=== PATIENT | male | born 1940 | race Caucasian/White ===

== ENCOUNTER 2017-02-21 13:21 | Outpatient (CLI) | payer MEDICARE, OTHER ==
[~2017-02-21 13:21] MED LIST: ASPI-605 PO; ATORVASTATIN TAB 10MG PO; CARV25TA PO; CARV25TA2 PO; CINA30TA PO; CLOP75TA2 PO; DICY20TA11 PO; DILT240C94; IMDUR PO; INSU100C10 SQ; ISOS30TA6 PO; LANT500T2 PO; LUTE20CA PO; NIAC500T8 PO; NIFE60TA69; OMEG10007 PO; PREG25CA PO; RABE20TA5 PO; RESV250C2 PO; SYRI1DIS86; UBIQ200C PO; VALS160T2 PO; VITA1CAP PO; [UNRECOGNIZED DRUG - CODE] PO
== END 2017-02-21 23:59 | disposition home or self-care (01) ==
LOC: VASLAB 13:21
PROVIDERS: ATTEND Surgery Vascular Surgery
DX: Z98.62 Peripheral vascular angioplasty status (principal); Z09 Encounter for follow-up examination after completed treatment for conditions other than malignant neoplasm; Z99.2 Dependence on renal dialysis
CPT/HCPCS: G0463

== ENCOUNTER 2017-06-14 12:26 | Outpatient (CLI) | payer MEDICARE, OTHER | END 2017-06-14 23:59 | disposition home or self-care (01) | LOC: RAD 12:26 | PROVIDERS: ATTEND Podiatrist Foot & Ankle Surgery | DX: M89.8X8 Other specified disorders of bone, other site (principal); M17.12 Unilateral primary osteoarthritis, left knee | CPT/HCPCS: 73590-TC ==

== ENCOUNTER 2017-06-15 10:38 | Outpatient (CLI) | payer MEDICARE, OTHER | END 2017-06-15 23:59 | disposition home or self-care (01) | LOC: WOU 10:38 | PROVIDERS: ATTEND Podiatrist Foot & Ankle Surgery | DX: M25.772 Osteophyte, left ankle (principal); E11.41 Type 2 diabetes mellitus with diabetic mononeuropathy; Z89.411 Acquired absence of right great toe; E11.51 Type 2 diabetes mellitus with diabetic peripheral angiopathy without gangrene; Z98.62 Peripheral vascular angioplasty status; M21.379 Foot drop, unspecified foot; I25.2 Old myocardial infarction | CPT/HCPCS: G0463 ==

== ENCOUNTER 2017-08-04 10:27 | Outpatient (CLI) | payer MEDICARE, OTHER | END 2017-08-04 23:59 | disposition home or self-care (01) | LOC: RAD 10:27 | DX: I51.7 Cardiomegaly (principal); I70.0 Atherosclerosis of aorta; M47.894 Other spondylosis, thoracic region; R91.8 Other nonspecific abnormal finding of lung field | CPT/HCPCS: 71020-TC ==

== ENCOUNTER 2017-08-20 06:33 | Inpatient (IN) | payer MEDICARE, OTHER ==
[~2017-08-20] VITALS: Ht 172.7 cm; Wt 59.0 kg
[2017-08-20] VITALS (51 sets, daily range): BP systolic 93–169; BP diastolic 46–102
--- NOTE | 2017-08-20 06:33 | NUR ---
TO BED 3 BIB C/O SEVERE SOB, CRACKLES HEARD BILATERALLY ON AUSCULTATION. PT AAOX4. PLACE PT ON CARDIAC MONITORING, CONTINUOUS POX, O2@15L/NONREBREATHER MASK. ER MD AT BEDSIDE TO EVAL PT WITH ORDER TO PREP PT FOR INTUBATION. RT PAGED FOR INTUBATION. SKIN WARM, DIAPHORETIC.
--- NOTE | 2017-08-20 06:35 | NUR ---
DR. AYALA AT BEDSIDE; RT CALLED FOR INTUBATION.
[2017-08-20] MEDS ORDERED: SUCCINYLCHOLINE CHLORIDE 20 MG/ML VIAL IV ONE ×2 (06:36→07:00)
[2017-08-20] MEDS ORDERED: FEE EMEERGENCY 1 MIN EA MC ONE (06:36)
[2017-08-20] MEDS ORDERED: ETOMIDATE 2 MG/ML VIAL IV ONE ×2 (06:36→07:00)
--- NOTE | 2017-08-20 06:41 | NUR ---
CALLED FIRE SPRINKLER INSPECTOR FOR ICU BED
[2017-08-20] MEDS ORDERED: PROPOFOL 100 ML IV ONE (06:45)
--- NOTE | 2017-08-20 06:48 | NUR ---
BILATERAL SOFT WRIST RESTRAINTS APPLIED PER ER MD ORDER.
[2017-08-20] MEDS ORDERED: FUROSEMIDE 40 MG/4 ML VIAL ONE (06:58)
[2017-08-20] MEDS ORDERED: ASPIRIN 300 MG/SUPP.RECT RC ONE ×2 (06:58→07:00)
--- NOTE | 2017-08-20 06:59 | NUR ---
VENT SETTINGS: AC 16 TV 500 FiO2 100% PEEP 5
[2017-08-20] MEDS ORDERED: FUROSEMIDE 40 MG/4 ML VIAL IV ONE (07:00)
--- NOTE | 2017-08-20 07:00 | NUR ---
HUBER GALO AT BEDSIDE TALKIN TO PT FAMILY MEMBERS.
[2017-08-20 07:04] LABS: BASOPHILS % (AUTO) 0.5 % (0.0-2.0); EOSINOPHILS # (AUTO) 0.2 /CMM (0.0-0.7); EOSINOPHILS % (AUTO) 2.3 % (0.0-6.0); HEMATOCRIT 41 % (39-51); HEMOGLOBIN 13.5 g/dL (13.5-17.5); LYMPHOCYTES % (AUTO) 20.8 % (20.0-44.0); MEAN CORPUSCULAR HEMOGLOBIN 30 PG (26.0-33.0); MEAN CORPUSCULAR HGB CONC 33 g/dl (31.0-36.0); MEAN CORPUSCULAR VOLUME 90 fL (80-96); MONOCYTES # (AUTO) 0.6 /CMM (0.1-1.30); MONOCYTES % (AUTO) 6.2 % (2.0-12.0); NEUTROPHILS # (AUTO) 6.7 /CMM (1.8-8.9); NEUTROPHILS % (AUTO) 70.2 % (43.0-81.0); PLATELET COUNT (AUTO) 235 /CMM (150-450); RDW COEFFICIENT OF VARIATION 17.2 (11.5-15.0); RED BLOOD CELL COUNT(AUTO) 4.52 MIL/uL (4.5-6.0); WHITE BLOOD COUNT (AUTO) 9.6 K/uL (4.3-11.0)
[2017-08-20] MEDS ORDERED: MIDAZOLAM HCL 5 MG/5ML VIAL ONE (07:08)
--- NOTE | 2017-08-20 07:10 | NUR ---
PT REC'D ON NC4L. RESP DISTRESS NOTED. PT INTUBATED VIA ETT SZ 8 24 @ LIP. PT PLACED ON NOTED SETTING PER DR COOPER MUNOZ. SUPERVISOR DRYING AND WINDING CUFF PRESSURE NOTED. SX'D SMALL AMT OF YELLOW SECRETIONS. CLEAR B/S HEARD BILATERALLY. VENT PLUGGED INTO RED OUTLET, ALARMS ARE SET AND AUDIBLE PER POLICY, AMBU BAG BEDSIDE. WILL CONTINUE TO MONITOR. Addendum: 08/20/17 at 0712 by LALO MIKE RT Amended: Links added.
[2017-08-20 07:22] LABS: INR 1.04 (0.87-1.13); PROTHROMBIN TIME 10.8 SECS (9.5-12.7); TROPONIN I 0.017 ng/mL (0.00-0.056)
[2017-08-20 07:25] LABS: CARBON DIOXIDE 33 mmol/L (21-32); CHLORIDE 103 mmol/L (98-107); CREATININE 5.5 mg/dL (0.6-1.3); GLUCOSE 138 mg/dL (74-106); POTASSIUM 5.1 mmol/L (3.5-5.1); SODIUM SERUM 142 mmol/L (136-145); UREA NITROGEN, BLOOD 34 mg/dL (7-18)
--- NOTE | 2017-08-20 07:26 | NUR ---
REPORT GIVEN TO AM SHIFT COLE RAMIREZ FOR CONTINUITY OF CARE.
[2017-08-20 07:28] LABS: ABG BASE EXCESS 4.2 mmol/L; ABG OXYGEN SATURATION 98.8 % (92.0-98.5); ABG PCO2 46.8 mmHg (35.0-45.0); ABG PH 7.416 (7.350-7.450); ABG PO2 362.7 mmHg (75.0-100.0); AaDO2 303.5 mmHg; COHb 0.7 % (0.5-1.5); MetHb 0.5 % (0.0-1.5); O2Hb 97.6 % (94.0-97.0); SITE, ABG Right Radial; VENT MODE, BG AC 16 500 100% +5
[2017-08-20] MEDS ORDERED: MIDAZOLAM HCL 100 MG in IV NS 0.9% 80 ML IV PRN (07:30)
[2017-08-20] MEDS ORDERED: PROPOFOL 100 ML IV PRN (07:30)
[2017-08-20] MEDS ORDERED: MIDAZOLAM HCL 5 MG/5ML VIAL IV ONE (07:30)
[2017-08-20 07:34] LABS: ALANINE AMINOTRANSFERASE 25 U/L (12-78); ALKALINE PHOSPHATASE 127 U/L (46-116); ASPARTATE AMINOTRANSFERASE 22 U/L (15-37); BILIRUBIN,DIRECT 0.1 mg/dL (0.0-0.2); BILIRUBIN,TOTAL 0.6 mg/dL (0.2-1.0); TOTAL PROTEIN, SERUM 8.2 g/dL (6.4-8.2)
--- NOTE | 2017-08-20 07:51 | NUR ---
PER LAST HD-- 08/19/17
--- NOTE | 2017-08-20 07:53 | NUR ---
ICU 254
[2017-08-20] MEDS ORDERED: KEY,NONCONTROL,TO KEEP IN PYXI 1 EA MC ONE (07:55)
--- NOTE | 2017-08-20 08:11 | NUR ---
REPORT GIVEN TO RN JOB FOR CONTINUITY OF CARE
[2017-08-20] MEDS ORDERED: VALS160T2 PO (08:35)
[2017-08-20] MEDS ORDERED: ATOR40TA PO (08:35)
[2017-08-20] MEDS ORDERED: NIFE30TA89 PO (08:35)
[2017-08-20] MEDS ORDERED: GABA-532 PO (08:35)
[2017-08-20] MEDS ORDERED: CINA30TA PO (08:35)
--- NOTE | 2017-08-20 08:46 | NUR ---
PT TRANSPORTED TO ICU,. VSS
[2017-08-20 08:47] LABS: B-TYPE NATRIURETIC PEPTIDE 50007 PG/ML (0-125)
--- NOTE | 2017-08-20 09:20 | NUR ---
RT ETT ADJUSTED FROM 25CM TO 24CM SECURED AT THE LIP LINE PER DR. HOOD ORDERS. EQUAL BILATERAL BREATHE SOUNDS AND CHEST RISE. PROFESSOR OF SURGERY CUFF PRESSURE NOTED. POST X-RAY APPEARS TO SHOW TIP OF ETT BELOW THE CLAVICLES. NO SIGNS OF RESPIRATORY DISTRESS NOTED AT THIS TIME.
[2017-08-20] MEDS ORDERED: DEXTROSE 50%-WATER 50 ML DISP.SYRIN IV PRN (09:30)
[2017-08-20] MEDS ORDERED: ENOXAPARIN SODIUM 30 MG/0.3 ML DISP.SYRIN SQ SCH (09:53)
[2017-08-20] MEDS: ISOSORBIDE MONONITRATE (30MG) 30 MG TAB.SR.24H PO SCH (09:54)
[2017-08-20] MEDS: NIFEdipine XL (30MG) 30 MG TAB PO SCH (09:56)
[2017-08-20] MEDS: CARVEDILOL 12.5 MG TABLET PO SCH ×2 (09:58→20:29)
[2017-08-20] MEDS: VALSARTAN 80 MG TABLET PO SCH (10:39)
[2017-08-20] MEDS: GABAPENTIN 100 MG CAPSULE PO SCH (10:39)
[2017-08-20] MEDS: CLOPIDOGREL BISULFATE 75 MG TABLET PO SCH (10:39)
--- NOTE | 2017-08-20 10:48 | NUR ---
DR. HOOD ORDERS TO HAVE RADIOLOGY AND RT COME IN TO READJUST THE ETT TUBE FOR POSSIBLE LEAK. CALLED BOTH DEPARTMENTS AND COORDINATED, 1CM ORDER TO PULL ETT TUBE OUT. NO MORE AUDIBLE GURGLING.
--- NOTE | 2017-08-20 11:12 | NUR ---
DR. MAX ON THE UNIT, REVIEWS THE LATEST CXR REGARDING ETT TUBE PLACEMENT, DETERMINES IT IS IN ACCEPTABLE POSITION, RT PRESENT WELL. CURRENT TUBE PLACEMENT IS 24CM AT LIP.
[2017-08-20] MEDS: PROPOFOL 100 ML IV PRN ×2 (11:14→19:34)
[2017-08-20] MEDS: BLOOD SUGAR DIAGNOSTIC 1 EACH STRIP IN SCH ×2 (15:23→17:44)
--- NOTE | 2017-08-20 15:24 | NUR ---
HEMODIALYSIS NURSE IN FOR TX
[2017-08-20] MEDS ORDERED: ALBUMIN 25% 25 GM in PREMIX 1 EA IV PRN (15:30)
--- NOTE | 2017-08-20 18:11 | NUR ---
HD COMPLETE 1.5 LITERS REMOVED, PT TOLERATED PROCEDURE WELL.
[2017-08-20] MEDS: ATORVASTATIN 40 MG TABLET PO SCH (21:56)
[2017-08-21] VITALS (69 sets, daily range): BP systolic 93–166; BP diastolic 42–68
[2017-08-21] MEDS: BLOOD SUGAR DIAGNOSTIC 1 EACH STRIP IN SCH ×4 (01:02→17:18)
--- NOTE | 2017-08-21 01:16 | NUR ---
IGNITER ASSEMBLER DF ACCU CHECK OF 91 NO COVERAGE. I WILL RECHECK IN 6 HOURS/PRN.
[2017-08-21 04:46] LABS: ALBUMIN 3.3 g/dL (3.4-5.0); ALKALINE PHOSPHATASE 90 U/L (46-116); BASOPHILS # (AUTO) 0.1 /CMM (0.0-0.2); BASOPHILS % (AUTO) 0.6 % (0.0-2.0); BILIRUBIN,TOTAL 0.9 mg/dL (0.2-1.0); CALCIUM, SERUM 9.1 mg/dL (8.5-10.1); CARBON DIOXIDE 30 mmol/L (21-32); CHLORIDE 102 mmol/L (98-107); CREATININE 5.4 mg/dL (0.6-1.3); EOSINOPHILS % (AUTO) 0.3 % (0.0-6.0); GLUCOSE 102 mg/dL (74-106); HEMATOCRIT 30 % (39-51); HEMOGLOBIN 9.9 g/dL (13.5-17.5); LYMPHOCYTES # (AUTO) 1.2 /CMM (0.8-4.8); MEAN CORPUSCULAR HEMOGLOBIN 30 PG (26.0-33.0); MEAN CORPUSCULAR HGB CONC 33 g/dl (31.0-36.0); MEAN CORPUSCULAR VOLUME 90 fL (80-96); MONOCYTES # (AUTO) 0.9 /CMM (0.1-1.30); NEUTROPHILS # (AUTO) 6.7 /CMM (1.8-8.9); NEUTROPHILS % (AUTO) 76.1 % (43.0-81.0); PLATELET COUNT (AUTO) 138 /CMM (150-450); POTASSIUM 4.7 mmol/L (3.5-5.1); RDW COEFFICIENT OF VARIATION 16.8 (11.5-15.0); RED BLOOD CELL COUNT(AUTO) 3.36 MIL/uL (4.5-6.0); SODIUM SERUM 140 mmol/L (136-145); TOTAL PROTEIN, SERUM 6.2 g/dL (6.4-8.2); UREA NITROGEN, BLOOD 33 mg/dL (7-18); WHITE BLOOD COUNT (AUTO) 8.9 K/uL (4.3-11.0)
[2017-08-21 04:55] LABS: ALANINE AMINOTRANSFERASE 27 U/L (12-78); ASPARTATE AMINOTRANSFERASE 40 U/L (15-37); PHOSPHORUS 2.8 mg/dL (2.5-4.9)
[2017-08-21 05:03] LABS: MAGNESIUM 1.6 mg/dL (1.8-2.4)
[2017-08-21 05:06] LABS: CHOLESTEROL 109 mg/dL (<200); CREATINE KINASE, TOTAL 183 U/L (39-308); HDL CHOLESTEROL 27 mg/dL (40-60); LDL 47 mg/dL (0-99); TRIGLYCERIDES 228 mg/dL (30-150)
[2017-08-21 05:10] LABS: TROPONIN I 7.521 ng/mL (0.00-0.056)
--- NOTE | 2017-08-21 05:13 | NUR ---
DRIVER MANAGER DF RECEIVED CRITICAL VALUE OF TROPONIN 7.52. THIS IS THE 2ND DRAW, REMAINS ELEVATED ON REPEAT OF 7.52. PT ESRD PT. PT BEING FOLLOWED BY CARDIOLOGY MD HOOD I WILL NOTIFY MD OF RESULTS. VSS. NAD NOTED. PT SEDATED ON DIPRIVAN AT 40 MCG/MIN. POC WEAN TRIAL IN AM.
[2017-08-21] MEDS: PROPOFOL 100 ML IV PRN ×3 (08:01→21:39)
[2017-08-21] MEDS: CINACALCET HCL 30 MG TABLET PO SCH (08:16)
[2017-08-21] MEDS: GABAPENTIN 100 MG CAPSULE PO SCH (08:16)
[2017-08-21] MEDS ORDERED: HEPARIN SODIUM, PORCINE 5000 UNITS/1 ML VIAL IV ONE (09:16)
[2017-08-21] MEDS: CLOPIDOGREL BISULFATE 75 MG TABLET PO SCH (09:48)
--- NOTE | 2017-08-21 10:40 | NUR ---
FAMILY PRACTICE DOCTOR NOTE 0720: Received patient sedated. With ETT to vent, tolerated settings well. No respiratory distress noted at this time. SR 70's with BBB on the monitor. Right NGT intact, clamped. PIVs intact. ROBIN AV shunt + bruit/thrill. On Diprivan @ 40mcg. 0830: Rendered sedation vacation but noted @ 0830 with high BP and facial grimace, will keep on 20mcg of Dirivan for now. 0845: Called [facility] and said somebody will be on the way for HD today, made aware, held BP meds for now. 0940: S/E by Dr. Rojas, said will try weaning after HD. 0900: S/E by Dr. Pereira, aware patient to be starting on Heparin drip, per MD might need to transfer to other hospital when able to for cardiac cath. Made MD aware unable to get urine specimen for anuric and diaper almost dry all the time and no UOP from in and out. 1030: Kept on following up on Heparin drip, awaiting pharmacy delivery. at bedside, made aware for the plan of care, all questions and concerns were answered.
[2017-08-21] MEDS: HEPARIN INFUSION/D5W 500 ML IV PRN (11:15)
[2017-08-21] MEDS: VALSARTAN 80 MG TABLET PO SCH (12:29)
[2017-08-21] MEDS: CARVEDILOL 12.5 MG TABLET PO SCH ×2 (12:29→21:32)
[2017-08-21] MEDS: NIFEdipine XL (30MG) 30 MG TAB PO SCH (12:30)
[2017-08-21] MEDS: ISOSORBIDE MONONITRATE (30MG) 30 MG TAB.SR.24H PO SCH (12:30)
[2017-08-21] MEDS: INSULIN REGULAR, HUMAN 100 UNIT/ML 3 ML VIAL SQ PRN (12:35)
--- NOTE | 2017-08-21 15:15 | NUR ---
FLOW TRADER NOTE HD still ongoing, MRSA nares resulted positive, made Dr. Pereira aware, awaiting for new order.
--- NOTE | 2017-08-21 16:00 | NUR ---
AERONAUTICAL ENGINEERING OFFICER NOTE Done with HD, rendered sedation vacation but patient is agitated, does not follow commands. Only opens eyes and trying to remove ETT, titrated Diprivan higher and made patient sedated.
--- NOTE | 2017-08-21 19:30 | NUR ---
SENIOR OPERATIONS ANALYST INITIAL NOTE RECEIVED REPORT FROM COLLIN GALVAN. PT IN BED. INTUBATED AND SEDATED ON PROPOFOL. LUNG SOUNDS DIMINISHED. BOWEL SOUNDS PRESENT. PULSES PRESENT. IV PATENT AND INTACT, HEPARIN RUNNING AT 960 UNITS. NEXT PTT 0500. INCONTINENT TO STOOL. ANURIC. REPOSITIONED FOR COMFORT. BED IN LOW LOCKED POSITION. WILL CONTINUE TO MONITOR.
[2017-08-21] MEDS: ATORVASTATIN 40 MG TABLET PO SCH (21:31)
[2017-08-21] MEDS: MUPIROCIN OINT 2% 22 GM TUBE SCH (21:31)
[2017-08-22] VITALS (57 sets, daily range): BP systolic 85–146; BP diastolic 33–82
[2017-08-22] MEDS: BLOOD SUGAR DIAGNOSTIC 1 EACH STRIP IN SCH ×4 (00:11→18:29)
[2017-08-22] MEDS: INSULIN REGULAR, HUMAN 100 UNIT/ML 3 ML VIAL SQ PRN ×4 (00:12→18:31)
--- NOTE | 2017-08-22 03:00 | NUR ---
CHECKROOM ATTENDANT PT IN BED. INTUBATED AND SEDATED. PT GIVEN BED BATH. REPOSITIONED FOR COMFORT. BED IN LOW LOCKED POSITION. WILL CONTINUE TO MONITOR.
[2017-08-22] MEDS: PROPOFOL 100 ML IV PRN (03:09)
[2017-08-22 04:53] LABS: BASOPHILS # (AUTO) 0.1 /CMM (0.0-0.2); BASOPHILS % (AUTO) 0.5 % (0.0-2.0); EOSINOPHILS # (AUTO) 0.1 /CMM (0.0-0.7); EOSINOPHILS % (AUTO) 0.6 % (0.0-6.0); HEMATOCRIT 32 % (39-51); HEMOGLOBIN 10.5 g/dL (13.5-17.5); LYMPHOCYTES # (AUTO) 0.7 /CMM (0.8-4.8); LYMPHOCYTES % (AUTO) 6.3 % (20.0-44.0); MEAN CORPUSCULAR HEMOGLOBIN 30 PG (26.0-33.0); MEAN CORPUSCULAR HGB CONC 33 g/dl (31.0-36.0); MEAN CORPUSCULAR VOLUME 91 fL (80-96); MONOCYTES # (AUTO) 0.7 /CMM (0.1-1.30); MONOCYTES % (AUTO) 6.6 % (2.0-12.0); NEUTROPHILS # (AUTO) 9.2 /CMM (1.8-8.9); PLATELET COUNT (AUTO) 136 /CMM (150-450); RDW COEFFICIENT OF VARIATION 17.8 (11.5-15.0); WHITE BLOOD COUNT (AUTO) 10.7 K/uL (4.3-11.0)
[2017-08-22 05:02] LABS: CALCIUM, SERUM 8.6 mg/dL (8.5-10.1); CARBON DIOXIDE 31 mmol/L (21-32); CHLORIDE 99 mmol/L (98-107); CREATININE 5.2 mg/dL (0.6-1.3); GLUCOSE 166 mg/dL (74-106); POTASSIUM 4.3 mmol/L (3.5-5.1); SODIUM SERUM 136 mmol/L (136-145); UREA NITROGEN, BLOOD 33 mg/dL (7-18)
[2017-08-22 05:03] LABS: ALANINE AMINOTRANSFERASE 108 U/L (12-78); ALBUMIN 2.7 g/dL (3.4-5.0); ALKALINE PHOSPHATASE 86 U/L (46-116); ASPARTATE AMINOTRANSFERASE 73 U/L (15-37); BILIRUBIN,TOTAL 0.8 mg/dL (0.2-1.0); MAGNESIUM 1.9 mg/dL (1.8-2.4); PHOSPHORUS 3.7 mg/dL (2.5-4.9); TOTAL PROTEIN, SERUM 5.9 g/dL (6.4-8.2)
[2017-08-22 05:21] LABS: TROPONIN I 2.778 ng/mL (0.00-0.056)
[2017-08-22] MEDS: CARVEDILOL 12.5 MG TABLET PO SCH ×2 (09:00→22:08)
[2017-08-22] MEDS ORDERED: DC PROPOFOL WHEN EXTUBATED XX PRN (09:00)
[2017-08-22] MEDS: MUPIROCIN OINT 2% 22 GM TUBE SCH ×2 (09:17→22:09)
[2017-08-22] MEDS: NIFEdipine XL (30MG) 30 MG TAB PO SCH (09:38)
[2017-08-22] MEDS: GABAPENTIN 100 MG CAPSULE PO SCH (09:38)
[2017-08-22] MEDS: VALSARTAN 80 MG TABLET PO SCH (09:38)
[2017-08-22] MEDS: CLOPIDOGREL BISULFATE 75 MG TABLET PO SCH (09:38)
[2017-08-22] MEDS: CINACALCET HCL 30 MG TABLET PO SCH (09:38)
[2017-08-22] MEDS: ISOSORBIDE MONONITRATE (30MG) 30 MG TAB.SR.24H PO SCH (09:38)
[2017-08-22 10:02] LABS: ABG BASE EXCESS 5.5 mmol/L; ABG OXYGEN SATURATION 97.6 % (92.0-98.5); ABG PCO2 34.5 mmHg (35.0-45.0); ABG PH 7.531 (7.350-7.450); ABG PO2 115.4 mmHg (75.0-100.0); AaDO2 130.1 mmHg; MetHb 0.2 % (0.0-1.5); O2Hb 97.4 % (94.0-97.0); PEEP,BG 5 cm H2O; SITE, ABG Right Brachial; VT, ABG 500 mL
--- NOTE | 2017-08-22 10:09 | NUR ---
PATIENT AWAKE AND ALERT. EXTUBATED AT THIS TIME PER 'S ORDERS. PLACED ON 3LPM VIA NASAL CANNULA. SP02=99% TOLERATING WELL AT THIS TIME. WILL CONTINUE TO MONITOR.
--- NOTE | 2017-08-22 10:53 | NUR ---
RESIDENT CARE ASSOCIATE NOTE 0900: Turned off Diprivan for weaning preparation. Patient is awake, placed on SIMV mode by RT per Dr. Rojas. 1000: Patient able to follow commands, ABG done, Dr. Rojas in the unit aware for the result, with order of extubation. at bedside aware for the order. 1010: Patient tolerated extubation. Able to cough. Still noted with secretions. Kept HOB elevated. Kept on 3LPM of O2 via NC. 1040: HD nurse at bedside for HD today.
--- NOTE | 2017-08-22 10:58 | NUR ---
GAMEMASTER - BG - Patient was given Metformin 500 mg late because we did not get it from pharmacy on time. Addendum: 08/22/17 at 1833 by MAYELA HENRY RN disregard, note for another patient.
[2017-08-22] MEDS ORDERED: LEVOFLOXACIN 750 MG /D5W 150ML 750 MG in PREMIX 1 EA IV ONE (14:00)
[2017-08-22] MEDS ORDERED: ALBUTEROL HALF STRENGTH 1.25 MG/3 ML VIAL.NEB NEB PRN (14:30)
[2017-08-22] MEDS ORDERED: IPRATROPIUM NEB FS 0.5 MG/2.5 ML AMPUL.NEB NEB PRN (14:30)
[2017-08-22] MEDS: LACTOBACILLUS RHAMNOSUS GG 1 EACH CAP.SPRINK PO SCH (16:59)
[2017-08-22] MEDS: HEPARIN INFUSION/D5W 500 ML IV PRN (17:01)
--- NOTE | 2017-08-22 18:33 | NUR ---
STONEMASON NOTE Patient doing very well after extubation. Still has a lot of oral secretions. Patient was started on breathing treatments of albuterol, atrovent and mucomyst today per MD order. Vital signs holding steady after dialysis. Remains on 3 liters nasal cannula. Heparin now infusing at 910 units/hr. Contact isolation maintained and observed.
--- NOTE | 2017-08-22 19:16 | NUR ---
OCCUPATIONAL PHYSICIAN. INITIAL ASSESSMENT. RECEIVED THE PT REST ON THE BED. AWAKE, ALERT, FOLLOW COMMANDS. DEHYDRATION PLANT OPERATOR SHOWING NSR WITH BBB. OXYGEN 4L VIA NASAL CANNULA. SAT 98%. NO ACUTE DISTRESS NOTED. IV RT HAND HEPARIN 910 UNITS. HOB ELEVATED. NPO. WILL CONTINUE TO MONITOR VITALS.
[2017-08-22] MEDS: IPRATROPIUM NEB FS 0.5 MG/2.5 ML AMPUL.NEB NEB SCH (19:31)
[2017-08-22] MEDS: ACETYLCYSTEINE 10% SOLN 400 MG/4 ML VIAL NEB SCH (19:31)
[2017-08-22] MEDS: ALBUTEROL HALF STRENGTH 1.25 MG/3 ML VIAL.NEB NEB SCH (19:31)
[2017-08-22] MEDS: ATORVASTATIN 40 MG TABLET PO SCH (22:08)
[2017-08-22] MEDS ORDERED: ACETAMINOPHEN 325 MG TABLET ONE (23:41)
[2017-08-23] VITALS (30 sets, daily range): BP systolic 85–142; BP diastolic 38–66
[2017-08-23] MEDS: ACETAMINOPHEN 325 MG TABLET PO PRN (00:08)
[2017-08-23] MEDS: BLOOD SUGAR DIAGNOSTIC 1 EACH STRIP IN SCH ×5 (00:09→23:57)
[2017-08-23] MEDS: IPRATROPIUM NEB FS 0.5 MG/2.5 ML AMPUL.NEB NEB SCH ×4 (00:55→19:56)
[2017-08-23] MEDS: ALBUTEROL HALF STRENGTH 1.25 MG/3 ML VIAL.NEB NEB SCH ×4 (00:55→19:56)
--- NOTE | 2017-08-23 02:56 | NUR ---
WRAPPING CLERK. AM CARE. ORAL CARE, BED BATH GIVEN. LINEN CHANGED. REMAINING SAME OXYGEN TOLERATED WELL. SAT 98%/ NO ACUTE DISTRESS NOTES, CARDIAC MONIYOR SHOWING NSR. IV RT UPPER ARM MID LINE. HEPARIN 910UNITS/H. HOB ELEVATED. NPO. FTURN AND REPOSITION Q2H. WILL CONTINUE TO MONITOR VITALS.
[2017-08-23 04:28] LABS: BASOPHILS # (AUTO) 0.1 /CMM (0.0-0.2); BASOPHILS % (AUTO) 1.6 % (0.0-2.0); EOSINOPHILS # (AUTO) 0.1 /CMM (0.0-0.7); EOSINOPHILS % (AUTO) 1.4 % (0.0-6.0); HEMATOCRIT 26 % (39-51); HEMOGLOBIN 8.7 g/dL (13.5-17.5); LYMPHOCYTES # (AUTO) 0.8 /CMM (0.8-4.8); LYMPHOCYTES % (AUTO) 10.1 % (20.0-44.0); MEAN CORPUSCULAR HEMOGLOBIN 30 PG (26.0-33.0); MEAN CORPUSCULAR HGB CONC 33 g/dl (31.0-36.0); MEAN CORPUSCULAR VOLUME 91 fL (80-96); MONOCYTES # (AUTO) 0.6 /CMM (0.1-1.30); MONOCYTES % (AUTO) 7.5 % (2.0-12.0); NEUTROPHILS # (AUTO) 6.4 /CMM (1.8-8.9); NEUTROPHILS % (AUTO) 79.4 % (43.0-81.0); PLATELET COUNT (AUTO) 130 /CMM (150-450); RDW COEFFICIENT OF VARIATION 16.9 (11.5-15.0); RED BLOOD CELL COUNT(AUTO) 2.88 MIL/uL (4.5-6.0)
[2017-08-23 04:46] LABS: CALCIUM, SERUM 8.3 mg/dL (8.5-10.1); CARBON DIOXIDE 33 mmol/L (21-32); CHLORIDE 100 mmol/L (98-107); CREATININE 5.1 mg/dL (0.6-1.3); GLUCOSE 117 mg/dL (74-106); POTASSIUM 4.4 mmol/L (3.5-5.1); SODIUM SERUM 138 mmol/L (136-145); UREA NITROGEN, BLOOD 31 mg/dL (7-18)
--- NOTE | 2017-08-23 07:30 | NUR ---
EXECUTIVE CANDIDATE DEVELOPER- RECEIVED PT A/0 X4, RESTING COMFORTABLY IN BED. ON 3L NC, RESPIRATIONS EVEN AND UNLABORED, NO SOB OR DISTRESS PRESENT. BEDSIDE MONITOR REVEALS SINUS RHYTHM WITH BUNDLE BRANCH BLOCK. RFA 20G RUNNING HEPARIN GTT AT 860 UNITS/HR. NEXT PTT AT 1100. RIGHT HAND 18G HL FLUSHED, PATENT AND INTACT. BOTH IV SITES FREE OF REDNESS, SWELLING AND INFLAMMATION. PT REMAINS NPO EXCEPT MEDS. SAFETY MEASURES TAKEN: BED LOCKED AND IN LOW POSITION, SIDE RAILS UP X2, BED ALARM ON AND CALL LIGHT WITHIN REACH, WILL CONTINUE TO MONITOR.
--- NOTE | 2017-08-23 07:47 | NUR ---
WOUND CARE CONSULT: PT PRESENTS WITH SACRAL SCARRING AND PERIANAL REDNESS. SCARRING NOTED TO LOWER EXTREMITIES AND RT HALLUX AMPUTATION HEALED AREA NOTED. ALL SKIN PROTECTION MEASURES IN PLACE AND DISCUSSED WITH NURSING STAFF. PT ON FIRST STEP MATTRESS. CURRENT LADAN SCORE IS 14. WILL SEE PRN. GALO IN AGREEMENT WITH PLAN OF CARE. Addendum: 08/23/17 at 0749 by SILVIA MIKE WNDNU Amended: Links added.
[2017-08-23] MEDS ORDERED: Z GUARD REMEDY 2 OZ OINT TP PRN (08:00)
[2017-08-23] MEDS: ACETYLCYSTEINE 10% SOLN 400 MG/4 ML VIAL NEB SCH ×2 (08:07→19:56)
[2017-08-23] MEDS: GABAPENTIN 100 MG CAPSULE PO SCH ×2 (09:00→09:18)
[2017-08-23] MEDS: CLOPIDOGREL BISULFATE 75 MG TABLET PO SCH (09:17)
[2017-08-23] MEDS: ASPIRIN EC 81 MG TABLET.DR PO SCH (09:17)
[2017-08-23] MEDS: ISOSORBIDE MONONITRATE (30MG) 30 MG TAB.SR.24H PO SCH (09:17)
[2017-08-23] MEDS: VALSARTAN 80 MG TABLET PO SCH (09:17)
[2017-08-23] MEDS: CARVEDILOL 12.5 MG TABLET PO SCH ×2 (09:18→21:40)
[2017-08-23] MEDS: LACTOBACILLUS RHAMNOSUS GG 1 EACH CAP.SPRINK PO SCH ×2 (09:19→17:53)
[2017-08-23] MEDS: NIFEdipine XL (30MG) 30 MG TAB PO SCH (09:19)
[2017-08-23] MEDS: CINACALCET HCL 30 MG TABLET PO SCH (09:19)
[2017-08-23] MEDS: MUPIROCIN OINT 2% 22 GM TUBE SCH ×2 (09:20→21:42)
[2017-08-23] MEDS: Z GUARD REMEDY 2 OZ OINT TP SCH (09:28)
--- NOTE | 2017-08-23 11:30 | NUR ---
MUD ANALYSIS OPERATOR- 1100 PTT= 71. PER HEPARIN PROTOCOL (FOR ACS), RATE DECREASED 50 UNITS/HR FROM 860 UNITS/HR TO 810 UNITS/HR. VERIFIED WITH TRUONG GALVAN. NEXT PTT ORDERED FOR 1730. WILL CONTINUE TO MONITOR.
[2017-08-23] MEDS: INSULIN REGULAR, HUMAN 100 UNIT/ML 3 ML VIAL SQ PRN ×3 (11:33→23:59)
[2017-08-23] MEDS ORDERED: EPOETIN ALFA (10,000 UNIT) 10,000 UNIT/ML VIAL IV ONE (12:00)
--- NOTE | 2017-08-23 13:30 | NUR ---
SWINE EXTENSION FIELD SPECIALIST- HD NURSE AT BEDSIDE FOR DIALYSIS. WILL CONTINUE TO MONITOR.
--- NOTE | 2017-08-23 17:45 | NUR ---
PATIENT OFFICE REP- DR. HAY AT BEDSIDE. PER MD, CARDIAC CATH SCHEDULED FOR THIS MONDAY. OK FOR PATIENT TO EAT. OBTAINED ORDER FOR RENAL/DIABETIC/CARDIAC DIET. ORDER PLACED. PT UPDATED WITH PLAN OF CARE. WILL CONTINUE TO MONITOR.
--- NOTE | 2017-08-23 18:08 | NUR ---
FINISH PHOTOGRAPHER- REPORT GIVEN TO RAMIRO GALVAN. PT TO TRANSFER TO [facility] ROOM 118-1.
[2017-08-23 18:16] LABS: HEMOGLOBIN 9.6 g/dL (13.5-17.5)
--- NOTE | 2017-08-23 18:30 | NUR ---
RN NOTES PATIENT STABLE S/P EGD , TOLERATED PROCEDURE WELL , V/S STABLE , NOT IN ACUTE DISTRESS, SPO2 OF 100% VIA MECHANICAL VENT SETTINGS ORDERED , POST OP ORDERS UNDER DR BRAXTON CARRIED OUT , FAXED TO PHARMACY . WILL CONTINUE TO MONITOR Addendum: 08/24/17 at 1248 by RAMIRO MATIAS RN WRONG PT
--- NOTE | 2017-08-23 18:50 | NUR ---
ASSISTANT MANAGER OF OPERATIONS- PT TRANSFERRED TO [facility] ROOM 111-1. FAMILY AT BEDSIDE.
--- NOTE | 2017-08-23 19:00 | NUR ---
RN NOTES RECEIVED PATIENT AOX3 , NOT IN ACUTE DISTRESS , DENIES SOB AND DISTRESS AT THIS TIME , SPO2 OF 98% VIA 2LPM NC , SR 65 WITH BBB ON TELE MONITOR , IV OF R FA # 20 AND R HAND # 18 PATENT AND INTACT SL , ROBIN AV SHUNT WITH BRUIT AND THRILL , ALL NEEDS ATTENDED , BED ON LOW AND LOCKED POSITION , SIDE RAILS X2 , CALL LIGHT WITHIN REACH , ISOLATION PRECAUTION OBSERVED WILL CONTINUE OT MONITOR .
--- NOTE | 2017-08-23 19:30 | NUR ---
TD RN: RECEIVED PT ALERT AND AWAKE. ABLE TO MAKE NEEDS KNOWN. ON 2LPM O2 VIA NC WT NO ACUTE DISTRESS. NO C/O PAIN OR EVIDENCE OF DISCOMFORT. SR WT BBB ON TELE MONITOR. ISOLATION PRECAUTION OBSERVED FOR MRSA NARES. NO S/S OF INFILTRATION ON RT. FA AND RT. HAND IV SITES. ROBIN AV SHUNT DRESSING CLEAN, DRY AND INTACT WT BRUIT AND THRILL NOTED. SON AT BEDSIDE, UPDATED STATUS. SAFETY PRECAUTION NOTED AT ALL TIMES. WILL CONTINUE TO MONITOR.
[2017-08-23] MEDS: ATORVASTATIN 40 MG TABLET PO SCH (21:40)
[2017-08-24] VITALS: BP 123/44
--- NOTE | 2017-08-24 00:30 | NUR ---
TD RN: NO MERCY, REMAINED A/O X3. BLOOD JNAOF=[id number]. REFUSED INSULIN COVERAGE DESPITE EXPLANATION AND RISKS AND BENEFITS. NO ACUTE DISTRESS, NO C/O PAIN. ABLE TO REPOSITION HIMSELF IN BED. SAFETY PRECAUTION NOTED.
[2017-08-24] MEDS: IPRATROPIUM NEB FS 0.5 MG/2.5 ML AMPUL.NEB NEB SCH ×4 (01:52→20:06)
[2017-08-24] MEDS: ALBUTEROL HALF STRENGTH 1.25 MG/3 ML VIAL.NEB NEB SCH ×4 (01:52→20:07)
[2017-08-24 04:00] VITALS: BP 122/44
--- NOTE | 2017-08-24 04:30 | NUR ---
SENIOR ACCOUNT EXECUTIVE: BED BATH GIVEN TOLERATED WELL WT SMALL AMT. OF SOFT BROWN STOOL. STOOL SPECIMEN FOR O.B. COLLECTED.
[2017-08-24] MEDS: BLOOD SUGAR DIAGNOSTIC 1 EACH STRIP IN SCH (06:00)
--- NOTE | 2017-08-24 06:30 | NUR ---
API DEVELOPER: REMAINED IN STABLE CONDITION. PT IS NO LONGER NPO STATUS SO WILL DEFER TO DAY SHIFT BLOOD SUGAR CHECK AND ASK MD TO CHANGE ACCUCHEK TO ACHS AND COVER WT NON-NPO INSULIN SLIDING SCALE. ALL NEEDS MET. SAFETY AND ISOLATION PRECAUTION NOTED AT ALL TIMES.
--- NOTE | 2017-08-24 07:15 | NUR ---
RN NOTES RECEIVED PATIENT AOX3 , NOT IN ACUTE DISTRESS , DENIES SOB AND DISTRESS AT THIS TIME , SPO2 OF 98% VIA 2LPM NC , SR 85 WITH BBB ON TELE MONITOR , IV OF R FA # 20 AND R HAND # 18 PATENT AND INTACT SL , ROBIN AV SHUNT WITH BRUIT AND THRILL , ALL NEEDS ATTENDED , BED ON LOW AND LOCKED POSITION , SIDE RAILS X2 , CALL LIGHT WITHIN REACH , ISOLATION PRECAUTION OBSERVED WILL CONTINUE OT MONITOR .
[2017-08-24] MEDS: ACETYLCYSTEINE 10% SOLN 400 MG/4 ML VIAL NEB SCH ×2 (07:45→20:07)
[2017-08-24 08:00] VITALS: BP 142/55
[2017-08-24] MEDS: GABAPENTIN 100 MG CAPSULE PO SCH (08:05)
[2017-08-24] MEDS: MUPIROCIN OINT 2% 22 GM TUBE SCH ×2 (08:05→21:21)
[2017-08-24] MEDS: VALSARTAN 80 MG TABLET PO SCH (08:05)
[2017-08-24] MEDS: ASPIRIN EC 81 MG TABLET.DR PO SCH (08:05)
[2017-08-24] MEDS: CINACALCET HCL 30 MG TABLET PO SCH (08:05)
[2017-08-24] MEDS: CARVEDILOL 12.5 MG TABLET PO SCH ×2 (08:06→21:22)
[2017-08-24] MEDS: LACTOBACILLUS RHAMNOSUS GG 1 EACH CAP.SPRINK PO SCH ×2 (08:06→17:09)
[2017-08-24] MEDS: Z GUARD REMEDY 2 OZ OINT TP SCH (08:06)
[2017-08-24] MEDS: CLOPIDOGREL BISULFATE 75 MG TABLET PO SCH (08:06)
[2017-08-24] MEDS: NIFEdipine XL (30MG) 30 MG TAB PO SCH (08:06)
[2017-08-24] MEDS: ISOSORBIDE MONONITRATE (30MG) 30 MG TAB.SR.24H PO SCH (08:06)
[2017-08-24 08:29] LABS: BASOPHILS % (AUTO) 0.4 % (0.0-2.0); EOSINOPHILS # (AUTO) 0.2 /CMM (0.0-0.7); EOSINOPHILS % (AUTO) 3.2 % (0.0-6.0); HEMATOCRIT 26 % (39-51); HEMOGLOBIN 8.5 g/dL (13.5-17.5); LYMPHOCYTES # (AUTO) 0.7 /CMM (0.8-4.8); LYMPHOCYTES % (AUTO) 11.5 % (20.0-44.0); MEAN CORPUSCULAR HEMOGLOBIN 30 PG (26.0-33.0); MEAN CORPUSCULAR HGB CONC 33 g/dl (31.0-36.0); MEAN CORPUSCULAR VOLUME 91 fL (80-96); MONOCYTES # (AUTO) 0.5 /CMM (0.1-1.30); MONOCYTES % (AUTO) 9.1 % (2.0-12.0); NEUTROPHILS # (AUTO) 4.3 /CMM (1.8-8.9); NEUTROPHILS % (AUTO) 75.8 % (43.0-81.0); PLATELET COUNT (AUTO) 154 /CMM (150-450); RED BLOOD CELL COUNT(AUTO) 2.84 MIL/uL (4.5-6.0); WHITE BLOOD COUNT (AUTO) 5.7 K/uL (4.3-11.0)
[2017-08-24 08:42] LABS: CARBON DIOXIDE 29 mmol/L (21-32); CHLORIDE 98 mmol/L (98-107); CREATININE 6.9 mg/dL (0.6-1.3); GLUCOSE 122 mg/dL (74-106); MAGNESIUM 2.1 mg/dL (1.8-2.4); POTASSIUM 4.6 mmol/L (3.5-5.1); SODIUM SERUM 136 mmol/L (136-145); UREA NITROGEN, BLOOD 52 mg/dL (7-18)
[2017-08-24] MEDS ORDERED: DEXTROSE 50%-WATER 50 ML DISP.SYRIN IV PRN (10:30)
--- NOTE | 2017-08-24 11:00 | NUR ---
RN NOTES SPOKE WITH ATUL SHANE , DISCUSSED PT WAS STARTED ON 2GM NA , CCHO 60GM AND RENAL HIGH DIET , PT IS STILL ON NPO SLIDING SCALE Q6 , PER MD CHANGE SLIDING SCALE TO ACHS MODERATE , DIETARY CONSULT OBTAINED , RECOMMENDING CCHO 60GM , RENAL HIGH AND 2GM NA DIET . LICENSED OPTICIAN AWARE
[2017-08-24 12:00] VITALS: BP 146/57
[2017-08-24] MEDS: INSULIN REGULAR, HUMAN 100 UNIT/ML 3 ML VIAL SQ PRN ×2 (12:09→17:35)
[2017-08-24] MEDS: BLOOD SUGAR DIAGNOSTIC 1 EACH STRIP VI SCH ×3 (12:11→21:22)
--- NOTE | 2017-08-24 12:49 | NUR ---
DUAL RATE SUPERVISOR NOTES SEEN AND EVALUATED BY DR VIPIN RITCHIE , DISCUSSED LABS , PT IS ASKING IF PHOSPATE BINDER CAN BE RESTARTED , PER MD , PHOSPHORUS LEVEL IS WNL , WE WILL HOLD PHOSPATE BINDERS FOR NOW , PT IS SCHEDULE FOR HD TODAY
--- NOTE | 2017-08-24 12:50 | NUR ---
RN NOTES HEMODIALSYIS STARTED , PT STABLE ,AFEBRILE , NOT IN ACUTE DISTRESS , V/S WNL , WILL CONTINUE TO MONITOR
[2017-08-24] MEDS ORDERED: LEVOFLOXACIN 500 MG /D5W 100ML 500 MG in PREMIX 1 EA IV SCH (14:00)
--- NOTE | 2017-08-24 15:46 | NUR ---
RN NOTES PT STABLE POST HD , NOT IN ACUTE DISTRESS , SPO2 OF 98% VIA 2LPM NC, BP OF 130/56 , JR 67 , TOLERATED HD WELL 2.6L OUT , WILL CONTINUE TO MONITOR
[2017-08-24 16:00] VITALS: BP 135/44
--- NOTE | 2017-08-24 19:24 | NUR ---
RN NOTES PATIENT STABLE AT THIS TIME NOT IN ACUTE DISTRESS , ON O2 OF 2LPM NC , SR 78 WITH BBB ON TELE MONITOR , IV OF R WIRST # 20 0 AND R HAND # 18 PATENT AND INTACT SL , ROBIN AV SHUNT WITH BRUIT AND THRILL , ALL NEEDS ATTENDED , BED ON LOW AND LOCKED POSITION , SIDE RAILS X2 , CALL LIGHT WITHIN REACH , ISOLATION PRECAUTION OBSERVED , RADIOLOGY CD ORDERED , NPO EXCEPT MEDS POST MIDNIGHT , REPORT GIVEN TO ERNESTO FOR CONTINUITY OF CARE
[2017-08-24 20:00] VITALS: BP 139/52
[2017-08-24] MEDS: ATORVASTATIN 40 MG TABLET PO SCH (21:21)
[2017-08-25] VITALS: BP_SYST 139; BP_SYST 149; BP_DIAS 50; BP_DIAS 52
[2017-08-25] MEDS: ALBUTEROL HALF STRENGTH 1.25 MG/3 ML VIAL.NEB NEB SCH ×4 (01:29→19:40)
[2017-08-25] MEDS: IPRATROPIUM NEB FS 0.5 MG/2.5 ML AMPUL.NEB NEB SCH ×4 (01:29→19:40)
--- NOTE | 2017-08-25 01:29 | NUR ---
RT PT REFUSED TX. PT WANTS TO SLEEP. NO SON OR DISTRESS NOTED AT THIS TIME. RN AWARE.
[2017-08-25] MEDS: ACETYLCYSTEINE 10% SOLN 400 MG/4 ML VIAL NEB SCH ×2 (07:30→19:40)
[2017-08-25] MEDS: BLOOD SUGAR DIAGNOSTIC 1 EACH STRIP VI SCH ×4 (07:30→21:10)
[2017-08-25 08:00] VITALS: BP 149/49
[2017-08-25] MEDS: CINACALCET HCL 30 MG TABLET PO SCH (09:00)
[2017-08-25] MEDS: GABAPENTIN 100 MG CAPSULE PO SCH (09:00)
[2017-08-25] MEDS: ASPIRIN EC 81 MG TABLET.DR PO SCH (09:00)
[2017-08-25] MEDS: ISOSORBIDE MONONITRATE (30MG) 30 MG TAB.SR.24H PO SCH (09:00)
[2017-08-25] MEDS: NIFEdipine XL (30MG) 30 MG TAB PO SCH (09:00)
[2017-08-25] MEDS: VALSARTAN 80 MG TABLET PO SCH (09:00)
[2017-08-25] MEDS: Z GUARD REMEDY 2 OZ OINT TP SCH (09:00)
[2017-08-25] MEDS: LACTOBACILLUS RHAMNOSUS GG 1 EACH CAP.SPRINK PO SCH ×2 (09:00→17:00)
[2017-08-25] MEDS: CARVEDILOL 12.5 MG TABLET PO SCH ×2 (09:00→21:00)
[2017-08-25] MEDS: MUPIROCIN OINT 2% 22 GM TUBE SCH ×2 (09:00→21:00)
[2017-08-25] MEDS: CLOPIDOGREL BISULFATE 75 MG TABLET PO SCH (09:00)
--- NOTE | 2017-08-25 10:15 | NUR ---
RN NOTE PT TRANSFERRED TO [facility] CARDIAC TRADE SALES ASSISTANT, VIA AMBULANCE, PT HAS NO BELONGINGS, REPORT GIVEN TO MCKENNA, , PT HAS BEEN NPO AND NO MORNING MEDS WERE ADMINISTERED. PT WAS STABLE AT TIME OF TRANSFER.
[2017-08-25 11:03] LABS: WHITE BLOOD COUNT (AUTO) 6.1 K/uL (4.3-11.0)
[2017-08-25 11:04] LABS: BASOPHILS % (AUTO) 0.5 % (0.0-2.0); EOSINOPHILS % (AUTO) 5.2 % (0.0-6.0); HEMATOCRIT 29 % (39-51); HEMOGLOBIN 9.7 g/dL (13.5-17.5); MEAN CORPUSCULAR HEMOGLOBIN 31 PG (26.0-33.0); MEAN CORPUSCULAR HGB CONC 34 g/dl (31.0-36.0); MEAN CORPUSCULAR VOLUME 91 fL (80-96); MONOCYTES % (AUTO) 9.8 % (2.0-12.0); NEUTROPHILS % (AUTO) 72.5 % (43.0-81.0); PLATELET COUNT (AUTO) 176 /CMM (150-450); RDW COEFFICIENT OF VARIATION 16.3 (11.5-15.0)
[2017-08-25 11:40] LABS: CALCIUM, SERUM 8.3 mg/dL (8.5-10.1); CARBON DIOXIDE 33 mmol/L (21-32); CHLORIDE 98 mmol/L (98-107); CREATININE 5.7 mg/dL (0.6-1.3); GLUCOSE 136 mg/dL (74-106); POTASSIUM 4.3 mmol/L (3.5-5.1); SODIUM SERUM 136 mmol/L (136-145); UREA NITROGEN, BLOOD 47 mg/dL (7-18)
[2017-08-25 16:00] VITALS: BP 117/52
--- NOTE | 2017-08-25 18:00 | NUR ---
RN NOTE PT CAME BACK FROM [facility] S/P CARDIAC CATH, R GROIN PUNCTURE SITE, DRESSING CLEAN AND DRY, INTACT, NO BLEEDING NOTED, VS STABLE, DENIES PAIN, CO HUNGER, DINNER PROVIDED.
[2017-08-25 20:00] VITALS: BP 134/46
[2017-08-25] MEDS: DOXYCYCLINE HYCLATE (100 MG) 100 MG TABLET PO SCH (21:10)
[2017-08-25] MEDS: ATORVASTATIN 40 MG TABLET PO SCH (21:10)
[2017-08-25] MEDS: *INSULIN REGULAR(HUMULIN R)HUM 100 UNIT/ML VIAL SQ PRN (21:12)
[2017-08-26] VITALS: BP 147/49
[2017-08-26] MEDS: IPRATROPIUM NEB FS 0.5 MG/2.5 ML AMPUL.NEB NEB SCH ×4 (01:52→19:51)
[2017-08-26] MEDS: ALBUTEROL HALF STRENGTH 1.25 MG/3 ML VIAL.NEB NEB SCH ×4 (01:52→19:51)
[2017-08-26 04:00] VITALS: BP 153/54
[2017-08-26 06:49] LABS: BASOPHILS % (AUTO) 0.5 % (0.0-2.0); EOSINOPHILS # (AUTO) 0.2 /CMM (0.0-0.7); HEMATOCRIT 31 % (39-51); HEMOGLOBIN 10.5 g/dL (13.5-17.5); LYMPHOCYTES # (AUTO) 0.8 /CMM (0.8-4.8); LYMPHOCYTES % (AUTO) 10.2 % (20.0-44.0); MEAN CORPUSCULAR HEMOGLOBIN 30 PG (26.0-33.0); MEAN CORPUSCULAR HGB CONC 34 g/dl (31.0-36.0); MEAN CORPUSCULAR VOLUME 90 fL (80-96); MONOCYTES # (AUTO) 0.6 /CMM (0.1-1.30); MONOCYTES % (AUTO) 7.5 % (2.0-12.0); NEUTROPHILS # (AUTO) 5.9 /CMM (1.8-8.9); NEUTROPHILS % (AUTO) 78.8 % (43.0-81.0); PLATELET COUNT (AUTO) 207 /CMM (150-450); RDW COEFFICIENT OF VARIATION 15.6 (11.5-15.0); RED BLOOD CELL COUNT(AUTO) 3.47 MIL/uL (4.5-6.0); WHITE BLOOD COUNT (AUTO) 7.4 K/uL (4.3-11.0)
[2017-08-26 06:51] LABS: CALCIUM, SERUM 8.6 mg/dL (8.5-10.1); CARBON DIOXIDE 30 mmol/L (21-32); CHLORIDE 95 mmol/L (98-107); CREATININE 7.4 mg/dL (0.6-1.3); GLUCOSE 165 mg/dL (74-106); POTASSIUM 5.1 mmol/L (3.5-5.1); SODIUM SERUM 136 mmol/L (136-145); UREA NITROGEN, BLOOD 64 mg/dL (7-18)
[2017-08-26] MEDS: ACETYLCYSTEINE 10% SOLN 400 MG/4 ML VIAL NEB SCH ×2 (07:26→19:51)
[2017-08-26] MEDS: INSULIN REGULAR, HUMAN 100 UNIT/ML 3 ML VIAL SQ PRN ×2 (07:51→11:53)
[2017-08-26] MEDS: BLOOD SUGAR DIAGNOSTIC 1 EACH STRIP VI SCH ×4 (07:52→22:33)
[2017-08-26 08:00] VITALS: BP 151/63
--- NOTE | 2017-08-26 08:30 | NUR ---
RN NOTE SPOKE TO AMID HD NURSE WILL HOLD BP MEDICATIONS WILL BE HAVING HD LATER THIS MORNING. EXPLAINED TO PT AGREED WITH HOLDING MEDICATIONS.
[2017-08-26] MEDS: LACTOBACILLUS RHAMNOSUS GG 1 EACH CAP.SPRINK PO SCH ×2 (08:32→17:34)
[2017-08-26] MEDS: VALSARTAN 80 MG TABLET PO SCH ×2 (08:33→09:00)
[2017-08-26] MEDS: GABAPENTIN 100 MG CAPSULE PO SCH ×2 (08:33→08:38)
[2017-08-26] MEDS: ASPIRIN EC 81 MG TABLET.DR PO SCH (08:33)
[2017-08-26] MEDS: NIFEdipine XL (30MG) 30 MG TAB PO SCH ×2 (08:33→09:00)
[2017-08-26] MEDS: CLOPIDOGREL BISULFATE 75 MG TABLET PO SCH (08:33)
[2017-08-26] MEDS: CINACALCET HCL 30 MG TABLET PO SCH (08:33)
[2017-08-26] MEDS: DOXYCYCLINE HYCLATE (100 MG) 100 MG TABLET PO SCH ×2 (08:33→22:47)
[2017-08-26] MEDS: ISOSORBIDE MONONITRATE (30MG) 30 MG TAB.SR.24H PO SCH ×2 (08:34→08:41)
[2017-08-26] MEDS: CARVEDILOL 12.5 MG TABLET PO SCH ×3 (08:34→22:33)
[2017-08-26] MEDS: Z GUARD REMEDY 2 OZ OINT TP SCH (08:35)
[2017-08-26] MEDS: MUPIROCIN OINT 2% 22 GM TUBE SCH ×2 (08:42→21:00)
[2017-08-26 12:00] VITALS: BP 49/63
[2017-08-26 16:00] VITALS: BP 129/58
[2017-08-26] MEDS: ACETAMINOPHEN 325 MG TABLET PO PRN (17:40)
--- NOTE | 2017-08-26 19:45 | NUR ---
JANIE/WATCH REPAIRER RECEIVED REPORT FROM DAY NURSE, PT IS ALERT X3. FAMILY AT BEDSIDE. NO ACUTE DISTRESS SEEN, APPEARS COMFORTABLE. 02 2 LITERS. CALL LIGHT WITHIN REACH. WILL CONTINUE TO MONITOR THIS PT.
[2017-08-26 20:00] VITALS: BP 136/47
[2017-08-26] MEDS: ATORVASTATIN 40 MG TABLET PO SCH (22:32)
--- NOTE | 2017-08-26 22:45 | NUR ---
JANIE/BOSTON CUTTER ACCU CHECK WAS DONE, BLOOD SUGAR WAS 254 IT WAS COVERED WITH 6 UNITS REGULAR INSULIN. WILL CONTINUE TO MONITOR PER MD ORDERS.
[2017-08-26] MEDS: *INSULIN REGULAR(HUMULIN R)HUM 100 UNIT/ML VIAL SQ PRN (22:47)
[2017-08-27] VITALS: BP 120/37
[2017-08-27] MEDS: ALBUTEROL HALF STRENGTH 1.25 MG/3 ML VIAL.NEB NEB SCH ×2 (01:14→07:35)
[2017-08-27] MEDS: IPRATROPIUM NEB FS 0.5 MG/2.5 ML AMPUL.NEB NEB SCH ×2 (01:14→07:35)
--- NOTE | 2017-08-27 03:00 | NUR ---
JANIE/HAY STACKER OPERATOR PT APPEARS TO BE RESTING COMFORTABLE, NO ACUTE DISTRESS SEEN. CALL LIGHT WITHIN REACH.
[2017-08-27 04:00] VITALS: BP_SYST 127; BP_DIAS 38; BP_DIAS 58
[2017-08-27 06:58] LABS: BASOPHILS % (AUTO) 0.6 % (0.0-2.0); EOSINOPHILS # (AUTO) 0.2 /CMM (0.0-0.7); EOSINOPHILS % (AUTO) 2.8 % (0.0-6.0); HEMATOCRIT 27 % (39-51); LYMPHOCYTES # (AUTO) 0.9 /CMM (0.8-4.8); LYMPHOCYTES % (AUTO) 13.5 % (20.0-44.0); MEAN CORPUSCULAR HEMOGLOBIN 31 PG (26.0-33.0); MEAN CORPUSCULAR HGB CONC 34 g/dl (31.0-36.0); MEAN CORPUSCULAR VOLUME 92 fL (80-96); MONOCYTES # (AUTO) 0.6 /CMM (0.1-1.30); MONOCYTES % (AUTO) 9.2 % (2.0-12.0); NEUTROPHILS # (AUTO) 5.2 /CMM (1.8-8.9); NEUTROPHILS % (AUTO) 73.9 % (43.0-81.0); PLATELET COUNT (AUTO) 217 /CMM (150-450); RDW COEFFICIENT OF VARIATION 15.8 (11.5-15.0); RED BLOOD CELL COUNT(AUTO) 2.93 MIL/uL (4.5-6.0)
[2017-08-27 07:19] LABS: CALCIUM, SERUM 8.2 mg/dL (8.5-10.1); CARBON DIOXIDE 28 mmol/L (21-32); CHLORIDE 99 mmol/L (98-107); GLUCOSE 114 mg/dL (74-106); POTASSIUM 4.5 mmol/L (3.5-5.1); SODIUM SERUM 139 mmol/L (136-145); UREA NITROGEN, BLOOD 52 mg/dL (7-18)
[2017-08-27] MEDS: ACETYLCYSTEINE 10% SOLN 400 MG/4 ML VIAL NEB SCH (07:30)
--- NOTE | 2017-08-27 07:38 | NUR ---
RN NOTES RECEIVED PT FROM CLERICAL CAR CHECKER IN STABLE CONDITION, ON 2L NC, A&0X3. NO SOB OR DISTRESS NOTED. SB THE TELE MONITOR HR 60. R HAND 18G IV SITE DRY AND INTACT. NO COMPLAINTS OF PAIN AT THIS TIME. BED LOCKED AND IN LOWEST POSITION, SIDE RAILS UPX3, CALL LIGHT WITHIN REACH, WILL CONT TO MONITOR.
[2017-08-27 08:00] VITALS: BP 148/49
[2017-08-27] MEDS: CARVEDILOL 12.5 MG TABLET PO SCH (09:00)
[2017-08-27] MEDS: VALSARTAN 80 MG TABLET PO SCH (09:07)
[2017-08-27] MEDS: LACTOBACILLUS RHAMNOSUS GG 1 EACH CAP.SPRINK PO SCH (09:07)
[2017-08-27 09:08] VITALS: BP 148/49
[2017-08-27] MEDS: NIFEdipine XL (30MG) 30 MG TAB PO SCH (09:08)
[2017-08-27] MEDS: CLOPIDOGREL BISULFATE 75 MG TABLET PO SCH (09:08)
[2017-08-27] MEDS: ISOSORBIDE MONONITRATE (30MG) 30 MG TAB.SR.24H PO SCH (09:08)
[2017-08-27] MEDS: ASPIRIN EC 81 MG TABLET.DR PO SCH (09:08)
[2017-08-27] MEDS: GABAPENTIN 100 MG CAPSULE PO SCH (09:08)
[2017-08-27] MEDS: CINACALCET HCL 30 MG TABLET PO SCH (09:08)
[2017-08-27] MEDS: DOXYCYCLINE HYCLATE (100 MG) 100 MG TABLET PO SCH (09:09)
[2017-08-27] MEDS: BLOOD SUGAR DIAGNOSTIC 1 EACH STRIP VI SCH (09:10)
[2017-08-27] MEDS: Z GUARD REMEDY 2 OZ OINT TP SCH (09:11)
[2017-08-27] MEDS: MUPIROCIN OINT 2% 22 GM TUBE SCH (09:11)
[2017-08-27] MEDS ORDERED: ASPI-991 PO (10:55)
[2017-08-27] MEDS ORDERED: ALBU1.25 NEB (10:55)
[2017-08-27] MEDS ORDERED: MUPI22OI7 (11:02)
[2017-08-27] MEDS ORDERED: DOXY100T2 PO (11:02)
--- NOTE | 2017-08-27 12:46 | NUR ---
RN NOTES PT DISCHARGED IN STABLE CONDITION WITH .
== END 2017-08-27 12:00 | disposition home or self-care (01) | DRG 208 ==
LOC: ER 06:35 → ICU 08:29 → TELE-TD 08-23 19:00 → TELE1 08-24 18:39 → MEDSG1 08-25 16:32 → TELE1 08-25 18:10
PROVIDERS: ADMIT Internal Medicine; ATTEND Internal Medicine
PROC: 0BH17EZ Insertion of Endotracheal Airway into Trachea, Via Natural or Artificial Opening (ICD-10-PCS; principal; 2017-08-20)
PROC: 5A1945Z Respiratory Ventilation, 24-96 Consecutive Hours (ICD-10-PCS; 2017-08-20)
PROC: 5A1D70Z Performance of Urinary Filtration, Intermittent, Less than 6 Hours Per Day (ICD-10-PCS; 2017-08-20)
DX: J96.01 Acute respiratory failure with hypoxia (principal); I21.4 Non-ST elevation (NSTEMI) myocardial infarction; I13.2 Hypertensive heart and chronic kidney disease with heart failure and with stage 5 chronic kidney disease, or end stage renal disease; J18.9 Pneumonia, unspecified organism; R53.2 Functional quadriplegia; G71.0 Muscular dystrophy; D68.59 Other primary thrombophilia; E11.22 Type 2 diabetes mellitus with diabetic chronic kidney disease; E11.51 Type 2 diabetes mellitus with diabetic peripheral angiopathy without gangrene; N18.6 End stage renal disease; I50.23 Acute on chronic systolic (congestive) heart failure; E83.9 Disorder of mineral metabolism, unspecified; E78.5 Hyperlipidemia, unspecified; K21.9 Gastro-esophageal reflux disease without esophagitis; I25.5 Ischemic cardiomyopathy; Z99.2 Dependence on renal dialysis; I25.10 Atherosclerotic heart disease of native coronary artery without angina pectoris; Z98.61 Coronary angioplasty status; I44.7 Left bundle-branch block, unspecified; D63.8 Anemia in other chronic diseases classified elsewhere; Z22.322 Carrier or suspected carrier of Methicillin resistant Staphylococcus aureus; D64.9 Anemia, unspecified; N40.0 Benign prostatic hyperplasia without lower urinary tract symptoms
CPT/HCPCS: 31720; 36415; 36600; 71010-TC; 80048-TC; 80053-TC; 80061-TC; 80076-TC; 82272-TC; 82550-TC; 82803-TC; 82962-TC; 83735-TC; 83880; 84100-TC; 84484-TC; 85025-TC; 85027-TC; 85730-TC; 87040-TC; 87081-TC; 90935-TC; 92611-TC; 93307-TC; 94002-TC; 94003-TC; 94762-TC; 94799-TC; 99082-TC; A4216; A4606; A6402; J0330; J0885; J1644; J1650; J1815; J1940; J1956; J2250; J3490; J7030; P9047; Z7610

== ENCOUNTER 2017-09-14 11:45 | Outpatient (CLI) | payer MEDICARE ==
[~2017-09-14 11:45] MED LIST changes: +ALBU1.25 NEB; -ASPI-605 PO; +ASPI-991 PO; +ATOR40TA PO; -ATORVASTATIN TAB 10MG PO; -CARV25TA2 PO; -DICY20TA11 PO; -DILT240C94; +DOXY100T2 PO; +GABA-532 PO; -IMDUR PO; -INSU100C10 SQ; -LANT500T2 PO; -LUTE20CA PO; +MUPI22OI7; -NIAC500T8 PO; +NIFE30TA89 PO; -NIFE60TA69; -OMEG10007 PO; -PREG25CA PO; -RABE20TA5 PO; -RESV250C2 PO; -SYRI1DIS86; -UBIQ200C PO; -VITA1CAP PO; -[UNRECOGNIZED DRUG - CODE] PO
== END 2017-09-14 23:59 | disposition home or self-care (01) ==
LOC: WOU 11:45
PROVIDERS: ATTEND Podiatrist Foot & Ankle Surgery
DX: Z09 Encounter for follow-up examination after completed treatment for conditions other than malignant neoplasm (principal); E10.42 Type 1 diabetes mellitus with diabetic polyneuropathy; E10.51 Type 1 diabetes mellitus with diabetic peripheral angiopathy without gangrene; Z89.411 Acquired absence of right great toe; Z98.62 Peripheral vascular angioplasty status
CPT/HCPCS: G0463

== ENCOUNTER 2017-10-17 11:42 | Outpatient (CLI) | payer MEDICARE | END 2017-10-17 23:59 | disposition home or self-care (01) | LOC: RAD 11:42 | DX: I70.0 Atherosclerosis of aorta (principal); I51.7 Cardiomegaly; M47.894 Other spondylosis, thoracic region | CPT/HCPCS: 71020-TC ==

== ENCOUNTER → 2017-12-14 | Outpatient (CLI) | payer MEDICARE ==
[~2017-12-14] MED LIST changes: +ASPI-1152 PO; -ASPI-991 PO; -CINA30TA PO; +CINA30TA2 PO; +CLOP75TA15 PO; -CLOP75TA2 PO
== END | disposition home or self-care (01) ==
LOC: WOU 11:48
PROVIDERS: ATTEND Podiatrist Foot & Ankle Surgery
DX: Z09 Encounter for follow-up examination after completed treatment for conditions other than malignant neoplasm (principal); Z89.411 Acquired absence of right great toe; E11.51 Type 2 diabetes mellitus with diabetic peripheral angiopathy without gangrene; E11.41 Type 2 diabetes mellitus with diabetic mononeuropathy; L60.3 Nail dystrophy
CPT/HCPCS: G0463

== ENCOUNTER 2018-03-15 11:26 | Outpatient (CLI) | payer MEDICARE, OTHER | END 2018-03-15 23:59 | disposition home or self-care (01) | LOC: WOU 11:26 | PROVIDERS: ATTEND Podiatrist Foot & Ankle Surgery | DX: Z09 Encounter for follow-up examination after completed treatment for conditions other than malignant neoplasm (principal); Z89.411 Acquired absence of right great toe; E11.41 Type 2 diabetes mellitus with diabetic mononeuropathy; I73.9 Peripheral vascular disease, unspecified | CPT/HCPCS: G0463 ==

== ENCOUNTER 2018-05-26 12:23 | Inpatient (IN) | payer MEDICARE, OTHER ==
[~2018-05-26] VITALS: Ht 172.7 cm; Wt 66.7 kg
[2018-05-26] MEDS ORDERED: ASPIRIN 325 MG TABLET PO ONE (12:30)
[2018-05-26] MEDS ORDERED: NITROGLYCERIN PACKET 1 GM PACKET TD ONE (12:30)
--- NOTE | 2018-05-26 12:40 | NUR ---
LAB AT BEDSIDE FOR BLOOD DRAW
--- NOTE | 2018-05-26 12:41 | NUR ---
PT AA/OX4 COMPLAINING OF SUBSTERNAL CHESTPAIN RADIATING TO THE RT CHEST WALL. PT STATES STARTED HAPPENING WHEN I WAS HAVING DIALYSIS WHICH I JUST FINISHED BEFORE I GOT HERE." SKINS PINK WARM AND DRY. NO N/V. NO S/S SOB. VSS. NAD. DIALYSIS SHUNT LT UPPER ARM. AWAITING MD ORDERS
[2018-05-26 12:44] LABS: BASOPHILS # (AUTO) 0.1 /CMM (0.0-0.2); BASOPHILS % (AUTO) 1.5 % (0.0-2.0); EOSINOPHILS % (AUTO) 0.6 % (0.0-6.0); HEMATOCRIT 32 % (39-51); HEMOGLOBIN 11.2 g/dL (13.5-17.5); LYMPHOCYTES # (AUTO) 1.3 /CMM (0.8-4.8); MEAN CORPUSCULAR HEMOGLOBIN 31 PG (26.0-33.0); MEAN CORPUSCULAR HGB CONC 35 g/dl (31.0-36.0); MEAN CORPUSCULAR VOLUME 89 fL (80-96); MONOCYTES # (AUTO) 0.5 /CMM (0.1-1.30); MONOCYTES % (AUTO) 6.2 % (2.0-12.0); NEUTROPHILS % (AUTO) 75.7 % (43.0-81.0); PLATELET COUNT (AUTO) 173 /CMM (150-450); RDW COEFFICIENT OF VARIATION 13.3 (11.5-15.0); RED BLOOD CELL COUNT(AUTO) 3.59 MIL/uL (4.5-6.0); WHITE BLOOD COUNT (AUTO) 7.9 K/uL (4.3-11.0)
[2018-05-26 12:53] LABS: CALCIUM, SERUM 8.6 mg/dL (8.5-10.1); CARBON DIOXIDE 31 mmol/L (21-32); CHLORIDE 101 mmol/L (98-107); CREATININE 3.5 mg/dL (0.6-1.3); GLUCOSE 231 mg/dL (74-106); POTASSIUM 3.8 mmol/L (3.5-5.1); SODIUM SERUM 140 mmol/L (136-145); UREA NITROGEN, BLOOD 16 mg/dL (7-18)
[2018-05-26 12:56] LABS: INR 1.06 (0.85-1.15)
[2018-05-26 12:59] LABS: ALANINE AMINOTRANSFERASE 33 U/L (12-78); ALBUMIN 3.2 g/dL (3.4-5.0); ALKALINE PHOSPHATASE 268 U/L (46-116); ASPARTATE AMINOTRANSFERASE 29 U/L (15-37); BILIRUBIN,DIRECT 0.1 mg/dL (0.0-0.2); BILIRUBIN,TOTAL 0.5 mg/dL (0.2-1.0); TOTAL PROTEIN, SERUM 7.1 g/dL (6.4-8.2)
[2018-05-26] MEDS ORDERED: LUTE40CA PO (13:00)
[2018-05-26] MEDS ORDERED: NIFE90TA2 PO (13:00)
[2018-05-26] MEDS ORDERED: OMEG1CAP40 PO (13:00)
[2018-05-26] MEDS ORDERED: ZINC50TA2 PO (13:00)
[2018-05-26] MEDS ORDERED: RESV250C2 PO (13:00)
[2018-05-26] MEDS ORDERED: CHOL50004 PO (13:00)
[2018-05-26] MEDS ORDERED: UBIQ200C PO (13:00)
[2018-05-26] MEDS ORDERED: NIFE60TA2 PO (13:00)
[2018-05-26 13:05] LABS: TROPONIN I 0.859 ng/mL (0.00-0.056)
[2018-05-26] MEDS ORDERED: ASPI-1169 PO (13:13)
[2018-05-26] MEDS ORDERED: LANT1000 PO (13:14)
[2018-05-26] MEDS ORDERED: HYDROCODONE/APAP 5/325MG 1 EACH TABLET PO PRN (14:30)
[2018-05-26] MEDS ORDERED: MAG HYDROX/AL HYDROX/SIMETH 30 ML UDC PO PRN (14:30)
[2018-05-26] MEDS ORDERED: GABAPENTIN 100 MG CAPSULE PO PRN (14:30)
[2018-05-26] MEDS ORDERED: ACETAMINOPHEN 325 MG TABLET PO PRN (14:30)
[2018-05-26] MEDS ORDERED: ONDANSETRON HCL/PF 4 MG/2 ML VIAL IVP PRN (14:30)
[2018-05-26] MEDS ORDERED: ZOLPIDEM TARTRATE 5 MG TABLET PO PRN (14:30)
[2018-05-26] MEDS ORDERED: MAGNESIUM HYDROXIDE 30 ML UDC PO PRN (14:30)
[2018-05-26] MEDS ORDERED: Z GUARD REMEDY 2 OZ OINT TP PRN (14:30)
--- NOTE | 2018-05-26 14:30 | NUR ---
RN NOTES PT WAS BROUGHT ONTO FLOOR, AWAKE AND ALERT. PT ON RA, PT COMPLAINING OF SOB. GROUTMAN SHOWS SR C BBB, 79. PT COMPLAINING OF CHEST PAIN/PRESSURE, RADIATING TO THE RIGHT CHEST WALL AND JAW. SUPPLEMENTAL O2 STARTED ORDERED, O2 SAT 94%. WILL F/U WITH MD FOR CHEST PAIN MANAGEMENT. SAFETY MEASURES ARE IN PLACE, CALL LIGHT IS IN REACH.
[2018-05-26 14:35] VITALS: BP 127/62
[2018-05-26] MEDS ORDERED: MORPHINE SULFATE INJ 2 MG/ML DISP.SYRIN IV PRN (15:00)
[2018-05-26 16:00] VITALS: BP 140/57
[2018-05-26] MEDS ORDERED: CARVEDILOL 12.5 MG TABLET PO SCH (17:00)
[2018-05-26] MEDS: BLOOD SUGAR DIAGNOSTIC 1 EACH STRIP IN SCH ×2 (17:20→22:28)
[2018-05-26] MEDS: LANTHANUM CARBONATE 1,000 MG TAB.CHEW PO SCH (17:59)
--- NOTE | 2018-05-26 18:44 | NUR ---
RN NOTES PT IS SITTING UP IN BED, AWAKE AND ALERT WITH AT BEDSIDE. PT ON 4L O2, RESPIRATIONS ARE EVEN AND UNLABORED. IV ON RFA INTACT AND SL. ALL MEDS WERE GIVEN ORDERED AND PT NEEDS MET. 1730 ACCUCHECK 76, PT GOT 4 UNITS OF INSULIN BY INSULIN PUMP CONNECTED TO PT. PT ATE 80% OF DINNER. NO SIGNS OF DISTRESS NOTED. SAFETY MEASURES ARE IN PLACE, CALL LIGHT IS IN REACH. WILL ENDORSE TO ELECTROTYPE CASTER RN FOR CONTINUITY OF CARE.
--- NOTE | 2018-05-26 19:15 | NUR ---
MANAGER AUDIO OPENING NOTE Patient was seen sitting in high-Bautista's position in bed AAOx4, breathing on 4L O2 NC with no apparent SOB, and no signs of acute distress. Telemonitor shows sinus rhythm in the 70s with LBBB. SL 20g IV is in the right FA, intact and patent. Left upper arm AV fistula is covered with a dressing that is clean, dry, and intact. Bed is in the low/locked position, two side rails up, and call damon within reach. Patient has no immediate needs or concerns at this time. Will continue to monitor.
--- NOTE | 2018-05-26 19:30 | NUR ---
TRUCK SALES MANAGER NOTE - Critical Lab Result Received call from lab regarding critical result of Troponin (#2) at 23.763. First texted Dr. Nguyễn who recently saw the patient; Dr. Nguyễn asked me to page the on-call night doctor. Called [facility] for on-call night MD; pathology secretary said Dr. Watson did not pick pulling machine operator and that she would leave him a message to call back regarding critical lab result. Awaiting call and will retry if no response in 30 minutes.
[2018-05-26 20:00] VITALS: BP 131/57
[2018-05-26] MEDS ORDERED: AZITHROMYCIN 250 MG TABLET PO ONE (20:00)
--- NOTE | 2018-05-26 20:00 | NUR ---
GEOTHERMAL POWERPLANT SUPERVISOR NOTE - Vitals, low O2 Sat Patient with O2 Sat 89% on 4L O2 NC. I increased O2 to 5L without success; O2 sat still only 90%. Switched patient to simple face mask at 6L O2; O2 sat 95%. BP 131/57, HR 75, RR 18, Temp 98.9. Will inform MD and continue to monitor.
--- NOTE | 2018-05-26 20:10 | NUR ---
CUSTOMER SECURITY CLERK NOTE - Phone call with MD Called [facility] again for critical lab result (Troponin). Was able to speak with Dr. Walter Hernández - I reported 1st Troponin 0.859 and 2nd Troponin 23.763; I gave brief hx of patient including ESRD on HD, DM, CAD with two stents, and reason for admission (chest pain). Also informed MD that the patient complained of 4/10 right sided chest pain, described by patient as feeling "sore" like he had been "punched in the chest", pain is worse with inhalation; informed MD that patient was put on face mask at 6L O2 for low oxygen saturation at 89% on 4-5L nasal cannula. Received order from MD for Heparin drip with loading dose following ACS protocol and Nitro past 0.5 inch q6h - hold for SBP <100.
[2018-05-26] MEDS: CEFTRIAXONE 1 G in IV NS 0.9% 50 ML IV SCH (20:34)
[2018-05-26] MEDS ORDERED: NIFEdipine XL 60 MG TAB PO SCH (21:00)
[2018-05-26 22:00] VITALS: BP 141/62
[2018-05-26] MEDS ORDERED: HEPARIN SODIUM, PORCINE 5000 UNITS/1 ML VIAL IV ONE (22:00)
[2018-05-26] MEDS: HEPARIN INFUSION/D5W 500 ML IV PRN (22:24)
[2018-05-26] MEDS: ATORVASTATIN 40 MG TABLET PO SCH (22:28)
[2018-05-26] MEDS: ISOSORBIDE MONONITRATE (30MG) 30 MG TAB.SR.24H PO SCH (22:29)
[2018-05-26] MEDS: CARVEDILOL 12.5 MG TABLET PO SCH (22:30)
[2018-05-27] VITALS (9 sets, daily range): BP systolic 115–139; BP diastolic 50–61
[2018-05-27] MEDS ORDERED: NITROGLYCERIN PACKET 1 GM PACKET TOP SCH
[2018-05-27] MEDS: NITROGLYCERIN PACKET 1 GM PACKET TOP SCH ×5 (00:17→23:44)
--- NOTE | 2018-05-27 01:17 | NUR ---
SAFETY SITTER NOTE - Lab clerical error Called lab regarding an error in documentation times for patient's Troponin. In patient's chart what was thought to be the 2nd Troponin of 23.763 is documented at 06:50 AM, and what was thought to be the 1st Troponin of 0.859 was documented at 12:38 PM. Only the troponin of 0.859 was endorsed to me by day shift, and the critical result of 23.763 was reported to me by lab after 19:00 (after 7 PM, after shift report). Lab was called to clarify this finding - I spoke to Christopher Carlton who confirmed that this was a clerical error by someone else in the lab and that the 2nd Troponin of 23.763 should have been documented as 18:50 (or 6:50 PM) NOT 06:50 AM. He said that he would speak to his Director to try to modify this documentation.
--- NOTE | 2018-05-27 01:38 | NUR ---
SENIOR SOLUTIONS ARCHITECT NOTE - Critical Lab Troponin Received call from lab (Christopher Carlton) reporting critical result for 3rd Troponin at 51.444. I sent text message to on-call MD, Dr. Walter Hernández, to report the troponin result, as well as a picture of the patient's EKG which was taken around midnight. Awaiting response.
--- NOTE | 2018-05-27 02:00 | NUR ---
HOME MISSION WORKER NOTE - spoke with MD Spoke with Dr. Walter Hernández over the phone. MD made aware of patient's troponin value of 51.4. Patient currently without chest pain and already on heparin drip and nitro-paste. Per Dr. Watson, continue to monitor.
--- NOTE | 2018-05-27 06:10 | NUR ---
RETAIL MANAGEMENT TRAINEE NOTE - episode of vomiting Patient had one small episode of emesis which contained small red flecks, possibly reflecting blood tinged vomit. I inquired about patient's diet/previous meals; nothing the patient ate necessarily explained the red color. I also had the Charge Nurse, Erica, look at the emesis. Dr. Walter Hardwick was called and made aware. Per MD, continue to monitor. Okay to keep heparin drip going. Call back if PTT is elevated. Still waiting for lab result.
--- NOTE | 2018-05-27 06:50 | NUR ---
DIRECTOR OF LOSS PREVENTION NOTE - Troponin Call from lab for troponin of 64.780. Dr. Alarcon (Chief Nuclear Medicine Technologist) is currently on the unit, and he has been made of aware of this lab value including the previous troponins. Dr. Alarcon said he will review patient's chart and follow up.
--- NOTE | 2018-05-27 07:18 | NUR ---
ELECTRO MECHANICAL TECHNOLOGIST NOTE - Elevated aPTT Call from lab - aPTT at 95.6. Patient on heparin drip. Per protocol, "Hold infusion for 60 minutes + decrease rate by 200 units/hr. Dr. Alarcon who is present in the unit was made aware of lab result. Heparin infusion was paused at 0718.
--- NOTE | 2018-05-27 07:30 | NUR ---
PHOTO TECHNICIAN CLOSING NOTE Patient was seen in bed AAOx4, breathing comfortably on 3L O2 NC, and currently with no chest pain. Patient was seen by Dr. Alarcon this morning at the bedside. Patient remains in stable condition. Call damon is within reach. Patient care endorsed to day shift nurse.
[2018-05-27] MEDS: BLOOD SUGAR DIAGNOSTIC 1 EACH STRIP IN SCH ×4 (07:44→22:04)
--- NOTE | 2018-05-27 08:00 | NUR ---
CITY ATTORNEY NOTES PT IN BED, AWAKE, ALERT AND ORIENTED, NO COMPLAINT OF PAIN, RESPIRATIONS NORMAL, CALL LIGHT WITHIN REACH, EATING BREAKFAST, PLAN OF CARE DISCUSSED WITH PT, VERBALIZED UNDERSTANDING, PT SEEN BY DR. HOOD, ORDERS MADE, PT INFORMED.
[2018-05-27] MEDS: LANTHANUM CARBONATE 1,000 MG TAB.CHEW PO SCH ×2 (08:56→17:00)
[2018-05-27] MEDS: VALSARTAN 80 MG TABLET PO SCH (09:00)
[2018-05-27] MEDS ORDERED: Medication Not On Formulary EA (Ubiquinol (Active-Q) 200 MG) PO SCH (09:00)
[2018-05-27] MEDS ORDERED: LUTEIN 40 MG PO SCH (09:00)
[2018-05-27] MEDS: NIFEdipine XL (30MG) 30 MG TAB PO SCH (09:00)
[2018-05-27] MEDS ORDERED: RESVERATROL 500 MG PO SCH (09:00)
[2018-05-27] MEDS: CARVEDILOL 12.5 MG TABLET PO SCH ×2 (09:00→21:49)
[2018-05-27] MEDS ORDERED: CHOLECALCIFEROL 1,000 UNIT TABLET (VIT D3) PO SCH (09:00)
[2018-05-27] MEDS ORDERED: Medication Not On Formulary EA (Omega-3 Fatty Acids/Fish Oil (Omega 3 1,000 Mg Softgel) PO SCH (09:00)
[2018-05-27] MEDS: hydrALAZINE HCL 50 MG TABLET PO SCH ×3 (09:00→17:00)
--- NOTE | 2018-05-27 09:00 | NUR ---
MEDICAL CODING SPECIALIST NOTES - MEDS NON ADMIN BP MEDS HELD, BP 112/44 HR 61, PT INFORMED AND DOES NOT WANT TO TAKE THEM.
[2018-05-27 09:14] LABS: BASOPHILS # (AUTO) 0.1 /CMM (0.0-0.2); BASOPHILS % (AUTO) 0.7 % (0.0-2.0); HEMATOCRIT 32 % (39-51); HEMOGLOBIN 10.5 g/dL (13.5-17.5); LYMPHOCYTES # (AUTO) 1.2 /CMM (0.8-4.8); LYMPHOCYTES % (AUTO) 11.9 % (20.0-44.0); MEAN CORPUSCULAR HEMOGLOBIN 30 PG (26.0-33.0); MEAN CORPUSCULAR HGB CONC 33 g/dl (31.0-36.0); MEAN CORPUSCULAR VOLUME 93 fL (80-96); MONOCYTES # (AUTO) 0.7 /CMM (0.1-1.30); MONOCYTES % (AUTO) 6.9 % (2.0-12.0); NEUTROPHILS # (AUTO) 7.9 /CMM (1.8-8.9); NEUTROPHILS % (AUTO) 79.5 % (43.0-81.0); PLATELET COUNT (AUTO) 188 /CMM (150-450); RDW COEFFICIENT OF VARIATION 14.8 (11.5-15.0); RED BLOOD CELL COUNT(AUTO) 3.47 MIL/uL (4.5-6.0); WHITE BLOOD COUNT (AUTO) 9.9 K/uL (4.3-11.0)
[2018-05-27 09:27] LABS: CALCIUM, SERUM 7.9 mg/dL (8.5-10.1); CARBON DIOXIDE 30 mmol/L (21-32); CHLORIDE 101 mmol/L (98-107); GLUCOSE 103 mg/dL (74-106); MAGNESIUM 1.8 mg/dL (1.8-2.4); PHOSPHORUS 3.8 mg/dL (2.5-4.9); POTASSIUM 4.3 mmol/L (3.5-5.1); SODIUM SERUM 140 mmol/L (136-145); UREA NITROGEN, BLOOD 25 mg/dL (7-18)
[2018-05-27 10:05] LABS: CHOLESTEROL 134 mg/dL (<200); HDL CHOLESTEROL 40 mg/dL (40-60); LDL 79 mg/dL (0-99); THYROID STIMULATING HORMONE 1.582 uIU/mL (0.358-3.74); TRIGLYCERIDES 75 mg/dL (30-150)
[2018-05-27] MEDS: CINACALCET HCL 30 MG TABLET PO SCH (10:07)
[2018-05-27] MEDS: CLOPIDOGREL BISULFATE 75 MG TABLET PO SCH (10:07)
[2018-05-27] MEDS: ASPIRIN 81 MG TAB.CHEW PO SCH (10:08)
--- NOTE | 2018-05-27 13:00 | NUR ---
QUILLER TENDER NOTES - MEDS NON ADMIN PT PREFERED NOT TO TAKE HIS SCHEDULED HYDRALAZINE AND NITROBID, STATED THAT HE DOES NOT WANT HIS BP TO DROP, BP IS 132/54 HR 62.
--- NOTE | 2018-05-27 15:00 | NUR ---
MULTI MISSION HELICOPTER AIRCREWMAN NOTES RECEIVED PTT RESULT, 48, NO CHANGE IN HEPARIN DOSE RATE, NEXT PTT TOMORROW MORNING, PT INFORMED, NO EPISODE OF BLEEDING NOTED, WILL CONTINUE TO MONITOR.
[2018-05-27] MEDS: ZINC SULFATE 220 MG CAPSULE PO SCH (15:01)
[2018-05-27] MEDS: CHOLECALCIFEROL 1,000 UNIT TABLET (VIT D3) PO SCH (15:02)
--- NOTE | 2018-05-27 17:00 | NUR ---
INSPECTOR SCALES NOTES - NON ADMIN PT DOES NOT WANT TO TAKE MEDS NOW, HE IS HAVING DIALYSIS.
[2018-05-27] MEDS: KETOCONAZOLE 2% CREAM 15 GM TUBE TP SCH (18:14)
[2018-05-27] MEDS: NEOMY SULF/BACITRAC ZN/POLY 15 GM TUBE TP SCH (18:14)
--- NOTE | 2018-05-27 18:30 | NUR ---
CASHIER PARKING LOT NOTES PT IN BED, AWAKE, ALERT AND ORIENTED, NO COMPLAINT OF PAIN, WITH ONE EPISODE OF NAUSEA WITH VOMITING OF SMALL AMOUNT OF CLEAR LIQUID THIS AFTERNOON, REFUSED ZOFRAN, PT WITH ONGOING DIALYSIS AT THIS TIME, TOLERATING WELL, BLOOD SUGAR CHECKED, SEEN BY SHAWNA OQUENDO FOR WOUND CONSULTATION, ALL NEEDS ATTENDED.
--- NOTE | 2018-05-27 19:10 | NUR ---
WHITE LEAD GRINDER OPENING NOTE Patient was seen sitting upright in bed while receiving HD; HD nurse reports 2L output. Patient is AAOx4, breathing on RA with no apparent SOB, and no signs of acute distress. Patient states that he does NOT currently have chest pain, although he does feel chest discomfort with coughing. Telemonitor shows normal sinus rhythm with BBB, HR of 65 bpm. Heparin drip at 800 units/hr is running through the right FA IV with no signs of leaking or infiltration. Patient has no signs/sx of active bleeding. Patient's is at the bedside, and patient has no immediate needs or concerns. Bed is low/locked, two side rails up, and call damon within reach. Will continue to monitor.
[2018-05-27] MEDS: NITROGLYCERIN 0.4 MG/TAB BOTTLE SL PRN (19:49)
--- NOTE | 2018-05-27 20:10 | NUR ---
CHARM FILTER OPERATOR HELPER NOTE - Episode of chest pain and low O2 Patient reported 8/10 chest pain across his chest and radiating into his jaw; he described the pain as an aching/squeezing and stated that it felt similar to his symptoms upon admission. I checked patient's vitals at 194 prior to giving SL Nitro. BP 129/50, HR 82, RR 22, O2 Sat 79% on RA. I connected patient to nasal cannula at 5L with O2 sat to 88% only. I put patient on simple face mask with O2 at 5L; oxygen saturation subsequently increased to 95%. 1 tab (0.4mg) of sublingual nitro was administered at 1948 as ordered. At 1958, patient reported that his chest pain decreased to 2/10, no pain in jaw. BP 131/59, HR 82, O2 Sat 95% on 5L simple mask, RR 18, Temp 98.3 F. BP at 2009 still stable at 119/54. Patient reports 1/[address] Alarcon and Dr. Watson are aware of patient's Sx and elevated troponins from yesterday and today. Will continue to monitor.
[2018-05-27] MEDS: AZITHROMYCIN 250 MG TABLET PO SCH (20:46)
[2018-05-27] MEDS: CEFTRIAXONE 1 G in IV NS 0.9% 50 ML IV SCH (20:46)
--- NOTE | 2018-05-27 21:00 | NUR ---
MANAGER BILLING NOTE - Pharmacy call Per Pharmacy, Heparin and Rocephin IVs are compatible together and safe to run through the same IV site. Rocephin was run through the second port of the IV with it's own primary/secondary tubing.
[2018-05-27] MEDS: ISOSORBIDE MONONITRATE (30MG) 30 MG TAB.SR.24H PO SCH (21:49)
[2018-05-27] MEDS: ATORVASTATIN 40 MG TABLET PO SCH (21:49)
--- NOTE | 2018-05-27 22:00 | NUR ---
EQUIPMENT CLEANER AND TESTER NOTE - Titrate O2 down Over the past couple hours I've titrated patient's O2 from 5L to 3L on simple mask with oxygen saturation holding at 95%, therefore, patient has been switched to nasal cannula at 3L supplemental O2. Oxygen sat is still 95%. Patient also reports 0/10 chest pain. Will continue to monitor.
[2018-05-28] VITALS: BP 127/58
--- NOTE | 2018-05-28 01:40 | NUR ---
VACATION SALES ADVISOR NOTE - Endorsed patient care Report given to COLE Silverman for continuity of care. Patient remains in stable condition.
--- NOTE | 2018-05-28 02:29 | NUR ---
tele/rn notes RECEIVED REPORT FROM COLE AD[facility].PATIENT RESTING COMFORTABLY IN BED, ASLEEP, ON HEPARIN IV DRIP AT 800 UNIT/HHR, W/ NO S/S OF INFILTRATION OR REDNESS, BEING MONIOTRED FOR ANY PAIN OR CHANGES. CALL LIGHTS WITHIN REACH, BED IN LOCK POSIITION. WILL MONITOR.
[2018-05-28] MEDS: HEPARIN INFUSION/D5W 500 ML IV PRN (03:46)
--- NOTE | 2018-05-28 03:50 | NUR ---
MS/RN NOTES HEPATIN BAG REPLACED, WITH WITNESS BY CHARGE NURSE, NO BLEEDING OBSERVED, OR NO REDNESS ON IV SITE.
[2018-05-28 04:00] VITALS: BP 132/54
[2018-05-28] MEDS: NITROGLYCERIN PACKET 1 GM PACKET TOP SCH ×3 (05:32→18:59)
--- NOTE | 2018-05-28 06:14 | NUR ---
MS/RN NOTES PATIETN IN BED, AWAKE, ALERT X3, HAD SOME EPISODE OF PRESSURE TO JAW FOR FEW MINUTES BUT WAS RELIEVED BY NITRO BID, OXYGENATION AT 95% AT 3l. INITIAL OXYGENATION WENT LOW 88%. PATIENT OBSERVED AND VERBALIZED IMPROVEMENT. ABLE TO HAVE A SNACK OF ANTIONE, AND SIP OF WATER.
[2018-05-28 06:32] LABS: BASOPHILS % (AUTO) 0.6 % (0.0-2.0); HEMATOCRIT 32 % (39-51); HEMOGLOBIN 10.4 g/dL (13.5-17.5); LYMPHOCYTES # (AUTO) 1.1 /CMM (0.8-4.8); LYMPHOCYTES % (AUTO) 18.6 % (20.0-44.0); MEAN CORPUSCULAR HEMOGLOBIN 31 PG (26.0-33.0); MEAN CORPUSCULAR HGB CONC 33 g/dl (31.0-36.0); MEAN CORPUSCULAR VOLUME 93 fL (80-96); MONOCYTES # (AUTO) 0.5 /CMM (0.1-1.30); MONOCYTES % (AUTO) 8.8 % (2.0-12.0); NEUTROPHILS # (AUTO) 4.1 /CMM (1.8-8.9); PLATELET COUNT (AUTO) 166 /CMM (150-450); RED BLOOD CELL COUNT(AUTO) 3.42 MIL/uL (4.5-6.0)
[2018-05-28] MEDS: BLOOD SUGAR DIAGNOSTIC 1 EACH STRIP IN SCH ×4 (06:45→22:27)
[2018-05-28 06:50] LABS: ALANINE AMINOTRANSFERASE 28 U/L (12-78); ALBUMIN 2.5 g/dL (3.4-5.0); ALKALINE PHOSPHATASE 198 U/L (46-116); ASPARTATE AMINOTRANSFERASE 70 U/L (15-37); BILIRUBIN,TOTAL 0.5 mg/dL (0.2-1.0); CALCIUM, SERUM 7.7 mg/dL (8.5-10.1); CARBON DIOXIDE 32 mmol/L (21-32); CHLORIDE 101 mmol/L (98-107); CREATININE 5.2 mg/dL (0.6-1.3); GLUCOSE 101 mg/dL (74-106); MAGNESIUM 1.8 mg/dL (1.8-2.4); PHOSPHORUS 3.8 mg/dL (2.5-4.9); POTASSIUM 4.2 mmol/L (3.5-5.1); SODIUM SERUM 139 mmol/L (136-145); TOTAL PROTEIN, SERUM 5.9 g/dL (6.4-8.2); UREA NITROGEN, BLOOD 26 mg/dL (7-18)
[2018-05-28 07:01] LABS: TROPONIN I 20.141 ng/mL (0.00-0.056)
--- NOTE | 2018-05-28 07:04 | NUR ---
MS/RN NOTES RECEIVED CRITICAL LAB RESULT FOR TROPONIN LEVEL AT 20.141, WILL FOLLOW UP WITH ANTONIO GALO,
--- NOTE | 2018-05-28 07:06 | NUR ---
311-1 tele/rn notes PATIENT ABLE TO SLEEP DURING THE NIGHT, RESPIRATIONS EVEN AND UNLABORED SKIN WARM TO TOUCH, MONITORING FOR ANY CHANGES, CALL LIGHTS WITHIN REACH, BED IN LOCK POSIITON WILL ENDORSE TO AM RN FOR [facility].
--- NOTE | 2018-05-28 07:20 | NUR ---
RN NOTES: TELE 60 WITH BBB PATIENT DENYING CHEST PAIN. NONLABORED BREATHING
--- NOTE | 2018-05-28 07:31 | NUR ---
NO CHANGE ON HEPARIN DRIP PER PROTOCOL
[2018-05-28 08:00] VITALS: BP 147/52
[2018-05-28] MEDS: LANTHANUM CARBONATE 1,000 MG TAB.CHEW PO SCH ×2 (08:00→19:00)
[2018-05-28] MEDS: NIFEdipine XL (30MG) 30 MG TAB PO SCH (09:00)
[2018-05-28] MEDS: CHOLECALCIFEROL 1,000 UNIT TABLET (VIT D3) PO SCH (09:00)
[2018-05-28] MEDS: CARVEDILOL 12.5 MG TABLET PO SCH ×2 (09:00→22:00)
[2018-05-28] MEDS: VALSARTAN 80 MG TABLET PO SCH (09:00)
[2018-05-28] MEDS: hydrALAZINE HCL 50 MG TABLET PO SCH ×3 (09:00→17:00)
[2018-05-28] MEDS: ASPIRIN 81 MG TAB.CHEW PO SCH (09:36)
[2018-05-28] MEDS: CINACALCET HCL 30 MG TABLET PO SCH (09:36)
[2018-05-28] MEDS: CLOPIDOGREL BISULFATE 75 MG TABLET PO SCH (09:37)
[2018-05-28] MEDS: NEOMY SULF/BACITRAC ZN/POLY 15 GM TUBE TP SCH (09:45)
[2018-05-28] MEDS: KETOCONAZOLE 2% CREAM 15 GM TUBE TP SCH (09:45)
--- NOTE | 2018-05-28 09:49 | NUR ---
PATIENT REFUSING VITAMIN D3, STATING "IT MADE ME SICK YESTERDAY." BENEFITS AND RISKS EXPLAINED AT LENGTH
--- NOTE | 2018-05-28 10:00 | NUR ---
RN NOTES: DR HOOD NOTIFIED OF AM LABS
[2018-05-28] MEDS ORDERED: ENOXAPARIN SODIUM 40 MG/0.4 ML DISP.SYRIN SQ SCH (10:30)
[2018-05-28] MEDS: NITROGLYCERIN 0.4 MG/TAB BOTTLE SL PRN ×3 (12:09→21:00)
--- NOTE | 2018-05-28 12:14 | NUR ---
1208 PATIENT STATING HAVING A "4/10" ACHING PAIN ON THE RIGHT SIDE OF HIS CHEST. PATIENT STATING "IT IS NOT PRESSURE LIKE". PATIENT STATES THAT PAIN OCCURED AFTER HE AMBULATED TO THE BATHROOM DENYING NAUSEA AND VOMITING. NONLABORED BREATHING NOTED ON ROOM AIR. SPO2 WNL. PATIENT ENCOURAGED TO REST IN BED. NITRO SUBLINGUAL 0.4 MG GIVEN PER ORDERS. 1214 PATIENT STATING THAT PAIN HAS DECREASED TO "0/10" \\ NONLABORED BREATHING NOTED ON ROOM AIR AND SPO2 WNL WILL CONTINUE TO MONITOR
[2018-05-28] MEDS: HEPARIN SODIUM, PORCINE 5000 UNITS/1 ML VIAL SQ SCH ×2 (12:20→22:23)
[2018-05-28] MEDS: ZINC SULFATE 220 MG CAPSULE PO SCH (14:00)
--- NOTE | 2018-05-28 14:45 | NUR ---
PATIENT REFUSING ZINCATE, STATING "IT MADE ME SICK YESTERDAY." BENEFITS AND RISKS EXPLAINED AT LENGTH . PATIENT STILL REFUSING
[2018-05-28 14:51] VITALS: BP 142/72
--- NOTE | 2018-05-28 16:40 | NUR ---
1634 PATIENT STATING HAVING A "5/10" ACHING PAIN ON THE RIGHT SIDE OF HIS CHEST. PATIENT STATING "IT IS NOT PRESSURE LIKE". PATIENT STATES THAT PAIN OCCURED HE WAS RESTING IN BED. PATIENT ENCOURAGED TO UTILZE ANXIETY REDUCING MECHANISMS, ENCOURAGED TO EXPRESS FEELINGS AND EMOTIONS. DENYING NAUSEA AND VOMITING. NONLABORED BREATHING NOTED ON ROOM AIR. SPO2 WNL. PATIENT ENCOURAGED TO REST IN BED. NITRO SUBLINGUAL 0.4 MG GIVEN PER ORDERS. 1639 PATIENT STATING THAT PAIN "IS GONE" NONLABORED BREATHING NOTED ON ROOM AIR WILL CONTINUE TO MONITOR
[2018-05-28 16:46] VITALS: BP 138/71
--- NOTE | 2018-05-28 17:48 | NUR ---
RN NOTES: TROPONIN TO BE ADDED TO LAB DRAWS TOMORROW 05/29/[address] TRUONG ORDERS
--- NOTE | 2018-05-28 19:29 | NUR ---
RN CLOSING NOTES: PATIENT RESTING IN BED. NONLABORED BREATHING NOTED ON ROOM AIR. DENYING CHEST PAIN AT THE MOMENT. PATIENT REFUSING FOSRENAL MEDICATION HE STATES THAT HE DOES NOT WANT TO EAT DINNER. PATIENT DRANK 4 OZ OF APPLE JUICE BLOOD SUGAR RESULT OF 77 WAS DISCUSSED WITH HIM NO SIGNS OF BLEEDING NOTED DURING SHIFT.IV SITE ON RIGHT FOREARM PATENT AND INTACT. AV FISTULA ON ROBIN WITH DRESSING INTACT AND NO SIGNS OF BLEEDING BED IN LOWEST LOCKED POSITION CALL LIGHT WITHIN REACH. ENDORSED TO RENE GALVAN MEPILEX APPLIED ON SCALP SITE OF DEBRIDEMENT PER SHAWNA OQUENDO-
--- NOTE | 2018-05-28 19:30 | NUR ---
MS/RN OPENING NOTES PT IN BED, AWAKE, ALERT X 3, OXYGENATION AT 96% AT 3LPM. NO C/O CHEST PAIN, NO SOB, NO ACUTE CHANGES NOTED. IV ACCESS TO RFA, SL. @ BEDSIDE. RIGHT CHEST PRESSURE IS RELIEVED AFTER NITRO WAS GIVEN BY AM RN. PATIENT OBSERVED AND VERBALIZED IMPROVEMENT. BED IN LOW LOCKED POSITION. CALL LIGHT WITHIN REACH. WILL CONTINUE TO MONITOR CLOSELY.
[2018-05-28 20:00] VITALS: BP 134/60
[2018-05-28] MEDS: AZITHROMYCIN 250 MG TABLET PO SCH (20:00)
--- NOTE | 2018-05-28 20:29 | NUR ---
PRN MAALOX GIVEN PT HAD C/O STOMACH UPSET & ASKED TO GET MEDICINE. PRN MAALOX GIVEN PO. WILL MONITOR FOR THE EFFECTIVENESS. REFUSED TO TAKE ZOFRAN @ THIS TIME SINCE PT C/O NAUSEA WELL.
--- NOTE | 2018-05-28 20:50 | NUR ---
MS RN NOTE PT'S O2 SAT NOTED TO BE B/W 84%-86% @ 3 LPM VIA NC, CHANGED TO FACE MASK WIOTH O2 LEVEL @ 10LPM. WILL MONITOR CLOSELY.
--- NOTE | 2018-05-28 21:00 | NUR ---
PRN NITRO TAB GIVEN SL PT HAD C/O PAIN TO RIGHT CHEST 04/15, ASKED FOR NITRO TAB, SL. VS CHECKED 149/69, 90, 22, 90% @ 10LPM VIA FACE MASK. PRN NITRO TAB GIVEN. MONITORING CLOSELY.
--- NOTE | 2018-05-28 21:12 | NUR ---
RT @ BED SIDE RT ARRIVED, ASSESSING THE PT.
--- NOTE | 2018-05-28 21:26 | NUR ---
NOTIFIED PAGED ART PSYCHOTHERAPIST STONE GALO, PHOTOGRAPHIC TECHNICIAN CALLED BACK, INFORMED HIM ABOUT PT'S CONDITION, STONE ORDERED BREATHING TREATMENT & CHANGED MORPHINE TO 2MG Q4HRS PRN. CONFIRMED WITH STONE THAT IF PT'S O2 SAT IS WNL, IF MORPHINE COULD BE GIVEN ,SINCE PT ASKED FOR IT, STONE STATED YES. ORDERS NOTED & CARRIED OUT. WILL MONITOR THE PT CLOSELY.
[2018-05-28] MEDS ORDERED: MORPHINE SULFATE INJ 2 MG/ML DISP.SYRIN IV PRN (21:30)
[2018-05-28] MEDS ORDERED: ALBUTEROL FS 2.5 MG/0.5 ML VIAL.NEB NEB PRN (21:30)
[2018-05-28] MEDS ORDERED: IPRATROPIUM NEB FS 0.5 MG/2.5 ML AMPUL.NEB NEB PRN (21:30)
[2018-05-28] MEDS: ATORVASTATIN 40 MG TABLET PO SCH (22:00)
[2018-05-28] MEDS: ISOSORBIDE MONONITRATE (30MG) 30 MG TAB.SR.24H PO SCH (22:00)
[2018-05-28] MEDS: CEFTRIAXONE 1 G in IV NS 0.9% 50 ML IV SCH (22:15)
--- NOTE | 2018-05-28 22:30 | NUR ---
BREATHING TX GIVEN BY RT RT GAVE BREATHING TX ORDERED & NOTED TO BE EFFECTIVE, O2 SAT IMPROVED UP TO 95% @ O2 10 VIA FACE MASK. PT STATED THAT HE FEELS BETTER AFTER THE BREATHING TX.
--- NOTE | 2018-05-28 22:45 | NUR ---
MS RN NOTE RT RE ASSESSED THE PT, CHANGED O2 TO NC @ 5 LPM, PT IS SATTING 94-96%. NO SOB, NO DISTRESS/DISCOMFORT NOTED @ THIS TIME.
--- NOTE | 2018-05-28 23:38 | NUR ---
PT REFUSED HIS 2200 MEDS PT HAD VOMIT X 1, SMALL AMOUNT, REFUSED TO TAKE HIS COREG, IMDUR & LIPITOR TONIGHT DESPITE OF EXPLANATIONS OF RISKS & BENEFITS. PT STATED, HE FEELS THAT HE IS BEING OVERDOSED, THESE MEDICINES MAKES HIM NAUSEOUS & HE DOESN'T FEEL GOOD WHEN IS NAUSEOUS BACAUSE OF TAKING THESE MEDICINES. MAALOX WAS GIVEN EARLIER FOR UPSET STOMACH BUT PT STILL REFUSED TO TAKE HIS MEDS. PT IS A & O X4. ZOFRAN WAS OFFERED TO HIM WHEN HE WAS HAVING NAUSEA BUT HE REFUSED.
--- NOTE | 2018-05-29 | NUR ---
MS RN RT SEEN THE PT, O2 SAT NOTED TO BE B/W 89-91%, CHANGED PT TO FACE MASK @ 6LPM. SATTING WELL 98%, PT IS A MOUTH BREATHER. NO C/O CHEST PAIN VERBALIZED. MONITORING CLOSELY.
[2018-05-29] MEDS: NITROGLYCERIN PACKET 1 GM PACKET TOP SCH ×3 (00:28→12:00)
--- NOTE | 2018-05-29 00:36 | NUR ---
PRN MORPHINE GIVEN PT HAD C/O BACK PAIN, VERBALIZED 06/15 & WANTED TO TAKE MORPHINE ONLY @ THIS TIME. OTHER PO PAIN MEDS WERE OFFERED BUT PREFERRED TO TAKE MORPHINE ONLY. VS CHECKED 141/66,88,22,98% @ 6LPM VIA SIMPLE FACE MASK. WILL REASSESS FOR EFFECTIVENESS OR FOR ANY [facility].
[2018-05-29 06:21] LABS: CALCIUM, SERUM 7.5 mg/dL (8.5-10.1); CARBON DIOXIDE 31 mmol/L (21-32); CHLORIDE 101 mmol/L (98-107); GLUCOSE 71 mg/dL (74-106); POTASSIUM 4.7 mmol/L (3.5-5.1); SODIUM SERUM 141 mmol/L (136-145); UREA NITROGEN, BLOOD 42 mg/dL (7-18)
[2018-05-29] MEDS: BLOOD SUGAR DIAGNOSTIC 1 EACH STRIP IN SCH ×2 (06:58→12:16)
--- NOTE | 2018-05-29 07:25 | NUR ---
MS/RN CLOSING NOTES PT IN BED, AWAKE, ALERT X 3, SLEPT WELL @ NIGHT AFTER MORPHINE WAS GIVEN & PT VERBALIZED THAT HE RESTED WELL AFTER GETTING MORPHINE. BS LEVEL NOTED TO BE 66MG/DL, CRANBERRY JUICE PREFERRED BY THE PT & TOLERATED WELL SO FAR, NO VOMITING NOTED. BODY TEMP CHECKED, 99 ORALLY. OXYGENATION AT 95% AT 4LPM VIA FACE MASK. NO C/O CHEST PAIN, NO SOB, NO ACUTE CHANGES NOTED. IV ACCESS TO [facility], SL. LAB CALLED TO INFORM TROPONIN LEVEL TRENDED DOWN TO 14.470. BED IN LOW LOCKED POSITION. CALL LIGHT WITHIN REACH. ENDORSED TO AM RN FOR CONTINUITY OF CARE & AM RN STATED THAT MD WILL BE INFORMED ABOUT THE TROPONIN LEVEL.
--- NOTE | 2018-05-29 07:30 | NUR ---
MS RN OPENING NOTES Received patient awake and orient X4. With IV line RFA #20 patent and intact, no s/sx of infection noted. No complaint of chest pain at this time. For dialysis this AM, BP 130/57mmHg, OH 95bpm, BP/Cardio meds hold for morning dose. ROBIN AV shunt intact, no bleeding noted, +bruit noted. Patient preferred to take all his meds with meals. Patient selected meds to take, MD made aware. Kept clean, dry and comfortable. All needs attended and anticipated. Call light within easy reach. Will continue to monitor.
[2018-05-29 08:00] VITALS: BP 130/57
[2018-05-29 08:12] LABS: BASOPHILS % (AUTO) 0.5 % (0.0-2.0); EOSINOPHILS % (AUTO) 1.4 % (0.0-6.0); HEMATOCRIT 30 % (39-51); LYMPHOCYTES # (AUTO) 1.2 /CMM (0.8-4.8); LYMPHOCYTES % (AUTO) 14.2 % (20.0-44.0); MEAN CORPUSCULAR HEMOGLOBIN 30 PG (26.0-33.0); MEAN CORPUSCULAR HGB CONC 33 g/dl (31.0-36.0); MEAN CORPUSCULAR VOLUME 92 fL (80-96); MONOCYTES # (AUTO) 0.8 /CMM (0.1-1.30); NEUTROPHILS # (AUTO) 6.5 /CMM (1.8-8.9); NEUTROPHILS % (AUTO) 74.9 % (43.0-81.0); PLATELET COUNT (AUTO) 156 /CMM (150-450); RDW COEFFICIENT OF VARIATION 15.2 (11.5-15.0); RED BLOOD CELL COUNT(AUTO) 3.29 MIL/uL (4.5-6.0); WHITE BLOOD COUNT (AUTO) 8.7 K/uL (4.3-11.0)
[2018-05-29] MEDS: CLOPIDOGREL BISULFATE 75 MG TABLET PO SCH (08:31)
[2018-05-29] MEDS: CINACALCET HCL 30 MG TABLET PO SCH (08:31)
[2018-05-29] MEDS: LANTHANUM CARBONATE 1,000 MG TAB.CHEW PO SCH (08:31)
[2018-05-29] MEDS: ASPIRIN 81 MG TAB.CHEW PO SCH (08:31)
[2018-05-29] MEDS: HEPARIN SODIUM, PORCINE 5000 UNITS/1 ML VIAL SQ SCH (08:33)
[2018-05-29] MEDS: CHOLECALCIFEROL 1,000 UNIT TABLET (VIT D3) PO SCH (09:00)
[2018-05-29] MEDS: CARVEDILOL 12.5 MG TABLET PO SCH (09:00)
[2018-05-29] MEDS: NIFEdipine XL (30MG) 30 MG TAB PO SCH (09:00)
[2018-05-29] MEDS: hydrALAZINE HCL 50 MG TABLET PO SCH ×2 (09:00→13:00)
[2018-05-29] MEDS: VALSARTAN 80 MG TABLET PO SCH (09:00)
[2018-05-29] MEDS: KETOCONAZOLE 2% CREAM 15 GM TUBE TP SCH (09:15)
[2018-05-29] MEDS: NEOMY SULF/BACITRAC ZN/POLY 15 GM TUBE TP SCH (09:18)
[2018-05-29 13:00] VITALS: BP 134/65
[2018-05-29] MEDS: ZINC SULFATE 220 MG CAPSULE PO SCH (14:00)
--- NOTE | 2018-05-29 16:00 | NUR ---
M/S RN - Discharge Patient discharged home in stable condition, afebrile, denies chest pain, ambulatory with assist, A/O x 4. Reviewed discharge instructions with patient and he verbalized full understanding of all teachings. Patient made aware that he has an appt with [facility] on , 05/31/18 at 13:15 pm. Seek immediate medical attention for worsening symptoms, chest pain, shortness or breath, confusion, weakness, fatigue, dizziness, or any other emergent medical concern. All belongings with patient and he denies any missing items. Patient refused photos to be taken on his scalp wound, educated wound treatment (apply triple antibiotic and cover with dry dressing daily). Discharge papers signed and copy was given per protocol. Accompanied to the lobby via wheelchair and transported via private car by Antonella.
== END 2018-05-29 16:00 | disposition home or self-care (01) | DRG 981 ==
LOC: ER 12:30 → TELE 13:52 → MED 05-28 14:19
PROVIDERS: ADMIT Family Medicine; ATTEND Family Medicine
PROC: 5A1D70Z Performance of Urinary Filtration, Intermittent, Less than 6 Hours Per Day (ICD-10-PCS; 2018-05-27)
PROC: 0KB00ZZ Excision of Head Muscle, Open Approach (ICD-10-PCS; principal; 2018-05-28)
PROC: 5A1D70Z Performance of Urinary Filtration, Intermittent, Less than 6 Hours Per Day (ICD-10-PCS; 2018-05-29)
DX: I21.4 Non-ST elevation (NSTEMI) myocardial infarction (principal); N18.6 End stage renal disease; J18.9 Pneumonia, unspecified organism; E44.1 Mild protein-calorie malnutrition; I13.2 Hypertensive heart and chronic kidney disease with heart failure and with stage 5 chronic kidney disease, or end stage renal disease; G71.0 Muscular dystrophy; I50.42 Chronic combined systolic (congestive) and diastolic (congestive) heart failure; B48.8 Other specified mycoses; R07.81 Pleurodynia; E11.22 Type 2 diabetes mellitus with diabetic chronic kidney disease; E11.51 Type 2 diabetes mellitus with diabetic peripheral angiopathy without gangrene; D63.8 Anemia in other chronic diseases classified elsewhere; E78.5 Hyperlipidemia, unspecified; I25.5 Ischemic cardiomyopathy; I25.10 Atherosclerotic heart disease of native coronary artery without angina pectoris; K21.9 Gastro-esophageal reflux disease without esophagitis; Z99.2 Dependence on renal dialysis; M21.372 Foot drop, left foot; Z86.718 Personal history of other venous thrombosis and embolism; Z95.5 Presence of coronary angioplasty implant and graft; E88.09 Other disorders of plasma-protein metabolism, not elsewhere classified; E21.3 Hyperparathyroidism, unspecified; M48.00 Spinal stenosis, site unspecified; Z68.22 Body mass index [BMI] 22.0-22.9, adult; S01.00XA Unspecified open wound of scalp, initial encounter; X58.XXXA Exposure to other specified factors, initial encounter; Y93.9 Activity, unspecified; Y92.009 Unspecified place in unspecified non-institutional (private) residence as the place of occurrence of the external cause; Z79.4 Long term (current) use of insulin; G62.9 Polyneuropathy, unspecified; N40.0 Benign prostatic hyperplasia without lower urinary tract symptoms; C44.91 Basal cell carcinoma of skin, unspecified; M21.371 Foot drop, right foot
CPT/HCPCS: 36415; 71045-TC; 80048-TC; 80053-TC; 80061-TC; 80076-TC; 82962-TC; 83735-TC; 83970; 84100-TC; 84443-TC; 84484-TC; 85025-TC; 85730-TC; 87081-TC; 90935-TC; 93307-TC; A4216; A4606; A6402; J0696; J1644; J2270; J7040; J7050; Z7610

== ENCOUNTER 2018-06-07 13:57 | Outpatient (CLI) | payer MEDICARE ==
[~2018-06-07 13:57] MED LIST changes: -ALBU1.25 NEB; -ASPI-1152 PO; +ASPI-1169 PO; +CHOL50004 PO; -DOXY100T2 PO; +LANT1000 PO; +LUTE40CA PO; -MUPI22OI7; -NIFE30TA89 PO; +NIFE60TA2 PO; +NIFE90TA2 PO; +OMEG1CAP40 PO; +RESV250C2 PO; +UBIQ200C PO; +ZINC50TA2 PO
== END 2018-06-07 23:59 | disposition home or self-care (01) ==
LOC: WOU 13:57
PROVIDERS: ATTEND Surgery
DX: Z48.3 Aftercare following surgery for neoplasm (principal); C44.41 Basal cell carcinoma of skin of scalp and neck; I73.9 Peripheral vascular disease, unspecified; E78.5 Hyperlipidemia, unspecified; Z89.411 Acquired absence of right great toe; E11.41 Type 2 diabetes mellitus with diabetic mononeuropathy; Z79.4 Long term (current) use of insulin; Z79.899 Other long term (current) drug therapy; Z79.02 Long term (current) use of antithrombotics/antiplatelets; Z79.82 Long term (current) use of aspirin; Z85.46 Personal history of malignant neoplasm of prostate; I25.2 Old myocardial infarction; I10 Essential (primary) hypertension
CPT/HCPCS: A6402; G0463; Z7610

== ENCOUNTER 2018-06-14 11:31 | Outpatient (CLI) | payer MEDICARE | END 2018-06-14 23:59 | disposition home or self-care (01) | LOC: WOU 11:31 | PROVIDERS: ATTEND Podiatrist Foot & Ankle Surgery | DX: E10.42 Type 1 diabetes mellitus with diabetic polyneuropathy (principal); Z89.411 Acquired absence of right great toe; L84 Corns and callosities; L60.3 Nail dystrophy; Z85.828 Personal history of other malignant neoplasm of skin; E78.5 Hyperlipidemia, unspecified; Z98.62 Peripheral vascular angioplasty status; Z85.820 Personal history of malignant melanoma of skin; Z85.46 Personal history of malignant neoplasm of prostate; E10.51 Type 1 diabetes mellitus with diabetic peripheral angiopathy without gangrene | CPT/HCPCS: G0463; Z7610 ==

== ENCOUNTER 2018-06-18 13:02 | Outpatient (CLI) | payer MEDICARE | END 2018-06-18 23:59 | disposition home or self-care (01) | LOC: WOU 13:02 | PROVIDERS: ATTEND Surgery | DX: T81.89XD Other complications of procedures, not elsewhere classified, subsequent encounter (principal); Z85.828 Personal history of other malignant neoplasm of skin; I10 Essential (primary) hypertension; E10.41 Type 1 diabetes mellitus with diabetic mononeuropathy; G58.9 Mononeuropathy, unspecified; Z79.4 Long term (current) use of insulin; I73.9 Peripheral vascular disease, unspecified; E78.5 Hyperlipidemia, unspecified; Z89.411 Acquired absence of right great toe; Z85.820 Personal history of malignant melanoma of skin; Z85.46 Personal history of malignant neoplasm of prostate; Z98.62 Peripheral vascular angioplasty status; Z79.82 Long term (current) use of aspirin | CPT/HCPCS: A6402; G0463; Z7610 ==

== ENCOUNTER 2018-07-02 12:47 | Outpatient (CLI) | payer MEDICARE | END 2018-07-02 23:59 | disposition home or self-care (01) | LOC: WOU 12:47 | PROVIDERS: ATTEND Surgery | DX: Z08 Encounter for follow-up examination after completed treatment for malignant neoplasm (principal); Z85.828 Personal history of other malignant neoplasm of skin; E10.42 Type 1 diabetes mellitus with diabetic polyneuropathy; I73.9 Peripheral vascular disease, unspecified; L84 Corns and callosities; L60.3 Nail dystrophy; I10 Essential (primary) hypertension; E78.5 Hyperlipidemia, unspecified | CPT/HCPCS: G0463; Z7610 ==

== ENCOUNTER 2018-12-13 11:10 | Outpatient (CLI) | payer MEDICARE, OTHER | END 2018-12-13 23:59 | disposition home or self-care (01) | LOC: WOU 11:10 | PROVIDERS: ATTEND Podiatrist Foot & Ankle Surgery | DX: Z47.81 Encounter for orthopedic aftercare following surgical amputation (principal); Z89.421 Acquired absence of other right toe(s); E10.42 Type 1 diabetes mellitus with diabetic polyneuropathy; E10.51 Type 1 diabetes mellitus with diabetic peripheral angiopathy without gangrene; L60.3 Nail dystrophy; L84 Corns and callosities; Z85.89 Personal history of malignant neoplasm of other organs and systems; Z85.828 Personal history of other malignant neoplasm of skin; M21.379 Foot drop, unspecified foot; Z95.820 Peripheral vascular angioplasty status with implants and grafts; Z79.4 Long term (current) use of insulin; Z79.82 Long term (current) use of aspirin; Z79.899 Other long term (current) drug therapy | CPT/HCPCS: G0463 ==

== ENCOUNTER 2019-02-14 11:45 | Outpatient (CLI) | payer MEDICARE, OTHER | END 2019-02-14 23:59 | disposition home or self-care (01) | LOC: WOU 11:45 | PROVIDERS: ATTEND Podiatrist Foot & Ankle Surgery | DX: Z51.89 Encounter for other specified aftercare (principal); E10.42 Type 1 diabetes mellitus with diabetic polyneuropathy; Z89.411 Acquired absence of right great toe; E10.51 Type 1 diabetes mellitus with diabetic peripheral angiopathy without gangrene; L84 Corns and callosities; L60.3 Nail dystrophy | CPT/HCPCS: G0463 ==

== ENCOUNTER 2019-04-18 11:25 | Outpatient (CLI) | payer MEDICARE, OTHER | END 2019-04-18 23:59 | disposition home or self-care (01) | LOC: WOU 11:25 | PROVIDERS: ATTEND Podiatrist Foot & Ankle Surgery | DX: E10.42 Type 1 diabetes mellitus with diabetic polyneuropathy (principal); Z89.411 Acquired absence of right great toe; L84 Corns and callosities; L60.3 Nail dystrophy; E10.51 Type 1 diabetes mellitus with diabetic peripheral angiopathy without gangrene; I70.209 Unspecified atherosclerosis of native arteries of extremities, unspecified extremity; Z79.4 Long term (current) use of insulin; Z98.62 Peripheral vascular angioplasty status; Z85.46 Personal history of malignant neoplasm of prostate; E78.5 Hyperlipidemia, unspecified; I10 Essential (primary) hypertension; Z85.820 Personal history of malignant melanoma of skin; Z79.02 Long term (current) use of antithrombotics/antiplatelets | CPT/HCPCS: G0463 ==

== ENCOUNTER 2019-07-04 15:11 | Outpatient (CLI) | payer MEDICARE, OTHER ==
[2019-07-04 16:00] LABS: BASOPHILS # (AUTO) 0.1 /CMM (0.0-0.2); BASOPHILS % (AUTO) 1.2 % (0.0-2.0); EOSINOPHILS % (AUTO) 3.2 % (0.0-6.0); HEMATOCRIT 23 % (39-51); HEMOGLOBIN 7.8 g/dL (13.5-17.5); LYMPHOCYTES # (AUTO) 0.8 /CMM (0.8-4.8); LYMPHOCYTES % (AUTO) 13.8 % (20.0-44.0); MEAN CORPUSCULAR HGB CONC 35 g/dl (31.0-36.0); MEAN CORPUSCULAR VOLUME 93 fL (80-96); MONOCYTES # (AUTO) 0.5 /CMM (0.1-1.30); MONOCYTES % (AUTO) 9.2 % (2.0-12.0); NEUTROPHILS % (AUTO) 72.6 % (43.0-81.0); PLATELET COUNT (AUTO) 187 /CMM (150-450); RED BLOOD CELL COUNT(AUTO) 2.42 MIL/uL (4.5-6.0); WHITE BLOOD COUNT (AUTO) 5.5 K/uL (4.3-11.0)
== END 2019-07-04 23:59 | disposition home or self-care (01) ==
LOC: LAB 15:11
PROVIDERS: ATTEND Podiatrist Foot & Ankle Surgery
DX: R53.83 Other fatigue (principal); I11.0 Hypertensive heart disease with heart failure; I50.9 Heart failure, unspecified; I25.10 Atherosclerotic heart disease of native coronary artery without angina pectoris; E11.9 Type 2 diabetes mellitus without complications; K21.9 Gastro-esophageal reflux disease without esophagitis; Z95.5 Presence of coronary angioplasty implant and graft
CPT/HCPCS: 36415; 85025-TC

== ENCOUNTER 2019-07-18 11:35 | Outpatient (CLI) | payer MEDICARE, OTHER | END 2019-07-18 23:59 | disposition home or self-care (01) | LOC: WOU 11:35 | PROVIDERS: ATTEND Podiatrist Foot & Ankle Surgery | DX: Z09 Encounter for follow-up examination after completed treatment for conditions other than malignant neoplasm (principal); E10.42 Type 1 diabetes mellitus with diabetic polyneuropathy; E10.51 Type 1 diabetes mellitus with diabetic peripheral angiopathy without gangrene; L84 Corns and callosities; L60.3 Nail dystrophy; Z89.411 Acquired absence of right great toe | CPT/HCPCS: G0463 ==

== ENCOUNTER 2019-09-19 11:25 | Outpatient (CLI) | payer MEDICARE, OTHER | END 2019-09-19 23:59 | disposition home or self-care (01) | LOC: WOU 11:25 | PROVIDERS: ATTEND Podiatrist Foot & Ankle Surgery | PROC: 0HBRXZZ Excision of Toe Nail, External Approach (ICD-10-PCS; principal; 2019-09-19) | DX: Z09 Encounter for follow-up examination after completed treatment for conditions other than malignant neoplasm (principal); B35.1 Tinea unguium; B35.3 Tinea pedis; E11.51 Type 2 diabetes mellitus with diabetic peripheral angiopathy without gangrene; Z89.411 Acquired absence of right great toe; M21.371 Foot drop, right foot; E10.40 Type 1 diabetes mellitus with diabetic neuropathy, unspecified; Z98.62 Peripheral vascular angioplasty status; E78.5 Hyperlipidemia, unspecified; I10 Essential (primary) hypertension; Z85.828 Personal history of other malignant neoplasm of skin | CPT/HCPCS: G0463 ==

== ENCOUNTER 2019-11-28 11:30 | Outpatient (CLI) | payer MEDICARE, OTHER | END 2019-11-28 23:59 | disposition home or self-care (01) | LOC: WOU 11:30 | PROVIDERS: ATTEND Podiatrist Foot & Ankle Surgery | DX: Z09 Encounter for follow-up examination after completed treatment for conditions other than malignant neoplasm (principal); E11.40 Type 2 diabetes mellitus with diabetic neuropathy, unspecified; Z89.411 Acquired absence of right great toe; E11.51 Type 2 diabetes mellitus with diabetic peripheral angiopathy without gangrene; M21.371 Foot drop, right foot; B35.1 Tinea unguium; B35.3 Tinea pedis; L84 Corns and callosities | CPT/HCPCS: G0463 ==

== ENCOUNTER 2019-12-25 20:58 | Emergency (ER) | payer MEDICARE, OTHER ==
[~2019-12-25] VITALS: Ht 172.7 cm; Wt 68.0 kg
--- NOTE | 2019-12-25 21:00 | NUR ---
PT CAME INTO THE ED C/O MID ABDOMINAL PAIN X 2 DAYS. -NVD. PT THINKS HE IS CONSTIPATED. LAST BM TODAY IN SMALL AMOUNT. PT AAOX4,VSS, RR EVEN AND UNLABORED ON RA W/ NAD NOTED. PT CONNECTED TO THE MONITOR AND POX
[2019-12-25 22:30] LABS: BASOPHILS # (AUTO) 0.1 /CMM (0.0-0.2); EOSINOPHILS % (AUTO) 0.5 % (0.0-6.0); HEMATOCRIT 36 % (39-51); HEMOGLOBIN 11.8 g/dL (13.5-17.5); LYMPHOCYTES % (AUTO) 9.4 % (20.0-44.0); MEAN CORPUSCULAR HGB CONC 33 g/dl (31.0-36.0); MEAN CORPUSCULAR VOLUME 93 fL (80-96); MONOCYTES % (AUTO) 9.2 % (2.0-12.0); NEUTROPHILS # (AUTO) 8.6 /CMM (1.8-8.9); NEUTROPHILS % (AUTO) 79.9 % (43.0-81.0); PLATELET COUNT (AUTO) 190 /CMM (150-450); RED BLOOD CELL COUNT(AUTO) 3.91 MIL/uL (4.5-6.0); WHITE BLOOD COUNT (AUTO) 10.8 K/uL (4.3-11.0)
[2019-12-25 22:37] LABS: CARBON DIOXIDE 30 mmol/L (21-32); CHLORIDE 100 mmol/L (98-107); CREATININE 7.3 mg/dL (0.6-1.3); GLUCOSE 169 mg/dL (74-106); POTASSIUM 5.8 mmol/L (3.5-5.1); SODIUM SERUM 141 mmol/L (136-145); UREA NITROGEN, BLOOD 59 mg/dL (7-18)
[2019-12-25 22:43] LABS: ALANINE AMINOTRANSFERASE 25 U/L (12-78); ALBUMIN 3.3 g/dL (3.4-5.0); ALKALINE PHOSPHATASE 217 U/L (46-116); ASPARTATE AMINOTRANSFERASE 16 U/L (15-37); BILIRUBIN,DIRECT 0.1 mg/dL (0.0-0.2); BILIRUBIN,TOTAL 0.5 mg/dL (0.2-1.0); LIPASE 114 U/L (73-393); TOTAL PROTEIN, SERUM 7.6 g/dL (6.4-8.2)
[2019-12-25] MEDS ORDERED: LACTULOSE 10 G/15 ML UDC (PYXIS) ONE ×2 (23:42→23:43)
[2019-12-26] MEDS ORDERED: LACTULOSE 10 G/15 ML UDC (PYXIS) GT ONE
[2019-12-26 00:10] VITALS: BP 149/81
--- NOTE | 2019-12-26 00:10 | NUR ---
Patient discharged to home in stable condition. Written and verbal after care instructions given. Patient verbalizes understanding of instruction.IV removed. Catheter intact and site benign. Pressure and 4x4 applied to site. No bleeding noted.
== END 2019-12-26 00:11 | disposition home or self-care (01) ==
LOC: ER 21:00
DX: K59.00 Constipation, unspecified (principal); E78.00 Pure hypercholesterolemia, unspecified; E21.3 Hyperparathyroidism, unspecified; K21.9 Gastro-esophageal reflux disease without esophagitis; E11.42 Type 2 diabetes mellitus with diabetic polyneuropathy; E11.22 Type 2 diabetes mellitus with diabetic chronic kidney disease; I12.0 Hypertensive chronic kidney disease with stage 5 chronic kidney disease or end stage renal disease; N18.6 End stage renal disease; D63.1 Anemia in chronic kidney disease; Z95.818 Presence of other cardiac implants and grafts; Z98.890 Other specified postprocedural states; Z79.899 Other long term (current) drug therapy; Z79.82 Long term (current) use of aspirin; Z85.46 Personal history of malignant neoplasm of prostate
CPT/HCPCS: 36415; 80048-TC; 80076-TC; 83690-TC; 84484-TC; 85025-TC

== ENCOUNTER 2020-02-06 11:35 | Outpatient (CLI) | payer MEDICARE, OTHER | END 2020-02-06 23:59 | disposition home or self-care (01) | LOC: WOU 11:35 | PROVIDERS: ATTEND Podiatrist Foot & Ankle Surgery | DX: B35.1 Tinea unguium (principal); L84 Corns and callosities; E11.40 Type 2 diabetes mellitus with diabetic neuropathy, unspecified; E11.51 Type 2 diabetes mellitus with diabetic peripheral angiopathy without gangrene; Z79.4 Long term (current) use of insulin; M21.371 Foot drop, right foot; Z89.411 Acquired absence of right great toe; Z79.82 Long term (current) use of aspirin; Z79.899 Other long term (current) drug therapy | CPT/HCPCS: G0463 ==

== ENCOUNTER 2020-02-25 02:15 | Inpatient (IN) | payer MEDICARE, OTHER ==
[~2020-02-25] VITALS: Ht 172.7 cm; Wt 67.1 kg
--- NOTE | 2020-02-25 02:20 | NUR ---
PT BIBRA 88 C/O RESP DISTRESS SAT 56 ON ROOM AIR. 87 ON 15L NON REBREATHER. NO FEVER OR COUGH PER EMT. MD AT BEDSIDE FOR EVAL. WILL COTNINUE TO MONITOR.
[2020-02-25] MEDS ORDERED: NTG 50 MG/D5W250 ML BOTTL 250 ML IV ONE ×2 (02:25→02:30)
--- NOTE | 2020-02-25 02:25 | NUR ---
RT AT BEDSIDE.
--- NOTE | 2020-02-25 02:25 | NUR ---
LINE INITIATED, LABS DRAWN. INF SWAP AND MRSA DONE.
--- NOTE | 2020-02-25 02:31 | NUR ---
CALLED FOR ICU BED
--- NOTE | 2020-02-25 02:34 | NUR ---
, OLIVER: [phone]
--- NOTE | 2020-02-25 02:37 | NUR ---
REGIONAL SALES LEADER COLLECTED LABS AND BLOOD CULTURES.
[2020-02-25 02:49] LABS: BASOPHILS # (AUTO) 0.1 /CMM (0.0-0.2); BASOPHILS % (AUTO) 0.8 % (0.0-2.0); EOSINOPHILS % (AUTO) 3.1 % (0.0-6.0); HEMATOCRIT 41 % (39-51); HEMOGLOBIN 13.1 g/dL (13.5-17.5); LYMPHOCYTES # (AUTO) 2.8 /CMM (0.8-4.8); LYMPHOCYTES % (AUTO) 19.8 % (20.0-44.0); MEAN CORPUSCULAR HGB CONC 32 g/dl (31.0-36.0); MEAN CORPUSCULAR VOLUME 94 fL (80-96); MONOCYTES # (AUTO) 1.1 /CMM (0.1-1.30); MONOCYTES % (AUTO) 7.4 % (2.0-12.0); NEUTROPHILS # (AUTO) 9.9 /CMM (1.8-8.9); NEUTROPHILS % (AUTO) 68.9 % (43.0-81.0); PLATELET COUNT (AUTO) 286 /CMM (150-450); RED BLOOD CELL COUNT(AUTO) 4.39 MIL/uL (4.5-6.0); WHITE BLOOD COUNT (AUTO) 14.4 K/uL (4.3-11.0)
--- NOTE | 2020-02-25 02:53 | NUR ---
PT ON BIPAP; O2 SAT AT 100%. CONT ON NITRO DRIP. VSS.
[2020-02-25 03:09] LABS: CALCIUM, SERUM 8.7 mg/dL (8.5-10.1); CARBON DIOXIDE 30 mmol/L (21-32); CHLORIDE 102 mmol/L (98-107); GLUCOSE 85 mg/dL (74-106); POTASSIUM 4.8 mmol/L (3.5-5.1); SODIUM SERUM 144 mmol/L (136-145); UREA NITROGEN, BLOOD 78 mg/dL (7-18)
[2020-02-25 03:10] LABS: CREATININE 8.6 mg/dL (0.6-1.3)
[2020-02-25 03:13] LABS: ALKALINE PHOSPHATASE 224 U/L (46-116); BILIRUBIN,DIRECT 0.2 mg/dL (0.0-0.2); BILIRUBIN,TOTAL 0.5 mg/dL (0.2-1.0)
[2020-02-25 03:14] LABS: ALANINE AMINOTRANSFERASE 28 U/L (12-78); ALBUMIN 3.5 g/dL (3.4-5.0); ASPARTATE AMINOTRANSFERASE 18 U/L (15-37); B-TYPE NATRIURETIC PEPTIDE 28390 PG/ML (0-125); TOTAL PROTEIN, SERUM 7.8 g/dL (6.4-8.2)
[2020-02-25 03:45] LABS: ABG BASE EXCESS -2.7 mmol/L; ABG OXYGEN SATURATION 98.6 % (92.0-98.5); ABG PH 7.396 (7.350-7.450); ABG PO2 401.5 mmHg (75.0-100.0); AaDO2 275.5 mmHg; COHb 0.4 % (0.5-1.5); MetHb 0.1 % (0.0-1.5); O2Hb 98.1 % (94.0-97.0); PEEP,BG 5 cm H2O; SITE, ABG Right Radial; VENT MODE, BG bipap
[2020-02-25 04:24] LABS: ABG BASE EXCESS -5.4 mmol/L; ABG OXYGEN SATURATION 90.5 % (92.0-98.5); ABG PCO2 51.6 mmHg (35.0-45.0); ABG PH 7.251 (7.350-7.450); ABG PO2 74.8 mmHg (75.0-100.0); AaDO2 586.6 mmHg; COHb 1.3 % (0.5-1.5); MetHb 0.1 % (0.0-1.5); O2Hb 89.2 % (94.0-97.0); SITE, ABG Right Radial; VENT MODE, BG nrb
--- NOTE | 2020-02-25 04:37 | NUR ---
ICU 261
--- NOTE | 2020-02-25 05:52 | NUR ---
per tye galicia and dr. wallis-- wean pt off bipap and titrate nitro drip. possible downgrade to shirley.
[2020-02-25] MEDS ORDERED: ACETAMINOPHEN 325 MG TABLET PO PRN (06:00)
[2020-02-25] MEDS ORDERED: Z GUARD REMEDY 2 OZ OINT TP PRN (06:00)
[2020-02-25] MEDS ORDERED: BUMETANIDE INJ 8 MG in IV NS 0.9% 48 ML IV ONE (06:00)
[2020-02-25] MEDS ORDERED: ONDANSETRON HCL/PF 4 MG/2 ML VIAL IVP PRN (06:00)
[2020-02-25] MEDS ORDERED: GABAPENTIN 100 MG CAPSULE PO PRN (06:00)
[2020-02-25] MEDS ORDERED: LANTHANUM CARBONATE 1,000 MG TAB.CHEW PO SCH (07:00)
[2020-02-25] MEDS ORDERED: CARVEDILOL 25 MG TABLET PO SCH (07:00)
[2020-02-25] MEDS ORDERED: CARVEDILOL 12.5 MG TABLET PO SCH (07:06)
--- NOTE | 2020-02-25 07:08 | NUR ---
report given to bhupinder castañeda for cesia
--- NOTE | 2020-02-25 07:47 | NUR ---
REPORT GIVEN TO NOREEN GALVAN FOR [facility].
[2020-02-25 08:00] VITALS: BP 142/66
--- NOTE | 2020-02-25 08:08 | NUR ---
PATIENT TRANSFERRED TO JANIE 120 VIA ACLS PROTOCOL. IN STABLE CONDITION. NO DISTRESS NOTED.
[2020-02-25] MEDS ORDERED: NIFEdipine XL (30MG) 30 MG TAB PO SCH (09:00)
[2020-02-25] MEDS ORDERED: VALSARTAN 80 MG TABLET PO SCH (09:00)
--- NOTE | 2020-02-25 09:00 | NUR ---
RN OPENING NOTES RECEIVED PATIENT VIA BARBARA FROM THE ED. PT IS 79 YO MALE WITH CC OF SOB AT HOME. HE IS ON 2L OF OXYGEN VIA NC, TOLERATING WELL, NO SOB OR RESP DISTRESS. SKIN IS INTACT, RIGHT BIG TOE IS AMPUTATED. AV FISTULA ON ROBIN IS PATENT AND INTACT, POSITIVE FOR BRUIT AND THRILL. LAC 20 G, L HAND 20 G PATENT AND INTACT. SAFETY MEASURES HAVE BEEN IMPLEMENTED, CALL LIGHT IS WITHIN REACH, BED IS IN LOWEST AND LOCKED POSITION, SIDE RAILS UP X2, WILL CONTINUE TO MONITOR FOR ANY CHANGES.
[2020-02-25] MEDS: CINACALCET HCL 30 MG TABLET PO SCH (10:10)
[2020-02-25] MEDS: ASPIRIN 81 MG TAB.CHEW PO SCH (10:10)
[2020-02-25] MEDS: CLOPIDOGREL BISULFATE 75 MG TABLET PO SCH (10:10)
[2020-02-25] MEDS: LISINOPRIL (20MG) 20 MG TABLET PO SCH (10:59)
[2020-02-25] MEDS ORDERED: CARVEDILOL 12.5 MG TABLET PO ONE (11:00)
--- NOTE | 2020-02-25 11:30 | NUR ---
RN NOTES ABG RESULTS RELAYED TO DR. MAX. NO NEW ORDERS AT THIS TIME
[2020-02-25 12:00] VITALS: BP 131/63
[2020-02-25 12:05] LABS: ABG BASE EXCESS -2.2 mmol/L; ABG OXYGEN SATURATION 90.6 % (92.0-98.5); ABG PCO2 33.8 mmHg (35.0-45.0); ABG PH 7.424 (7.350-7.450); AaDO2 47.3 mmHg; COHb 1.2 % (0.5-1.5); MetHb 0.3 % (0.0-1.5); O2Hb 89.2 % (94.0-97.0); SITE, ABG Right Radial; VENT MODE, BG room air
[2020-02-25 16:00] VITALS: BP 118/52
--- NOTE | 2020-02-25 17:53 | NUR ---
RN NOTES PT STATES HE TAKES EVENING DOSE OF COREG AND PROCARDIA LATER IN THE EVENING AROUND [address] DENTON, RECEIVED OK TO ADJUST ADMIN TIME FOR AFORE MENTIONED MEDS. WILL CONTINUE TO MONITOR FOR ANY CHANGES.
[2020-02-25] MEDS ORDERED: NIFEdipine XL 60 MG TAB PO SCH ×3 (18:00→22:00)
[2020-02-25] MEDS ORDERED: ISOSORBIDE MONONITRATE (30MG) 30 MG TAB.SR.24H PO SCH (18:00)
--- NOTE | 2020-02-25 18:57 | NUR ---
RN CLOSING NOTES NO ACUTE CHANGES OCCURRED THROUGHOUT THE SHIFT. SAFETY MEASURES HAVE BEEN IMPLEMENTED, CALL LIGHT IS WITHIN REACH, BED IS IN LOWEST AND LOCKED POSITION, WILL BE ENDORSED TO NIGHTSHIFT RN FOR [facility].
[2020-02-25 20:00] VITALS: BP 129/67
[2020-02-25] MEDS: CARVEDILOL 12.5 MG TABLET PO SCH (21:07)
[2020-02-25] MEDS ORDERED: ATORVASTATIN 40 MG TABLET PO SCH (22:00)
--- NOTE | 2020-02-25 23:23 | NUR ---
RN NOTE PT REQUESTED BLOOD SUGAR CHECK. PT DENIES DISCOMFORT OR S/S OF HYPOGLYCEMIA. BLOOD SUGAR 71. NO ACTION NEEDED AT THIS TIME.
[2020-02-26] VITALS: BP 126/53
[2020-02-26 04:00] VITALS: BP_SYST 119; BP_DIAS 55; BP_DIAS 58
--- NOTE | 2020-02-26 05:05 | NUR ---
RN NOTE WITH NEW ORDER FROM KARI BAILEY (JERE) TO START MILD INSULIN SLIDING SCALE AND ACCUCHECK ACHS. PT MADE AWARE AND AGREES. ORDER NOTED AND CARRIED OUT.
[2020-02-26] MEDS ORDERED: DEXTROSE 50%-WATER 50 ML DISP.SYRIN IV PRN (05:30)
[2020-02-26] MEDS ORDERED: INSULIN REGULAR, HUMAN 100 UNIT/ML 3 ML VIAL SQ PRN (05:30)
--- NOTE | 2020-02-26 06:33 | NUR ---
RN NOTE NO ACUTE CHANGES OBSERVED THROUGHOUT SHIFT. PATIENT IS ALERT AND ORIENTED X 4. RESPIRATIONS EVEN AND UNLABORED WITH 2L OF O2 VIA NC. PT IS PENDING HEMODIALYSIS TODAY. CALL LIGHT WITHIN REACH, SAFETY MEASURES IN PLACE, WILL ENDORSE TO MORNING SHIFT FOR CONTINUATION OF CARE.
[2020-02-26 06:35] LABS: BASOPHILS # (AUTO) 0.1 /CMM (0.0-0.2); BASOPHILS % (AUTO) 1.1 % (0.0-2.0); HEMATOCRIT 33 % (39-51); HEMOGLOBIN 10.6 g/dL (13.5-17.5); LYMPHOCYTES # (AUTO) 1.2 /CMM (0.8-4.8); MEAN CORPUSCULAR HGB CONC 32 g/dl (31.0-36.0); MEAN CORPUSCULAR VOLUME 93 fL (80-96); MONOCYTES # (AUTO) 0.7 /CMM (0.1-1.30); MONOCYTES % (AUTO) 9.6 % (2.0-12.0); NEUTROPHILS # (AUTO) 5.5 /CMM (1.8-8.9); NEUTROPHILS % (AUTO) 71.3 % (43.0-81.0); PLATELET COUNT (AUTO) 179 /CMM (150-450); RED BLOOD CELL COUNT(AUTO) 3.57 MIL/uL (4.5-6.0); WHITE BLOOD COUNT (AUTO) 7.7 K/uL (4.3-11.0)
[2020-02-26 06:58] LABS: ALANINE AMINOTRANSFERASE 16 U/L (12-78); ALBUMIN 2.8 g/dL (3.4-5.0); ALKALINE PHOSPHATASE 161 U/L (46-116); ASPARTATE AMINOTRANSFERASE 14 U/L (15-37); BILIRUBIN,TOTAL 0.4 mg/dL (0.2-1.0); CALCIUM, SERUM 8.5 mg/dL (8.5-10.1); CARBON DIOXIDE 26 mmol/L (21-32); CHLORIDE 103 mmol/L (98-107); GLUCOSE 54 mg/dL (74-106); PHOSPHORUS 3.1 mg/dL (2.5-4.9); POTASSIUM 5.5 mmol/L (3.5-5.1); SODIUM SERUM 141 mmol/L (136-145); TOTAL PROTEIN, SERUM 6.2 g/dL (6.4-8.2)
[2020-02-26 07:18] LABS: CREATININE 10.5 mg/dL (0.6-1.3); UREA NITROGEN, BLOOD 102 mg/dL (7-18)
--- NOTE | 2020-02-26 07:30 | NUR ---
RN OPENING NOTES RECEIVED PATIENT FROM AM NURSE. IN STABLE CONDITION, NO DISTRESS NOTED. PATIENT IS ON 2L O2, SATURATING WELL, ISOLATION OBSERVED FOR COVID 19, NO RESPIRATORY DISTRESS NOTED. ON TELE MONITOR WITH SR/SB NOTED, AWARE. ON RENAL DIET, TOLERATING WELL. IV ON RIGHT AC, PATENT, INTACT, AND FLUSHED WELL. NO S.S OF INFECTION NOTED. SAFETY MAINTAINED, CALL LIGHT WITHIN REACH, WILL CONTINUE TO MONITOR CLOSELY.
[2020-02-26] MEDS: CARVEDILOL 12.5 MG TABLET PO SCH (07:53)
[2020-02-26] MEDS: BLOOD SUGAR DIAGNOSTIC 1 EACH STRIP IN SCH ×2 (07:55→12:23)
[2020-02-26 08:00] VITALS: BP 122/50
[2020-02-26] MEDS: CLOPIDOGREL BISULFATE 75 MG TABLET PO SCH (08:00)
[2020-02-26] MEDS: ASPIRIN 81 MG TAB.CHEW PO SCH (08:00)
[2020-02-26] MEDS: CINACALCET HCL 30 MG TABLET PO SCH (08:00)
[2020-02-26 08:20] LABS: CHOLESTEROL 121 mg/dL (<200); HDL CHOLESTEROL 35 mg/dL (40-60); LDL 64 mg/dL (0-99); THYROID STIMULATING HORMONE 1.242 uIU/mL (0.358-3.74); TRIGLYCERIDES 87 mg/dL (30-150)
[2020-02-26] MEDS: LISINOPRIL (20MG) 20 MG TABLET PO SCH (09:00)
[2020-02-26 12:00] VITALS: BP 114/48
--- NOTE | 2020-02-26 15:30 | NUR ---
RN CLOSING NOTES PATIENT IS GETTING DIALYZED AT THE MOMENT. DISCHARGE PAPERWORK IS COMPLETE AND SIGNED BY THE PATIENT. EDUCATION PROVIDED TO THE PATIENT. SKIN IS INTACT, NO PICTURES NECESSARY. WILL ECONOMICS TEACHER PATIENT POST DIALYSIS. CLEARED BY HOSE BUILDER AND NEPHROLOGY FOR DISCHARGE. SAFETY MAINTAINED, CALL LIGHT WITHIN REACH, WILL CONTINUE TO MONITOR UNTIL DISCHARGE.
[2020-02-26 16:00] VITALS: BP 110/52
--- NOTE | 2020-02-26 16:28 | NUR ---
PATIENT SAFELY DISCHARGED FROM HOSPITAL. LEFT FACILITY USING A WHEELCHAIR AND WAS PICKED UP BY IN A PRIVATE CAR. ALL PATIENT NEEDS WERE MET, SAFETY WAS MAINTAINED, DISCHARGE PAPERWORK PROVIDED TO THE PT.
[2020-02-26] MEDS ORDERED: LANTHANUM CARBONATE 1,000 MG TAB.CHEW PO SCH (17:00)
== END 2020-02-26 16:20 | disposition home or self-care (01) | DRG 280 ==
LOC: ER 02:16 → ICU 04:39 → TELE2 06:22 → TELE1 06:28 → TELE-TD 17:28 → TELE1 02-26 07:58
PROVIDERS: ADMIT Internal Medicine; ATTEND Internal Medicine
PROC: 5A1D70Z Performance of Urinary Filtration, Intermittent, Less than 6 Hours Per Day (ICD-10-PCS; principal; 2020-02-26)
DX: I13.2 Hypertensive heart and chronic kidney disease with heart failure and with stage 5 chronic kidney disease, or end stage renal disease (principal); I50.33 Acute on chronic diastolic (congestive) heart failure; I21.A1 Myocardial infarction type 2; J96.01 Acute respiratory failure with hypoxia; N18.6 End stage renal disease; J96.02 Acute respiratory failure with hypercapnia; J81.1 Chronic pulmonary edema; E87.2 Acidosis; E11.22 Type 2 diabetes mellitus with diabetic chronic kidney disease; D63.8 Anemia in other chronic diseases classified elsewhere; E78.5 Hyperlipidemia, unspecified; E03.9 Hypothyroidism, unspecified; G71.00 Muscular dystrophy, unspecified; Z95.5 Presence of coronary angioplasty implant and graft; Z99.2 Dependence on renal dialysis; Z85.46 Personal history of malignant neoplasm of prostate; Z86.718 Personal history of other venous thrombosis and embolism; I25.10 Atherosclerotic heart disease of native coronary artery without angina pectoris; E11.42 Type 2 diabetes mellitus with diabetic polyneuropathy; K86.89 Other specified diseases of pancreas; Z79.4 Long term (current) use of insulin; Z79.82 Long term (current) use of aspirin; Z91.19 Patient's noncompliance with other medical treatment and regimen; Z87.891 Personal history of nicotine dependence
CPT/HCPCS: 36415; 36600; 71045-TC; 80048-TC; 80053-TC; 80061-TC; 80076-TC; 82803-TC; 82962-TC; 83605-TC; 83735-TC; 83880; 84100-TC; 84443-TC; 84484-TC; 85025-TC; 85730-TC; 86301; 86706; 87040-TC; 87081-TC; 87340; 90935-TC; A4216; G0378; J1815; J3490

== ENCOUNTER 2020-04-07 00:29 | Inpatient (IN) | payer MEDICARE, OTHER ==
[2020-04-07] VITALS (34 sets, daily range): BP systolic 91–160; BP diastolic 31–75
[~2020-04-07] VITALS: Ht 165.1 cm; Wt 72.1 kg
--- NOTE | 2020-04-07 00:30 | NUR ---
TO ER BED 5 BIB EMS C/O RESPIRATORY ARREST PER EMS REPORT. ALTERED, NOTED PT WITH AGONAL BREATHING. BVM ON ARRIVAL BY EMS. PLACE PT ON CARDIAC MONITORING, CONTINUOUS POX. RT, MDM COLE SEBASTIAN, COLE GARCÍA, COLE SHEPPARD, AND MYSELF. ER MD AT BEDSIDE WITH ORDER TO PREP PT FOR INTUBATION.
--- NOTE | 2020-04-07 00:35 | NUR ---
PT INTUBATED BY ER ET-TUBE 8.0FR, 26CM AT THE LIP LINE, (+) COLOR CHANGE ON CO2 DETECTOR.
[2020-04-07] MEDS ORDERED: PROPOFOL 100 ML ONE ×2 (00:37→06:45)
--- NOTE | 2020-04-07 00:37 | NUR ---
RT PLACE PT ON VENT AC-20, TV-550, FIO2-60%. WILL CONTINUE TO MONITOR PT CLOSELY.
--- NOTE | 2020-04-07 00:45 | NUR ---
RT CALLED TO ER FOR INBOUND PT WITH RESPIRATORY DISTRESS. PT ARRIVED VENTILATED VIA AMBU BAG WITH INCREASED RR. PT INTUBATED BY MD WITH 8.0 ETT@26CM, POSITIVE COLOR CHANGE, MIST IN ETT, INCREASED SPO2 100% . ETT SECURED VIA ANCHOR FAST. Addendum: 04/07/20 at 0315 by CHARLIE KHAN RT Amended: Links added.
[2020-04-07] MEDS ORDERED: VANCOMYCIN 1 GM VIAL ONE (00:48)
[2020-04-07] MEDS ORDERED: PIPERACILLIN /TAZOBACTAM 3.375 G VIAL IV ONE ×2 (00:49→06:48)
--- NOTE | 2020-04-07 00:49 | NUR ---
SOFT RESTRAINTS IN PLACE.
[2020-04-07 00:59] LABS: BASOPHILS # (AUTO) 0.3 /CMM (0.0-0.2); BASOPHILS % (AUTO) 2.2 % (0.0-2.0); EOSINOPHILS % (AUTO) 3.2 % (0.0-6.0); HEMATOCRIT 36 % (39-51); HEMOGLOBIN 11.6 g/dL (13.5-17.5); LYMPHOCYTES # (AUTO) 3.4 /CMM (0.8-4.8); LYMPHOCYTES % (AUTO) 21.8 % (20.0-44.0); MEAN CORPUSCULAR HGB CONC 32 g/dl (31.0-36.0); MEAN CORPUSCULAR VOLUME 93 fL (80-96); MONOCYTES # (AUTO) 0.8 /CMM (0.1-1.30); MONOCYTES % (AUTO) 5.3 % (2.0-12.0); NEUTROPHILS # (AUTO) 10.4 /CMM (1.8-8.9); NEUTROPHILS % (AUTO) 67.5 % (43.0-81.0); PLATELET COUNT (AUTO) 377 /CMM (150-450); RED BLOOD CELL COUNT(AUTO) 3.85 MIL/uL (4.5-6.0); WHITE BLOOD COUNT (AUTO) 15.5 K/uL (4.3-11.0)
[2020-04-07] MEDS ORDERED: SUCCINYLCHOLINE CHLORIDE 20 MG/ML VIAL IV ONE ×2 (01:00→11:42)
[2020-04-07] MEDS ORDERED: IV NS 0.9% 1,000 ML BAG IV ONE ×2 (01:00→02:00)
[2020-04-07] MEDS ORDERED: VANCOMYCIN 1 GM in IV D5W 250 ML IV ONE (01:00)
[2020-04-07] MEDS ORDERED: PIPERACILLIN /TAZOBACTAM 3.375 G in IV D5W 50 ML IV ONE (01:00)
--- NOTE | 2020-04-07 01:00 | NUR ---
RSV SWAB, COVID-19 SWAB, AND MRSA SWAB COLLECTED AND SENT TO THE LAB.
[2020-04-07 01:14] LABS: ALANINE AMINOTRANSFERASE 22 U/L (12-78); ALBUMIN 3.1 g/dL (3.4-5.0); ALKALINE PHOSPHATASE 147 U/L (46-116); ASPARTATE AMINOTRANSFERASE 17 U/L (15-37); BILIRUBIN,DIRECT 0.1 mg/dL (0.0-0.2); BILIRUBIN,TOTAL 0.4 mg/dL (0.2-1.0); CALCIUM, SERUM 8.5 mg/dL (8.5-10.1); CARBON DIOXIDE 28 mmol/L (21-32); CHLORIDE 100 mmol/L (98-107); GLUCOSE 136 mg/dL (74-106); POTASSIUM 4.5 mmol/L (3.5-5.1); SODIUM SERUM 143 mmol/L (136-145); TOTAL PROTEIN, SERUM 7.3 g/dL (6.4-8.2); UREA NITROGEN, BLOOD 53 mg/dL (7-18)
[2020-04-07 01:16] LABS: CREATININE 7.9 mg/dL (0.6-1.3)
--- NOTE | 2020-04-07 01:35 | NUR ---
NG TUBE PLACEMENT IN RIGHT NOSTRIL SIZE 14 WITH 65" PLACEMENT.
[2020-04-07] MEDS ORDERED: LORAZEPAM INJ 2 MG/ML VIAL ONE (02:15)
--- NOTE | 2020-04-07 02:36 | NUR ---
RT AT BEDSIDE FOR ABG BLOOD DRAW
[2020-04-07 02:43] LABS: ABG BASE EXCESS -1.7 mmol/L; ABG OXYGEN SATURATION 95.4 % (92.0-98.5); ABG PO2 92.1 mmHg (75.0-100.0); AaDO2 302.7 mmHg; COHb 0.6 % (0.5-1.5); MetHb 0.3 % (0.0-1.5); O2Hb 94.5 % (94.0-97.0); PEEP,BG 5 cm H2O; SITE, ABG Right Brachial; VENT MODE, BG AC 20 550 60% +5; VT, ABG 550 mL
--- NOTE | 2020-04-07 05:47 | NUR ---
PATIENT CLEANED, CHANGED INTO CLEAN GOWN AND SHEETS.
[2020-04-07] MEDS ORDERED: MAGNESIUM HYDROXIDE 30 ML UDC PO PRN (06:00)
[2020-04-07] MEDS ORDERED: MAG HYDROX/AL HYDROX/SIMETH 30 ML UDC PO PRN (06:00)
[2020-04-07] MEDS ORDERED: ONDANSETRON HCL/PF 4 MG/2 ML VIAL IVP PRN (06:00)
[2020-04-07] MEDS ORDERED: PIPERACILLIN /TAZOBACTAM 3.375 G in IV D5W 50 ML IV SCH (06:00)
[2020-04-07] MEDS ORDERED: ACETAMINOPHEN 325 MG TABLET PO PRN (06:00)
[2020-04-07] MEDS ORDERED: Z GUARD REMEDY 2 OZ OINT TP PRN (06:00)
[2020-04-07] MEDS ORDERED: GABAPENTIN 100 MG CAPSULE PO PRN (06:00)
[2020-04-07] MEDS ORDERED: HYDROCODONE/APAP 5/325MG TABLET PO PRN (06:00)
[2020-04-07] MEDS ORDERED: ZOLPIDEM TARTRATE 5 MG TABLET PO PRN (06:00)
--- NOTE | 2020-04-07 06:03 | NUR ---
REPORT GIVEN TO ESTELA GALVAN FOR [facility].
--- NOTE | 2020-04-07 06:20 | NUR ---
received patient in no acute distress on [facility]. patient transferred to bed 263 and tolerated well. patient is intubated on mechanical vent via ett. ett is / at the teeth and is tolerating vent setting at ac 20 tv 550 fio2 60% and peep 5. patient came sedated on propofol at 25mcg and is lightly sedated. Titrated propofol up to 35mcg and patient is now sedated and calm. patient has left ej that is clean dry intact and patent with propofol infusing. patient has right hand 18g that is clean dry intact and patent with saline lock. wound check performed by charge nurse Bahman RN and Rodney Trimble RN with wound consult placed. Dietary consult placed for new right nare ng tube placed by ER. Patient has left abdomen insulin pump. bed low lock position with rials up x 2 and all safety measures ensured and carried out. will endorse care to am RN for continuity of care.
[2020-04-07] MEDS ORDERED: LORAZEPAM INJ 2 MG/ML VIAL IV ONE (06:30)
--- NOTE | 2020-04-07 06:30 | NUR ---
PATIENT SENT TO ADMITTED ROOM FOR [facility].
[2020-04-07] MEDS: PROPOFOL 100 ML IV PRN ×5 (06:51→21:56)
[2020-04-07] MEDS: CARVEDILOL 12.5 MG TABLET PO SCH ×2 (07:06→16:41)
--- NOTE | 2020-04-07 07:20 | NUR ---
RN INITIAL NOTES RECEIVED PT INTUBATED, ON VENT. NO RESPIRATORY DISTRESS NOTED. NO SOB NOTED. PT SEDATED, ON DIPRIVAN. WILL TITRATE ACCORDINGLY. IV LINES IN PLACE. RIGHT NGT IN PLACE. PT CLEAN AND DRY. BLE ELEVATED. WILL CLOSELY MONITOR
[2020-04-07] MEDS ORDERED: FEE PK DOSING 1 MIN EA MC ONE (08:40)
[2020-04-07] MEDS ORDERED: NIFEdipine XL (30MG) 30 MG TAB PO SCH (09:00)
[2020-04-07] MEDS ORDERED: Medication Not On Formulary EA (Omega-3 Fatty Acids/Fish Oil (Omega 3 1,000 Mg Softgel) PO SCH (09:00)
[2020-04-07] MEDS ORDERED: RESVERATROL 500 MG PO SCH (09:00)
[2020-04-07] MEDS ORDERED: LANTHANUM CARBONATE 500 MG TAB.CHEW PO SCH (09:00)
[2020-04-07] MEDS: VALSARTAN 80 MG TABLET PO SCH (09:00)
[2020-04-07] MEDS ORDERED: Medication Not On Formulary EA (Ubiquinol (Active-Q) 200 MG) PO SCH (09:00)
[2020-04-07] MEDS ORDERED: LUTEIN 40 MG PO SCH (09:00)
[2020-04-07] MEDS ORDERED: VANCOMYCIN 500 MG in IV D5W 100 ML IV PRN (09:00)
--- NOTE | 2020-04-07 09:00 | NUR ---
RN NOTES 0900 SEEN AND EXAMINED BY DR MAX. AWARE OF LAB VALUES, ABG AND CXR RESULT. NO RESPIRATORY DISTRESS NOTED. WILL CONTINUE TO MONITOR
[2020-04-07] MEDS: ASPIRIN 81 MG TAB.CHEW PO SCH (09:02)
[2020-04-07] MEDS: CHOLECALCIFEROL 1,000 UNIT TABLET (VIT D3) PO SCH (09:02)
[2020-04-07] MEDS: ZINC SULFATE 220 MG CAPSULE PO SCH (09:02)
[2020-04-07] MEDS: CINACALCET HCL 30 MG TABLET PO SCH (09:02)
[2020-04-07] MEDS: CLOPIDOGREL BISULFATE 75 MG TABLET PO SCH (09:02)
[2020-04-07 09:35] LABS: C-REACTIVE PROTEIN 1.8 mg/dL (0.0-0.9)
[2020-04-07] MEDS ORDERED: DEXTROSE 50%-WATER 50 ML DISP.SYRIN IV PRN (11:30)
[2020-04-07] MEDS ORDERED: FEE EMEERGENCY 1 MIN EA MC ONE (11:42)
[2020-04-07] MEDS: BLOOD SUGAR DIAGNOSTIC 1 EACH STRIP IN SCH ×3 (11:55→23:22)
[2020-04-07] MEDS ORDERED: PIPERACILLIN /TAZOBACTAM 3.375 G in IV D5W 100 ML IV SCH (12:00)
[2020-04-07] MEDS: PIPERACILLIN /TAZOBACTAM 2.25 G in IV D5W 50 ML IV SCH ×2 (12:06→20:39)
[2020-04-07] MEDS: LANTHANUM CARBONATE 500 MG TAB.CHEW PO SCH (16:42)
[2020-04-07] MEDS: ISOSORBIDE MONONITRATE (30MG) 30 MG TAB.SR.24H PO SCH (17:02)
[2020-04-07] MEDS: NIFEdipine XL (30MG) 30 MG TAB PO SCH (17:02)
[2020-04-07] MEDS: INSULIN REGULAR, HUMAN 100 UNIT/ML 3 ML VIAL SQ PRN ×2 (17:42→23:22)
--- NOTE | 2020-04-07 18:26 | NUR ---
RN CLOSING NOTES NO SIGNIFICANT CHANGE NOTED. PT REMAINS INTUBATED, ON VENT. WI SEDATED. KEPT COMFORTABLE. HD DONE, REMOVED 2L. TOLERATED WELL. KEPT CLEAN AND DRY. REPOSITIONED. BLE ELEVATED. FOR WEANING TRIALS IN AM. WILL ENDORSE FOR CONTINUITY OF CARE.
--- NOTE | 2020-04-07 19:20 | NUR ---
BESSEMER BOTTOM MAKER OPENING NOTES RECEIVED PATIENT SEDATED , NOT IN ACUTE DISTRESS , RESPIRATIONS EVEN AND UNLABORED WITH SPO2 OF 100% VIA ETT/MECHANICAL VENT SETTINGS ORDERED , TELE MONITOR CURRENT READING SINUS RHYTHM 75 WITH CLAMPED NGT VIA R NARES PLACEMENT CHECKED PATENT AND INTACT BRIELLE MID LINE WITH DIPRIVAN @ 50 MCG/KG/MIN INFUSING , NS @ TKO, ON DROPLET ISOLATION FOR R/O COVID, SAFETY MEASURE MAINTAINED BED ON LOWEST POSITION AND LOCKED SIDE RAILS UP, WILL CONTINUE TO MONITOR
[2020-04-07] MEDS: ATORVASTATIN 40 MG TABLET PO SCH (21:32)
[2020-04-08] VITALS (40 sets, daily range): BP systolic 91–171; BP diastolic 36–78
--- NOTE | 2020-04-08 00:04 | NUR ---
TITRATED FIO2. RN NOTIFIED.
[2020-04-08 04:45] LABS: CHOLESTEROL 116 mg/dL (<200); CREATINE KINASE, TOTAL 117 U/L (39-308); HDL CHOLESTEROL 27 mg/dL (40-60); LDL 63 mg/dL (0-99); TRIGLYCERIDES 170 mg/dL (30-150)
[2020-04-08 04:52] LABS: BASOPHILS # (AUTO) 0.1 /CMM (0.0-0.2); EOSINOPHILS % (AUTO) 1.3 % (0.0-6.0); HEMATOCRIT 27 % (39-51); HEMOGLOBIN 8.9 g/dL (13.5-17.5); LYMPHOCYTES # (AUTO) 0.7 /CMM (0.8-4.8); LYMPHOCYTES % (AUTO) 6.7 % (20.0-44.0); MEAN CORPUSCULAR HGB CONC 32 g/dl (31.0-36.0); MEAN CORPUSCULAR VOLUME 92 fL (80-96); MONOCYTES # (AUTO) 0.6 /CMM (0.1-1.30); NEUTROPHILS # (AUTO) 9.6 /CMM (1.8-8.9); PLATELET COUNT (AUTO) 159 /CMM (150-450); RED BLOOD CELL COUNT(AUTO) 2.99 MIL/uL (4.5-6.0); WHITE BLOOD COUNT (AUTO) 11.1 K/uL (4.3-11.0)
[2020-04-08] MEDS: PIPERACILLIN /TAZOBACTAM 2.25 G in IV D5W 50 ML IV SCH ×3 (05:01→21:18)
[2020-04-08] MEDS: PROPOFOL 100 ML IV PRN (05:01)
[2020-04-08 05:07] LABS: ALANINE AMINOTRANSFERASE 16 U/L (12-78); ALBUMIN 2.2 g/dL (3.4-5.0); ALKALINE PHOSPHATASE 100 U/L (46-116); ASPARTATE AMINOTRANSFERASE 17 U/L (15-37); BILIRUBIN,TOTAL 0.5 mg/dL (0.2-1.0); CARBON DIOXIDE 29 mmol/L (21-32); CHLORIDE 102 mmol/L (98-107); GLUCOSE 102 mg/dL (74-106); MAGNESIUM 1.8 mg/dL (1.8-2.4); POTASSIUM 3.8 mmol/L (3.5-5.1); SODIUM SERUM 142 mmol/L (136-145); TOTAL PROTEIN, SERUM 5.4 g/dL (6.4-8.2); UREA NITROGEN, BLOOD 43 mg/dL (7-18)
[2020-04-08] MEDS: BLOOD SUGAR DIAGNOSTIC 1 EACH STRIP IN SCH ×4 (05:33→23:00)
[2020-04-08] MEDS: INSULIN REGULAR, HUMAN 100 UNIT/ML 3 ML VIAL SQ PRN ×2 (05:34→23:09)
--- NOTE | 2020-04-08 06:43 | NUR ---
RN CLOSING NOTES PT ON BED SEDATED, ON ETT/VENT SETTING ORDERED, NO SIGN AND SYMPTOMS OF RESPIRATORY DISTRESS SPO2 100%, ON NGTUBE CLAMPED, ON TELE MONITOR WITH READING SINUS DWAINE 60'S, DROPLET ISOLATION PRECAUTION MAINTAINED TO R/O COVID PENDING RESULTS ALL NEEDS ATTENDED, SAFETY MEASURE MAINTAINED BED ON LOWEST POSITION AND LOCKED SIDE RAILS UP X3 WILL ENDORSED TO AM SHIFT NURSE
--- NOTE | 2020-04-08 07:30 | NUR ---
ICU/RN INTITIAL NOTES,AM RECEIVED REPORT FROM NIGHT NURSE. PT INTUBATED, ETT 8, 26CM AT THE LIP, ON VENT SETTINGS ORDERED BY MD, NO ACUTE DISTRESS NOTED. ORDERS FOR WEANING THIS AM. WILL TITRATE OFF SEDATION. SINUS ON TELE. ALL NEEDS WILL BE ATTENDED TO, SAFETY MEASURES TAKEN, BED IN LOW POSITION, SIDE RAILS UP, CALL LIGHT WITHIN REACH. BILATERAL SOFT WRIST RESTRAINTS IN PLACE, ASSESSED PER PROTOCOL.
[2020-04-08] MEDS: CARVEDILOL 12.5 MG TABLET PO SCH ×2 (07:43→17:42)
--- NOTE | 2020-04-08 08:00 | NUR ---
ICU/RN: DIPRIVAN OFF, PT PLACED ON SIMV MODE. WILL CONTINUE TO MONITOR. PT OPENS EYES, FOLLOWS COMMANDS.
[2020-04-08] MEDS: CHOLECALCIFEROL 1,000 UNIT TABLET (VIT D3) PO SCH (08:02)
[2020-04-08] MEDS: ASPIRIN 81 MG TAB.CHEW PO SCH (08:02)
[2020-04-08] MEDS: CINACALCET HCL 30 MG TABLET PO SCH (08:02)
[2020-04-08] MEDS: ZINC SULFATE 220 MG CAPSULE PO SCH (08:02)
[2020-04-08] MEDS: CLOPIDOGREL BISULFATE 75 MG TABLET PO SCH (08:02)
[2020-04-08] MEDS: VALSARTAN 80 MG TABLET PO SCH (08:03)
[2020-04-08] MEDS: LANTHANUM CARBONATE 500 MG TAB.CHEW PO SCH ×2 (08:04→17:00)
--- NOTE | 2020-04-08 08:20 | NUR ---
WOUND CARE CONSULT: REVIEWED CHART, NURSING DOCUMENTATION AND PHOTOS WHICH SHOW DRY ABRASION TO RT LOWER LEG, REDNESS TO BUTTOCKS AND SCROTUM AND LESION TO TOP OF HEAD, PRESENT ON ADMISSION. CURRENT LADAN SCORE IS 16. RECOMMENDATIONS MADE FOR SKIN PROTECTION. DISCUSSED WITH NURSING STAFF. WILL SEE PRN. IN AGREEMENT WITH PLAN OF CARE.
--- NOTE | 2020-04-08 09:10 | NUR ---
ICU/RN: ABG DONE, RESULTS RELAYED TO .
[2020-04-08 09:23] LABS: ABG OXYGEN SATURATION 96.6 % (92.0-98.5); ABG PCO2 37.2 mmHg (35.0-45.0); ABG PH 7.459 (7.350-7.450); ABG PO2 103.9 mmHg (75.0-100.0); AaDO2 138.5 mmHg; COHb 0.3 % (0.5-1.5); MetHb 0.3 % (0.0-1.5); SITE, ABG Right Radial; VENT MODE, BG SIMV PS 15; VT, ABG 550 mL
--- NOTE | 2020-04-08 10:00 | NUR ---
ICU/RN: PT EXTUBATED, PLACED ON 4LITERS NASAL CANULA, TOLERATING WELL. NO ACUTE DISTRESS OR DESATURATING NOTED. WILL CONTINUE TO MONITOR AND ASSESS.
--- NOTE | 2020-04-08 10:20 | NUR ---
ICU/RN: HD STARTED. VSS. WILL CONTINUE TO MONITOR
[2020-04-08] MEDS ORDERED: ONDANSETRON HCL/PF 4 MG/2 ML VIAL IV PRN (10:30)
[2020-04-08] MEDS: CLOTRIMAZOLE 1% 15 GM TUBE TP SCH ×2 (10:30→17:39)
[2020-04-08] MEDS ORDERED: DC PROPOFOL WHEN EXTUBATED XX PRN (11:00)
[2020-04-08] MEDS: ISOSORBIDE MONONITRATE (30MG) 30 MG TAB.SR.24H PO SCH (17:39)
[2020-04-08] MEDS: NIFEdipine XL (30MG) 30 MG TAB PO SCH (17:39)
--- NOTE | 2020-04-08 19:23 | NUR ---
ICU/RN ENDING NOTES,AM REPORT ENDORSED TO NIGHT NURSE FOR [facility]. PT ALERT, AWAKE, FOLLOWS COMMANDS, ON 4LITERS NO DISTRESS NOTED. SINUS ON TELE. BEDSIDE SWALLOW EVAL DONE, PT ABLE TO SWALLOW WITH NO S/S OF ASPIRATION NOTED. HD DONE TODAY, VSS. BED BATH GIVEN, LINENS CHANGED. ALL NEEDS ATTENDED TO. CALL LIGHT AT BEDSIDE.
[2020-04-08] MEDS ORDERED: VANCOMYCIN 1 GM in IV D5W 250 ML IV ONE (20:00)
[2020-04-08] MEDS: ATORVASTATIN 40 MG TABLET PO SCH (21:18)
[2020-04-09] VITALS (17 sets, daily range): BP systolic 92–145; BP diastolic 42–68
[2020-04-09] MEDS: PIPERACILLIN /TAZOBACTAM 2.25 G in IV D5W 50 ML IV SCH ×3 (04:06→20:09)
[2020-04-09 05:12] LABS: PTH, INTACT 116 pg/mL (15-65)
[2020-04-09] MEDS: BLOOD SUGAR DIAGNOSTIC 1 EACH STRIP IN SCH ×4 (05:32→23:59)
--- NOTE | 2020-04-09 06:18 | NUR ---
RN NOTE PT ALERT AND ORIENTED X 3. PT WITH COMPLAINT OF MILD CHEST DISCOMFORT WHEN COUGHING AND REQUESTS "COUGH SUPPRESSANT." PAGED DR. COMPA PALMA REGARDING PATIENT'S REQUEST.
--- NOTE | 2020-04-09 06:53 | NUR ---
RN NOTE SEEN AND EXAMINED BY DR. KWON. RELAYED PT'S REQUEST FOR COUGH SUPPRESSANT TO .
[2020-04-09] MEDS: CARVEDILOL 12.5 MG TABLET PO SCH ×3 (07:00→17:11)
[2020-04-09 07:06] LABS: *SPE A/G RATIO 1.2 (0.7-1.7); *SPE ALBUMIN 2.6 g/dL (2.9-4.4); *SPE ALPHA-1-GLOBULIN 0.3 g/dL (0.0-0.4); *SPE ALPHA-2-GLOBULIN 0.8 g/dL (0.4-1.0); *SPE BETA GLOBULIN 0.5 g/dL (0.7-1.3); *SPE GLOBULIN, TOTAL 2.2 g/dL (2.2-3.9); *SPE M-SPIKE Not Observed g/dL (Not Observed); *SPEGAMMA GLOBULIN 0.6 g/dL (0.4-1.8)
--- NOTE | 2020-04-09 07:12 | NUR ---
SCRUB WHEEL OPERATOR NOTES RECEIVED PATIENT AOX3 , NOT IN ACUTE DISTRESS , DENIES SOB AND DISCOMFORT AT THIS TIME ,SPO2 OF 96% VIA 4LPM NC , SR 82 ON BEDSIDE MONITOR , IV OF L EK # 18 BRIELLE MIDLINE , R HAND # 18 PATENT AND INTACT SL , ROBIN AVF BRUIT AND THRILL (+) UPON PALPATION , ALL NEEDS ATTENDED , HD NURSE AT BEDSIDE , NOTIFIED DR DOOLEY THAT PT BP IS 93/31 PT WILL UNDER GO DIALYSIS TODAY , MD AWARE . ISOLATION PRECAUTION OBSERVED FOR MRSA NARES .
--- NOTE | 2020-04-09 07:13 | NUR ---
RN CLOSING NOTE NO ACUTE CHANGES OBSERVED OVERNIGHT. PT ON 4L OF O2 VIA NC AND TOLERATING WELL. PT ALERT AND ORIENTED X 3. BREAST BUFFER AT BEDSIDE TALKING TO PATIENT. 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 ALL NEEDS MET AND ATTENDED TO. CALL LIGHT WITHIN REACH, SAFETY MEASURES IN PLACE, ENDORSED TO MORNING RN FOR CONTINUATION OF CARE.
[2020-04-09] MEDS: GUAIFENESIN/D-METHORPHAN HB 5 ML UDC PO PRN (07:34)
[2020-04-09] MEDS: LANTHANUM CARBONATE 500 MG TAB.CHEW PO SCH ×5 (08:06→19:00)
[2020-04-09] MEDS: CHOLECALCIFEROL 1,000 UNIT TABLET (VIT D3) PO SCH (08:06)
[2020-04-09] MEDS: CLOPIDOGREL BISULFATE 75 MG TABLET PO SCH (08:06)
[2020-04-09] MEDS: CINACALCET HCL 30 MG TABLET PO SCH ×2 (08:06→08:18)
[2020-04-09] MEDS: ZINC SULFATE 220 MG CAPSULE PO SCH (08:06)
[2020-04-09] MEDS: ASPIRIN 81 MG TAB.CHEW PO SCH (08:06)
[2020-04-09] MEDS: CLOTRIMAZOLE 1% 15 GM TUBE TP SCH ×3 (08:07→17:10)
[2020-04-09] MEDS: VALSARTAN 80 MG TABLET PO SCH ×2 (08:07→08:18)
--- NOTE | 2020-04-09 09:00 | NUR ---
CLINIC LICENSED PRACTICAL NURSE NOTES DIOVAN 160MG , FOSRENOL 1,000MG , SENSIPAR 30MG REFUSED BY THE PATIENT , EXPLAINED THE RISK AND BENEFITS OF TAKING THE MEDICATIONS , PT VERBALIZED UNDERSTANDING STILL REFUSES , DR DENTON AWARE .
--- NOTE | 2020-04-09 09:06 | NUR ---
ADVANCED MANAGER NOTES HD NURSE AT BEDSIDE , PT STABLE , NO DISTRESS , DISCUSSED LABS TO HD NURSE , WILL CONTINUE TO MONITOR SEEN AND EVALUATED BY DR MAX AND CORRIE , DISCUSSED LATEST VS , TITRATED O2 TO 2LPM NC SPO2 OF 95-96% WITH NO DISTRESS , DISCUSSED LABS , CHEST XRAY RESULT , AFEBRILE , NOTED WITH UNPRODUCTIVE COUGH , ROBITUSSIN PRN ORDERED GIVEN , NO ACUTE EVENTS OVERNIGHT , MD AWARE OK TO DOWN GRADE TO TELE POST HD . PER DR DENTON OK TO START BACTROBAN OINT TO BE APPLIED TO NARES FOR MRSA , ORDER CARRIED OUT
--- NOTE | 2020-04-09 10:57 | NUR ---
PROSTHETICS LAB TECHNICIAN NOTES PT STABLE S/P HD , 3L OUT , VS STABLE , NO ACUTE EVENTS NOTED , TOLERATED WELL , ROBIN AV FISTULA NO ACTIVE BLEEDING NOTED , WILL CONTINUE TO MONITOR
[2020-04-09] MEDS: HYDROCODONE BIT/HOMATROPINE 5 ML UDC PO PRN ×2 (12:12→20:09)
--- NOTE | 2020-04-09 14:20 | NUR ---
CARTON AND CAN SUPPLY SUPERVISOR NOTES NOTIFIED DR DENTON THAT PT COMPLAINS OF BUE WEAKNESS , VERIFIED IF OK TO ORDER PT / OT EVLAURA , AWARE , OK FOR PT OT EVAL .
--- NOTE | 2020-04-09 14:20 | NUR ---
BSA OFFICER NOTES CALLED LAB , FOLLOWED UP TAYLA THROUGH ORDERED POST HD @ 1100 , SPOKE WITH [facility] / PHLEB AWARE .
--- NOTE | 2020-04-09 14:24 | NUR ---
MANAGER PHARMACY NOTES REPORT GIVEN TO PRINCESS GALVAN FOR CONTINUITY OF CARE , ALL QUESTIONS ANSWERED , DISCUSSED PT HAS PENDING VANCOMYCIN THROUGH , AND VANCOMYCIN IV POST HD , RN AWARE .
--- NOTE | 2020-04-09 15:30 | NUR ---
CASE COORDINATOR NOTES RECEIVED PATIENT FROM ICU NURSE VIA BED. ORIENTED PATIENT TO ROOM, UNIT AND CALL LIGHT. PATIENT C/O LEFT EYE PAIN BUT SLOWLY GOING AWAY. PROVIDED A DIM ROOM ENVIRONMENT. DENIES ANY OTHER C/O PAIN NOR DISCOMFORT. ON TELE MONITORING SR: 68. S/P HD WITHOUT S/S OF COMPLICATIONS. BED IN LOWEST POSITION,LOCKED. BED ALARM ON. CALL LIGHT WITHIN REACH. PATIENT CURRENTLY SPEAKING WITH AND INFORMED HER OF CURRENT ROOM NUMBER.
--- NOTE | 2020-04-09 15:31 | NUR ---
TRANSMISSION ASSEMBLER NOTES PT TRANSFERRED TO ROOM 308-1 , PT STABLE NO ACUTE EVENTS , REPORT GIVEN TO PRINCESS
--- NOTE | 2020-04-09 15:35 | NUR ---
WEB ADMINISTRATOR NOTES CALLED [facility] , NOTIFIED REGARDING PT TRANSFER TO TELEMETRY FLOOR @ ROOM 308-1 , AWARE .
--- NOTE | 2020-04-09 16:27 | NUR ---
FILLING LAYER UP NOTES PATIENT ASLEEP, AROUSABLE TO VERBAL AND TACTILE STIMULI.
[2020-04-09] MEDS: MUPIROCIN OINT 2% 22 GM TUBE SCH ×3 (17:00→21:27)
[2020-04-09] MEDS: ISOSORBIDE MONONITRATE (30MG) 30 MG TAB.SR.24H PO SCH (18:00)
[2020-04-09] MEDS: NIFEdipine XL (30MG) 30 MG TAB PO SCH (18:55)
--- NOTE | 2020-04-09 19:06 | NUR ---
DIAMOND MERCHANT NOTE: PATIENT DECIDED TO TAKE FOSRENOL RIGHT NOW. BAR CODE NOT SCANNING.
--- NOTE | 2020-04-09 19:15 | NUR ---
PASSENGER RELATIONS REPRESENTATIVE NOTES: PATIENT LAST GLUCOSE WAS 185. PATIENT USED HIS OWN INSULIN PUMP. Addendum: 04/09/20 at 1917 by LOU COKER RN PER PATIENT, DEPENDING ON HOW MUCH HE EATS, THAT IS HOW MUCH HE WILL ADMINISTER FROM HIS OWN INSULIN PUMP.
--- NOTE | 2020-04-09 19:20 | NUR ---
RESEARCH FELLOW NOTES PATIENT RESTING COMFORTABLY IN BED. HOB ELEVATED. DENIES ANY C/O PAIN NOR DISCOMFORT AT THIS TIME. NO S/S OF RESPIRATORY DISTRESS. IV ACCESS INTACT AND PATENT. BED IN LOWEST POSITION,LOCKED. BED ALARM ON. CALL LIGHT WITHIN REACH. IN NO APPARENT DISTRESS. ABLE TO VERBALIZE NEEDS.
--- NOTE | 2020-04-09 20:09 | NUR ---
prn hycodan: pt requesting for cough medicine, hycodan syrup, prn hycodan syrup administered to pt at this time.
[2020-04-09] MEDS: ATORVASTATIN 40 MG TABLET PO SCH (21:23)
[2020-04-09] MEDS: INSULIN REGULAR, HUMAN 100 UNIT/ML 3 ML VIAL SQ PRN (23:59)
[2020-04-10] VITALS (7 sets, daily range): BP systolic 122–145; BP diastolic 53–78
[2020-04-10] MEDS: PIPERACILLIN /TAZOBACTAM 2.25 G in IV D5W 50 ML IV SCH ×3 (04:54→21:00)
[2020-04-10] MEDS: BLOOD SUGAR DIAGNOSTIC 1 EACH STRIP IN SCH ×3 (05:03→17:22)
[2020-04-10 06:44] LABS: BASOPHILS # (AUTO) 0.1 /CMM (0.0-0.2); BASOPHILS % (AUTO) 0.9 % (0.0-2.0); EOSINOPHILS % (AUTO) 4.3 % (0.0-6.0); HEMATOCRIT 29 % (39-51); HEMOGLOBIN 9.4 g/dL (13.5-17.5); LYMPHOCYTES # (AUTO) 0.8 /CMM (0.8-4.8); LYMPHOCYTES % (AUTO) 9.5 % (20.0-44.0); MEAN CORPUSCULAR HGB CONC 33 g/dl (31.0-36.0); MEAN CORPUSCULAR VOLUME 92 fL (80-96); MONOCYTES # (AUTO) 0.6 /CMM (0.1-1.30); MONOCYTES % (AUTO) 7.6 % (2.0-12.0); NEUTROPHILS # (AUTO) 6.3 /CMM (1.8-8.9); NEUTROPHILS % (AUTO) 77.7 % (43.0-81.0); PLATELET COUNT (AUTO) 166 /CMM (150-450); RED BLOOD CELL COUNT(AUTO) 3.16 MIL/uL (4.5-6.0)
--- NOTE | 2020-04-10 06:50 | NUR ---
END OF SHIFT REPORT: RECEIVED REPORT FROM PRINCESS GALVAN AT 1915 LAST NIGHT. PT A/O X3, ON 2L OXYGEN VIA NC RESPIRATIONS EVEN AND UNLABORED. 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 ON MRSA NARES ISOLATION, PPE UTILIZED. TELE MONITORING SINUS RHYTHM WITH BBB HR 69. BRIELLE MIDLINE PATENT AND FLUSHING WELL, ON HL. PT HAD HD YESTERDAY 3L OUTPUT, NO BP/IV/BLOOD DRAW ON LEFT ARM DUE PRESENCE OF AV FISTULA. PRN HYCODAN SYRUP ADMINISTERED FOR COUGH. ALL DUE MEDS ADMINISTERED. AM CARE, WOUND CARE, COMPLETE LINEN CHANGE PROVIDED TO PT. VS REMAINS STABLE, NEEDS ATTENDED. SAFETY PRECAUTIONS FOR FALL REMAINS ENGAGED, CALL LIGHT IN REACH, WILL ENDORSE TO DAY RN FOR CONTINUITY OF CARE.
[2020-04-10 07:00] LABS: ALANINE AMINOTRANSFERASE 14 U/L (12-78); ALBUMIN 2.2 g/dL (3.4-5.0); ALKALINE PHOSPHATASE 98 U/L (46-116); ASPARTATE AMINOTRANSFERASE 18 U/L (15-37); BILIRUBIN,TOTAL 0.5 mg/dL (0.2-1.0); CALCIUM, SERUM 8.1 mg/dL (8.5-10.1); CARBON DIOXIDE 29 mmol/L (21-32); CHLORIDE 101 mmol/L (98-107); CREATININE 5.8 mg/dL (0.6-1.3); GLUCOSE 129 mg/dL (74-106); MAGNESIUM 1.8 mg/dL (1.8-2.4); POTASSIUM 3.6 mmol/L (3.5-5.1); SODIUM SERUM 140 mmol/L (136-145); TOTAL PROTEIN, SERUM 6.1 g/dL (6.4-8.2); UREA NITROGEN, BLOOD 36 mg/dL (7-18)
[2020-04-10] MEDS: CARVEDILOL 12.5 MG TABLET PO SCH ×2 (07:13→17:22)
--- NOTE | 2020-04-10 07:30 | NUR ---
RN MS NOTES PT IN BED, AWAKE, ALERT AND ORIENTED, WITH COMPLAINT OF MODERATE PAIN AT THE CHEST AREA WHEN HE COUGHS, NOT IN DISTRESS, CALL LIGHT WITHIN REACH, NEEDS ATTENDED.
[2020-04-10] MEDS: HYDROCODONE BIT/HOMATROPINE 5 ML UDC PO PRN ×2 (08:07→17:16)
[2020-04-10] MEDS: VALSARTAN 80 MG TABLET PO SCH (09:00)
[2020-04-10] MEDS: ASPIRIN 81 MG TAB.CHEW PO SCH (09:09)
[2020-04-10] MEDS: CHOLECALCIFEROL 1,000 UNIT TABLET (VIT D3) PO SCH (09:09)
[2020-04-10] MEDS: ZINC SULFATE 220 MG CAPSULE PO SCH (09:10)
[2020-04-10] MEDS: CINACALCET HCL 30 MG TABLET PO SCH (09:10)
[2020-04-10] MEDS: CLOPIDOGREL BISULFATE 75 MG TABLET PO SCH (09:10)
[2020-04-10] MEDS: CLOTRIMAZOLE 1% 15 GM TUBE TP SCH ×2 (09:24→17:18)
--- NOTE | 2020-04-10 09:46 | NUR ---
COLE MS NOTES FOSRENOL 1000MG GIVEN ORDERED.
[2020-04-10] MEDS ORDERED: DICYCLOMINE HCL 10 MG CAPSULE PO PRN (11:30)
[2020-04-10] MEDS: MUPIROCIN OINT 2% 22 GM TUBE SCH ×2 (11:49→20:15)
[2020-04-10] MEDS ORDERED: ALBUMIN 25% 25 GM in PREMIX 1 EA IV STA (13:23)
--- NOTE | 2020-04-10 14:34 | NUR ---
RN MS NOTES PT IN BED, NO COMPLAINT AT THIS TIME, NOT IN DISTRESS, WITH ONGOING DIALYSIS, TOLERATES WELL, SEEN BY DR. BECERRIL EARLIER, CALL LIGHT WITHIN REACH, NEEDS ATTENDED.
--- NOTE | 2020-04-10 16:04 | NUR ---
RN MS NOTES VANCOMYCIN NOT GIVEN, TROUGH IS 24.
[2020-04-10] MEDS: NIFEdipine XL (30MG) 30 MG TAB PO SCH (17:21)
[2020-04-10] MEDS: ISOSORBIDE MONONITRATE (30MG) 30 MG TAB.SR.24H PO SCH (17:22)
[2020-04-10] MEDS: LANTHANUM CARBONATE 500 MG TAB.CHEW PO SCH (17:54)
--- NOTE | 2020-04-10 18:05 | NUR ---
RN MS NOTES PT IN BED, AWAKE, ALERT AND ORIENTED, NO COMPLAINT OF PAIN OR ANY DISCOMFORT, RESPIRATIONS NORMAL, COMPLETED HEMODIALYSIS, TOLERATED WELL, ASSISTED WITH DINNER, BLOOD SUGAR CHECKED, PT HAS OWN INSULIN PUMP AMD ADMNISTERS IT HIMSELF, ALL DUE MEDS GIVEN ORDERED, NEEDS ATTENDED.
--- NOTE | 2020-04-10 20:13 | NUR ---
RN NOTES: SPOKED WITH PHARMACIST, RELAYED ABOUT PT'S ZOSYN 2.25GM IV Q8HR, LAST DOSE ADMINISTERED AT 1709 BY DAY RN PT JUST COMPLETED HEMODIALYSIS. PER PHARMACIST, TO SKIP DOSE AT 2100 AND JUST GIVE THE DOSE FOR 0500AM.
[2020-04-10] MEDS: ATORVASTATIN 40 MG TABLET PO SCH (20:16)
--- NOTE | 2020-04-10 20:30 | NUR ---
RN NOTES: PT REQUESTED TO GET UP, WALKER AT BED SIDE FOR SUPPORT, RN AND REINFORCED CONCRETE INSPECTOR AT BED SIDE ASSISTING PT, RN STAND WITH THE PT AND HOLDING FOR SUPPORT PT LEANING AND HOLDING ONTO WALKER, REINFORCED CONCRETE INSPECTOR JANINA CHANGING BEDDINGS. PT DOESNT WANT TO BOTHER TONIGHT, WOULD LIKE TO REST AND SLEEP EARLY. DISCUSSED PLAN OF CARE AND MEDICATION SCHEDULE. PT AGREE TO BE AWAKEN AT 0000 FOR GLUCOSE CHECK, AND 0500AM FOR ZOSYN AND GLUCOSE CHECK, PT REQUESTED TO HAVE BLOOD DRAWN AT 0600AM.
--- NOTE | 2020-04-10 21:13 | NUR ---
RN NOTES/NON ADMIN OF ZOSYN: MEDICATION ADMINISTERED LATE BY DAY RN , PT HAD HD, ZOSYN ADMIN AT 1709, PHARMACIST MADE AWARE, WITH INSTRUCTION TO HOLD DOSE FOR 2100. WILL ADMINISTER DOSE FOR 0500AM
[2020-04-11] MEDS: BLOOD SUGAR DIAGNOSTIC 1 EACH STRIP IN SCH ×5 (00:17→23:45)
[2020-04-11] MEDS: INSULIN REGULAR, HUMAN 100 UNIT/ML 3 ML VIAL SQ PRN ×2 (00:18→05:50)
[2020-04-11] MEDS: PIPERACILLIN /TAZOBACTAM 2.25 G in IV D5W 50 ML IV SCH (05:17)
[2020-04-11 06:40] VITALS: BP 135/58
[2020-04-11] MEDS: CARVEDILOL 12.5 MG TABLET PO SCH ×2 (06:41→17:05)
--- NOTE | 2020-04-11 06:45 | NUR ---
end of shift report: received report from fili castañeda at 1920 last night. pt remains on mrsa nares isolation, ppe utilized. pt s/p hd with 3.2l output. pt on 2l oxygen via nc respirations even and unlabored. alma rosa av Fistula dressing c/d/i, no active bleeding noted. pt has own insulin pump on rlq, with orders okay to use, on accu check q6hrs as ordered. fingerstick glucose check is 85, and 115. julio midline remains patent and flushing well, on hl, no s/s of iv infiltration noted. pt anuric.plan per nephro aggressive fluid removal by hemodialysis, hd till cxr clears. vs remains stable, needs attended. safety precautions for fall remains engaged, call light in reach, will endorse to day rn for continuity of care.
--- NOTE | 2020-04-11 07:36 | NUR ---
MS RN NOTES PATIENT REQUEST TO HAVE HIS BLOOD SUGAR CHECK. 111 MG/DL.
[2020-04-11 08:00] VITALS: BP 154/61
--- NOTE | 2020-04-11 08:00 | NUR ---
MS RN OPENING NOTES RECEIVED PATIENT IN BED, AWAKE, CONSCIOUS, COOPERATIVE, 02 @ 2LPM VIA NASAL CANNULA, UNLABORED BREATHING, NO SIGNS OF RESPIRATORY DISTRESS, BRIELLE MIDLINE HL, ROBIN AV FISTULA, LEFT EJ #18, RIGHT HAND #18, SIDE RAILS UP.
[2020-04-11] MEDS: CINACALCET HCL 30 MG TABLET PO SCH (09:04)
[2020-04-11] MEDS: ZINC SULFATE 220 MG CAPSULE PO SCH (09:05)
[2020-04-11] MEDS: ASPIRIN 81 MG TAB.CHEW PO SCH (09:06)
[2020-04-11] MEDS: CLOPIDOGREL BISULFATE 75 MG TABLET PO SCH (09:06)
[2020-04-11] MEDS: VALSARTAN 80 MG TABLET PO SCH (09:06)
[2020-04-11] MEDS: CHOLECALCIFEROL 1,000 UNIT TABLET (VIT D3) PO SCH (09:06)
[2020-04-11] MEDS: HYDROCODONE BIT/HOMATROPINE 5 ML UDC PO PRN (09:07)
[2020-04-11] MEDS: LANTHANUM CARBONATE 500 MG TAB.CHEW PO SCH ×2 (09:11→17:06)
[2020-04-11] MEDS: MUPIROCIN OINT 2% 22 GM TUBE SCH ×2 (09:48→21:14)
[2020-04-11] MEDS: CLOTRIMAZOLE 1% 15 GM TUBE TP SCH ×2 (09:48→17:06)
--- NOTE | 2020-04-11 10:34 | NUR ---
MS RN NOTES PATIENT REFUSED VALSARTAN MEDICATION. RETURNED MEDICATION TO THE BIN.
[2020-04-11 11:10] LABS: BASOPHILS # (AUTO) 0.2 /CMM (0.0-0.2); BASOPHILS % (AUTO) 2.3 % (0.0-2.0); EOSINOPHILS % (AUTO) 4.6 % (0.0-6.0); HEMATOCRIT 30 % (39-51); HEMOGLOBIN 9.9 g/dL (13.5-17.5); LYMPHOCYTES # (AUTO) 0.6 /CMM (0.8-4.8); LYMPHOCYTES % (AUTO) 7.8 % (20.0-44.0); MEAN CORPUSCULAR HGB CONC 33 g/dl (31.0-36.0); MEAN CORPUSCULAR VOLUME 91 fL (80-96); MONOCYTES # (AUTO) 0.5 /CMM (0.1-1.30); MONOCYTES % (AUTO) 6.2 % (2.0-12.0); NEUTROPHILS # (AUTO) 6.3 /CMM (1.8-8.9); NEUTROPHILS % (AUTO) 79.1 % (43.0-81.0); PLATELET COUNT (AUTO) 197 /CMM (150-450); RED BLOOD CELL COUNT(AUTO) 3.26 MIL/uL (4.5-6.0); WHITE BLOOD COUNT (AUTO) 7.9 K/uL (4.3-11.0)
[2020-04-11 11:29] LABS: CALCIUM, SERUM 8.4 mg/dL (8.5-10.1); CARBON DIOXIDE 27 mmol/L (21-32); CHLORIDE 100 mmol/L (98-107); CREATININE 5.5 mg/dL (0.6-1.3); GLUCOSE 232 mg/dL (74-106); POTASSIUM 3.6 mmol/L (3.5-5.1); SODIUM SERUM 140 mmol/L (136-145); UREA NITROGEN, BLOOD 32 mg/dL (7-18)
--- NOTE | 2020-04-11 13:53 | NUR ---
MS RN NOTES PATIENT REQUESTED TO HAVE HIS BLOOD SUGAR TAKEN. 279 MG/DL.
--- NOTE | 2020-04-11 14:00 | NUR ---
MS RN NOTES PATIENT VERBALIZED HE INJECT 12 UNITS INUSLIN WITH HIS INSULIN PUMP.
[2020-04-11 16:00] VITALS: BP 152/61
--- NOTE | 2020-04-11 17:00 | NUR ---
MS RN NOTES PATIENT REFUSED ISOSORBIDE MEDICATION.
[2020-04-11] MEDS: NIFEdipine XL (30MG) 30 MG TAB PO SCH (17:04)
[2020-04-11] MEDS: ISOSORBIDE MONONITRATE (30MG) 30 MG TAB.SR.24H PO SCH (17:05)
--- NOTE | 2020-04-11 17:30 | NUR ---
MS RN NOTES BLOOD SUGAR 44 MG/DL. ADVISED AND GAVE PATIENT DINNER WITH APPLE JUICE. PATIENT IS ALERT AND ORIENTED X4. PATIENT WAS COMPLIANT. BUT REFUSED D50 WATER.
--- NOTE | 2020-04-11 17:40 | NUR ---
MS RN NOTES BLOOD SUGAR RE-CHECKED 35 MG/DL. PATIENT WAS COMPLIANT TO EATING HIS DINNER AND DRINKING APPLE JUICE.
--- NOTE | 2020-04-11 18:05 | NUR ---
MS RN NOTES BLOOD SUGAR 55 MG/DL. ADVISED PATIENT TO CONTINUE EATING HIS DINNER AND APPLE JUICE.
--- NOTE | 2020-04-11 18:24 | NUR ---
MS RN NOTES PATIENT'S BLOOD SUGAR IS NOW 73 MG/DL.
--- NOTE | 2020-04-11 19:03 | NUR ---
MS RN CLOSING NOTES ENDORSED PATIENT IN BED, AWAKE, CONSCIOUS, COOPERATIVE, 02 @ 2LPM VIA NASAL CANNULA, UNLABORED BREATHING, NO SIGNS OF RESPIRATORY DISTRESS, BRIELLE MIDLINE HL, ROBIN AV FISTULA, LEFT EJ #18, RIGHT HAND #18, SIDE RAILS UP FOR SAFETY.
[2020-04-11 20:00] VITALS: BP 140/70
--- NOTE | 2020-04-11 20:00 | NUR ---
RN NOTES ALERT AND ORIENTED X4, ON 2LPM VIA NC, DENIES PAIN AT THIS TIME, INTERMITTENT COUGH, ESRD ON HD, ANURIC, KEPT SAFE, CALL LIGHT WITHIN REACH.
[2020-04-11] MEDS: ATORVASTATIN 40 MG TABLET PO SCH (21:13)
[2020-04-11] MEDS ORDERED: KEY,NONCONTROL,TO KEEP IN PYXI 1 EA MC ONE (21:19)
[2020-04-11] MEDS: GUAIFENESIN/D-METHORPHAN HB 5 ML UDC PO PRN (21:23)
[2020-04-11 22:00] VITALS: BP 140/70
--- NOTE | 2020-04-11 23:49 | NUR ---
RN NOTES ACCUCHECK BG 202 MG.DL, SELF INJECTING INSULIN PUMP
[2020-04-12] VITALS: BP 134/80
--- NOTE | 2020-04-12 05:49 | NUR ---
RN NOTES BG 148 MG/DL, HAS INSULIN PUMP
[2020-04-12] MEDS: BLOOD SUGAR DIAGNOSTIC 1 EACH STRIP IN SCH ×4 (05:50→23:49)
[2020-04-12] MEDS: CARVEDILOL 12.5 MG TABLET PO SCH ×2 (06:00→17:00)
--- NOTE | 2020-04-12 06:23 | NUR ---
RN NOTES ALERT AND ORIENTED X4, INCREASED O2 TO 3LPM, [id number]% ANXIOUS, FINE CRACKLES ON AUSCULTATION, THORACENTESIS TODAY, NPO EXCCEPT MEDS SINCE AFTER MIDNIGHT, CONSENT SIGNED, CHECKLIST IN CHART
[2020-04-12 07:14] LABS: BASOPHILS # (AUTO) 0.1 /CMM (0.0-0.2); BASOPHILS % (AUTO) 0.9 % (0.0-2.0); EOSINOPHILS % (AUTO) 5.9 % (0.0-6.0); HEMATOCRIT 29 % (39-51); HEMOGLOBIN 9.8 g/dL (13.5-17.5); LYMPHOCYTES # (AUTO) 0.8 /CMM (0.8-4.8); LYMPHOCYTES % (AUTO) 10.8 % (20.0-44.0); MEAN CORPUSCULAR HGB CONC 33 g/dl (31.0-36.0); MEAN CORPUSCULAR VOLUME 90 fL (80-96); MONOCYTES # (AUTO) 0.6 /CMM (0.1-1.30); MONOCYTES % (AUTO) 8.1 % (2.0-12.0); NEUTROPHILS # (AUTO) 5.7 /CMM (1.8-8.9); NEUTROPHILS % (AUTO) 74.3 % (43.0-81.0); PLATELET COUNT (AUTO) 200 /CMM (150-450); RED BLOOD CELL COUNT(AUTO) 3.25 MIL/uL (4.5-6.0); WHITE BLOOD COUNT (AUTO) 7.7 K/uL (4.3-11.0)
--- NOTE | 2020-04-12 07:20 | NUR ---
MS RN NOTES RECEIVED PT IN BED, AWAKE, A/OX3-4. PT ON SUPPLEMENTARY OXYGEN AT 3LPM VIA NC, WITH NO ACUTE RESPIRATORY DISTRESS NOTED. PT DENIES ANY PAIN OR DISCOMFORT AT THIS TIME. PT DENIES ANY CONCERNS OR QUESTIONS WELL. PIV TO R HAND G18, FLUSHED WITH NS, INTACT AND OPERATIONAL. PT KEPT COMFORTABLE. CALL LIGHT KEPT WITHIN REACH. PT'S BED IN LOWEST, LOCKED POSITION WITH SRX3. WILL CONTINUE PLAN OF CARE.
[2020-04-12 07:30] LABS: CALCIUM, SERUM 8.3 mg/dL (8.5-10.1); CARBON DIOXIDE 29 mmol/L (21-32); CHLORIDE 100 mmol/L (98-107); CREATININE 6.9 mg/dL (0.6-1.3); GLUCOSE 136 mg/dL (74-106); PHOSPHORUS 3.4 mg/dL (2.5-4.9); POTASSIUM 3.7 mmol/L (3.5-5.1); SODIUM SERUM 138 mmol/L (136-145); UREA NITROGEN, BLOOD 45 mg/dL (7-18)
[2020-04-12 08:00] VITALS: BP 131/67
[2020-04-12] MEDS: CLOTRIMAZOLE 1% 15 GM TUBE TP SCH ×2 (09:00→17:16)
[2020-04-12] MEDS: MUPIROCIN OINT 2% 22 GM TUBE SCH ×2 (09:00→21:00)
--- NOTE | 2020-04-12 09:39 | NUR ---
ROUTINE US GUIDED THORACENTESIS ORDERED FOR PATIENT. SPOKE TO COLE ORTIZ AT EXT. [phone] REGARDING BLOOD THINNER. PATIENT HAS STOPPED PLAVIX YESTERDAY. INFORMED RN THAT PLAVIX NEEDS TO BE HELD FOR 5 DAYS PRIOR TO PROCEDURE. PROCEDURE ON HOLD UNTIL 04/16/20.
--- NOTE | 2020-04-12 09:52 | NUR ---
MS RN NOTES PT REPORT GIVEN TO REPORT FOR [facility].
[2020-04-12] MEDS: CINACALCET HCL 30 MG TABLET PO SCH (10:07)
[2020-04-12] MEDS: CHOLECALCIFEROL 1,000 UNIT TABLET (VIT D3) PO SCH (10:07)
[2020-04-12] MEDS: ZINC SULFATE 220 MG CAPSULE PO SCH (10:07)
[2020-04-12] MEDS: VALSARTAN 80 MG TABLET PO SCH (10:08)
--- NOTE | 2020-04-12 10:10 | NUR ---
CONTINUOUS IMPROVEMENT DIRECTOR NOTES RECEIVED PATIENT FROM NURSE HINKLE IN BED, AWAKE, CONSCIOUS, COOPERATIVE, 02 @ 2LPM VIA NASAL CANNULA, UNLABORED BREATHING, NO SIGNS OF RESPIRATORY DISTRESS, BRIELLE MIDLINE HL, ROBIN AV FISTULA, LEFT EJ #18, RIGHT HAND #18, SIDE RAILS UP FOR SAFETY.
[2020-04-12] MEDS: LANTHANUM CARBONATE 500 MG TAB.CHEW PO SCH ×2 (10:15→17:00)
--- NOTE | 2020-04-12 10:15 | NUR ---
FENCE RIDER NOTES DOING [facility] FOR THIS PATIENT. PATIENT REFUSED TO TAKE THE MEDICATIONS VITAMIN D, ZINC SULFATE, VALSARTAN SENSIPAR, LANTHANUM CARBONATE, BACTROBAN, AND CLOTRIMAZOLE.
--- NOTE | 2020-04-12 10:29 | NUR ---
CEMENT MASON MAINTENANCE NOTES TEXT DR. Miquel DENTON THAT THE RADIOLOGISTS CALLED AND TOLD US THAT THE PROCEDURE WOULD BE DONE BY MONDAY. PLAVIX SHOULD BE ON HOLD. AND TO RESUME DIET ON THE PATIENT.
--- NOTE | 2020-04-12 13:00 | NUR ---
MS RN NOTES REPORT GIVEN BY PERRY FOR [facility].
--- NOTE | 2020-04-12 13:05 | NUR ---
MS RN NOTES PER CHARGE NURSE/DIANA, POSTPONED THORACENTESIS. PT NEED TO BE OFF PLAVIX FOR 5DAYS. PT MADE AWARE. WILL CONTINUE TO MONITOR.
--- NOTE | 2020-04-12 15:10 | NUR ---
MS RN NOTES PT JUST PREPPED HIS ROBIN FOR DIALYSIS. PT HAS OWN LIDOCAINE TOPICAL CREAM, AND PREPPED HIS OWN SITE. RECEIVED CALL FROM DIALYSIS NURSE/LEX, HE'LL BE HER IN AN HOUR. WILL CONTINUE TO MONITOR.
[2020-04-12 16:00] VITALS: BP 146/58
--- NOTE | 2020-04-12 16:34 | NUR ---
MS RN NOTES PT REPORTED LIGHTHEADEDNESS. PT HAD BM WITH BLOOD NOTED. VITALS TAKEN BP 148/58, WI 67, RR 18, 98.2, 99%. BLOOD SUGAR OF 99. INFORMED MD/DANIELA PT REQUESTING FOR H&H. RESPONDED OKAY TO CHECK H&H STAT AND ORDERED STOOL FOR OB. PT MADE AWARE WILL CONTINUE TO MONITOR.
[2020-04-12] MEDS: ISOSORBIDE MONONITRATE (30MG) 30 MG TAB.SR.24H PO SCH (17:16)
[2020-04-12] MEDS: NIFEdipine XL (30MG) 30 MG TAB PO SCH (17:17)
--- NOTE | 2020-04-12 17:17 | NUR ---
MS RN NOTES HD NURSE AT BEDSIDE, PREPPING FOR HD. 5PM MED HELD, SPECIALLY BP MEDS GIVEN AT THIS TIME.
[2020-04-12 17:39] LABS: HEMOGLOBIN 9.4 g/dL (13.5-17.5)
--- NOTE | 2020-04-12 18:43 | NUR ---
MS RN NOTES PT REMAINS IN BED, AWAKE, A/OX3-4. PT ON SUPPLEMENTARY OXYGEN AT 3LPM VIA NC, WITH NO ACUTE RESPIRATORY DISTRESS NOTED. PT DENIES ANY PAIN OR DISCOMFORT AT THIS TIME. ON GOING HD AT THIS TIME, DIALYSIS NURSE PRESENT AT BEDSIDE. ROBIN AV SHUNT PRESENT FOR HD ACCESS. PIVS TO R HAND G18, LEFT IJ G18, BRIELLE MIDLINE G18, ALL FLUSHED WITH NS, INTACT AND OPERATIONAL. PT KEPT COMFORTABLE. ALL NEEDS AND CARE ATTENDED. PT AWARE FOR STOOL COLLECTION FOR OB, HAT & SPECIMEN CUP PRESENT AT BEDSIDE. CALL LIGHT KEPT WITHIN REACH. PT'S BED IN LOWEST, LOCKED POSITION WITH SRX3. WILL ENDORSE TO INCOMING NIGHT NURSE FOR [facility].
--- NOTE | 2020-04-12 19:40 | NUR ---
RN OPENING NOTES RECEIVED REPORT FROM DAYSHIFT RNMANAN. FOUND Pt AWAKE, RESTING IN BED. HD BEING DONE AT BEDSIDE AT THIS TIME, WITH ALUMINA PLANT SUPERVISOR AT BEDSIDE. Pt IS A/OX4, VERBAL, ABLE TO MAKE NEEDS KNOWN. ROBIN AV SHUNT. IV ACCESS ON LIJ #18G, BRIELLE MIDLINE, RHAND #18G, SL. PER REPORT FROM COLE HINKLE, PER DR DENTON, Pt NEEDS TO BE OFF OF PLAVIX FOR X5DAYS BEFORE THEY CAN DO A THORACENTESIS. WILL ENDORSE INFO TO THE ONCOMING DAYSAKFT. SAFETY MEASURES IN PLACE. BED LOW, LOCKED, HOB ELEVATED, SIDE RAILS UP, CALL LIGHT AND BEDSIDE TABLE WITHIN REACH. WILL CONTINUE TO MONITOR Pt's CONDITION AND SAFETY THROUGHOUT THE NIGHT.
[2020-04-12 20:00] VITALS: BP 149/53
--- NOTE | 2020-04-12 20:24 | NUR ---
RN NOTES S/P HD TODAY 04/12. PER MANAGER WORKERS COMPENSATION LEX, 3L OUTPUT. VS STABLE. WILL CONTINUE TO MONITOR Pt.
[2020-04-12 21:00] VITALS: BP 149/53
[2020-04-12] MEDS: GUAIFENESIN/D-METHORPHAN HB 5 ML UDC PO PRN (21:15)
[2020-04-12] MEDS: ATORVASTATIN 40 MG TABLET PO SCH (21:15)
--- NOTE | 2020-04-12 21:30 | NUR ---
RN NOTES CHECKED BG PER Pt's REQUEST TO CHECK HIS BS. BG OF 141.
--- NOTE | 2020-04-12 22:00 | NUR ---
RN NOTES ASKED Pt IF IT WAS OK WITH HIM IF WE TOOK PICTURES OF HIS BUTTOCKS AND GROIN AGAIN DUE TO HOSPITAL POLICY FOR Monday. Pt REFUSED, SAID THAT HE WOULD RATHER NOT HAVE HIS BUTTOCKS & GROIN PICTURE TAKEN RIGHT NOW. Pt SAID HE WAS FEELING REALLY TIRED AND WISHED TO GET SOME SLEEP NOW. BEFORE LEAVING THE ROOM I SAW THAT THE DVT PUMPS WERE AT THE END OF THE BED, BUT WERE NOT APPLIED ONTO Pt's LEGS. ASKED IF I CAN PLACE THEM ON HIS LEG, BUT Pt REFUSED, SAYING THAT HE DID NOT NEED THEM. CALL LIGHT PLACED WITHIN REACH. BED ALARM ON. WILL CONTINUE TO MONITOR Pt.
--- NOTE | 2020-04-12 23:59 | NUR ---
RN NOTES BG 165. Pt HAS NO SLIDING SCALE ORDERED FOR ADDITIONAL INSULIN COVERAGE. PER REPORT Pt HAS HIS OWN INSULIN PUMP IMPLANTED.
[2020-04-13] MEDS: BLOOD SUGAR DIAGNOSTIC 1 EACH STRIP IN SCH ×2 (06:04→12:20)
--- NOTE | 2020-04-13 06:15 | NUR ---
RN NOTES BG 132. Pt HAS OWN INSULIN PUMP THAT IS IMPLANTED. Pt ADMINISTERS HIS OWN INSULIN. RN TO CONTINUE MONITORING BG Q6H.
[2020-04-13] MEDS: CARVEDILOL 12.5 MG TABLET PO SCH (06:20)
--- NOTE | 2020-04-13 06:32 | NUR ---
RN CLOSING NOTES NO SIGNIFICANT CHANGES IN Pt's CONDITION. NO S/S OF ACUTE DISTRESS OR SOB NOTED DURING THE NIGHT. ALL NEEDS MET AND ATTENDED TO. NO BM MADE DURING THE NIGHT. SAFETY MEASURES IN PLACE. WILL ENDORSE TO DAYSHIFT RN FOR Pt's [facility].
[2020-04-13 06:38] LABS: BASOPHILS # (AUTO) 0.1 /CMM (0.0-0.2); BASOPHILS % (AUTO) 1.1 % (0.0-2.0); EOSINOPHILS % (AUTO) 5.4 % (0.0-6.0); HEMATOCRIT 31 % (39-51); HEMOGLOBIN 10.3 g/dL (13.5-17.5); LYMPHOCYTES # (AUTO) 0.8 /CMM (0.8-4.8); LYMPHOCYTES % (AUTO) 10.8 % (20.0-44.0); MEAN CORPUSCULAR HGB CONC 33 g/dl (31.0-36.0); MEAN CORPUSCULAR VOLUME 91 fL (80-96); MONOCYTES # (AUTO) 0.7 /CMM (0.1-1.30); MONOCYTES % (AUTO) 8.7 % (2.0-12.0); NEUTROPHILS # (AUTO) 5.6 /CMM (1.8-8.9); PLATELET COUNT (AUTO) 224 /CMM (150-450); RED BLOOD CELL COUNT(AUTO) 3.45 MIL/uL (4.5-6.0); WHITE BLOOD COUNT (AUTO) 7.5 K/uL (4.3-11.0)
[2020-04-13 06:41] LABS: CALCIUM, SERUM 8.5 mg/dL (8.5-10.1); CARBON DIOXIDE 31 mmol/L (21-32); CHLORIDE 104 mmol/L (98-107); CREATININE 6.1 mg/dL (0.6-1.3); GLUCOSE 148 mg/dL (74-106); POTASSIUM 3.7 mmol/L (3.5-5.1); SODIUM SERUM 142 mmol/L (136-145); UREA NITROGEN, BLOOD 35 mg/dL (7-18)
[2020-04-13 08:00] VITALS: BP 145/85
[2020-04-13 09:08] VITALS: BP 145/65
[2020-04-13] MEDS: CHOLECALCIFEROL 1,000 UNIT TABLET (VIT D3) PO SCH (09:08)
[2020-04-13] MEDS: ZINC SULFATE 220 MG CAPSULE PO SCH (09:08)
[2020-04-13] MEDS: VALSARTAN 80 MG TABLET PO SCH (09:08)
[2020-04-13] MEDS: CINACALCET HCL 30 MG TABLET PO SCH (09:08)
[2020-04-13] MEDS: MUPIROCIN OINT 2% 22 GM TUBE SCH (09:09)
[2020-04-13] MEDS: CLOTRIMAZOLE 1% 15 GM TUBE TP SCH (09:09)
[2020-04-13] MEDS: LANTHANUM CARBONATE 500 MG TAB.CHEW PO SCH (09:22)
--- NOTE | 2020-04-13 13:14 | NUR ---
M/S RN NOTES PATIENT DISCHARGED IN STABLE CONDITION, NO RESPIRATORY DISTRESS, NO C/O PAIN AT THIS TIME. PATIENT'S SKIN WARM TO TOUCH, PATIENT REFUSED FOR SKIN ASSESSMENT AND PHOTOS. IVS REMOVED AND APPLIED PRESSURE DRESSINGS ON ALL SITES. PATIENT GIVEN DISCHARGE INSTRUCTIONS, VERBALIZED UNDERSTANDING. PATIENT'S BELONGINGS WITH PATIENT, PATIENT SIGNED BELONGINGS LIST. PATIENT ESCORTED TO LOBBY BY SLOAN BE VIA WHEELCHAIR AND LEFT WITH FAMILY VIA PRIVATE CAR.
[2020-04-13 16:35] LABS: OCCULT BLOOD STOOL NEGATIVE (NEGATIVE)
== END 2020-04-13 13:00 | disposition home or self-care (01) | DRG 208 ==
LOC: ER 00:30 → ICU 01:59 → TELE 04-09 15:14 → MED 04-10 08:14
PROVIDERS: ADMIT Internal Medicine; ATTEND Internal Medicine
PROC: 5A1945Z Respiratory Ventilation, 24-96 Consecutive Hours (ICD-10-PCS; principal; 2020-04-07)
PROC: 0BH17EZ Insertion of Endotracheal Airway into Trachea, Via Natural or Artificial Opening (ICD-10-PCS; 2020-04-07)
PROC: 5A1D70Z Performance of Urinary Filtration, Intermittent, Less than 6 Hours Per Day (ICD-10-PCS; 2020-04-07)
PROC: 05H533Z Insertion of Infusion Device into Right Subclavian Vein, Percutaneous Approach (ICD-10-PCS; 2020-04-07)
DX: J96.01 Acute respiratory failure with hypoxia (principal); N18.6 End stage renal disease; I13.2 Hypertensive heart and chronic kidney disease with heart failure and with stage 5 chronic kidney disease, or end stage renal disease; E87.2 Acidosis; J98.11 Atelectasis; K86.2 Cyst of pancreas; I25.10 Atherosclerotic heart disease of native coronary artery without angina pectoris; N40.0 Benign prostatic hyperplasia without lower urinary tract symptoms; E11.22 Type 2 diabetes mellitus with diabetic chronic kidney disease; D63.1 Anemia in chronic kidney disease; E11.42 Type 2 diabetes mellitus with diabetic polyneuropathy; G71.00 Muscular dystrophy, unspecified; I50.9 Heart failure, unspecified; Z86.718 Personal history of other venous thrombosis and embolism; Z95.5 Presence of coronary angioplasty implant and graft; E78.5 Hyperlipidemia, unspecified; N25.0 Renal osteodystrophy; R91.8 Other nonspecific abnormal finding of lung field; Z79.4 Long term (current) use of insulin; K76.9 Liver disease, unspecified; Z99.2 Dependence on renal dialysis; M48.00 Spinal stenosis, site unspecified; Z85.46 Personal history of malignant neoplasm of prostate; K21.9 Gastro-esophageal reflux disease without esophagitis; Z79.82 Long term (current) use of aspirin
CPT/HCPCS: 31720; 36410; 36415; 36600; 71045-TC; 71250-TC; 80048-TC; 80053-TC; 80061-TC; 80076-TC; 80202-TC; 82272-TC; 82550-TC; 82728-TC; 82803-TC; 82962-TC; 83605-TC; 83615-TC; 83735-TC; 83970; 84100-TC; 84155; 84165; 84484-TC; 85025-TC; 85027-TC; 85730-TC; 86140-TC; 86706; 86850-TC; 87040-TC; 87081-TC; 87340; 90935-TC; 92611-TC; 94003-TC; 94760-TC; 94799-TC; 97116-TC; 97530-TC; 97535-TC; A4216; G0378; J0330; J1815; J2060; J2543; J3370; J3490; J7030; J7040; J7050; J7060; P9047; U0003-CS

== ENCOUNTER 2020-06-18 11:30 | Outpatient (CLI) | payer MEDICARE, OTHER ==
[~2020-06-18 11:30] MED LIST changes: -ASPI-1169 PO; -CLOP75TA15 PO; -NIFE90TA2 PO
== END 2020-06-18 23:59 | disposition home or self-care (01) ==
LOC: WOU 11:30
PROVIDERS: ATTEND Podiatrist Foot & Ankle Surgery
DX: E11.40 Type 2 diabetes mellitus with diabetic neuropathy, unspecified (principal); L84 Corns and callosities; B35.1 Tinea unguium; I73.9 Peripheral vascular disease, unspecified; M21.371 Foot drop, right foot; Z89.411 Acquired absence of right great toe; Z79.4 Long term (current) use of insulin; Z79.02 Long term (current) use of antithrombotics/antiplatelets; Z79.899 Other long term (current) drug therapy; Z79.82 Long term (current) use of aspirin
CPT/HCPCS: G0463

== ENCOUNTER 2020-09-17 11:05 | Outpatient (CLI) | payer MEDICARE, OTHER ==
[2020-09-17] MEDS ORDERED: UREA 10% -AHA 4% CREAM 57 GM TUBE ONE (11:35)
== END 2020-09-17 23:59 | disposition home or self-care (01) ==
LOC: WOU 11:05
PROVIDERS: ATTEND Podiatrist Foot & Ankle Surgery
DX: E11.621 Type 2 diabetes mellitus with foot ulcer (principal); L97.512 Non-pressure chronic ulcer of other part of right foot with fat layer exposed; E11.40 Type 2 diabetes mellitus with diabetic neuropathy, unspecified; E11.51 Type 2 diabetes mellitus with diabetic peripheral angiopathy without gangrene; Z79.4 Long term (current) use of insulin; Z89.411 Acquired absence of right great toe; L84 Corns and callosities; B35.1 Tinea unguium; Z79.82 Long term (current) use of aspirin; Z79.899 Other long term (current) drug therapy
CPT/HCPCS: 11042

== ENCOUNTER 2020-09-21 10:30 | Outpatient (CLI) | payer MEDICARE, OTHER | END 2020-09-21 23:59 | disposition home or self-care (01) | LOC: WOU 10:30 | PROVIDERS: ATTEND Podiatrist Foot & Ankle Surgery | DX: E11.40 Type 2 diabetes mellitus with diabetic neuropathy, unspecified (principal); E11.51 Type 2 diabetes mellitus with diabetic peripheral angiopathy without gangrene; Z79.4 Long term (current) use of insulin; L84 Corns and callosities; B35.1 Tinea unguium; M21.371 Foot drop, right foot; Z89.411 Acquired absence of right great toe; Z79.82 Long term (current) use of aspirin; Z79.899 Other long term (current) drug therapy | CPT/HCPCS: G0463 ==

== ENCOUNTER 2020-10-26 11:20 | Outpatient (CLI) | payer MEDICARE, OTHER | END 2020-10-26 23:59 | disposition home or self-care (01) | LOC: WOU 11:20 | PROVIDERS: ATTEND Podiatrist Foot & Ankle Surgery | DX: Z09 Encounter for follow-up examination after completed treatment for conditions other than malignant neoplasm (principal); Z86.31 Personal history of diabetic foot ulcer; L84 Corns and callosities; E11.40 Type 2 diabetes mellitus with diabetic neuropathy, unspecified; E11.51 Type 2 diabetes mellitus with diabetic peripheral angiopathy without gangrene; Z79.4 Long term (current) use of insulin; B35.1 Tinea unguium; M21.371 Foot drop, right foot; Z89.411 Acquired absence of right great toe; Z79.82 Long term (current) use of aspirin; Z79.899 Other long term (current) drug therapy | CPT/HCPCS: G0463 ==

== ENCOUNTER 2020-11-09 13:54 | Outpatient (CLI) | payer MEDICARE, OTHER | END 2020-11-09 23:59 | disposition home or self-care (01) | LOC: RAD 13:54 | PROVIDERS: ATTEND Podiatrist Foot & Ankle Surgery | DX: M85.871 Other specified disorders of bone density and structure, right ankle and foot (principal); M21.6X1 Other acquired deformities of right foot | CPT/HCPCS: 73610-TC ==

== ENCOUNTER 2020-11-16 11:05 | Outpatient (CLI) | payer MEDICARE, OTHER ==
[2020-11-16] MEDS ORDERED: UREA 10% -AHA 4% CREAM 57 GM TUBE ONE (11:45)
== END 2020-11-16 23:59 | disposition home or self-care (01) ==
LOC: WOU 11:05
PROVIDERS: ATTEND Podiatrist Foot & Ankle Surgery
DX: L84 Corns and callosities (principal); E11.42 Type 2 diabetes mellitus with diabetic polyneuropathy; Z79.4 Long term (current) use of insulin; I73.9 Peripheral vascular disease, unspecified; B35.1 Tinea unguium; M21.371 Foot drop, right foot; Z89.411 Acquired absence of right great toe
CPT/HCPCS: G0463

== ENCOUNTER 2021-02-01 11:00 | Outpatient (CLI) | payer MEDICARE, OTHER ==
[~2021-02-01 11:00] MED LIST changes: -ISOS30TA6 PO; +ISOS30TA86 PO
== END 2021-02-01 23:59 | disposition home or self-care (01) ==
LOC: WOU 11:00
PROVIDERS: ATTEND Podiatrist Foot & Ankle Surgery
DX: S80.811A Abrasion, right lower leg, initial encounter (principal); W26.8XXA Contact with other sharp object(s), not elsewhere classified, initial encounter; Y92.89 Other specified places as the place of occurrence of the external cause; E11.42 Type 2 diabetes mellitus with diabetic polyneuropathy; E11.51 Type 2 diabetes mellitus with diabetic peripheral angiopathy without gangrene; Z79.4 Long term (current) use of insulin; L84 Corns and callosities; B35.1 Tinea unguium; M21.371 Foot drop, right foot; Z79.02 Long term (current) use of antithrombotics/antiplatelets; Z79.82 Long term (current) use of aspirin; Z79.899 Other long term (current) drug therapy
CPT/HCPCS: 82962; G0463

== ENCOUNTER 2021-02-22 11:40 | Outpatient (CLI) | payer MEDICARE, OTHER | END 2021-02-22 23:59 | disposition home or self-care (01) | LOC: WOU 11:40 | PROVIDERS: ATTEND Podiatrist Foot & Ankle Surgery | DX: E11.40 Type 2 diabetes mellitus with diabetic neuropathy, unspecified (principal); E11.51 Type 2 diabetes mellitus with diabetic peripheral angiopathy without gangrene; Z79.4 Long term (current) use of insulin; L84 Corns and callosities; B35.1 Tinea unguium; M21.371 Foot drop, right foot; I10 Essential (primary) hypertension; Z89.411 Acquired absence of right great toe; Z79.02 Long term (current) use of antithrombotics/antiplatelets; Z79.82 Long term (current) use of aspirin; Z79.899 Other long term (current) drug therapy | CPT/HCPCS: G0463 ==

== ENCOUNTER 2021-04-26 11:30 | Outpatient (CLI) | payer MEDICARE | END 2021-04-26 23:59 | disposition home or self-care (01) | LOC: WOU 11:30 | PROVIDERS: ATTEND Podiatrist Foot & Ankle Surgery | DX: Z09 Encounter for follow-up examination after completed treatment for conditions other than malignant neoplasm (principal); Z86.31 Personal history of diabetic foot ulcer; E11.40 Type 2 diabetes mellitus with diabetic neuropathy, unspecified; E11.51 Type 2 diabetes mellitus with diabetic peripheral angiopathy without gangrene; Z79.4 Long term (current) use of insulin; L84 Corns and callosities; B35.1 Tinea unguium; M21.371 Foot drop, right foot; Z79.02 Long term (current) use of antithrombotics/antiplatelets; Z89.411 Acquired absence of right great toe; Z79.82 Long term (current) use of aspirin; Z79.899 Other long term (current) drug therapy | CPT/HCPCS: G0463 ==

== ENCOUNTER 2021-07-01 11:45 | Outpatient (CLI) | payer MEDICARE, OTHER ==
[2021-07-01] MEDS ORDERED: BACI/NEOM/POLY B OINT PKT 1 UDPKT PACKET ONE (12:32)
[2021-07-01] MEDS ORDERED: UREA 10% -AHA 4% CREAM 57 GM TUBE ONE (12:33)
== END 2021-07-01 23:59 | disposition home or self-care (01) ==
LOC: WOU 11:45
PROVIDERS: ATTEND Podiatrist Foot & Ankle Surgery
DX: E10.40 Type 1 diabetes mellitus with diabetic neuropathy, unspecified (principal); L84 Corns and callosities; B35.1 Tinea unguium; Z89.411 Acquired absence of right great toe; E11.51 Type 2 diabetes mellitus with diabetic peripheral angiopathy without gangrene; M21.371 Foot drop, right foot; Z86.31 Personal history of diabetic foot ulcer; Z98.62 Peripheral vascular angioplasty status; Z85.820 Personal history of malignant melanoma of skin; Z85.828 Personal history of other malignant neoplasm of skin; I10 Essential (primary) hypertension; Z85.46 Personal history of malignant neoplasm of prostate; K58.9 Irritable bowel syndrome, unspecified; Z79.4 Long term (current) use of insulin; Z79.82 Long term (current) use of aspirin; Z79.899 Other long term (current) drug therapy
CPT/HCPCS: G0463

== ENCOUNTER 2021-08-30 21:55 | Inpatient (IN) | payer MEDICARE, OTHER ==
[~2021-08-30] VITALS: Ht 172.7 cm; Wt 71.2 kg
[2021-08-30] MEDS: NTG 50 MG/D5W250 ML BOTTL 250 ML IV ONE ×2 (00:15→22:25)
--- NOTE | 2021-08-30 22:01 | NUR ---
PT AAOX4. BIBRA FROM HOME C/O SOB. PER EMS O2 SAT OF LOW 80S ON SCENE, GIVEN 3 SPRAYS OF NITRO SIZE ROLLER OPERATOR. PLACED IN BED 2 ON NUTRITION REPRESENTATIVE AND PULSE OX. ER MD AT BEDSIDE. LINE ESTABLISHED RAC 20G, BLOOD WORK COLLECTED, SENT TO LAB. AWAITING ORDERS.
--- NOTE | 2021-08-30 22:15 | NUR ---
RT AT BEDSIDE FOR BIPAP.
--- NOTE | 2021-08-30 22:15 | NUR ---
BIPAP 25/08 R16 O250
--- NOTE | 2021-08-30 22:16 | NUR ---
RT NOTES PT CAME IN FOR SOB ON 15L CPAP. VERBAL ORDERS GIVEN FOR BIPAP, ST 25/08 16 50% PER DR. JORGE. PT PLACED ON BIPAP ABG IN 1 HR. PT VINCENT WELL.
[2021-08-30] MEDS ORDERED: NTG 50 MG/D5W250 ML BOTTL 250 ML IV ONE (22:18)
[2021-08-30 22:22] LABS: BASOPHILS # (AUTO) 0.2 K/uL (0.0-0.2); BASOPHILS % (AUTO) 1.5 % (0.0-2.0); EOSINOPHILS % (AUTO) 3.9 % (0.0-6.0); HEMATOCRIT 43 % (39-51); HEMOGLOBIN 13.5 g/dL (13.5-17.5); LYMPHOCYTES # (AUTO) 2.5 K/uL (0.8-4.8); LYMPHOCYTES % (AUTO) 19.8 % (20.0-44.0); MEAN CORPUSCULAR HGB CONC 32 g/dl (31.0-36.0); MEAN CORPUSCULAR VOLUME 93 fL (80-96); MONOCYTES # (AUTO) 0.4 K/uL (0.1-1.30); MONOCYTES % (AUTO) 3.1 % (2.0-12.0); NEUTROPHILS # (AUTO) 8.9 K/uL (1.8-8.9); NEUTROPHILS % (AUTO) 71.7 % (43.0-81.0); PLATELET COUNT (AUTO) 290 K/uL (150-450); RED BLOOD CELL COUNT(AUTO) 4.61 MIL/uL (4.5-6.0); WHITE BLOOD COUNT (AUTO) 12.4 K/uL (4.3-11.0)
--- NOTE | 2021-08-30 22:25 | NUR ---
SPOKE TO HUBER GALO, WILL HOLD NITRO DRIP.
[2021-08-30 22:46] LABS: ALANINE AMINOTRANSFERASE 35 U/L (12-78); ALBUMIN 3.7 g/dL (3.4-5.0); ALKALINE PHOSPHATASE 246 U/L (46-116); ASPARTATE AMINOTRANSFERASE 20 U/L (15-37); BILIRUBIN,DIRECT 0.1 mg/dL (0.0-0.2); BILIRUBIN,TOTAL 0.4 mg/dL (0.2-1.0); CALCIUM, SERUM 8.3 mg/dL (8.5-10.1); CARBON DIOXIDE 28 mmol/L (21-32); CHLORIDE 103 mmol/L (98-107); GLUCOSE 259 mg/dL (74-106); POTASSIUM 5.9 mmol/L (3.5-5.1); SODIUM SERUM 147 mmol/L (136-145); TOTAL PROTEIN, SERUM 7.8 g/dL (6.4-8.2); UREA NITROGEN, BLOOD 75 mg/dL (7-18)
[2021-08-30 23:01] LABS: CREATININE 9.7 mg/dL (0.6-1.3)
[2021-08-30] MEDS ORDERED: MAGNESIUM HYDROXIDE 30 ML UDC PO PRN (23:30)
[2021-08-30] MEDS ORDERED: ONDANSETRON HCL/PF 4 MG/2 ML VIAL IVP PRN (23:30)
[2021-08-30] MEDS ORDERED: ACETAMINOPHEN 325 MG TABLET PO PRN (23:30)
[2021-08-30] MEDS ORDERED: CALCIUM CHLORIDE 1,000 MG/10 ML DISP.SYRIN IV ONE (23:30)
--- NOTE | 2021-08-30 23:48 | NUR ---
CALLED RT TO WEAN PT OFF BIPAP. WILL PLACE PT ON NITRO DRIP.
[2021-08-31 00:09] LABS: ABG BASE EXCESS -1.5 mmol/L; ABG OXYGEN SATURATION 97.1 % (92.0-98.5); ABG PCO2 26.1 mmHg (35.0-45.0); ABG PH 7.508 (7.350-7.450); AaDO2 160.1 mmHg; COHb 0.7 % (0.5-1.5); MetHb 0.2 % (0.0-1.5); O2Hb 96.2 % (94.0-97.0); SITE, ABG Right Radial; VENT MODE, BG ST 20/10 16 50%
--- NOTE | 2021-08-31 01:51 | NUR ---
PT ON 5L NC, RR EVEN AND UNLABORED. VSS. NO ACUTE DISTRESS NOTED.
[2021-08-31] MEDS ORDERED: ATOR80TA PO (02:26)
[2021-08-31] MEDS ORDERED: ASPI-1169 PO (02:26)
[2021-08-31] MEDS ORDERED: CLOP75TA15 PO (02:26)
[2021-08-31] MEDS ORDERED: INSU100C10 SQ (02:26)
[2021-08-31] MEDS ORDERED: GABA-532 PO (02:26)
[2021-08-31] MEDS ORDERED: CARV3.12 PO (02:26)
[2021-08-31] MEDS ORDERED: PANT20TA2 PO (02:26)
[2021-08-31] MEDS ORDERED: CINA30TA2 PO (02:26)
[2021-08-31] MEDS ORDERED: BUTA1CAP3 PO (02:28)
[2021-08-31] MEDS ORDERED: ALOE25CA2 PO (02:28)
[2021-08-31] MEDS ORDERED: [UNRECOGNIZED DRUG - CODE] MC (02:28)
[2021-08-31 04:00] LABS: BASOPHILS # (AUTO) 0.2 K/uL (0.0-0.2); BASOPHILS % (AUTO) 1.7 % (0.0-2.0); EOSINOPHILS % (AUTO) 1.3 % (0.0-6.0); HEMATOCRIT 36 % (39-51); HEMOGLOBIN 11.6 g/dL (13.5-17.5); LYMPHOCYTES # (AUTO) 0.9 K/uL (0.8-4.8); LYMPHOCYTES % (AUTO) 8.9 % (20.0-44.0); MEAN CORPUSCULAR HGB CONC 32 g/dl (31.0-36.0); MEAN CORPUSCULAR VOLUME 91 fL (80-96); MONOCYTES # (AUTO) 0.7 K/uL (0.1-1.30); MONOCYTES % (AUTO) 6.9 % (2.0-12.0); NEUTROPHILS % (AUTO) 81.2 % (43.0-81.0); PLATELET COUNT (AUTO) 211 K/uL (150-450); RED BLOOD CELL COUNT(AUTO) 3.93 MIL/uL (4.5-6.0); WHITE BLOOD COUNT (AUTO) 9.9 K/uL (4.3-11.0)
[2021-08-31 04:11] LABS: CALCIUM, SERUM 8.3 mg/dL (8.5-10.1); CARBON DIOXIDE 26 mmol/L (21-32); CHLORIDE 106 mmol/L (98-107); GLUCOSE 181 mg/dL (74-106); PHOSPHORUS 3.2 mg/dL (2.5-4.9); SODIUM SERUM 146 mmol/L (136-145)
[2021-08-31 04:23] LABS: CREATININE 9.9 mg/dL (0.6-1.3); POTASSIUM 6.6 mmol/L (3.5-5.1); UREA NITROGEN, BLOOD 81 mg/dL (7-18)
[2021-08-31 04:32] LABS: CHOLESTEROL 160 mg/dL (<200); HDL CHOLESTEROL 42 mg/dL (40-60); LDL 75 mg/dL (0-99); TRIGLYCERIDES 203 mg/dL (30-150)
[2021-08-31] MEDS ORDERED: LEVOFLOXACIN 500 MG /D5W 100ML 500 MG in PREMIX 1 EA IV SCH (06:30)
[2021-08-31] MEDS ORDERED: IPRATROPIUM NEB FS 0.5 MG/2.5 ML AMPUL.NEB NEB PRN (06:30)
[2021-08-31] MEDS ORDERED: LANTHANUM CARBONATE 1,000 MG TAB.CHEW PO SCH ×2 (07:00→07:37)
[2021-08-31] MEDS ORDERED: DEXTROSE 50%-WATER 50 ML DISP.SYRIN IV PRN (07:00)
--- NOTE | 2021-08-31 07:35 | NUR ---
[facility] BED 115-1
--- NOTE | 2021-08-31 07:35 | NUR ---
THE PATIENT IS ALERT AND ORIENTED X4. DENIES PAIN. RECEIVING OXYGEN AT 5L/MIN VIA NASAL CANNULA AND DENIES SOB. RESPIRATION REGULAR AND UNLABORED. ATTACHED TO THE MONITOR. WILL CONTINUE TO MONITOR THE PATIENT.
--- NOTE | 2021-08-31 07:49 | NUR ---
REPORT GIVEN TO NURSE JONES
[2021-08-31] MEDS ORDERED: IPRA21SP (07:53)
[2021-08-31] MEDS: LANTHANUM CARBONATE 500 MG TAB.CHEW PO SCH ×2 (07:54→16:23)
--- NOTE | 2021-08-31 07:56 | NUR ---
THE PATIENT IS TRANSFERED TO ROOM 115-1 IN STABLE CONDITION AND PER ACLS POLICY.
[2021-08-31 08:27] LABS: CALCIUM, SERUM 8.5 mg/dL (8.5-10.1); CARBON DIOXIDE 23 mmol/L (21-32); CHLORIDE 105 mmol/L (98-107); GLUCOSE 184 mg/dL (74-106); SODIUM SERUM 144 mmol/L (136-145)
[2021-08-31 08:33] LABS: CREATININE 9.8 mg/dL (0.6-1.3); UREA NITROGEN, BLOOD 87 mg/dL (7-18)
[2021-08-31 08:35] LABS: POTASSIUM 6.6 mmol/L (3.5-5.1)
--- NOTE | 2021-08-31 08:36 | NUR ---
RN NOTES; RECEIVED PT AT APPROXIMATELY 0800. PT A/OX4. VERY PLEASANT. PT REFUSED MD LACI AWARE. WILL CONTINUE TO MONITOR.
--- NOTE | 2021-08-31 08:39 | NUR ---
RENAL MD DR. WHARTON NOTIFIED K6.6 AND PER PT. SCHEDULE FOR HD TODAY.AWAITS HD.
[2021-08-31] MEDS: BLOOD SUGAR DIAGNOSTIC 1 EACH STRIP IN SCH ×4 (08:47→21:48)
[2021-08-31] MEDS: ASPIRIN 81 MG TAB.CHEW PO SCH (08:55)
[2021-08-31] MEDS: CHOLECALCIFEROL 1,000 UNIT TABLET (VIT D3) PO SCH (08:55)
[2021-08-31] MEDS: CLOPIDOGREL BISULFATE 75 MG TABLET PO SCH (08:56)
--- NOTE | 2021-08-31 08:56 | NUR ---
RN NOTES PT REFUSED PLAVIX AND CARVEDILOL. PT STATES HE HAS DIALYSIS. EXPLAINED RISKS, PT IS A/OX4. PT STATES UNDERSTANDING.
[2021-08-31] MEDS ORDERED: CARVEDILOL 3.125 MG TABLET PO SCH (09:00)
[2021-08-31] MEDS ORDERED: CARVEDILOL 12.5 MG TABLET PO SCH (09:00)
[2021-08-31] MEDS: HEPARIN SODIUM, PORCINE 5000 UNITS/1 ML VIAL SQ SCH ×2 (09:10→21:40)
--- NOTE | 2021-08-31 09:40 | NUR ---
COLE NOTES; PT HAS OWN INSULIN PUMP. Addendum: 08/31/21 at 1223 by KAREN CASTANO RN PT DOES NOT KNOW HOW TO USE PERSONAL INSULIN PUMP. INSULIN GIVEN PER SLIDING SCALE. WILL CONTINUE TO MONITOR.
[2021-08-31 10:00] VITALS: BP 149/72
[2021-08-31] MEDS: INSULIN REGULAR, HUMAN 100 UNIT/ML 3 ML VIAL SQ PRN ×3 (11:26→21:50)
[2021-08-31 12:00] VITALS: BP 149/72
--- NOTE | 2021-08-31 15:17 | NUR ---
RN NOTES PT TOLERATED DIALYSIS WELL. REMOVED 1,800 FLUIDS. POST DIALYSIS BLOOD PRESSURE IS 126/55, HR 64. PT CURRENTLY RESTING. WILL CONTINUE TO MONITOR.
[2021-08-31 16:00] VITALS: BP 112/68
--- NOTE | 2021-08-31 16:38 | NUR ---
RN NOTES; B/S TAKEN. RESULT OF 114. NO INSULIN NEEDED PER SLIDING SCALE. WILL CONTINUE TO MONITOR.
[2021-08-31] MEDS ORDERED: LANTHANUM CARBONATE 500 MG TAB.CHEW PO SCH (17:00)
[2021-08-31] MEDS ORDERED: ISOSORBIDE MONONITRATE (30MG) 30 MG TAB.SR.24H PO SCH ×2 (18:00)
--- NOTE | 2021-08-31 18:48 | NUR ---
RN CLOSING NOTES; PT A/OX4, AMBULATORY WITH ASSISTANCE. NO SOB NOTED, PT ON 5L VIA NC SATING AT 97%-98%. PT CAME FROM HOME WITH CC SOB CHEST PAIN, LOW SAT OF 80. PT HAS A HX OF CONGESTIVE HEART FAILURE. ALL MEDICATIONS GIVEN AND WELL TOLERATED. PT HAD DIALYSIS THIS AFTERNOON AND WAS ABLE TO REMOVE 1,800ML OF FLUIDS. PT IS TO HAVE DIALYSIS AGAIN TOMORROW 09/01/21. NO SIGNIFICANT CHANGES TO PT HEALTH STATUS DURING SHIFT. PT KEPT CLEAN, DRY, AND COMFORTABLE. SAFETY MEASURES RENDERED, BED LOCK IN LOWEST POS, WITH CALL LIGHT WITHIN REACH. ENDORSED TO ENGINEERING EXECUTIVE IN STABLE CONDITION.
[2021-08-31 20:00] VITALS: BP 151/74
--- NOTE | 2021-08-31 20:16 | NUR ---
RN NOTES, PT A/OX4, SITTING ON BED, NO SOB/ACUTE DISTRESS NOTED, ON 5L VIA NC SATING HIGH 90S NSR IN THE TELE MONITOR WITH BBB, S/P HD TODAY, RIGHT AC 20G, PATENT AND INTACT S/L, WILL HAVE DIALYSIS AGAIN TOMORROW 09/01/21, ALL SAFETY MEASURES PROVIDED, CALL LIGHT W/I REACH, BED LOCKED AND IN LOWEST POSITION, 2X S/R BED UP, WILL CONTINUE TO MONITOR CLOSELY.
[2021-08-31] MEDS: ATORVASTATIN 40 MG TABLET PO SCH (21:39)
[2021-08-31] MEDS ORDERED: ATORVASTATIN 40 MG TABLET PO SCH (22:00)
[2021-09-01] VITALS (7 sets, daily range): BP systolic 133–167; BP diastolic 50–82
[2021-09-01] MEDS: CARVEDILOL 3.125 MG TABLET PO PRN ×2 (02:09→21:20)
--- NOTE | 2021-09-01 07:12 | NUR ---
RN NOTES, PT A/OX4, SLEEPING AT THIS TIME, NO SOB/ACUTE DISTRESS NOTED, ASLEEP ALL NIGHT, ON 5L VIA NC SATING HIGH 90S NSR IN THE TELE MONITOR WITH BBB, WILL HAVE DIALYSIS TODAY, NO SIGNIFICANT CHANGE IN CONDITION DURING THE NIGHT, ALL SAFETY MEASURES PROVIDED, CALL LIGHT W/I REACH, BED LOCKED AND IN LOWEST POSITION, 2X S/R BED UP, WILL ENDORSE CONTINUITY OF CARE TO ONCOMING NURSE.
--- NOTE | 2021-09-01 07:37 | NUR ---
RN NOTE PATIENT IS IN BED WITH HOB AT SEMI FOWLERS POSITION. PATIENT IS ON 5L NC WITH NO SIGNS OF LABORED BREATHING. PATIENT IS AOX4. RAC 20G IS PATENT AND INTACT. BED IS LOCKED IN THE LOWEST POSITION, 3 GUARD RAILS RAISED, CALL CHERRY WITHIN REACH, AND ALL HOSPITAL SAFETY PRECAUTIONS ARE BEING FOLLOWED. WILL CONTINUE TO MONITOR THROUGHOUT SHIFT.
[2021-09-01] MEDS: BLOOD SUGAR DIAGNOSTIC 1 EACH STRIP IN SCH ×4 (07:38→21:10)
[2021-09-01] MEDS: LANTHANUM CARBONATE 500 MG TAB.CHEW PO SCH ×2 (07:54→16:50)
[2021-09-01] MEDS: CLOPIDOGREL BISULFATE 75 MG TABLET PO SCH (08:04)
[2021-09-01] MEDS: CHOLECALCIFEROL 1,000 UNIT TABLET (VIT D3) PO SCH (08:04)
[2021-09-01] MEDS: ASPIRIN 81 MG TAB.CHEW PO SCH (08:04)
[2021-09-01] MEDS: HEPARIN SODIUM, PORCINE 5000 UNITS/1 ML VIAL SQ SCH ×3 (08:05→21:00)
--- NOTE | 2021-09-01 08:24 | NUR ---
RN NOTE PATIENT REFUSED HEPARIN ADMINISTRATION AND IS REQUESTING IT TO BE ADMINISTERED WITH DIALYSIS. WILL FOLLOW UP WITH PCP.
[2021-09-01] MEDS: INSULIN REGULAR, HUMAN 100 UNIT/ML 3 ML VIAL SQ PRN ×3 (11:41→21:22)
[2021-09-01] MEDS ORDERED: LEVO500T90 PO (14:22)
[2021-09-01 15:15] LABS: CALCIUM, SERUM 8.2 mg/dL (8.5-10.1); CARBON DIOXIDE 32 mmol/L (21-32); CHLORIDE 101 mmol/L (98-107); CREATININE 4.4 mg/dL (0.6-1.3); GLUCOSE 243 mg/dL (74-106); POTASSIUM 4.4 mmol/L (3.5-5.1); SODIUM SERUM 138 mmol/L (136-145); UREA NITROGEN, BLOOD 24 mg/dL (7-18)
--- NOTE | 2021-09-01 18:14 | NUR ---
RN NOTE PATIENT REFUSING TO GO HOME WITH SUPPLEMENTAL OXYGEN. EDUCATED PATIENT ON BENEFITS/RISKS OF HOME OXYGEN. WILL ENDORSE TO FERMENTATION OPERATOR TO ATTEMPT TO TITRATE OFF O2.
--- NOTE | 2021-09-01 18:27 | NUR ---
RN NOTE PATIENT IS IN BED WITH HOB AT SEMI FOWLERS POSITION. PATIENT IS ON 5L NC WITH NO SIGNS OF LABORED BREATHING. PATIENT IS AOX4. RAC 20G IS PATENT AND INTACT. BED IS LOCKED IN THE LOWEST POSITION, 3 GUARD RAILS RAISED, CALL CHERRY WITHIN REACH, AND ALL HOSPITAL SAFETY PRECAUTIONS ARE BEING FOLLOWED. ALL DUE MEDS GIVEN AND PATIENT REMAINED STABLE THROUGHOUT SHIFT. WILL ENDORSE TO LIBRARY ASSOCIATE RN.
--- NOTE | 2021-09-01 19:30 | NUR ---
RN NOTE RECEIVED PATIENT IN BED. A/OX3. ON OXYGEN 5L/MIN VIA NASAL CANNULA. RESPIRATIONS ARE EVEN AND UNLABORED. NO S/S SOB NOTED. NO RESP DISTRESS. NO C/O PAIN. NO APPARENT DISTRESS. IV ACCESS IN RFA#20 . BED IS LOW AND LOCKED, HOB ELEVATED IN SEMI FOWLERS, SIDE RAILS UPX2, CALL LIGHT WITHIN REACH.
[2021-09-01] MEDS: ATORVASTATIN 40 MG TABLET PO SCH (21:12)
--- NOTE | 2021-09-01 23:40 | NUR ---
DEVELOPMENT LEAD OF CARE NOTE REPORT GIVEN TO ANJEL GALVAN FOR CONTINUATION OF CARE.
--- NOTE | 2021-09-01 23:45 | NUR ---
television cable installer notes received pts and report from derrick rn for continuity of care.
[2021-09-02] VITALS: BP_SYST 144; BP_SYST 165; BP_DIAS 60; BP_DIAS 75
[2021-09-02 04:00] VITALS: BP 142/68
[2021-09-02] MEDS ORDERED: LEVOFLOXACIN 250 MG /D5W 50 ML 250 MG in PREMIX 1 EA IV SCH (06:00)
--- NOTE | 2021-09-02 06:21 | NUR ---
television inspector notes levaquin dose for 6am dose was not given d/t pts refusal. explain r/b pts still does not want to take , pts remain in bed stable afebrile on r/a no sob no distress noted will endorse to rn day shift for continuity of care.
[2021-09-02] MEDS: LANTHANUM CARBONATE 500 MG TAB.CHEW PO SCH (07:35)
[2021-09-02] MEDS: BLOOD SUGAR DIAGNOSTIC 1 EACH STRIP IN SCH ×2 (07:36→11:58)
--- NOTE | 2021-09-02 07:38 | NUR ---
RN OPENING NOTE- PT IN BED EASILY AWAKENED, IN NO DISTRESS. ORIENTED TO PERSON PLACE TIME PURPOSE. DISCUSSED DC AND HIS DESIRE TO GO HOME. VS STABLE-BP ELEVATED AT 172/64. BS- 119 PO INTAKE GOOD , SELECTIVELY MED COMPLIANT. SIDE RAILS UP, BED LOCKED, CALL LIGHT CLOSE. ASSIST / MONITOR
[2021-09-02 08:00] VITALS: BP 172/64
[2021-09-02] MEDS: HEPARIN SODIUM, PORCINE 5000 UNITS/1 ML VIAL SQ SCH (09:00)
[2021-09-02] MEDS: CHOLECALCIFEROL 1,000 UNIT TABLET (VIT D3) PO SCH (09:04)
[2021-09-02] MEDS: CLOPIDOGREL BISULFATE 75 MG TABLET PO SCH (09:04)
[2021-09-02] MEDS: ASPIRIN 81 MG TAB.CHEW PO SCH (09:04)
--- NOTE | 2021-09-02 09:46 | NUR ---
telephone lines repairer note per dr sharma ok transfer to med [facility] unit
[2021-09-02] MEDS: INSULIN REGULAR, HUMAN 100 UNIT/ML 3 ML VIAL SQ PRN (12:00)
--- NOTE | 2021-09-02 12:38 | NUR ---
RN NOTE- PT DC HOME AT THIS TIME IN CARE OF FAMILY. VS STABLE, DC PLANNING AND EXITCARE REVIEWED W PT AND SPOUSE. VERBALIZED UNDERSTANDING. VALUABLES RETURNED. IV HEP LOCK DC'D, WRISTBAND REMOVED. ASSISTED OFF UNIT BY STAFF.
== END 2021-09-02 12:33 | disposition home or self-care (01) | DRG 280 ==
LOC: ER 21:59 → TRANSITION 08-31 06:07 → TELE1 08-31 07:43 → TELE-TD 08-31 08:13 → TELE1 09-01 08:12 → MEDSG1 09-02 09:58
PROVIDERS: ADMIT Nurse Practitioner Acute Care; ATTEND Nurse Practitioner Acute Care
PROC: 5A09357 Assistance with Respiratory Ventilation, Less than 24 Consecutive Hours, Continuous Positive Airway Pressure (ICD-10-PCS; 2021-08-30)
PROC: 5A1D70Z Performance of Urinary Filtration, Intermittent, Less than 6 Hours Per Day (ICD-10-PCS; principal; 2021-08-31)
DX: I13.2 Hypertensive heart and chronic kidney disease with heart failure and with stage 5 chronic kidney disease, or end stage renal disease (principal); N18.6 End stage renal disease; I21.A1 Myocardial infarction type 2; J96.01 Acute respiratory failure with hypoxia; I50.33 Acute on chronic diastolic (congestive) heart failure; J15.9 Unspecified bacterial pneumonia; D63.1 Anemia in chronic kidney disease; Z99.2 Dependence on renal dialysis; E78.5 Hyperlipidemia, unspecified; E87.5 Hyperkalemia; G62.9 Polyneuropathy, unspecified; G71.00 Muscular dystrophy, unspecified; I25.10 Atherosclerotic heart disease of native coronary artery without angina pectoris; K21.9 Gastro-esophageal reflux disease without esophagitis; E11.22 Type 2 diabetes mellitus with diabetic chronic kidney disease; Z95.5 Presence of coronary angioplasty implant and graft; Z85.46 Personal history of malignant neoplasm of prostate; Z20.822 Contact with and (suspected) exposure to COVID-19; E11.51 Type 2 diabetes mellitus with diabetic peripheral angiopathy without gangrene; Z89.429 Acquired absence of other toe(s), unspecified side; E83.9 Disorder of mineral metabolism, unspecified; Z79.4 Long term (current) use of insulin
CPT/HCPCS: 36415; 36600; 71045-TC; 76604-TC; 80048-TC; 80061-TC; 80076-TC; 82803-TC; 82962-TC; 83735-TC; 83880; 84100-TC; 84484-TC; 85025-TC; 85730-TC; 86706; 87081-TC; 87340; 90935-TC; 94660; A4216; C9803; G0378; J1644; J1815; J1956; J2405; J3490; J7030; J7050

== ENCOUNTER 2021-09-16 11:30 | Outpatient (CLI) | payer MEDICARE, OTHER ==
[~2021-09-16 11:30] MED LIST changes: +ALOE25CA2 PO; +ASPI-1169 PO; -ATOR40TA PO; +ATOR80TA PO; +BUTA1CAP3 PO; -CARV25TA PO; +CARV3.12 PO; +CLOP75TA15 PO; +INSU100C10 SQ; +IPRA21SP; -ISOS30TA86 PO; +LEVO500T90 PO; -NIFE60TA2 PO; +PANT20TA2 PO; -RESV250C2 PO; -VALS160T2 PO; -ZINC50TA2 PO
== END 2021-09-16 23:59 | disposition home or self-care (01) ==
LOC: WOU 11:30
PROVIDERS: ATTEND Podiatrist Foot & Ankle Surgery
DX: E11.40 Type 2 diabetes mellitus with diabetic neuropathy, unspecified (principal); E11.51 Type 2 diabetes mellitus with diabetic peripheral angiopathy without gangrene; Z79.4 Long term (current) use of insulin; L84 Corns and callosities; B35.1 Tinea unguium; M21.371 Foot drop, right foot; Z89.411 Acquired absence of right great toe; Z79.01 Long term (current) use of anticoagulants; Z79.82 Long term (current) use of aspirin; Z79.899 Other long term (current) drug therapy
CPT/HCPCS: G0463

== ENCOUNTER 2021-11-17 12:35 | Outpatient (CLI) | payer MEDICARE, OTHER ==
[2021-11-23] MEDS ORDERED: APIX5TAB PO (14:03)
== END 2021-11-17 23:59 | disposition home or self-care (01) ==
LOC: WOU 12:35
PROVIDERS: ATTEND Specialist
DX: Z01.818 Encounter for other preprocedural examination (principal); E11.52 Type 2 diabetes mellitus with diabetic peripheral angiopathy with gangrene; I96 Gangrene, not elsewhere classified; E11.40 Type 2 diabetes mellitus with diabetic neuropathy, unspecified; E11.621 Type 2 diabetes mellitus with foot ulcer; Z79.4 Long term (current) use of insulin; L97.428 Non-pressure chronic ulcer of left heel and midfoot with other specified severity; L97.528 Non-pressure chronic ulcer of other part of left foot with other specified severity; L84 Corns and callosities; B35.1 Tinea unguium; Z89.411 Acquired absence of right great toe; M21.371 Foot drop, right foot
CPT/HCPCS: G0463

== ENCOUNTER 2021-11-18 09:53 | Outpatient (CLI) | payer MEDICARE, OTHER | END 2021-11-18 23:59 | disposition home or self-care (01) | LOC: RAD 09:53 | PROVIDERS: ATTEND Specialist | DX: I51.7 Cardiomegaly (principal); J98.4 Other disorders of lung | CPT/HCPCS: 71045-TC ==

== ENCOUNTER 2021-11-19 10:33 | Outpatient (CLI) | payer MEDICARE, OTHER | END 2021-11-19 23:59 | disposition home or self-care (01) | LOC: CT 10:33 | PROVIDERS: ATTEND Specialist | DX: J98.11 Atelectasis (principal); I25.10 Atherosclerotic heart disease of native coronary artery without angina pectoris; I51.7 Cardiomegaly; I31.3 Pericardial effusion (noninflammatory); R91.8 Other nonspecific abnormal finding of lung field; N26.1 Atrophy of kidney (terminal); I70.0 Atherosclerosis of aorta; M47.819 Spondylosis without myelopathy or radiculopathy, site unspecified | CPT/HCPCS: 71250-TC ==

== ENCOUNTER 2021-11-21 13:27 | Inpatient (IN) | payer MEDICARE, OTHER ==
[~2021-11-21] VITALS: Ht 175.3 cm; Wt 63.5 kg
--- NOTE | 2021-11-21 13:33 | NUR ---
TO ER BED 4, BIB SON FROM HOME C/O L SIDED CHEST PAIN SHARP LIKE NON RADIATING STARTED THIS MORNING, HX OF MULTIPLE SD PER SON, AAOX3, BREATHING EVEN AND NON LABORED, CONNECTED TO MONITOR, AWAITING MD ORDERS.
--- NOTE | 2021-11-21 14:00 | NUR ---
R HAND #22G S/L; PATENT AND INTACT. BLOOD COLLECTED AND GIVEN TO CHIEF CONSOLE OPERATOR
--- NOTE | 2021-11-21 14:02 | NUR ---
PLAYGROUND ATTENDANT AT PT'S BEDSIDE
[2021-11-21 14:11] LABS: BASOPHILS % (AUTO) 0.2 % (0.0-2.0); EOSINOPHILS % (AUTO) 1.6 % (0.0-6.0); HEMATOCRIT 33 % (39-51); HEMOGLOBIN 10.3 g/dL (13.5-17.5); LYMPHOCYTES # (AUTO) 1.3 K/uL (0.8-4.8); LYMPHOCYTES % (AUTO) 8.2 % (20.0-44.0); MEAN CORPUSCULAR HGB CONC 31 g/dl (31.0-36.0); MEAN CORPUSCULAR VOLUME 90 fL (80-96); MONOCYTES # (AUTO) 1.3 K/uL (0.1-1.30); MONOCYTES % (AUTO) 8.4 % (2.0-12.0); NEUTROPHILS % (AUTO) 81.6 % (43.0-81.0); PLATELET COUNT (AUTO) 469 K/uL (150-450); RED BLOOD CELL COUNT(AUTO) 3.68 MIL/uL (4.5-6.0); WHITE BLOOD COUNT (AUTO) 15.9 K/uL (4.3-11.0)
[2021-11-21 14:22] LABS: CALCIUM, SERUM 9.3 mg/dL (8.5-10.1); CARBON DIOXIDE 27 mmol/L (21-32); CHLORIDE 96 mmol/L (98-107); CREATININE 6.5 mg/dL (0.6-1.3); GLUCOSE 113 mg/dL (74-106); POTASSIUM 4.2 mmol/L (3.5-5.1); SODIUM SERUM 139 mmol/L (136-145); UREA NITROGEN, BLOOD 39 mg/dL (7-18)
[2021-11-21] MEDS ORDERED: NITROGLYCERIN PACKET 1 GM PACKET ONE (14:45)
[2021-11-21] MEDS ORDERED: NITROGLYCERIN PACKET 1 GM PACKET TD ONE (15:00)
--- NOTE | 2021-11-21 15:45 | NUR ---
MOVE SHEET SUBMITTED AND CALLED FOR TELE BED.
--- NOTE | 2021-11-21 15:59 | NUR ---
NURSING SUP CALLED FOR TELE BED.
--- NOTE | 2021-11-21 16:04 | NUR ---
COVID SWAB DONE AND SENT TO LAB
--- NOTE | 2021-11-21 16:17 | NUR ---
[facility] CALLED REVERBERATORY FURNACE SUPERVISOR PAGED.
--- NOTE | 2021-11-21 16:48 | NUR ---
[facility] CALLED AND LEFT # [phone]
[2021-11-21] MEDS ORDERED: MORPHINE SULFATE INJ 4 MG/ML DISP.SYRIN ONE (17:27)
[2021-11-21] MEDS ORDERED: ONDANSETRON HCL/PF 4 MG/2 ML VIAL ONE (17:27)
[2021-11-21] MEDS ORDERED: ONDANSETRON HCL/PF 4 MG/2 ML VIAL IVP ONE (17:30)
[2021-11-21] MEDS ORDERED: MORPHINE SULFATE INJ 2 MG/ML DISP.SYRIN IV ONE (17:30)
--- NOTE | 2021-11-21 17:33 | NUR ---
[facility] CALLED AGAIN HOUSEKEEPING LEAD PAGED.
[2021-11-21] MEDS ORDERED: HYDROCODONE/APAP 5/325MG TABLET PO PRN (18:00)
[2021-11-21] MEDS ORDERED: MORPHINE SULFATE INJ 2 MG/ML DISP.SYRIN IV PRN (18:00)
[2021-11-21] MEDS ORDERED: ONDANSETRON HCL/PF 4 MG/2 ML VIAL IVP PRN (18:00)
[2021-11-21] MEDS ORDERED: NTG 50 MG/D5W250 ML BOTTL 250 ML IV PRN (18:00)
[2021-11-21] MEDS ORDERED: ACETAMINOPHEN 325 MG TABLET PO PRN (18:00)
[2021-11-21] MEDS ORDERED: ATORVASTATIN 40 MG TABLET ONE (22:05)
[2021-11-21] MEDS: ATORVASTATIN 40 MG TABLET PO SCH (22:10)
--- NOTE | 2021-11-22 04:15 | NUR ---
PATIENT RESTING COMFORTABLY NO COMPLAINTS AT THIS TIME.
--- NOTE | 2021-11-22 06:47 | NUR ---
BED ASSIGNMENT: 314-1
[2021-11-22] MEDS ORDERED: LANTHANUM CARBONATE 1,000 MG TAB.CHEW PO SCH (07:00)
--- NOTE | 2021-11-22 07:12 | NUR ---
CALLED FOR REPORT, RN WANTS REPORT AFTER 730.
--- NOTE | 2021-11-22 07:25 | NUR ---
ASSESSED PT ON BED ASLEEP EASILY AROUSABLE, NOT IN RESPIRATORY DISTRESS, V/S STABLE, KEPT RESTED AND COMFORTABLE. WILL CONTINUE TO MONITOR. AWAITING ROOM ASSIGNMENT.
[2021-11-22] MEDS: LANTHANUM CARBONATE 500 MG TAB.CHEW PO SCH ×2 (08:00→17:22)
[2021-11-22 08:06] LABS: BASOPHILS # (AUTO) 0.1 K/uL (0.0-0.2); BASOPHILS % (AUTO) 0.8 % (0.0-2.0); EOSINOPHILS % (AUTO) 2.9 % (0.0-6.0); HEMATOCRIT 33 % (39-51); HEMOGLOBIN 10.3 g/dL (13.5-17.5); LYMPHOCYTES # (AUTO) 1.4 K/uL (0.8-4.8); LYMPHOCYTES % (AUTO) 11.4 % (20.0-44.0); MEAN CORPUSCULAR HGB CONC 31 g/dl (31.0-36.0); MEAN CORPUSCULAR VOLUME 91 fL (80-96); MONOCYTES # (AUTO) 1.1 K/uL (0.1-1.30); MONOCYTES % (AUTO) 8.6 % (2.0-12.0); NEUTROPHILS # (AUTO) 9.7 K/uL (1.8-8.9); NEUTROPHILS % (AUTO) 76.3 % (43.0-81.0); PLATELET COUNT (AUTO) 439 K/uL (150-450); RED BLOOD CELL COUNT(AUTO) 3.64 MIL/uL (4.5-6.0); WHITE BLOOD COUNT (AUTO) 12.6 K/uL (4.3-11.0)
--- NOTE | 2021-11-22 08:10 | NUR ---
AT BEDSIDE FOR EVAL.
--- NOTE | 2021-11-22 08:12 | NUR ---
CALLED FOR REPORT RN NOT AVAILABLE.
[2021-11-22 08:17] LABS: CALCIUM, SERUM 8.9 mg/dL (8.5-10.1); CARBON DIOXIDE 25 mmol/L (21-32); CHLORIDE 98 mmol/L (98-107); GLUCOSE 113 mg/dL (74-106); MAGNESIUM 2.4 mg/dL (1.8-2.4); PHOSPHORUS 5.1 mg/dL (2.5-4.9); POTASSIUM 4.8 mmol/L (3.5-5.1); SODIUM SERUM 140 mmol/L (136-145); UREA NITROGEN, BLOOD 47 mg/dL (7-18)
[2021-11-22 08:26] LABS: CREATININE 7.8 mg/dL (0.6-1.3)
--- NOTE | 2021-11-22 09:06 | NUR ---
REPORT GIVEN TO COLE SCHWAB FOR [facility].
--- NOTE | 2021-11-22 09:40 | NUR ---
Patient arrived via gurney at 09:40am from ER. Patient AO X 4, able to make needs known, can follow simple commands, no apparent distress noted, breathing even and unlabored. Admitting hospitalist made aware of the patient's arrival. Patient admitting diagnosis chest pain. Patient's vital signs within normal limits, no complained of facial numbness or weakness, no extremity numbness or weakness at this time. 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 Per patient he usually goes to dialysis Monday, , Monday and the last time he went was last 11/20/21. Patient oriented with use of call lights, use of bed control, use of telephone and tv control, also introduces FLIGHT READINESS TECHNICIAN and RN assigned for today, verbalized understanding and gratitude. All belongings written in the inventory list. All needs attended, kept clean and dry, call light left within reach, safety precautions in place, brakes locked, side rails up X 2, will monitor closely for any changes.
[2021-11-22] MEDS: CLOPIDOGREL BISULFATE 75 MG TABLET PO SCH (10:44)
[2021-11-22] MEDS: ASPIRIN 81 MG TAB.CHEW PO SCH (10:44)
[2021-11-22] MEDS: CINACALCET HCL 30 MG TABLET PO SCH (10:45)
[2021-11-22 10:48] VITALS: BP 107/39
[2021-11-22 12:07] VITALS: BP 101/40
[2021-11-22] MEDS: INDOMETHACIN 25 MG CAPSULE PO SCH ×2 (12:13→17:22)
--- NOTE | 2021-11-22 14:00 | NUR ---
Patient has an order for computed tomography of chest, abdomen, pelvis with contrast, explained to patient that MD ordered it to be done in am and for dialysis to be scheduled in the afternoon spoke to dialysis coordinator (Kendrick), verbalized understanding and gratitude. Consent for the procedure obtained from patient, verbalized understanding of the procedure, reminded patient that he cannot have any food or water after midnight, verbalized understanding and gratitude. Consents signed by patient and are filed in patients chart.
--- NOTE | 2021-11-22 14:19 | NUR ---
Patient had an order for doppler ultrasound of bilateral lower extremity, results relayed to hospitalist and acknowledged, waiting for orders. DVT pumps turned off at this time, no apparent distress noted, no shortness of breath, no palpitations, denies any chest pain, no dizziness, denies any pain or discomfort able to lift bilateral legs, skin warm to touch, no pallor or cyanosis noted at this time, per patient he feels okay at this time.
--- NOTE | 2021-11-22 14:20 | NUR ---
Patient had an order for doppler ultrasound of bilateral lower extremity, results relayed to hospitalist and acknowledged, waiting for orders.
[2021-11-22 16:00] VITALS: BP 90/38
--- NOTE | 2021-11-22 16:50 | NUR ---
Telecommunications Manager ordered blood thinner (Lovenox) for patient, patient made aware of the situation, DVT pumps removed, no shortness of breath, no apparent distress no palpitations, denies any chest pain, no dizziness, per patient he feels okay at this time. Denies any pain or discomfort able to lift bilateral legs, skin warm to touch, no pallor or cyanosis noted at this time.
[2021-11-22] MEDS ORDERED: ENOXAPARIN SODIUM 60 MG/0.6 ML DISP.SYRIN SQ SCH (17:00)
--- NOTE | 2021-11-22 18:00 | NUR ---
Hospitalist informed that patient has insulin pump, waiting for orders, will also inform incoming shift regarding the situation.
[2021-11-22 18:17] VITALS: BP 107/38
--- NOTE | 2021-11-22 18:45 | NUR ---
RN CLOSING NOTES Patient lying in bed, no SOB, respirations even and unlabored, no dizziness, no palpitations, no grimacing, remained afebrile during shift. No nausea, no vomiting, abdominal bowel sound present in all quadrant, no grimacing when abdomen palpated, no s/s of bleeding, no unusual bruising noted, no hematuria, no bleeding in stool, no bleeding gums. All medications given via gtube per MD order, tolerating well. No s/s of hypo or hyperglycemia, no tremors, no change in level of consciousness. Kept clean and dry, call light left within reach, all needs anticipated, aspiration precautions observed at all times, kept head of bed elevated, safety precautions in place, brakes locked, side rails up X 2, will endorse to next shift for continuity of care.
--- NOTE | 2021-11-22 19:30 | NUR ---
ACCIDENT REPORT CLERK CLOSING NOTES RECEIVED PT IN BED AWAKE. A/O X4. PT STABLE ON ROOM AIR. NO SOB OR S/S OF RESPIRATORY DISTRESS. ON EXTERNAL AGRONOMY SPECIALIST READING SR 80 BPM. IV ACCESS R HAND 22 GAUGE INTACT AND PATENT. SAFETY PRECAUTIONS IN PLACE. BED IN LOWEST LOCKED POSITION, HOB ELEVATED, SIDE RAILS UP X2, AND CALL LIGHT AND TABLE WITHIN REACH. WILL CONTINUE WITH PLAN OF CARE. Addendum: 11/22/21 at 2120 by DEANA MADRID RN OPENING NOTES, NOT CLOSING NOTES
[2021-11-22 21:22] VITALS: BP 113/56
[2021-11-22] MEDS: ATORVASTATIN 40 MG TABLET PO SCH (22:15)
[2021-11-23 00:31] VITALS: BP 91/58
--- NOTE | 2021-11-23 01:12 | NUR ---
RN NOTE PT NOTED WITH FEVER OF 100.9. ADMINISTERED TYLENOL 650 MG ORDERED FOR FEVER. WILL CONTINUE TO MONITOR.
[2021-11-23 04:29] VITALS: BP 91/41
[2021-11-23 06:33] LABS: BASOPHILS # (AUTO) 0.1 K/uL (0.0-0.2); BASOPHILS % (AUTO) 0.9 % (0.0-2.0); HEMATOCRIT 31 % (39-51); LYMPHOCYTES # (AUTO) 1.1 K/uL (0.8-4.8); LYMPHOCYTES % (AUTO) 11.3 % (20.0-44.0); MEAN CORPUSCULAR HGB CONC 32 g/dl (31.0-36.0); MEAN CORPUSCULAR VOLUME 89 fL (80-96); MONOCYTES # (AUTO) 1.1 K/uL (0.1-1.30); NEUTROPHILS # (AUTO) 7.5 K/uL (1.8-8.9); NEUTROPHILS % (AUTO) 75.8 % (43.0-81.0); PLATELET COUNT (AUTO) 376 K/uL (150-450); RED BLOOD CELL COUNT(AUTO) 3.54 MIL/uL (4.5-6.0); WHITE BLOOD COUNT (AUTO) 9.9 K/uL (4.3-11.0)
--- NOTE | 2021-11-23 07:00 | NUR ---
ORGANIC CHEMISTRY PROFESSOR CLOSING NOTES PT IN BED AWAKE. A/O X4. PT STABLE ON ROOM AIR. NO SOB OR S/S OF RESPIRATORY DISTRESS. ON EXTERNAL BARREL PAINTER READING SR 76 BPM. IV ACCESS R HAND 22 GAUGE INTACT AND PATENT. ALL NEEDS MET AT THIS TIME. SAFETY PRECAUTIONS IN PLACE AT ALL TIMES. BED IN LOWEST LOCKED POSITION, HOB ELEVATED, SIDE RAILS UP X2, AND CALL LIGHT AND TABLE WITHIN REACH. WILL ENDORSE TO ONCOMING SHIFT FOR [facility].
--- NOTE | 2021-11-23 07:15 | NUR ---
MIDDLE SCHOOL TEACHER OPENING NOTES PT IN BED AWAKE. A/O X4. PT STABLE ON ROOM AIR. NO SOB OR S/S OF RESPIRATORY DISTRESS. ON EXTERNAL PSYCHOLOGICAL OPERATIONS SPECIALIST READING SR 70'S BPM. IV ACCESS R HAND 22 GAUGE INTACT AND PATENT. WITH AV FISTULA ON ROBIN WITH THRILL AND BRUIT NOTED. PATIENT KEPT ON NPO FOR PROCEDURE. SAFETY PRECAUTIONS IN PLACE AT ALL TIMES. BED IN LOWEST LOCKED POSITION, HOB ELEVATED, SIDE RAILS UP X2, AND CALL LIGHT AND TABLE WITHIN REACH. WILL CONTINUE TO MONITOR PATIENT.
[2021-11-23 07:21] LABS: ALANINE AMINOTRANSFERASE 16 U/L (12-78); ALBUMIN 2.1 g/dL (3.4-5.0); ALKALINE PHOSPHATASE 119 U/L (46-116); ASPARTATE AMINOTRANSFERASE 18 U/L (15-37); BILIRUBIN,TOTAL 0.4 mg/dL (0.2-1.0); CALCIUM, SERUM 8.5 mg/dL (8.5-10.1); CARBON DIOXIDE 28 mmol/L (21-32); CHLORIDE 96 mmol/L (98-107); GLUCOSE 210 mg/dL (74-106); POTASSIUM 4.9 mmol/L (3.5-5.1); SODIUM SERUM 137 mmol/L (136-145); TOTAL PROTEIN, SERUM 6.7 g/dL (6.4-8.2); UREA NITROGEN, BLOOD 63 mg/dL (7-18)
[2021-11-23 07:34] LABS: THYROID STIMULATING HORMONE 1.884 uIU/mL (0.358-3.74)
[2021-11-23 07:41] LABS: CREATININE 10.1 mg/dL (0.6-1.3)
[2021-11-23 07:42] LABS: FERRITIN 3055 ng/mL (8-388)
[2021-11-23 07:59] LABS: IRON, SERUM 20 ug/dl (50-175)
[2021-11-23 08:00] VITALS: BP 107/44
[2021-11-23] MEDS: LANTHANUM CARBONATE 500 MG TAB.CHEW PO SCH ×3 (08:03→17:03)
--- NOTE | 2021-11-23 08:11 | NUR ---
WOUND CARE CONSULT: PT PRESENTS WITH FOOT WOUNDS, PRESENT ON ADMISSION. DR DICKEY NOTIFIED OF DPM CONSULT REQUEST. PT NOTED TO HAVE BONY SACRAL AREA. RECOMMENDATIONS MADE FOR SKIN PROTECTION AND DISCUSSED WITH PT (WHO IS A PHYSICIAN) AND NURSING STAFF. PT ABLE TO TURN AND REPOSITION IN BED. MD IN AGREEMENT WITH PLAN OF CARE.
[2021-11-23] MEDS ORDERED: IOHEXOL-300 100 ML VIAL IV ONE (09:37)
[2021-11-23] MEDS: ASPIRIN 81 MG TAB.CHEW PO SCH (10:04)
[2021-11-23] MEDS: CINACALCET HCL 30 MG TABLET PO SCH (10:04)
[2021-11-23] MEDS: CLOPIDOGREL BISULFATE 75 MG TABLET PO SCH (10:04)
[2021-11-23 12:00] VITALS: BP 101/46
[2021-11-23 12:26] LABS: TOTAL IRON BINDING CAPACITY 127 ug/dl (250-450)
--- NOTE | 2021-11-23 12:30 | NUR ---
CONTRACT ASSISTANT NOTE PATIENT PROCEDURE DONE ORDERED. PROCEDURE TOLERATED WELL. PATIENT SEEN BY DR. MERAZ WITH SON AT BEDSIDE. WITH ORDER FOR DISCHARGE. PATIENT ON HEMODIALYSIS NOW ORDERED, POST CT WITH CONTRAST. PATIENT HEALTH TEACHING DONE ORDERED. VERBALIZED UNDERSTANDING AND APPRECIATION. WILL CONTINUE TO MONITOR PATIENT.
[2021-11-23] MEDS: APIXABAN 5 MG TABLET PO SCH ×2 (13:15→17:05)
[2021-11-23] MEDS ORDERED: APIX5TAB PO (14:03)
[2021-11-23 16:00] VITALS: BP 106/44
--- NOTE | 2021-11-23 17:30 | NUR ---
SENIOR TELECOMMUNICATIONS TECHNICIAN NOTE PATIENT DISCHARGED ORDERED IN STABLE CONDITION. PATIENT COMPLETED HEMODIALYSIS WITHOUT COMPLICATIONS. IV ACCESS REMOVED AND COVERED WITH DRY DRESSING. TOLERATED WELL. PATIENT DISCHARGE PAPERS GIVEN TO PATIENT WITH PRESCRIPTION AND CD. PATIENT ACCOMPANIED ON A WHEELCHAIR BY NURSE WITH SON. IN STABLE CONDITION. ENDORSED ACCORDINGLY.
[2021-11-24 08:06] LABS: AFP, TUMOR MARKER 1.1 ng/mL (0.0-8.3); CARBOHYDRATE AG 19-9 14 U/mL (0-35)
[2021-11-24 09:07] LABS: IMMUNOGLOBULIN A, SERUM 167 mg/dL (61-437); IMMUNOGLOBULIN G, SERUM 936 mg/dL (603-1613); IMMUNOGLOBULIN M, SERUM 236 mg/dL (15-143)
[2021-11-24 11:07] LABS: *SPE A/G RATIO 0.8 (0.7-1.7); *SPE ALPHA-1-GLOBULIN 0.5 g/dL (0.0-0.4); *SPE BETA GLOBULIN 0.8 g/dL (0.7-1.3); *SPE M-SPIKE 0.3 g/dL (Not Observed)
== END 2021-11-23 17:30 | disposition home or self-care (01) | DRG 291 ==
LOC: ER 13:35 → TRANSITION 20:54 → TELE 11-22 06:48
PROVIDERS: ATTEND Nurse Practitioner Acute Care
PROC: 5A1D70Z Performance of Urinary Filtration, Intermittent, Less than 6 Hours Per Day (ICD-10-PCS; principal; 2021-11-23)
DX: I13.2 Hypertensive heart and chronic kidney disease with heart failure and with stage 5 chronic kidney disease, or end stage renal disease (principal); N18.6 End stage renal disease; I50.33 Acute on chronic diastolic (congestive) heart failure; I82.411 Acute embolism and thrombosis of right femoral vein; E11.52 Type 2 diabetes mellitus with diabetic peripheral angiopathy with gangrene; I96 Gangrene, not elsewhere classified; K86.2 Cyst of pancreas; L97.429 Non-pressure chronic ulcer of left heel and midfoot with unspecified severity; J91.8 Pleural effusion in other conditions classified elsewhere; R07.81 Pleurodynia; Z20.822 Contact with and (suspected) exposure to COVID-19; I25.10 Atherosclerotic heart disease of native coronary artery without angina pectoris; D63.8 Anemia in other chronic diseases classified elsewhere; R91.8 Other nonspecific abnormal finding of lung field; D63.1 Anemia in chronic kidney disease; D72.829 Elevated white blood cell count, unspecified; D75.839 Thrombocytosis, unspecified; E11.621 Type 2 diabetes mellitus with foot ulcer; Z95.5 Presence of coronary angioplasty implant and graft; Z87.891 Personal history of nicotine dependence; Z99.2 Dependence on renal dialysis; E11.22 Type 2 diabetes mellitus with diabetic chronic kidney disease; K76.89 Other specified diseases of liver; Z89.411 Acquired absence of right great toe; Z85.46 Personal history of malignant neoplasm of prostate; E21.3 Hyperparathyroidism, unspecified; E78.5 Hyperlipidemia, unspecified; Z79.82 Long term (current) use of aspirin
CPT/HCPCS: 36415; 71045-TC; 71260-TC; 80048-TC; 80053-TC; 82105; 82378; 82728-TC; 82784; 83540-TC; 83735-TC; 83880; 84100-TC; 84155; 84165; 84443-TC; 84484-TC; 85025-TC; 86301; 86334; 86706; 87081-TC; 87340; 90935-TC; 93970-TC; C9803; G0378; J1650; J2270; J2405; Q9967

== ENCOUNTER 2021-11-24 11:15 | Outpatient (CLI) | payer MEDICARE, OTHER ==
[~2021-11-24 11:15] MED LIST changes: -ALOE25CA2 PO; +APIX5TAB PO; -BUTA1CAP3 PO; -CARV3.12 PO; -CHOL50004 PO; -CLOP75TA15 PO; -GABA-532 PO; -INSU100C10 SQ; -IPRA21SP; -LEVO500T90 PO; -LUTE40CA PO; -OMEG1CAP40 PO; -PANT20TA2 PO; -UBIQ200C PO
== END 2021-11-24 23:59 | disposition home or self-care (01) ==
LOC: WOU 11:15
PROVIDERS: ATTEND Specialist
DX: E11.621 Type 2 diabetes mellitus with foot ulcer (principal); L97.428 Non-pressure chronic ulcer of left heel and midfoot with other specified severity; L97.528 Non-pressure chronic ulcer of other part of left foot with other specified severity; E11.22 Type 2 diabetes mellitus with diabetic chronic kidney disease; E11.52 Type 2 diabetes mellitus with diabetic peripheral angiopathy with gangrene; E11.40 Type 2 diabetes mellitus with diabetic neuropathy, unspecified; I12.0 Hypertensive chronic kidney disease with stage 5 chronic kidney disease or end stage renal disease; I96 Gangrene, not elsewhere classified; N18.6 End stage renal disease; Z99.2 Dependence on renal dialysis; Z79.4 Long term (current) use of insulin; L84 Corns and callosities; B35.1 Tinea unguium; M21.371 Foot drop, right foot; Z89.411 Acquired absence of right great toe; R91.8 Other nonspecific abnormal finding of lung field; Z79.82 Long term (current) use of aspirin; Z79.01 Long term (current) use of anticoagulants; Z79.899 Other long term (current) drug therapy
CPT/HCPCS: G0463

== ENCOUNTER 2021-11-26 09:00 | Outpatient (CLI) | payer MEDICARE, OTHER ==
[2021-11-26] MEDS ORDERED: GENTAMICIN 0.1% CREAM 15 GM TUBE ONE (09:41)
[2021-11-26] MEDS ORDERED: MUPIROCIN 2% CREAM 15 GM TUBE TP ONE (09:42)
== END 2021-11-26 23:59 | disposition home or self-care (01) ==
LOC: WOU 09:00
PROVIDERS: ATTEND Podiatrist Foot & Ankle Surgery
DX: E11.621 Type 2 diabetes mellitus with foot ulcer (principal); L97.523 Non-pressure chronic ulcer of other part of left foot with necrosis of muscle; L97.528 Non-pressure chronic ulcer of other part of left foot with other specified severity; L97.428 Non-pressure chronic ulcer of left heel and midfoot with other specified severity; E11.52 Type 2 diabetes mellitus with diabetic peripheral angiopathy with gangrene; E11.40 Type 2 diabetes mellitus with diabetic neuropathy, unspecified; I96 Gangrene, not elsewhere classified; Z79.4 Long term (current) use of insulin; B35.1 Tinea unguium; L84 Corns and callosities; M21.371 Foot drop, right foot; R91.8 Other nonspecific abnormal finding of lung field; Z79.01 Long term (current) use of anticoagulants; Z79.82 Long term (current) use of aspirin; Z79.899 Other long term (current) drug therapy
CPT/HCPCS: 11043

== ENCOUNTER 2021-11-29 12:44 | Outpatient (CLI) | payer MEDICARE, OTHER | END 2021-11-29 23:59 | disposition home or self-care (01) | LOC: LAB 12:44 | PROVIDERS: ATTEND Podiatrist Foot & Ankle Surgery | DX: Z01.812 Encounter for preprocedural laboratory examination (principal); Z20.822 Contact with and (suspected) exposure to COVID-19 | CPT/HCPCS: C9803; U0003 ==

== ENCOUNTER 2021-12-01 13:23 | Outpatient (CLI) | payer MEDICARE, OTHER | END 2021-12-01 23:59 | disposition home or self-care (01) | LOC: RAD 13:23 | PROVIDERS: ATTEND Internal Medicine Geriatric Medicine | DX: I51.7 Cardiomegaly (principal); J98.11 Atelectasis; I70.0 Atherosclerosis of aorta; M46.04 Spinal enthesopathy, thoracic region | CPT/HCPCS: 71045-TC ==

== ENCOUNTER 2021-12-01 13:50 | Outpatient (CLI) | payer MEDICARE, OTHER ==
[2021-12-01] MEDS ORDERED: GENTAMICIN 0.1% CREAM 15 GM TUBE ONE (15:22)
[2021-12-01] MEDS ORDERED: MUPIROCIN 2% CREAM 15 GM TUBE TP ONE (15:22)
== END 2021-12-01 23:59 | disposition home or self-care (01) ==
LOC: WOU 13:50
PROVIDERS: ATTEND Podiatrist Foot & Ankle Surgery
DX: E11.621 Type 2 diabetes mellitus with foot ulcer (principal); L97.528 Non-pressure chronic ulcer of other part of left foot with other specified severity; L97.425 Non-pressure chronic ulcer of left heel and midfoot with muscle involvement without evidence of necrosis; L97.428 Non-pressure chronic ulcer of left heel and midfoot with other specified severity; E11.52 Type 2 diabetes mellitus with diabetic peripheral angiopathy with gangrene; E11.40 Type 2 diabetes mellitus with diabetic neuropathy, unspecified; I96 Gangrene, not elsewhere classified; Z79.4 Long term (current) use of insulin; B35.1 Tinea unguium; L84 Corns and callosities; M21.371 Foot drop, right foot; Z79.82 Long term (current) use of aspirin; Z79.01 Long term (current) use of anticoagulants; Z79.899 Other long term (current) drug therapy
CPT/HCPCS: 88305-TC; 88311-TC; G0463; J0690; J1100; J2405; J3490; J7030

== ENCOUNTER 2021-12-03 05:26 | Day surgery (SDC) | payer MEDICARE, OTHER ==
[~2021-12-03] VITALS: Ht 175.3 cm; Wt 68.9 kg
[2021-12-03 06:00] VITALS: BP 133/52
[2021-12-03] MEDS ORDERED: BUPIVACAINE 0.25% 75 MG/30 ML VIAL ONE (06:48)
[2021-12-03] MEDS ORDERED: ANESTHESIA TRAY IN PYXIS 1 EA TRAY MC ONE (06:48)
[2021-12-03] MEDS ORDERED: LIDOCAINE 1% INJ 50 ML MDV IJ ONE (06:49)
[2021-12-03] MEDS ORDERED: FENTANYL PF 100MCG/2ML AMPUL ONE (07:37)
[2021-12-03] MEDS ORDERED: VANCOMYCIN 1 GM VIAL ONE (08:20)
--- NOTE | 2021-12-03 09:58 | NUR ---
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 will monitor patient post operatively.
[2021-12-03 11:10] VITALS: BP 123/60
[2021-12-03 11:30] VITALS: BP 126/66
[2021-12-03 12:00] VITALS: BP 126/66
--- NOTE | 2021-12-03 13:45 | NUR ---
ms rn was seen by6 pt, patient felt dizzy getting up, will monitor patient.
--- NOTE | 2021-12-03 14:00 | NUR ---
ms rn on bed, no distress noted.
[2021-12-03 15:44] VITALS: BP 120/54
[2021-12-03] MEDS ORDERED: LANTHANUM CARBONATE 500 MG TAB.CHEW PO SCH (17:00)
--- NOTE | 2021-12-03 18:34 | NUR ---
ms validation intern instructions given and understood. waiting for to pick her up.all needs attended.
--- NOTE | 2021-12-03 19:03 | NUR ---
ms rn patient went home accompanied by son,all needs attended.
[2021-12-04] MEDS ORDERED: CINACALCET HCL 30 MG TABLET PO SCH (09:00)
[2021-12-04] MEDS ORDERED: ATORVASTATIN 40 MG TABLET PO SCH (09:00)
== END 2021-12-03 18:00 | disposition home or self-care (01) ==
LOC: DS 05:26 → MED 05:27 → UNDOADMIN 05:27 → DS 18:00 → UNDODISIN 19:03
PROVIDERS: ATTEND Podiatrist Foot & Ankle Surgery
DX: E11.52 Type 2 diabetes mellitus with diabetic peripheral angiopathy with gangrene (principal); I96 Gangrene, not elsewhere classified; L97.428 Non-pressure chronic ulcer of left heel and midfoot with other specified severity; L97.528 Non-pressure chronic ulcer of other part of left foot with other specified severity; Z95.820 Peripheral vascular angioplasty status with implants and grafts; E11.22 Type 2 diabetes mellitus with diabetic chronic kidney disease; N18.6 End stage renal disease; Z99.2 Dependence on renal dialysis; E11.621 Type 2 diabetes mellitus with foot ulcer
CPT/HCPCS: 11044; 11047; 28810 ×2; 87070; 87075; 87077; 87081; 87186 ×2; 97116; 97162; 97530; A6209; J0690; J1100; J2405; J3010; J3370; J3490 ×3; J7030; G0378

== ENCOUNTER 2021-12-07 10:30 | Outpatient (CLI) | payer MEDICARE, OTHER | END 2021-12-07 23:59 | disposition home or self-care (01) | LOC: WOU 10:30 | PROVIDERS: ATTEND Podiatrist Foot & Ankle Surgery | DX: Z47.81 Encounter for orthopedic aftercare following surgical amputation (principal); E11.621 Type 2 diabetes mellitus with foot ulcer; L97.428 Non-pressure chronic ulcer of left heel and midfoot with other specified severity; L97.528 Non-pressure chronic ulcer of other part of left foot with other specified severity; L97.526 Non-pressure chronic ulcer of other part of left foot with bone involvement without evidence of necrosis; E11.40 Type 2 diabetes mellitus with diabetic neuropathy, unspecified; E11.51 Type 2 diabetes mellitus with diabetic peripheral angiopathy without gangrene; Z79.4 Long term (current) use of insulin; L84 Corns and callosities; B35.1 Tinea unguium; M21.371 Foot drop, right foot; R91.8 Other nonspecific abnormal finding of lung field; Z79.82 Long term (current) use of aspirin; Z79.01 Long term (current) use of anticoagulants; Z79.899 Other long term (current) drug therapy | CPT/HCPCS: G0463 ==

== ENCOUNTER 2021-12-10 10:20 | Outpatient (CLI) | payer MEDICARE, OTHER | END 2021-12-10 23:59 | disposition home or self-care (01) | LOC: WOU 10:20 | PROVIDERS: ATTEND Podiatrist Foot & Ankle Surgery | DX: Z47.81 Encounter for orthopedic aftercare following surgical amputation (principal); Z89.422 Acquired absence of other left toe(s); E11.621 Type 2 diabetes mellitus with foot ulcer; L97.422 Non-pressure chronic ulcer of left heel and midfoot with fat layer exposed; L97.528 Non-pressure chronic ulcer of other part of left foot with other specified severity; E11.40 Type 2 diabetes mellitus with diabetic neuropathy, unspecified; E11.52 Type 2 diabetes mellitus with diabetic peripheral angiopathy with gangrene; I96 Gangrene, not elsewhere classified; L84 Corns and callosities; B35.1 Tinea unguium; R91.8 Other nonspecific abnormal finding of lung field; M21.371 Foot drop, right foot; Z79.4 Long term (current) use of insulin; Z79.82 Long term (current) use of aspirin; Z79.899 Other long term (current) drug therapy; Z79.01 Long term (current) use of anticoagulants | CPT/HCPCS: 97606-TC ==

== ENCOUNTER 2021-12-14 11:18 | Outpatient (CLI) | payer MEDICARE, OTHER | END 2021-12-14 23:59 | disposition home or self-care (01) | LOC: WOU 11:18 | PROVIDERS: ATTEND Podiatrist Foot & Ankle Surgery | DX: E11.621 Type 2 diabetes mellitus with foot ulcer (principal); L97.522 Non-pressure chronic ulcer of other part of left foot with fat layer exposed; L97.422 Non-pressure chronic ulcer of left heel and midfoot with fat layer exposed; L97.526 Non-pressure chronic ulcer of other part of left foot with bone involvement without evidence of necrosis; E11.40 Type 2 diabetes mellitus with diabetic neuropathy, unspecified; E11.52 Type 2 diabetes mellitus with diabetic peripheral angiopathy with gangrene; L84 Corns and callosities; B35.1 Tinea unguium; M21.371 Foot drop, right foot; R91.8 Other nonspecific abnormal finding of lung field; Z89.411 Acquired absence of right great toe; Z89.421 Acquired absence of other right toe(s) | CPT/HCPCS: 11043; 97605-TC ==

== ENCOUNTER 2021-12-17 11:00 | Outpatient (CLI) | payer MEDICARE, OTHER | END 2021-12-17 23:59 | disposition home or self-care (01) | LOC: WOU 11:00 | PROVIDERS: ATTEND Podiatrist Foot & Ankle Surgery | DX: E11.621 Type 2 diabetes mellitus with foot ulcer (principal); L97.528 Non-pressure chronic ulcer of other part of left foot with other specified severity; L97.526 Non-pressure chronic ulcer of other part of left foot with bone involvement without evidence of necrosis; L97.423 Non-pressure chronic ulcer of left heel and midfoot with necrosis of muscle; E11.40 Type 2 diabetes mellitus with diabetic neuropathy, unspecified; E11.52 Type 2 diabetes mellitus with diabetic peripheral angiopathy with gangrene; I96 Gangrene, not elsewhere classified; B35.1 Tinea unguium; R91.8 Other nonspecific abnormal finding of lung field; Z89.411 Acquired absence of right great toe; Z89.422 Acquired absence of other left toe(s); I10 Essential (primary) hypertension; Z79.4 Long term (current) use of insulin; Z79.899 Other long term (current) drug therapy; Z79.82 Long term (current) use of aspirin | CPT/HCPCS: 11043; C5275; Q4117 ==

== ENCOUNTER 2021-12-21 11:10 | Outpatient (CLI) | payer MEDICARE, OTHER | END 2021-12-21 23:59 | disposition home or self-care (01) | LOC: WOU 11:10 | PROVIDERS: ATTEND Podiatrist Foot & Ankle Surgery | DX: E11.621 Type 2 diabetes mellitus with foot ulcer (principal); L97.423 Non-pressure chronic ulcer of left heel and midfoot with necrosis of muscle; L97.526 Non-pressure chronic ulcer of other part of left foot with bone involvement without evidence of necrosis; L97.528 Non-pressure chronic ulcer of other part of left foot with other specified severity; E11.40 Type 2 diabetes mellitus with diabetic neuropathy, unspecified; E11.52 Type 2 diabetes mellitus with diabetic peripheral angiopathy with gangrene; I96 Gangrene, not elsewhere classified; Z89.422 Acquired absence of other left toe(s); B35.1 Tinea unguium; L84 Corns and callosities; R91.8 Other nonspecific abnormal finding of lung field; Z79.4 Long term (current) use of insulin; Z79.82 Long term (current) use of aspirin; Z79.01 Long term (current) use of anticoagulants; Z79.899 Other long term (current) drug therapy | CPT/HCPCS: 11043; 97605-TC ==

== ENCOUNTER 2021-12-24 10:45 | Outpatient (CLI) | payer MEDICARE, OTHER | END 2021-12-24 23:59 | disposition home or self-care (01) | LOC: WOU 10:45 | PROVIDERS: ATTEND Podiatrist Foot & Ankle Surgery | DX: E11.621 Type 2 diabetes mellitus with foot ulcer (principal); L97.423 Non-pressure chronic ulcer of left heel and midfoot with necrosis of muscle; L97.524 Non-pressure chronic ulcer of other part of left foot with necrosis of bone; L97.528 Non-pressure chronic ulcer of other part of left foot with other specified severity; E11.52 Type 2 diabetes mellitus with diabetic peripheral angiopathy with gangrene; E11.40 Type 2 diabetes mellitus with diabetic neuropathy, unspecified; E11.22 Type 2 diabetes mellitus with diabetic chronic kidney disease; I12.0 Hypertensive chronic kidney disease with stage 5 chronic kidney disease or end stage renal disease; I96 Gangrene, not elsewhere classified; N18.6 End stage renal disease; Z99.2 Dependence on renal dialysis; Z79.4 Long term (current) use of insulin; Z79.82 Long term (current) use of aspirin; Z79.01 Long term (current) use of anticoagulants; L84 Corns and callosities; B35.1 Tinea unguium; R91.8 Other nonspecific abnormal finding of lung field; Z89.421 Acquired absence of other right toe(s); Z89.411 Acquired absence of right great toe; Z79.899 Other long term (current) drug therapy | CPT/HCPCS: 11043; 15275; Q4158 ==

== ENCOUNTER 2021-12-28 11:05 | Outpatient (CLI) | payer MEDICARE, OTHER ==
[2021-12-28] MEDS ORDERED: SILVER SULFADIAZINE CREAM 25 GM TUBE ONE (12:04)
== END 2021-12-28 23:59 | disposition home or self-care (01) ==
LOC: WOU 11:05
PROVIDERS: ATTEND Podiatrist Foot & Ankle Surgery
DX: E11.621 Type 2 diabetes mellitus with foot ulcer (principal); L97.423 Non-pressure chronic ulcer of left heel and midfoot with necrosis of muscle; L97.526 Non-pressure chronic ulcer of other part of left foot with bone involvement without evidence of necrosis; L97.528 Non-pressure chronic ulcer of other part of left foot with other specified severity; E11.40 Type 2 diabetes mellitus with diabetic neuropathy, unspecified; E11.52 Type 2 diabetes mellitus with diabetic peripheral angiopathy with gangrene; I96 Gangrene, not elsewhere classified; Z79.4 Long term (current) use of insulin; L84 Corns and callosities; B35.1 Tinea unguium; R91.8 Other nonspecific abnormal finding of lung field; Z89.411 Acquired absence of right great toe; Z89.422 Acquired absence of other left toe(s); Z79.01 Long term (current) use of anticoagulants; Z79.82 Long term (current) use of aspirin; Z79.899 Other long term (current) drug therapy
CPT/HCPCS: 11043; 97605-TC

== ENCOUNTER 2021-12-31 11:10 | Outpatient (CLI) | payer MEDICARE, OTHER | END 2021-12-31 23:59 | disposition home or self-care (01) | LOC: WOU 11:10 | PROVIDERS: ATTEND Podiatrist Foot & Ankle Surgery | DX: E11.621 Type 2 diabetes mellitus with foot ulcer (principal); L97.413 Non-pressure chronic ulcer of right heel and midfoot with necrosis of muscle; L97.526 Non-pressure chronic ulcer of other part of left foot with bone involvement without evidence of necrosis; L97.528 Non-pressure chronic ulcer of other part of left foot with other specified severity; E11.22 Type 2 diabetes mellitus with diabetic chronic kidney disease; E11.40 Type 2 diabetes mellitus with diabetic neuropathy, unspecified; E11.51 Type 2 diabetes mellitus with diabetic peripheral angiopathy without gangrene; I12.0 Hypertensive chronic kidney disease with stage 5 chronic kidney disease or end stage renal disease; N18.6 End stage renal disease; Z99.2 Dependence on renal dialysis; Z79.4 Long term (current) use of insulin; Z79.82 Long term (current) use of aspirin; Z79.01 Long term (current) use of anticoagulants; L84 Corns and callosities; B35.1 Tinea unguium; Z89.422 Acquired absence of other left toe(s); Z89.421 Acquired absence of other right toe(s); R91.8 Other nonspecific abnormal finding of lung field | CPT/HCPCS: 11043; 15275; Q4158 ==

== ENCOUNTER 2022-01-04 11:10 | Outpatient (CLI) | payer MEDICARE, OTHER | END 2022-01-04 23:59 | disposition home or self-care (01) | LOC: WOU 11:10 | PROVIDERS: ATTEND Podiatrist Foot & Ankle Surgery | DX: E11.621 Type 2 diabetes mellitus with foot ulcer (principal); L97.423 Non-pressure chronic ulcer of left heel and midfoot with necrosis of muscle; L97.526 Non-pressure chronic ulcer of other part of left foot with bone involvement without evidence of necrosis; E11.40 Type 2 diabetes mellitus with diabetic neuropathy, unspecified; E11.51 Type 2 diabetes mellitus with diabetic peripheral angiopathy without gangrene; Z79.4 Long term (current) use of insulin; Z89.422 Acquired absence of other left toe(s); Z89.411 Acquired absence of right great toe; L84 Corns and callosities; B35.1 Tinea unguium; M21.371 Foot drop, right foot; Z79.01 Long term (current) use of anticoagulants; R91.8 Other nonspecific abnormal finding of lung field; Z79.82 Long term (current) use of aspirin | CPT/HCPCS: 11043; 97605-TC ==

== ENCOUNTER 2022-01-07 11:00 | Outpatient (CLI) | payer MEDICARE, OTHER | END 2022-01-07 23:59 | disposition home or self-care (01) | LOC: WOU 11:00 | PROVIDERS: ATTEND Podiatrist Foot & Ankle Surgery | DX: E11.621 Type 2 diabetes mellitus with foot ulcer (principal); L97.423 Non-pressure chronic ulcer of left heel and midfoot with necrosis of muscle; L97.525 Non-pressure chronic ulcer of other part of left foot with muscle involvement without evidence of necrosis; E11.40 Type 2 diabetes mellitus with diabetic neuropathy, unspecified; E11.52 Type 2 diabetes mellitus with diabetic peripheral angiopathy with gangrene; I96 Gangrene, not elsewhere classified; Z89.422 Acquired absence of other left toe(s); Z89.411 Acquired absence of right great toe; M21.371 Foot drop, right foot; B35.1 Tinea unguium; L84 Corns and callosities; Z79.01 Long term (current) use of anticoagulants; Z79.4 Long term (current) use of insulin; Z79.82 Long term (current) use of aspirin | CPT/HCPCS: 11043; 15275; Q4158 ==

== ENCOUNTER 2022-01-11 11:00 | Outpatient (CLI) | payer MEDICARE, OTHER | END 2022-01-11 23:59 | disposition home or self-care (01) | LOC: WOU 11:00 | PROVIDERS: ATTEND Podiatrist Foot & Ankle Surgery | DX: E11.621 Type 2 diabetes mellitus with foot ulcer (principal); L97.423 Non-pressure chronic ulcer of left heel and midfoot with necrosis of muscle; L97.525 Non-pressure chronic ulcer of other part of left foot with muscle involvement without evidence of necrosis; E11.22 Type 2 diabetes mellitus with diabetic chronic kidney disease; E11.40 Type 2 diabetes mellitus with diabetic neuropathy, unspecified; E11.51 Type 2 diabetes mellitus with diabetic peripheral angiopathy without gangrene; I12.0 Hypertensive chronic kidney disease with stage 5 chronic kidney disease or end stage renal disease; N18.6 End stage renal disease; Z99.2 Dependence on renal dialysis; Z79.4 Long term (current) use of insulin; L84 Corns and callosities; B35.1 Tinea unguium; Z79.82 Long term (current) use of aspirin; Z79.01 Long term (current) use of anticoagulants; Z89.422 Acquired absence of other left toe(s) | CPT/HCPCS: 11043 ==

== ENCOUNTER → 2022-01-14 | Outpatient (CLI) | payer MEDICARE, OTHER | END | disposition home or self-care (01) | LOC: WOU 10:45 | PROVIDERS: ATTEND Podiatrist Foot & Ankle Surgery | DX: E11.621 Type 2 diabetes mellitus with foot ulcer (principal); L97.423 Non-pressure chronic ulcer of left heel and midfoot with necrosis of muscle; L97.525 Non-pressure chronic ulcer of other part of left foot with muscle involvement without evidence of necrosis; E11.22 Type 2 diabetes mellitus with diabetic chronic kidney disease; E11.51 Type 2 diabetes mellitus with diabetic peripheral angiopathy without gangrene; E11.40 Type 2 diabetes mellitus with diabetic neuropathy, unspecified; I12.0 Hypertensive chronic kidney disease with stage 5 chronic kidney disease or end stage renal disease; N18.6 End stage renal disease; Z99.2 Dependence on renal dialysis; Z79.4 Long term (current) use of insulin; L84 Corns and callosities; B35.1 Tinea unguium; Z79.01 Long term (current) use of anticoagulants; Z79.82 Long term (current) use of aspirin; Z89.411 Acquired absence of right great toe; Z89.421 Acquired absence of other right toe(s); Z89.422 Acquired absence of other left toe(s) | CPT/HCPCS: 11043; 97605-TC ==

== ENCOUNTER → 2022-01-18 | Outpatient (CLI) | payer MEDICARE, OTHER | END | disposition home or self-care (01) | LOC: WOU 11:10 | PROVIDERS: ATTEND Podiatrist Foot & Ankle Surgery | DX: E11.621 Type 2 diabetes mellitus with foot ulcer (principal); L97.423 Non-pressure chronic ulcer of left heel and midfoot with necrosis of muscle; L97.525 Non-pressure chronic ulcer of other part of left foot with muscle involvement without evidence of necrosis; E11.40 Type 2 diabetes mellitus with diabetic neuropathy, unspecified; E11.51 Type 2 diabetes mellitus with diabetic peripheral angiopathy without gangrene; E11.22 Type 2 diabetes mellitus with diabetic chronic kidney disease; I12.0 Hypertensive chronic kidney disease with stage 5 chronic kidney disease or end stage renal disease; N18.6 End stage renal disease; Z99.2 Dependence on renal dialysis; Z79.4 Long term (current) use of insulin; L84 Corns and callosities; B35.1 Tinea unguium; M21.371 Foot drop, right foot; Z89.421 Acquired absence of other right toe(s); Z89.422 Acquired absence of other left toe(s); R91.8 Other nonspecific abnormal finding of lung field; Z79.01 Long term (current) use of anticoagulants; Z79.82 Long term (current) use of aspirin | CPT/HCPCS: 11043; 97605-TC ==

== ENCOUNTER → 2022-01-21 | Outpatient (CLI) | payer MEDICARE, OTHER | END | disposition home or self-care (01) | LOC: WOU 11:30 | PROVIDERS: ATTEND Podiatrist Foot & Ankle Surgery | DX: E11.621 Type 2 diabetes mellitus with foot ulcer (principal); L97.423 Non-pressure chronic ulcer of left heel and midfoot with necrosis of muscle; L97.525 Non-pressure chronic ulcer of other part of left foot with muscle involvement without evidence of necrosis; E11.40 Type 2 diabetes mellitus with diabetic neuropathy, unspecified; E11.51 Type 2 diabetes mellitus with diabetic peripheral angiopathy without gangrene; Z79.4 Long term (current) use of insulin; Z89.422 Acquired absence of other left toe(s); Z89.421 Acquired absence of other right toe(s); Z89.411 Acquired absence of right great toe; L84 Corns and callosities; Z79.82 Long term (current) use of aspirin; Z79.01 Long term (current) use of anticoagulants | CPT/HCPCS: 11043; 97605-TC ==

== ENCOUNTER 2022-01-25 11:00 | Outpatient (CLI) | payer MEDICARE, OTHER | END 2022-01-25 23:59 | disposition home or self-care (01) | LOC: WOU 11:00 | PROVIDERS: ATTEND Podiatrist Foot & Ankle Surgery | DX: E11.621 Type 2 diabetes mellitus with foot ulcer (principal); L97.423 Non-pressure chronic ulcer of left heel and midfoot with necrosis of muscle; L97.525 Non-pressure chronic ulcer of other part of left foot with muscle involvement without evidence of necrosis; E11.22 Type 2 diabetes mellitus with diabetic chronic kidney disease; E11.40 Type 2 diabetes mellitus with diabetic neuropathy, unspecified; E11.51 Type 2 diabetes mellitus with diabetic peripheral angiopathy without gangrene; I12.0 Hypertensive chronic kidney disease with stage 5 chronic kidney disease or end stage renal disease; N18.6 End stage renal disease; Z99.2 Dependence on renal dialysis; Z79.4 Long term (current) use of insulin; Z79.82 Long term (current) use of aspirin; Z79.01 Long term (current) use of anticoagulants; Z89.411 Acquired absence of right great toe; Z89.422 Acquired absence of other left toe(s) | CPT/HCPCS: 11043; 97605-TC ==

== ENCOUNTER 2022-01-28 11:00 | Outpatient (CLI) | payer MEDICARE, OTHER ==
[2022-01-28] MEDS ORDERED: LIDOCAINE 2% JEL 5 ML TUBE ONE ×2 (11:16→11:17)
== END 2022-01-28 23:59 | disposition home or self-care (01) ==
LOC: WOU 11:00
PROVIDERS: ATTEND Podiatrist Foot & Ankle Surgery
DX: E11.621 Type 2 diabetes mellitus with foot ulcer (principal); L97.423 Non-pressure chronic ulcer of left heel and midfoot with necrosis of muscle; L97.525 Non-pressure chronic ulcer of other part of left foot with muscle involvement without evidence of necrosis; E11.40 Type 2 diabetes mellitus with diabetic neuropathy, unspecified; E11.51 Type 2 diabetes mellitus with diabetic peripheral angiopathy without gangrene; Z89.421 Acquired absence of other right toe(s); Z89.422 Acquired absence of other left toe(s); L84 Corns and callosities; B35.1 Tinea unguium; R91.8 Other nonspecific abnormal finding of lung field; Z79.4 Long term (current) use of insulin; Z79.01 Long term (current) use of anticoagulants; Z79.82 Long term (current) use of aspirin
CPT/HCPCS: 11043; 97605-TC

== ENCOUNTER 2022-02-01 11:00 | Outpatient (CLI) | payer MEDICARE, OTHER ==
[2022-02-01] MEDS ORDERED: LIDOCAINE SOLN 4% 50 ML BOTTLE ONE (11:08)
== END 2022-02-01 23:59 | disposition home or self-care (01) ==
LOC: WOU 11:00
PROVIDERS: ATTEND Podiatrist Foot & Ankle Surgery
DX: E11.621 Type 2 diabetes mellitus with foot ulcer (principal); L97.423 Non-pressure chronic ulcer of left heel and midfoot with necrosis of muscle; L97.525 Non-pressure chronic ulcer of other part of left foot with muscle involvement without evidence of necrosis; E11.22 Type 2 diabetes mellitus with diabetic chronic kidney disease; E11.51 Type 2 diabetes mellitus with diabetic peripheral angiopathy without gangrene; I12.0 Hypertensive chronic kidney disease with stage 5 chronic kidney disease or end stage renal disease; N18.6 End stage renal disease; Z99.2 Dependence on renal dialysis; Z79.4 Long term (current) use of insulin; Z79.82 Long term (current) use of aspirin; Z79.01 Long term (current) use of anticoagulants; Z89.422 Acquired absence of other left toe(s); Z89.411 Acquired absence of right great toe
CPT/HCPCS: 11043; 97605-TC

== ENCOUNTER 2022-02-04 10:55 | Outpatient (CLI) | payer MEDICARE, OTHER ==
[2022-02-04] MEDS ORDERED: LIDOCAINE SOLN 4% 50 ML BOTTLE ONE (11:45)
== END 2022-02-04 23:59 | disposition home or self-care (01) ==
LOC: WOU 10:55
PROVIDERS: ATTEND Podiatrist Foot & Ankle Surgery
DX: E11.621 Type 2 diabetes mellitus with foot ulcer (principal); L97.423 Non-pressure chronic ulcer of left heel and midfoot with necrosis of muscle; L97.525 Non-pressure chronic ulcer of other part of left foot with muscle involvement without evidence of necrosis; E11.22 Type 2 diabetes mellitus with diabetic chronic kidney disease; E11.51 Type 2 diabetes mellitus with diabetic peripheral angiopathy without gangrene; E11.40 Type 2 diabetes mellitus with diabetic neuropathy, unspecified; I12.0 Hypertensive chronic kidney disease with stage 5 chronic kidney disease or end stage renal disease; N18.6 End stage renal disease; Z99.2 Dependence on renal dialysis; Z79.4 Long term (current) use of insulin; Z79.82 Long term (current) use of aspirin; Z89.422 Acquired absence of other left toe(s)
CPT/HCPCS: 11043; 97605-TC

== ENCOUNTER 2022-02-08 11:10 | Outpatient (CLI) | payer MEDICARE, OTHER ==
[2022-02-08] MEDS ORDERED: LIDOCAINE SOLN 4% 50 ML BOTTLE ONE (11:25)
== END 2022-02-08 23:59 | disposition home or self-care (01) ==
LOC: WOU 11:10
PROVIDERS: ATTEND Podiatrist Foot & Ankle Surgery
DX: E11.621 Type 2 diabetes mellitus with foot ulcer (principal); L97.423 Non-pressure chronic ulcer of left heel and midfoot with necrosis of muscle; L97.525 Non-pressure chronic ulcer of other part of left foot with muscle involvement without evidence of necrosis; E11.40 Type 2 diabetes mellitus with diabetic neuropathy, unspecified; E11.51 Type 2 diabetes mellitus with diabetic peripheral angiopathy without gangrene; Z79.4 Long term (current) use of insulin; Z79.01 Long term (current) use of anticoagulants; Z79.82 Long term (current) use of aspirin; Z89.422 Acquired absence of other left toe(s); Z89.411 Acquired absence of right great toe
CPT/HCPCS: 11043; 97605-TC

== ENCOUNTER → 2022-02-11 | Outpatient (CLI) | payer MEDICARE, OTHER | END | disposition home or self-care (01) | LOC: WOU 11:00 | PROVIDERS: ATTEND Podiatrist Foot & Ankle Surgery | DX: E11.621 Type 2 diabetes mellitus with foot ulcer (principal); L97.423 Non-pressure chronic ulcer of left heel and midfoot with necrosis of muscle; L97.525 Non-pressure chronic ulcer of other part of left foot with muscle involvement without evidence of necrosis; E11.22 Type 2 diabetes mellitus with diabetic chronic kidney disease; E11.40 Type 2 diabetes mellitus with diabetic neuropathy, unspecified; E11.51 Type 2 diabetes mellitus with diabetic peripheral angiopathy without gangrene; I12.0 Hypertensive chronic kidney disease with stage 5 chronic kidney disease or end stage renal disease; N18.6 End stage renal disease; Z99.2 Dependence on renal dialysis; Z79.4 Long term (current) use of insulin; L84 Corns and callosities; B35.1 Tinea unguium; Z89.411 Acquired absence of right great toe; Z89.422 Acquired absence of other left toe(s) | CPT/HCPCS: 11043; 97605-TC ==

== ENCOUNTER 2022-02-15 11:00 | Outpatient (CLI) | payer MEDICARE, OTHER ==
[2022-02-15] MEDS ORDERED: LIDOCAINE SOLN 4% 50 ML BOTTLE ONE (11:55)
[2022-02-15] MEDS ORDERED: UREA 10% -AHA 4% CREAM 57 GM TUBE ONE (12:27)
== END 2022-02-15 23:59 | disposition home or self-care (01) ==
LOC: WOU 11:00
PROVIDERS: ATTEND Podiatrist Foot & Ankle Surgery
DX: E11.621 Type 2 diabetes mellitus with foot ulcer (principal); L97.425 Non-pressure chronic ulcer of left heel and midfoot with muscle involvement without evidence of necrosis; L97.525 Non-pressure chronic ulcer of other part of left foot with muscle involvement without evidence of necrosis; E11.22 Type 2 diabetes mellitus with diabetic chronic kidney disease; E11.51 Type 2 diabetes mellitus with diabetic peripheral angiopathy without gangrene; E11.40 Type 2 diabetes mellitus with diabetic neuropathy, unspecified; I12.0 Hypertensive chronic kidney disease with stage 5 chronic kidney disease or end stage renal disease; N18.6 End stage renal disease; Z99.2 Dependence on renal dialysis; Z79.4 Long term (current) use of insulin; Z79.01 Long term (current) use of anticoagulants; Z79.82 Long term (current) use of aspirin; Z89.422 Acquired absence of other left toe(s); Z89.421 Acquired absence of other right toe(s); R60.0 Localized edema
CPT/HCPCS: 11043; 97605-TC

== ENCOUNTER 2022-02-18 11:00 | Outpatient (CLI) | payer MEDICARE, OTHER ==
[2022-02-18] MEDS ORDERED: LIDOCAINE SOLN 4% 50 ML BOTTLE ONE (11:14)
== END 2022-02-18 23:59 | disposition home or self-care (01) ==
LOC: WOU 11:00
PROVIDERS: ATTEND Podiatrist Foot & Ankle Surgery
DX: E11.621 Type 2 diabetes mellitus with foot ulcer (principal); L97.423 Non-pressure chronic ulcer of left heel and midfoot with necrosis of muscle; L97.525 Non-pressure chronic ulcer of other part of left foot with muscle involvement without evidence of necrosis; E11.22 Type 2 diabetes mellitus with diabetic chronic kidney disease; E11.40 Type 2 diabetes mellitus with diabetic neuropathy, unspecified; E11.51 Type 2 diabetes mellitus with diabetic peripheral angiopathy without gangrene; I12.0 Hypertensive chronic kidney disease with stage 5 chronic kidney disease or end stage renal disease; N18.6 End stage renal disease; Z99.2 Dependence on renal dialysis; Z79.4 Long term (current) use of insulin; Z79.01 Long term (current) use of anticoagulants; Z79.82 Long term (current) use of aspirin; Z89.411 Acquired absence of right great toe; Z89.422 Acquired absence of other left toe(s); L84 Corns and callosities
CPT/HCPCS: 11043; 97605-TC

== ENCOUNTER 2022-02-22 11:00 | Outpatient (CLI) | payer MEDICARE, OTHER ==
[2022-02-22] MEDS ORDERED: LIDOCAINE SOLN 4% 50 ML BOTTLE ONE (11:12)
== END 2022-02-22 23:59 | disposition home or self-care (01) ==
LOC: WOU 11:00
PROVIDERS: ATTEND Podiatrist Foot & Ankle Surgery
DX: E11.621 Type 2 diabetes mellitus with foot ulcer (principal); L97.423 Non-pressure chronic ulcer of left heel and midfoot with necrosis of muscle; L97.523 Non-pressure chronic ulcer of other part of left foot with necrosis of muscle; E11.40 Type 2 diabetes mellitus with diabetic neuropathy, unspecified; E11.51 Type 2 diabetes mellitus with diabetic peripheral angiopathy without gangrene; E11.22 Type 2 diabetes mellitus with diabetic chronic kidney disease; I12.0 Hypertensive chronic kidney disease with stage 5 chronic kidney disease or end stage renal disease; N18.6 End stage renal disease; Z99.2 Dependence on renal dialysis; Z79.4 Long term (current) use of insulin; Z79.01 Long term (current) use of anticoagulants; Z79.82 Long term (current) use of aspirin; Z89.422 Acquired absence of other left toe(s); Z89.411 Acquired absence of right great toe; L84 Corns and callosities; B35.1 Tinea unguium
CPT/HCPCS: 11043; 97605-TC

== ENCOUNTER 2022-02-25 11:00 | Outpatient (CLI) | payer MEDICARE, OTHER | END 2022-02-25 23:59 | disposition home or self-care (01) | LOC: WOU 11:00 | PROVIDERS: ATTEND Podiatrist Foot & Ankle Surgery | DX: E11.621 Type 2 diabetes mellitus with foot ulcer (principal); L97.423 Non-pressure chronic ulcer of left heel and midfoot with necrosis of muscle; L97.523 Non-pressure chronic ulcer of other part of left foot with necrosis of muscle; E11.22 Type 2 diabetes mellitus with diabetic chronic kidney disease; E11.42 Type 2 diabetes mellitus with diabetic polyneuropathy; E11.51 Type 2 diabetes mellitus with diabetic peripheral angiopathy without gangrene; I12.0 Hypertensive chronic kidney disease with stage 5 chronic kidney disease or end stage renal disease; N18.6 End stage renal disease; Z99.2 Dependence on renal dialysis; Z79.4 Long term (current) use of insulin; Z79.82 Long term (current) use of aspirin; Z79.01 Long term (current) use of anticoagulants; Z89.422 Acquired absence of other left toe(s); L84 Corns and callosities; B35.1 Tinea unguium | CPT/HCPCS: 11043 ==

== ENCOUNTER 2022-03-01 10:55 | Outpatient (CLI) | payer MEDICARE, OTHER ==
[2022-03-01] MEDS ORDERED: LIDOCAINE SOLN 4% 50 ML BOTTLE ONE (11:21)
== END 2022-03-01 23:59 | disposition home or self-care (01) ==
LOC: WOU 10:55
PROVIDERS: ATTEND Podiatrist Foot & Ankle Surgery
DX: E11.621 Type 2 diabetes mellitus with foot ulcer (principal); L97.423 Non-pressure chronic ulcer of left heel and midfoot with necrosis of muscle; L97.523 Non-pressure chronic ulcer of other part of left foot with necrosis of muscle; E11.22 Type 2 diabetes mellitus with diabetic chronic kidney disease; E11.51 Type 2 diabetes mellitus with diabetic peripheral angiopathy without gangrene; E11.40 Type 2 diabetes mellitus with diabetic neuropathy, unspecified; I12.0 Hypertensive chronic kidney disease with stage 5 chronic kidney disease or end stage renal disease; N18.6 End stage renal disease; Z99.2 Dependence on renal dialysis; Z79.4 Long term (current) use of insulin; Z79.82 Long term (current) use of aspirin
CPT/HCPCS: 11043; 87070-TC; 87075-TC; 97605-TC

== ENCOUNTER 2022-03-04 10:45 | Outpatient (CLI) | payer MEDICARE, OTHER ==
[2022-03-04] MEDS ORDERED: LIDOCAINE SOLN 4% 50 ML BOTTLE ONE (11:11)
[2022-03-04] MEDS ORDERED: MUPIROCIN 2% CREAM 15 GM TUBE TP ONE (11:37)
== END 2022-03-04 23:59 | disposition home or self-care (01) ==
LOC: WOU 10:45
PROVIDERS: ATTEND Podiatrist Foot & Ankle Surgery
DX: E11.621 Type 2 diabetes mellitus with foot ulcer (principal); L97.423 Non-pressure chronic ulcer of left heel and midfoot with necrosis of muscle; L97.523 Non-pressure chronic ulcer of other part of left foot with necrosis of muscle; E11.22 Type 2 diabetes mellitus with diabetic chronic kidney disease; E11.51 Type 2 diabetes mellitus with diabetic peripheral angiopathy without gangrene; E11.40 Type 2 diabetes mellitus with diabetic neuropathy, unspecified; I12.0 Hypertensive chronic kidney disease with stage 5 chronic kidney disease or end stage renal disease; N18.6 End stage renal disease; Z99.2 Dependence on renal dialysis; Z79.4 Long term (current) use of insulin; Z79.82 Long term (current) use of aspirin; Z79.01 Long term (current) use of anticoagulants; L84 Corns and callosities; B35.1 Tinea unguium; Z89.422 Acquired absence of other left toe(s); Z89.411 Acquired absence of right great toe
CPT/HCPCS: 11043; 87070-TC; 87075-TC

== ENCOUNTER → 2022-03-08 | Outpatient (CLI) | payer MEDICARE, OTHER ==
[~2022-03-08] MED LIST changes: +LIDOCAINE SOLN 4% 50 ML BOTTLE ONE; +MUPIROCIN 2% CREAM 15 GM TUBE TP ONE
== END | disposition home or self-care (01) ==
LOC: WOU 11:00
PROVIDERS: ATTEND Podiatrist Foot & Ankle Surgery
DX: E11.621 Type 2 diabetes mellitus with foot ulcer (principal); L97.423 Non-pressure chronic ulcer of left heel and midfoot with necrosis of muscle; L97.523 Non-pressure chronic ulcer of other part of left foot with necrosis of muscle; E11.22 Type 2 diabetes mellitus with diabetic chronic kidney disease; E11.40 Type 2 diabetes mellitus with diabetic neuropathy, unspecified; E11.51 Type 2 diabetes mellitus with diabetic peripheral angiopathy without gangrene; I12.0 Hypertensive chronic kidney disease with stage 5 chronic kidney disease or end stage renal disease; N18.6 End stage renal disease; Z99.2 Dependence on renal dialysis; Z79.4 Long term (current) use of insulin; Z79.01 Long term (current) use of anticoagulants; Z79.82 Long term (current) use of aspirin; Z89.411 Acquired absence of right great toe; Z89.421 Acquired absence of other right toe(s); B35.1 Tinea unguium; L84 Corns and callosities
CPT/HCPCS: 11043; 87070-TC; 87075-TC

== ENCOUNTER 2022-03-11 11:00 | Outpatient (CLI) | payer MEDICARE, OTHER ==
[~2022-03-11 11:00] MED LIST changes: -LIDOCAINE SOLN 4% 50 ML BOTTLE ONE; -MUPIROCIN 2% CREAM 15 GM TUBE TP ONE
[2022-03-11] MEDS ORDERED: LIDOCAINE SOLN 4% 50 ML BOTTLE ONE (11:15)
== END 2022-03-11 23:59 | disposition home or self-care (01) ==
LOC: WOU 11:00
PROVIDERS: ATTEND Podiatrist Foot & Ankle Surgery
DX: E11.621 Type 2 diabetes mellitus with foot ulcer (principal); L97.423 Non-pressure chronic ulcer of left heel and midfoot with necrosis of muscle; L97.523 Non-pressure chronic ulcer of other part of left foot with necrosis of muscle; E11.22 Type 2 diabetes mellitus with diabetic chronic kidney disease; E11.51 Type 2 diabetes mellitus with diabetic peripheral angiopathy without gangrene; E11.40 Type 2 diabetes mellitus with diabetic neuropathy, unspecified; I12.0 Hypertensive chronic kidney disease with stage 5 chronic kidney disease or end stage renal disease; N18.6 End stage renal disease; Z99.2 Dependence on renal dialysis; Z79.4 Long term (current) use of insulin; B35.1 Tinea unguium; L84 Corns and callosities; Z89.422 Acquired absence of other left toe(s); Z89.421 Acquired absence of other right toe(s); Z79.01 Long term (current) use of anticoagulants
CPT/HCPCS: 11043; 87070-TC; 87075-TC

== ENCOUNTER 2022-03-15 11:00 | Outpatient (CLI) | payer MEDICARE, OTHER ==
[2022-03-15] MEDS ORDERED: LIDOCAINE SOLN 4% 50 ML BOTTLE ONE (11:08)
== END 2022-03-15 23:59 | disposition home or self-care (01) ==
LOC: WOU 11:00
PROVIDERS: ATTEND Podiatrist Foot & Ankle Surgery
DX: E11.621 Type 2 diabetes mellitus with foot ulcer (principal); L97.423 Non-pressure chronic ulcer of left heel and midfoot with necrosis of muscle; L97.523 Non-pressure chronic ulcer of other part of left foot with necrosis of muscle; L84 Corns and callosities; B35.1 Tinea unguium; E11.51 Type 2 diabetes mellitus with diabetic peripheral angiopathy without gangrene; Z89.422 Acquired absence of other left toe(s); Z89.411 Acquired absence of right great toe; Z79.4 Long term (current) use of insulin; Z79.01 Long term (current) use of anticoagulants; Z79.82 Long term (current) use of aspirin
CPT/HCPCS: 11043

== ENCOUNTER 2022-03-18 10:55 | Outpatient (CLI) | payer MEDICARE, OTHER ==
[2022-03-18] MEDS ORDERED: LIDOCAINE SOLN 4% 50 ML BOTTLE ONE (11:07)
== END 2022-03-18 23:59 | disposition home or self-care (01) ==
LOC: WOU 10:55
PROVIDERS: ATTEND Podiatrist Foot & Ankle Surgery
DX: E11.621 Type 2 diabetes mellitus with foot ulcer (principal); L97.423 Non-pressure chronic ulcer of left heel and midfoot with necrosis of muscle; L97.523 Non-pressure chronic ulcer of other part of left foot with necrosis of muscle; E11.40 Type 2 diabetes mellitus with diabetic neuropathy, unspecified; E11.51 Type 2 diabetes mellitus with diabetic peripheral angiopathy without gangrene; Z79.4 Long term (current) use of insulin; L84 Corns and callosities; B35.1 Tinea unguium; Z89.422 Acquired absence of other left toe(s); Z89.411 Acquired absence of right great toe; Z79.01 Long term (current) use of anticoagulants; Z79.82 Long term (current) use of aspirin
CPT/HCPCS: 15275; 15276; Q4101

== ENCOUNTER 2022-03-25 10:45 | Outpatient (CLI) | payer MEDICARE, OTHER ==
[~2022-03-25 10:45] MED LIST changes: +LIDOCAINE SOLN 4% 50 ML BOTTLE ONE
[2022-03-25] MEDS ORDERED: GENTAMICIN 0.1% CREAM 15 GM TUBE ONE (11:32)
== END 2022-03-25 23:59 | disposition home or self-care (01) ==
LOC: WOU 10:45
PROVIDERS: ATTEND Podiatrist Foot & Ankle Surgery
DX: E11.621 Type 2 diabetes mellitus with foot ulcer (principal); L97.425 Non-pressure chronic ulcer of left heel and midfoot with muscle involvement without evidence of necrosis; L97.523 Non-pressure chronic ulcer of other part of left foot with necrosis of muscle; E11.22 Type 2 diabetes mellitus with diabetic chronic kidney disease; E11.40 Type 2 diabetes mellitus with diabetic neuropathy, unspecified; E11.51 Type 2 diabetes mellitus with diabetic peripheral angiopathy without gangrene; I12.0 Hypertensive chronic kidney disease with stage 5 chronic kidney disease or end stage renal disease; N18.6 End stage renal disease; Z99.2 Dependence on renal dialysis; Z79.4 Long term (current) use of insulin; Z79.82 Long term (current) use of aspirin; Z79.01 Long term (current) use of anticoagulants; B35.1 Tinea unguium; Z89.422 Acquired absence of other left toe(s); Z89.421 Acquired absence of other right toe(s)
CPT/HCPCS: G0463

== ENCOUNTER 2022-03-29 11:00 | Outpatient (CLI) | payer MEDICARE, OTHER ==
[~2022-03-29 11:00] MED LIST changes: -LIDOCAINE SOLN 4% 50 ML BOTTLE ONE
[2022-03-29] MEDS ORDERED: LIDOCAINE SOLN 4% 50 ML BOTTLE ONE (11:33)
== END 2022-03-29 23:59 | disposition home or self-care (01) ==
LOC: WOU 11:00
PROVIDERS: ATTEND Podiatrist Foot & Ankle Surgery
DX: E11.621 Type 2 diabetes mellitus with foot ulcer (principal); L97.425 Non-pressure chronic ulcer of left heel and midfoot with muscle involvement without evidence of necrosis; L97.525 Non-pressure chronic ulcer of other part of left foot with muscle involvement without evidence of necrosis; E11.51 Type 2 diabetes mellitus with diabetic peripheral angiopathy without gangrene; E11.40 Type 2 diabetes mellitus with diabetic neuropathy, unspecified; Z79.4 Long term (current) use of insulin; L84 Corns and callosities; B35.1 Tinea unguium; Z89.422 Acquired absence of other left toe(s); Z89.411 Acquired absence of right great toe; Z79.82 Long term (current) use of aspirin; Z79.01 Long term (current) use of anticoagulants
CPT/HCPCS: 11043

== ENCOUNTER 2022-04-01 11:00 | Outpatient (CLI) | payer MEDICARE, OTHER ==
[2022-04-01] MEDS ORDERED: LIDOCAINE SOLN 4% 50 ML BOTTLE ONE ×2 (11:19→11:42)
== END 2022-04-01 23:59 | disposition home or self-care (01) ==
LOC: WOU 11:00
PROVIDERS: ATTEND Podiatrist Foot & Ankle Surgery
DX: E11.621 Type 2 diabetes mellitus with foot ulcer (principal); L97.425 Non-pressure chronic ulcer of left heel and midfoot with muscle involvement without evidence of necrosis; L97.525 Non-pressure chronic ulcer of other part of left foot with muscle involvement without evidence of necrosis; E11.22 Type 2 diabetes mellitus with diabetic chronic kidney disease; E11.40 Type 2 diabetes mellitus with diabetic neuropathy, unspecified; E11.51 Type 2 diabetes mellitus with diabetic peripheral angiopathy without gangrene; I12.0 Hypertensive chronic kidney disease with stage 5 chronic kidney disease or end stage renal disease; N18.6 End stage renal disease; Z99.2 Dependence on renal dialysis; Z79.4 Long term (current) use of insulin; L84 Corns and callosities; B35.1 Tinea unguium; Z89.411 Acquired absence of right great toe; Z89.422 Acquired absence of other left toe(s); Z79.01 Long term (current) use of anticoagulants; Z79.82 Long term (current) use of aspirin
CPT/HCPCS: 11042; 11045

== ENCOUNTER 2022-04-05 11:00 | Outpatient (CLI) | payer MEDICARE, OTHER ==
[2022-04-05] MEDS ORDERED: LIDOCAINE SOLN 4% 50 ML BOTTLE ONE (11:10)
[2022-04-05] MEDS ORDERED: GENTAMICIN 0.1% CREAM 15 GM TUBE ONE (11:59)
== END 2022-04-05 23:59 | disposition home or self-care (01) ==
LOC: WOU 11:00
PROVIDERS: ATTEND Podiatrist Foot & Ankle Surgery
DX: E11.621 Type 2 diabetes mellitus with foot ulcer (principal); L97.425 Non-pressure chronic ulcer of left heel and midfoot with muscle involvement without evidence of necrosis; L97.525 Non-pressure chronic ulcer of other part of left foot with muscle involvement without evidence of necrosis; E11.22 Type 2 diabetes mellitus with diabetic chronic kidney disease; E11.40 Type 2 diabetes mellitus with diabetic neuropathy, unspecified; E11.51 Type 2 diabetes mellitus with diabetic peripheral angiopathy without gangrene; I12.0 Hypertensive chronic kidney disease with stage 5 chronic kidney disease or end stage renal disease; N18.6 End stage renal disease; Z99.2 Dependence on renal dialysis; Z79.4 Long term (current) use of insulin; L84 Corns and callosities; B35.1 Tinea unguium; Z89.411 Acquired absence of right great toe; Z89.422 Acquired absence of other left toe(s); Z79.02 Long term (current) use of antithrombotics/antiplatelets; Z79.82 Long term (current) use of aspirin
CPT/HCPCS: 11042; 11045

== ENCOUNTER → 2022-04-08 | Outpatient (CLI) | payer MEDICARE, OTHER | END | disposition home or self-care (01) | LOC: WOU 10:47 | PROVIDERS: ATTEND Podiatrist Foot & Ankle Surgery | DX: E11.621 Type 2 diabetes mellitus with foot ulcer (principal); L97.425 Non-pressure chronic ulcer of left heel and midfoot with muscle involvement without evidence of necrosis; L97.522 Non-pressure chronic ulcer of other part of left foot with fat layer exposed; L97.525 Non-pressure chronic ulcer of other part of left foot with muscle involvement without evidence of necrosis; E11.40 Type 2 diabetes mellitus with diabetic neuropathy, unspecified; E11.51 Type 2 diabetes mellitus with diabetic peripheral angiopathy without gangrene; Z79.4 Long term (current) use of insulin; B35.1 Tinea unguium; L84 Corns and callosities; Z89.411 Acquired absence of right great toe; Z89.421 Acquired absence of other right toe(s); Z79.01 Long term (current) use of anticoagulants; Z79.82 Long term (current) use of aspirin | CPT/HCPCS: 15275; 15276; Q4101 ==

== ENCOUNTER → 2022-04-15 | Outpatient (CLI) | payer MEDICARE, OTHER ==
[~2022-04-15] MED LIST changes: +LIDOCAINE SOLN 4% 50 ML BOTTLE ONE
== END | disposition home or self-care (01) ==
LOC: WOU 10:30
PROVIDERS: ATTEND Podiatrist Foot & Ankle Surgery
DX: E11.621 Type 2 diabetes mellitus with foot ulcer (principal); L97.425 Non-pressure chronic ulcer of left heel and midfoot with muscle involvement without evidence of necrosis; L97.525 Non-pressure chronic ulcer of other part of left foot with muscle involvement without evidence of necrosis; E11.22 Type 2 diabetes mellitus with diabetic chronic kidney disease; E11.40 Type 2 diabetes mellitus with diabetic neuropathy, unspecified; E11.51 Type 2 diabetes mellitus with diabetic peripheral angiopathy without gangrene; I12.0 Hypertensive chronic kidney disease with stage 5 chronic kidney disease or end stage renal disease; N18.6 End stage renal disease; Z99.2 Dependence on renal dialysis; Z79.4 Long term (current) use of insulin; Z79.82 Long term (current) use of aspirin; Z79.01 Long term (current) use of anticoagulants; Z89.422 Acquired absence of other left toe(s); Z89.411 Acquired absence of right great toe
CPT/HCPCS: 11043

== ENCOUNTER 2022-04-19 10:52 | Outpatient (CLI) | payer MEDICARE, OTHER ==
[~2022-04-19 10:52] MED LIST changes: -LIDOCAINE SOLN 4% 50 ML BOTTLE ONE
[2022-04-19] MEDS ORDERED: LIDOCAINE SOLN 4% 50 ML BOTTLE ONE (10:56)
[2022-04-19 12:31] LABS: BASOPHILS # (AUTO) 0.1 K/uL (0.0-0.2); BASOPHILS % (AUTO) 1.2 % (0.0-2.0); HEMATOCRIT 41 % (39-51); LYMPHOCYTES % (AUTO) 17.9 % (20.0-44.0); MEAN CORPUSCULAR HGB CONC 32 g/dl (31.0-36.0); MEAN CORPUSCULAR VOLUME 82 fL (80-96); MONOCYTES # (AUTO) 0.5 K/uL (0.1-1.30); MONOCYTES % (AUTO) 8.5 % (2.0-12.0); NEUTROPHILS # (AUTO) 3.8 K/uL (1.8-8.9); NEUTROPHILS % (AUTO) 69.4 % (43.0-81.0); PLATELET COUNT (AUTO) 214 K/uL (150-450); RED BLOOD CELL COUNT(AUTO) 4.98 MIL/uL (4.5-6.0); WHITE BLOOD COUNT (AUTO) 5.5 K/uL (4.3-11.0)
== END 2022-04-19 23:59 | disposition home or self-care (01) ==
LOC: WOU 10:52
PROVIDERS: ATTEND Podiatrist Foot & Ankle Surgery
DX: E11.621 Type 2 diabetes mellitus with foot ulcer (principal); L97.425 Non-pressure chronic ulcer of left heel and midfoot with muscle involvement without evidence of necrosis; L97.525 Non-pressure chronic ulcer of other part of left foot with muscle involvement without evidence of necrosis; E11.40 Type 2 diabetes mellitus with diabetic neuropathy, unspecified; E11.51 Type 2 diabetes mellitus with diabetic peripheral angiopathy without gangrene; Z79.4 Long term (current) use of insulin; R60.0 Localized edema; B35.1 Tinea unguium; M20.12 Hallux valgus (acquired), left foot; L84 Corns and callosities; Z89.411 Acquired absence of right great toe; Z89.422 Acquired absence of other left toe(s); Z79.82 Long term (current) use of aspirin; Z79.01 Long term (current) use of anticoagulants
CPT/HCPCS: 11043; 36415; 73630-TC; 85025-TC; 85652-TC; 86140-TC; 87070-TC; 87075-TC; 87186-TC

== ENCOUNTER → 2022-04-22 | Outpatient (CLI) | payer MEDICARE, OTHER ==
[~2022-04-22] MED LIST changes: +GENTAMICIN 0.1% CREAM 15 GM TUBE ONE; +LIDOCAINE SOLN 4% 50 ML BOTTLE ONE; +MUPIROCIN 2% CREAM 15 GM TUBE TP ONE
== END | disposition home or self-care (01) ==
LOC: WOU 10:45
PROVIDERS: ATTEND Podiatrist Foot & Ankle Surgery
DX: E11.621 Type 2 diabetes mellitus with foot ulcer (principal); L97.425 Non-pressure chronic ulcer of left heel and midfoot with muscle involvement without evidence of necrosis; L97.525 Non-pressure chronic ulcer of other part of left foot with muscle involvement without evidence of necrosis; E11.22 Type 2 diabetes mellitus with diabetic chronic kidney disease; E11.40 Type 2 diabetes mellitus with diabetic neuropathy, unspecified; E11.51 Type 2 diabetes mellitus with diabetic peripheral angiopathy without gangrene; I12.0 Hypertensive chronic kidney disease with stage 5 chronic kidney disease or end stage renal disease; N18.6 End stage renal disease; Z99.2 Dependence on renal dialysis; Z79.4 Long term (current) use of insulin; Z79.01 Long term (current) use of anticoagulants; Z79.82 Long term (current) use of aspirin; L84 Corns and callosities; B35.1 Tinea unguium
CPT/HCPCS: 11043

== ENCOUNTER 2022-04-26 11:00 | Outpatient (CLI) | payer MEDICARE, OTHER ==
[~2022-04-26 11:00] MED LIST changes: -GENTAMICIN 0.1% CREAM 15 GM TUBE ONE; -LIDOCAINE SOLN 4% 50 ML BOTTLE ONE; -MUPIROCIN 2% CREAM 15 GM TUBE TP ONE
[2022-04-26] MEDS ORDERED: LIDOCAINE SOLN 4% 50 ML BOTTLE ONE (11:06)
== END 2022-04-26 23:59 | disposition home or self-care (01) ==
LOC: WOU 11:00
PROVIDERS: ATTEND Podiatrist Foot & Ankle Surgery
DX: E11.621 Type 2 diabetes mellitus with foot ulcer (principal); L97.425 Non-pressure chronic ulcer of left heel and midfoot with muscle involvement without evidence of necrosis; L97.523 Non-pressure chronic ulcer of other part of left foot with necrosis of muscle; E11.40 Type 2 diabetes mellitus with diabetic neuropathy, unspecified; E11.51 Type 2 diabetes mellitus with diabetic peripheral angiopathy without gangrene; Z79.4 Long term (current) use of insulin; Z89.422 Acquired absence of other left toe(s); Z89.411 Acquired absence of right great toe; L84 Corns and callosities; B35.1 Tinea unguium; Z79.01 Long term (current) use of anticoagulants; Z79.82 Long term (current) use of aspirin
CPT/HCPCS: 15275; Q4101 ×2

== ENCOUNTER 2022-04-29 11:00 | Outpatient (CLI) | payer MEDICARE, OTHER ==
[2022-04-29] MEDS ORDERED: MUPIROCIN 2% CREAM 15 GM TUBE TP ONE (11:47)
== END 2022-04-29 23:59 | disposition home or self-care (01) ==
LOC: WOU 11:00
PROVIDERS: ATTEND Podiatrist Foot & Ankle Surgery
DX: E11.621 Type 2 diabetes mellitus with foot ulcer (principal); L97.425 Non-pressure chronic ulcer of left heel and midfoot with muscle involvement without evidence of necrosis; L97.523 Non-pressure chronic ulcer of other part of left foot with necrosis of muscle; E11.22 Type 2 diabetes mellitus with diabetic chronic kidney disease; E11.40 Type 2 diabetes mellitus with diabetic neuropathy, unspecified; E11.51 Type 2 diabetes mellitus with diabetic peripheral angiopathy without gangrene; I12.0 Hypertensive chronic kidney disease with stage 5 chronic kidney disease or end stage renal disease; N18.6 End stage renal disease; Z99.2 Dependence on renal dialysis; Z79.4 Long term (current) use of insulin; Z79.01 Long term (current) use of anticoagulants; Z79.82 Long term (current) use of aspirin; L84 Corns and callosities; B35.1 Tinea unguium; Z89.422 Acquired absence of other left toe(s); Z89.411 Acquired absence of right great toe
CPT/HCPCS: 11043; 87070-TC; 87075-TC

== ENCOUNTER 2022-05-03 11:00 | Outpatient (CLI) | payer MEDICARE, OTHER ==
[2022-05-03 13:24] LABS: BASOPHILS # (AUTO) 0.1 K/uL (0.0-0.2); BASOPHILS % (AUTO) 1.3 % (0.0-2.0); EOSINOPHILS % (AUTO) 2.1 % (0.0-6.0); HEMATOCRIT 41 % (39-51); HEMOGLOBIN 13.1 g/dL (13.5-17.5); LYMPHOCYTES # (AUTO) 0.9 K/uL (0.8-4.8); LYMPHOCYTES % (AUTO) 15.8 % (20.0-44.0); MEAN CORPUSCULAR HGB CONC 32 g/dl (31.0-36.0); MEAN CORPUSCULAR VOLUME 82 fL (80-96); MONOCYTES # (AUTO) 0.4 K/uL (0.1-1.30); MONOCYTES % (AUTO) 8.2 % (2.0-12.0); NEUTROPHILS % (AUTO) 72.6 % (43.0-81.0); PLATELET COUNT (AUTO) 197 K/uL (150-450); RED BLOOD CELL COUNT(AUTO) 4.97 MIL/uL (4.5-6.0); WHITE BLOOD COUNT (AUTO) 5.5 K/uL (4.3-11.0)
[2022-05-03 13:25] LABS: CALCIUM, SERUM 9.3 mg/dL (8.5-10.1); CARBON DIOXIDE 32 mmol/L (21-32); CHLORIDE 97 mmol/L (98-107); CREATININE 6.2 mg/dL (0.6-1.3); GLUCOSE 160 mg/dL (74-106); POTASSIUM 3.8 mmol/L (3.5-5.1); SODIUM SERUM 140 mmol/L (136-145); UREA NITROGEN, BLOOD 40 mg/dL (7-18)
[2022-05-03 13:47] LABS: C-REACTIVE PROTEIN 0.6 mg/dL (0.0-0.9)
== END 2022-05-03 23:59 | disposition home or self-care (01) ==
LOC: WOU 11:00
PROVIDERS: ATTEND Podiatrist Foot & Ankle Surgery
DX: Z00.00 Encounter for general adult medical examination without abnormal findings (principal); E11.621 Type 2 diabetes mellitus with foot ulcer; L97.422 Non-pressure chronic ulcer of left heel and midfoot with fat layer exposed; L97.522 Non-pressure chronic ulcer of other part of left foot with fat layer exposed; E11.40 Type 2 diabetes mellitus with diabetic neuropathy, unspecified; E11.51 Type 2 diabetes mellitus with diabetic peripheral angiopathy without gangrene; L84 Corns and callosities; B35.1 Tinea unguium; Z89.411 Acquired absence of right great toe; Z89.422 Acquired absence of other left toe(s); Z79.4 Long term (current) use of insulin; Z79.01 Long term (current) use of anticoagulants; Z79.82 Long term (current) use of aspirin
CPT/HCPCS: 15275; 36415; 80048; 83036; 84145; 85025; 85652; 86140; Q4101 ×2

== ENCOUNTER 2022-05-06 13:01 | Outpatient (CLI) | payer MEDICARE, OTHER | END 2022-05-06 23:59 | disposition home or self-care (01) | LOC: MRI 13:01 | PROVIDERS: ATTEND Podiatrist Foot & Ankle Surgery | DX: M86.8X7 Other osteomyelitis, ankle and foot (principal); Z89.422 Acquired absence of other left toe(s) | CPT/HCPCS: 73718-TC; 73721-TC ==

== ENCOUNTER 2022-05-10 11:00 | Outpatient (CLI) | payer MEDICARE, OTHER ==
[2022-05-10] MEDS ORDERED: LIDOCAINE SOLN 4% 50 ML BOTTLE ONE (11:14)
[2022-05-10] MEDS ORDERED: GENTAMICIN 0.1% CREAM 15 GM TUBE ONE (12:05)
== END 2022-05-10 23:59 | disposition home or self-care (01) ==
LOC: WOU 11:00
PROVIDERS: ATTEND Podiatrist Foot & Ankle Surgery
DX: E11.621 Type 2 diabetes mellitus with foot ulcer (principal); L97.422 Non-pressure chronic ulcer of left heel and midfoot with fat layer exposed; L97.522 Non-pressure chronic ulcer of other part of left foot with fat layer exposed; E11.40 Type 2 diabetes mellitus with diabetic neuropathy, unspecified; E11.51 Type 2 diabetes mellitus with diabetic peripheral angiopathy without gangrene; E11.22 Type 2 diabetes mellitus with diabetic chronic kidney disease; I12.0 Hypertensive chronic kidney disease with stage 5 chronic kidney disease or end stage renal disease; E11.69 Type 2 diabetes mellitus with other specified complication; M86.672 Other chronic osteomyelitis, left ankle and foot; N18.6 End stage renal disease; B95.2 Enterococcus as the cause of diseases classified elsewhere; B96.89 Other specified bacterial agents as the cause of diseases classified elsewhere; Z99.2 Dependence on renal dialysis; Z16.19 Resistance to other specified beta lactam antibiotics; Z79.4 Long term (current) use of insulin; Z79.01 Long term (current) use of anticoagulants; Z79.82 Long term (current) use of aspirin; L84 Corns and callosities; B35.1 Tinea unguium
CPT/HCPCS: 11043; 87070-TC; 87075-TC; 87186-TC

== ENCOUNTER 2022-05-16 12:39 | Outpatient (CLI) | payer MEDICARE, OTHER | END 2022-05-16 23:59 | disposition home or self-care (01) | LOC: WOU 12:39 | PROVIDERS: ATTEND Registered Nurse | DX: E11.621 Type 2 diabetes mellitus with foot ulcer (principal); L97.529 Non-pressure chronic ulcer of other part of left foot with unspecified severity; E11.42 Type 2 diabetes mellitus with diabetic polyneuropathy; E11.69 Type 2 diabetes mellitus with other specified complication; E11.22 Type 2 diabetes mellitus with diabetic chronic kidney disease; I25.10 Atherosclerotic heart disease of native coronary artery without angina pectoris; I12.0 Hypertensive chronic kidney disease with stage 5 chronic kidney disease or end stage renal disease; N18.6 End stage renal disease; M86.672 Other chronic osteomyelitis, left ankle and foot; Z99.2 Dependence on renal dialysis; E78.5 Hyperlipidemia, unspecified; I82.409 Acute embolism and thrombosis of unspecified deep veins of unspecified lower extremity; Z89.422 Acquired absence of other left toe(s); B96.1 Klebsiella pneumoniae [K. pneumoniae] as the cause of diseases classified elsewhere; B95.2 Enterococcus as the cause of diseases classified elsewhere; B96.89 Other specified bacterial agents as the cause of diseases classified elsewhere | CPT/HCPCS: G0463 ==

== ENCOUNTER 2022-05-17 10:45 | Outpatient (CLI) | payer MEDICARE, OTHER ==
[2022-05-17] MEDS ORDERED: LIDOCAINE SOLN 4% 50 ML BOTTLE ONE (11:08)
== END 2022-05-17 23:59 | disposition home or self-care (01) ==
LOC: WOU 10:45
PROVIDERS: ATTEND Podiatrist Foot & Ankle Surgery
DX: E11.621 Type 2 diabetes mellitus with foot ulcer (principal); L97.422 Non-pressure chronic ulcer of left heel and midfoot with fat layer exposed; L97.525 Non-pressure chronic ulcer of other part of left foot with muscle involvement without evidence of necrosis; E11.22 Type 2 diabetes mellitus with diabetic chronic kidney disease; I12.0 Hypertensive chronic kidney disease with stage 5 chronic kidney disease or end stage renal disease; E11.40 Type 2 diabetes mellitus with diabetic neuropathy, unspecified; E11.51 Type 2 diabetes mellitus with diabetic peripheral angiopathy without gangrene; E11.69 Type 2 diabetes mellitus with other specified complication; M86.672 Other chronic osteomyelitis, left ankle and foot; N18.6 End stage renal disease; Z99.2 Dependence on renal dialysis; Z79.4 Long term (current) use of insulin; Z79.82 Long term (current) use of aspirin; Z79.01 Long term (current) use of anticoagulants
CPT/HCPCS: 11043

== ENCOUNTER 2022-05-24 11:00 | Outpatient (CLI) | payer MEDICARE, OTHER ==
[~2022-05-24 11:00] MED LIST changes: +LIDOCAINE SOLN 4% 50 ML BOTTLE ONE
[2022-05-24] MEDS ORDERED: UREA 10% -AHA 4% CREAM 57 GM TUBE ONE (11:27)
== END 2022-05-24 23:59 | disposition home or self-care (01) ==
LOC: WOU 11:00
PROVIDERS: ATTEND Podiatrist Foot & Ankle Surgery
DX: E11.621 Type 2 diabetes mellitus with foot ulcer (principal); L97.422 Non-pressure chronic ulcer of left heel and midfoot with fat layer exposed; L97.522 Non-pressure chronic ulcer of other part of left foot with fat layer exposed; E11.22 Type 2 diabetes mellitus with diabetic chronic kidney disease; I12.0 Hypertensive chronic kidney disease with stage 5 chronic kidney disease or end stage renal disease; E11.40 Type 2 diabetes mellitus with diabetic neuropathy, unspecified; E11.51 Type 2 diabetes mellitus with diabetic peripheral angiopathy without gangrene; N18.6 End stage renal disease; Z99.2 Dependence on renal dialysis; Z79.4 Long term (current) use of insulin; Z89.411 Acquired absence of right great toe; Z89.422 Acquired absence of other left toe(s); Z79.01 Long term (current) use of anticoagulants
CPT/HCPCS: 11042

== ENCOUNTER 2022-05-31 11:00 | Outpatient (CLI) | payer MEDICARE, OTHER ==
[2022-05-31] MEDS ORDERED: GENTAMICIN 0.1% CREAM 15 GM TUBE ONE (11:09)
== END 2022-05-31 23:59 | disposition home or self-care (01) ==
LOC: WOU 11:00
PROVIDERS: ATTEND Podiatrist Foot & Ankle Surgery
DX: E11.621 Type 2 diabetes mellitus with foot ulcer (principal); L97.422 Non-pressure chronic ulcer of left heel and midfoot with fat layer exposed; L97.522 Non-pressure chronic ulcer of other part of left foot with fat layer exposed; E11.22 Type 2 diabetes mellitus with diabetic chronic kidney disease; I12.0 Hypertensive chronic kidney disease with stage 5 chronic kidney disease or end stage renal disease; E11.51 Type 2 diabetes mellitus with diabetic peripheral angiopathy without gangrene; E11.40 Type 2 diabetes mellitus with diabetic neuropathy, unspecified; N18.6 End stage renal disease; Z99.2 Dependence on renal dialysis; Z79.4 Long term (current) use of insulin; L84 Corns and callosities; B35.1 Tinea unguium; Z89.411 Acquired absence of right great toe; Z89.422 Acquired absence of other left toe(s)
CPT/HCPCS: 11042

== ENCOUNTER 2022-06-07 11:00 | Outpatient (CLI) | payer MEDICARE, OTHER ==
[2022-06-07] MEDS ORDERED: GENTAMICIN 0.1% CREAM 15 GM TUBE ONE (11:24)
== END 2022-06-07 23:59 | disposition home or self-care (01) ==
LOC: WOU 11:00
PROVIDERS: ATTEND Podiatrist Foot & Ankle Surgery
DX: E11.621 Type 2 diabetes mellitus with foot ulcer (principal); L97.422 Non-pressure chronic ulcer of left heel and midfoot with fat layer exposed; L97.522 Non-pressure chronic ulcer of other part of left foot with fat layer exposed; E11.22 Type 2 diabetes mellitus with diabetic chronic kidney disease; I12.0 Hypertensive chronic kidney disease with stage 5 chronic kidney disease or end stage renal disease; E11.40 Type 2 diabetes mellitus with diabetic neuropathy, unspecified; E11.51 Type 2 diabetes mellitus with diabetic peripheral angiopathy without gangrene; N18.6 End stage renal disease; Z99.2 Dependence on renal dialysis; Z79.4 Long term (current) use of insulin; Z79.82 Long term (current) use of aspirin; Z79.01 Long term (current) use of anticoagulants
CPT/HCPCS: 11042; 87070-TC; 87075-TC

== ENCOUNTER 2022-06-14 11:00 | Outpatient (CLI) | payer MEDICARE, OTHER ==
[~2022-06-14 11:00] MED LIST changes: -LIDOCAINE SOLN 4% 50 ML BOTTLE ONE
[2022-06-14] MEDS ORDERED: LIDOCAINE SOLN 4% 50 ML BOTTLE ONE (11:06)
[2022-06-14] MEDS ORDERED: GENTAMICIN 0.1% CREAM 15 GM TUBE ONE (11:36)
== END 2022-06-14 23:59 | disposition home or self-care (01) ==
LOC: WOU 11:00
PROVIDERS: ATTEND Podiatrist Foot & Ankle Surgery
DX: E11.621 Type 2 diabetes mellitus with foot ulcer (principal); L97.422 Non-pressure chronic ulcer of left heel and midfoot with fat layer exposed; L97.522 Non-pressure chronic ulcer of other part of left foot with fat layer exposed; E11.22 Type 2 diabetes mellitus with diabetic chronic kidney disease; I12.0 Hypertensive chronic kidney disease with stage 5 chronic kidney disease or end stage renal disease; E11.51 Type 2 diabetes mellitus with diabetic peripheral angiopathy without gangrene; E11.40 Type 2 diabetes mellitus with diabetic neuropathy, unspecified; N18.6 End stage renal disease; Z99.2 Dependence on renal dialysis; Z79.4 Long term (current) use of insulin; Z79.82 Long term (current) use of aspirin; Z79.01 Long term (current) use of anticoagulants
CPT/HCPCS: 11042

== ENCOUNTER 2022-06-21 11:00 | Outpatient (CLI) | payer MEDICARE, OTHER ==
[2022-06-21] MEDS ORDERED: UREA 10% -AHA 4% CREAM 57 GM TUBE ONE (11:35)
[2022-06-21] MEDS ORDERED: GENTAMICIN 0.1% CREAM 15 GM TUBE ONE (11:36)
== END 2022-06-21 23:59 | disposition home or self-care (01) ==
LOC: WOU 11:00
PROVIDERS: ATTEND Podiatrist Foot & Ankle Surgery
DX: E11.621 Type 2 diabetes mellitus with foot ulcer (principal); L97.422 Non-pressure chronic ulcer of left heel and midfoot with fat layer exposed; T87.89 Other complications of amputation stump; R60.0 Localized edema; I12.0 Hypertensive chronic kidney disease with stage 5 chronic kidney disease or end stage renal disease; E11.22 Type 2 diabetes mellitus with diabetic chronic kidney disease; N18.6 End stage renal disease; Z99.2 Dependence on renal dialysis; Z86.718 Personal history of other venous thrombosis and embolism; E78.5 Hyperlipidemia, unspecified; I25.2 Old myocardial infarction; Z79.01 Long term (current) use of anticoagulants; Z79.82 Long term (current) use of aspirin; Z79.899 Other long term (current) drug therapy; Z79.4 Long term (current) use of insulin; Z89.422 Acquired absence of other left toe(s); L84 Corns and callosities; B35.1 Tinea unguium; Z89.411 Acquired absence of right great toe; E11.40 Type 2 diabetes mellitus with diabetic neuropathy, unspecified; E11.51 Type 2 diabetes mellitus with diabetic peripheral angiopathy without gangrene
CPT/HCPCS: 11042

== ENCOUNTER 2022-06-28 11:00 | Outpatient (CLI) | payer MEDICARE, OTHER ==
[2022-06-28] MEDS ORDERED: LIDOCAINE SOLN 4% 50 ML BOTTLE ONE (11:13)
[2022-06-28] MEDS ORDERED: GENTAMICIN 0.1% CREAM 15 GM TUBE ONE (11:46)
== END 2022-06-28 23:59 | disposition home or self-care (01) ==
LOC: WOU 11:00
PROVIDERS: ATTEND Podiatrist Foot & Ankle Surgery
DX: L97.422 Non-pressure chronic ulcer of left heel and midfoot with fat layer exposed (principal); Z89.422 Acquired absence of other left toe(s); Z09 Encounter for follow-up examination after completed treatment for conditions other than malignant neoplasm; R26.9 Unspecified abnormalities of gait and mobility; E11.40 Type 2 diabetes mellitus with diabetic neuropathy, unspecified; E11.22 Type 2 diabetes mellitus with diabetic chronic kidney disease; I12.0 Hypertensive chronic kidney disease with stage 5 chronic kidney disease or end stage renal disease; N18.6 End stage renal disease; Z99.2 Dependence on renal dialysis; E78.5 Hyperlipidemia, unspecified; E11.51 Type 2 diabetes mellitus with diabetic peripheral angiopathy without gangrene; Z85.46 Personal history of malignant neoplasm of prostate; Z85.828 Personal history of other malignant neoplasm of skin; Z86.718 Personal history of other venous thrombosis and embolism; I25.2 Old myocardial infarction; Z95.820 Peripheral vascular angioplasty status with implants and grafts; Z79.01 Long term (current) use of anticoagulants; Z79.4 Long term (current) use of insulin; Z79.899 Other long term (current) drug therapy
CPT/HCPCS: 11042

== ENCOUNTER 2022-07-05 10:55 | Outpatient (CLI) | payer MEDICARE, OTHER ==
[2022-07-05] MEDS ORDERED: LIDOCAINE SOLN 4% 50 ML BOTTLE ONE (11:05)
[2022-07-05] MEDS ORDERED: UREA 10% -AHA 4% CREAM 57 GM TUBE ONE (11:15)
[2022-07-05] MEDS ORDERED: GENTAMICIN 0.1% CREAM 15 GM TUBE ONE (11:25)
== END 2022-07-05 23:59 | disposition home or self-care (01) ==
LOC: WOU 10:55
PROVIDERS: ATTEND Podiatrist Foot & Ankle Surgery
DX: E11.621 Type 2 diabetes mellitus with foot ulcer (principal); L97.522 Non-pressure chronic ulcer of other part of left foot with fat layer exposed; Z89.422 Acquired absence of other left toe(s); Z89.421 Acquired absence of other right toe(s); M21.371 Foot drop, right foot; E11.40 Type 2 diabetes mellitus with diabetic neuropathy, unspecified; E11.51 Type 2 diabetes mellitus with diabetic peripheral angiopathy without gangrene; I73.9 Peripheral vascular disease, unspecified; Z89.411 Acquired absence of right great toe; Z95.820 Peripheral vascular angioplasty status with implants and grafts; E11.22 Type 2 diabetes mellitus with diabetic chronic kidney disease; I12.0 Hypertensive chronic kidney disease with stage 5 chronic kidney disease or end stage renal disease; N18.6 End stage renal disease; E78.5 Hyperlipidemia, unspecified; I25.2 Old myocardial infarction; Z99.2 Dependence on renal dialysis; Z82.49 Family history of ischemic heart disease and other diseases of the circulatory system; Z85.820 Personal history of malignant melanoma of skin; Z85.828 Personal history of other malignant neoplasm of skin; L84 Corns and callosities; B35.1 Tinea unguium
CPT/HCPCS: 11042

== ENCOUNTER → 2022-07-12 | Outpatient (CLI) | payer MEDICARE, OTHER ==
[~2022-07-12] MED LIST changes: +GENTAMICIN 0.1% CREAM 15 GM TUBE ONE; +LIDOCAINE SOLN 4% 50 ML BOTTLE ONE
== END | disposition home or self-care (01) ==
LOC: WOU 11:00
PROVIDERS: ATTEND Podiatrist Foot & Ankle Surgery
DX: E11.621 Type 2 diabetes mellitus with foot ulcer (principal); L97.522 Non-pressure chronic ulcer of other part of left foot with fat layer exposed; E11.22 Type 2 diabetes mellitus with diabetic chronic kidney disease; I12.0 Hypertensive chronic kidney disease with stage 5 chronic kidney disease or end stage renal disease; E11.40 Type 2 diabetes mellitus with diabetic neuropathy, unspecified; E11.51 Type 2 diabetes mellitus with diabetic peripheral angiopathy without gangrene; N18.6 End stage renal disease; Z99.2 Dependence on renal dialysis; Z79.4 Long term (current) use of insulin; M21.371 Foot drop, right foot; L84 Corns and callosities; B35.1 Tinea unguium; Z89.422 Acquired absence of other left toe(s); Z79.82 Long term (current) use of aspirin; Z79.01 Long term (current) use of anticoagulants
CPT/HCPCS: G0463

== ENCOUNTER 2022-07-19 11:00 | Outpatient (CLI) | payer MEDICARE, OTHER ==
[~2022-07-19 11:00] MED LIST changes: -GENTAMICIN 0.1% CREAM 15 GM TUBE ONE; -LIDOCAINE SOLN 4% 50 ML BOTTLE ONE
[2022-07-19] MEDS ORDERED: LIDOCAINE SOLN 4% 50 ML BOTTLE ONE (11:08)
[2022-07-19] MEDS ORDERED: UREA 10% -AHA 4% CREAM 57 GM TUBE ONE (11:18)
[2022-07-19] MEDS ORDERED: GENTAMICIN 0.1% CREAM 15 GM TUBE ONE (11:20)
== END 2022-07-19 23:59 | disposition home or self-care (01) ==
LOC: WOU 11:00
PROVIDERS: ATTEND Podiatrist Foot & Ankle Surgery
DX: E11.621 Type 2 diabetes mellitus with foot ulcer (principal); L97.522 Non-pressure chronic ulcer of other part of left foot with fat layer exposed; E11.40 Type 2 diabetes mellitus with diabetic neuropathy, unspecified; E11.51 Type 2 diabetes mellitus with diabetic peripheral angiopathy without gangrene; L84 Corns and callosities; M21.371 Foot drop, right foot; Z89.411 Acquired absence of right great toe; Z89.422 Acquired absence of other left toe(s); Z79.4 Long term (current) use of insulin; Z79.82 Long term (current) use of aspirin; Z79.01 Long term (current) use of anticoagulants
CPT/HCPCS: 11042

== ENCOUNTER 2022-07-26 11:00 | Outpatient (CLI) | payer MEDICARE, OTHER ==
[2022-07-26] MEDS ORDERED: GENTAMICIN 0.1% CREAM 15 GM TUBE ONE (11:30)
== END 2022-07-26 23:59 | disposition home or self-care (01) ==
LOC: WOU 11:00
PROVIDERS: ATTEND Podiatrist Foot & Ankle Surgery
DX: E11.621 Type 2 diabetes mellitus with foot ulcer (principal); L97.522 Non-pressure chronic ulcer of other part of left foot with fat layer exposed; E11.22 Type 2 diabetes mellitus with diabetic chronic kidney disease; I12.0 Hypertensive chronic kidney disease with stage 5 chronic kidney disease or end stage renal disease; E11.51 Type 2 diabetes mellitus with diabetic peripheral angiopathy without gangrene; E11.40 Type 2 diabetes mellitus with diabetic neuropathy, unspecified; N18.6 End stage renal disease; Z99.2 Dependence on renal dialysis; Z79.4 Long term (current) use of insulin; Z79.82 Long term (current) use of aspirin; Z79.01 Long term (current) use of anticoagulants; L84 Corns and callosities; B35.1 Tinea unguium; Z89.411 Acquired absence of right great toe; Z89.422 Acquired absence of other left toe(s)
CPT/HCPCS: 11042

== ENCOUNTER 2022-07-26 11:55 | Outpatient (CLI) | payer MEDICARE, OTHER | END 2022-07-26 23:59 | disposition home or self-care (01) | LOC: MSC 11:55 | PROVIDERS: ATTEND Anesthesiology | DX: G89.4 Chronic pain syndrome (principal); M79.2 Neuralgia and neuritis, unspecified; E11.621 Type 2 diabetes mellitus with foot ulcer; L97.529 Non-pressure chronic ulcer of other part of left foot with unspecified severity; Z79.899 Other long term (current) drug therapy; E11.22 Type 2 diabetes mellitus with diabetic chronic kidney disease; N18.6 End stage renal disease; I25.10 Atherosclerotic heart disease of native coronary artery without angina pectoris; Z95.5 Presence of coronary angioplasty implant and graft; Z79.01 Long term (current) use of anticoagulants ==

== ENCOUNTER 2022-08-09 11:00 | Outpatient (CLI) | payer MEDICARE, OTHER ==
[2022-08-09] MEDS ORDERED: UREA 10% -AHA 4% CREAM 57 GM TUBE ONE (11:38)
== END 2022-08-09 23:57 | disposition home or self-care (01) ==
LOC: WOU 11:00
PROVIDERS: ATTEND Podiatrist Foot & Ankle Surgery
DX: E11.621 Type 2 diabetes mellitus with foot ulcer (principal); L97.522 Non-pressure chronic ulcer of other part of left foot with fat layer exposed; S90.812A Abrasion, left foot, initial encounter; X58.XXXA Exposure to other specified factors, initial encounter; Y92.89 Other specified places as the place of occurrence of the external cause; E11.22 Type 2 diabetes mellitus with diabetic chronic kidney disease; I12.0 Hypertensive chronic kidney disease with stage 5 chronic kidney disease or end stage renal disease; E11.40 Type 2 diabetes mellitus with diabetic neuropathy, unspecified; E11.51 Type 2 diabetes mellitus with diabetic peripheral angiopathy without gangrene; N18.6 End stage renal disease; Z99.2 Dependence on renal dialysis; Z79.4 Long term (current) use of insulin; M21.371 Foot drop, right foot; B35.1 Tinea unguium; L84 Corns and callosities; Z89.422 Acquired absence of other left toe(s)
CPT/HCPCS: G0463

== ENCOUNTER 2022-08-16 10:45 | Outpatient (CLI) | payer MEDICARE, OTHER | END 2022-08-16 23:59 | disposition home or self-care (01) | LOC: WOU 10:45 | PROVIDERS: ATTEND Podiatrist Foot & Ankle Surgery | DX: E11.621 Type 2 diabetes mellitus with foot ulcer (principal); L97.512 Non-pressure chronic ulcer of other part of right foot with fat layer exposed; S90.812D Abrasion, left foot, subsequent encounter; X58.XXXD Exposure to other specified factors, subsequent encounter; L84 Corns and callosities; B35.1 Tinea unguium; E11.22 Type 2 diabetes mellitus with diabetic chronic kidney disease; I12.0 Hypertensive chronic kidney disease with stage 5 chronic kidney disease or end stage renal disease; E11.40 Type 2 diabetes mellitus with diabetic neuropathy, unspecified; E11.51 Type 2 diabetes mellitus with diabetic peripheral angiopathy without gangrene; N18.6 End stage renal disease; Z99.2 Dependence on renal dialysis; Z79.4 Long term (current) use of insulin; Z79.84 Long term (current) use of oral hypoglycemic drugs; Z79.01 Long term (current) use of anticoagulants; Z79.82 Long term (current) use of aspirin; Z89.422 Acquired absence of other left toe(s) | CPT/HCPCS: 15275; Q4186 ×2 ==

== ENCOUNTER 2022-08-23 11:05 | Outpatient (CLI) | payer MEDICARE, OTHER | END 2022-08-23 23:59 | disposition home or self-care (01) | LOC: WOU 11:05 | PROVIDERS: ATTEND Podiatrist Foot & Ankle Surgery | DX: E11.621 Type 2 diabetes mellitus with foot ulcer (principal); L97.522 Non-pressure chronic ulcer of other part of left foot with fat layer exposed; E11.22 Type 2 diabetes mellitus with diabetic chronic kidney disease; I12.0 Hypertensive chronic kidney disease with stage 5 chronic kidney disease or end stage renal disease; E11.40 Type 2 diabetes mellitus with diabetic neuropathy, unspecified; E11.51 Type 2 diabetes mellitus with diabetic peripheral angiopathy without gangrene; N18.6 End stage renal disease; Z99.2 Dependence on renal dialysis; Z79.4 Long term (current) use of insulin; S90.812D Abrasion, left foot, subsequent encounter; X58.XXXD Exposure to other specified factors, subsequent encounter; Z79.82 Long term (current) use of aspirin; L84 Corns and callosities; B35.1 Tinea unguium; Z89.422 Acquired absence of other left toe(s) | CPT/HCPCS: 11042 ==

== ENCOUNTER 2022-08-30 10:49 | Outpatient (CLI) | payer MEDICARE, OTHER ==
[2022-08-30] MEDS ORDERED: MUPIROCIN 2% CREAM 15 GM TUBE TP ONE (11:04)
== END 2022-08-30 23:59 | disposition home or self-care (01) ==
LOC: WOU 10:49
PROVIDERS: ATTEND Podiatrist Foot & Ankle Surgery
DX: E11.621 Type 2 diabetes mellitus with foot ulcer (principal); L97.522 Non-pressure chronic ulcer of other part of left foot with fat layer exposed; E11.22 Type 2 diabetes mellitus with diabetic chronic kidney disease; I12.0 Hypertensive chronic kidney disease with stage 5 chronic kidney disease or end stage renal disease; E11.40 Type 2 diabetes mellitus with diabetic neuropathy, unspecified; E11.51 Type 2 diabetes mellitus with diabetic peripheral angiopathy without gangrene; N18.6 End stage renal disease; Z99.2 Dependence on renal dialysis; Z79.4 Long term (current) use of insulin; Z89.411 Acquired absence of right great toe; Z89.422 Acquired absence of other left toe(s); L84 Corns and callosities; B35.1 Tinea unguium
CPT/HCPCS: G0463

== ENCOUNTER 2022-09-13 11:33 | Outpatient (CLI) | payer MEDICARE, OTHER | END 2022-09-13 23:59 | disposition home or self-care (01) | LOC: WOU 11:33 | PROVIDERS: ATTEND Podiatrist Foot & Ankle Surgery | DX: E11.621 Type 2 diabetes mellitus with foot ulcer (principal); L97.522 Non-pressure chronic ulcer of other part of left foot with fat layer exposed; E11.22 Type 2 diabetes mellitus with diabetic chronic kidney disease; I12.0 Hypertensive chronic kidney disease with stage 5 chronic kidney disease or end stage renal disease; E11.40 Type 2 diabetes mellitus with diabetic neuropathy, unspecified; E11.51 Type 2 diabetes mellitus with diabetic peripheral angiopathy without gangrene; N18.6 End stage renal disease; Z99.2 Dependence on renal dialysis; Z79.4 Long term (current) use of insulin; B35.1 Tinea unguium; Z79.01 Long term (current) use of anticoagulants; Z79.82 Long term (current) use of aspirin; Z89.422 Acquired absence of other left toe(s); Z89.411 Acquired absence of right great toe | CPT/HCPCS: 15275; Q4158 ×2 ==

== ENCOUNTER 2022-09-20 11:44 | Outpatient (CLI) | payer MEDICARE, OTHER | END 2022-09-20 23:59 | disposition home or self-care (01) | LOC: WOU 11:44 | PROVIDERS: ATTEND Podiatrist Foot & Ankle Surgery | DX: E11.621 Type 2 diabetes mellitus with foot ulcer (principal); L97.528 Non-pressure chronic ulcer of other part of left foot with other specified severity; L84 Corns and callosities; E11.22 Type 2 diabetes mellitus with diabetic chronic kidney disease; I12.0 Hypertensive chronic kidney disease with stage 5 chronic kidney disease or end stage renal disease; E11.51 Type 2 diabetes mellitus with diabetic peripheral angiopathy without gangrene; E11.40 Type 2 diabetes mellitus with diabetic neuropathy, unspecified; N18.6 End stage renal disease; Z99.2 Dependence on renal dialysis; Z79.4 Long term (current) use of insulin; Z79.82 Long term (current) use of aspirin; Z79.01 Long term (current) use of anticoagulants; Z89.411 Acquired absence of right great toe; Z89.422 Acquired absence of other left toe(s) | CPT/HCPCS: G0463 ==

== ENCOUNTER 2022-09-27 11:32 | Outpatient (CLI) | payer MEDICARE, OTHER | END 2022-09-27 23:59 | disposition home or self-care (01) | LOC: WOU 11:32 | PROVIDERS: ATTEND Podiatrist Foot & Ankle Surgery | DX: E11.621 Type 2 diabetes mellitus with foot ulcer (principal); L97.522 Non-pressure chronic ulcer of other part of left foot with fat layer exposed; E11.22 Type 2 diabetes mellitus with diabetic chronic kidney disease; I12.0 Hypertensive chronic kidney disease with stage 5 chronic kidney disease or end stage renal disease; E11.40 Type 2 diabetes mellitus with diabetic neuropathy, unspecified; E11.51 Type 2 diabetes mellitus with diabetic peripheral angiopathy without gangrene; N18.6 End stage renal disease; Z99.2 Dependence on renal dialysis; Z79.4 Long term (current) use of insulin; Z89.411 Acquired absence of right great toe; Z89.422 Acquired absence of other left toe(s); Z95.820 Peripheral vascular angioplasty status with implants and grafts | CPT/HCPCS: 11042 ==

== ENCOUNTER 2022-10-07 11:36 | Outpatient (CLI) | payer MEDICARE, OTHER | END 2022-10-07 23:59 | disposition home or self-care (01) | LOC: WOU 11:36 | PROVIDERS: ATTEND Podiatrist Foot & Ankle Surgery | DX: E11.621 Type 2 diabetes mellitus with foot ulcer (principal); L97.522 Non-pressure chronic ulcer of other part of left foot with fat layer exposed; E11.42 Type 2 diabetes mellitus with diabetic polyneuropathy; E11.51 Type 2 diabetes mellitus with diabetic peripheral angiopathy without gangrene; E11.22 Type 2 diabetes mellitus with diabetic chronic kidney disease; I12.0 Hypertensive chronic kidney disease with stage 5 chronic kidney disease or end stage renal disease; N18.6 End stage renal disease; Z99.2 Dependence on renal dialysis; Z79.4 Long term (current) use of insulin; L02.612 Cutaneous abscess of left foot; B35.1 Tinea unguium; L84 Corns and callosities; Z79.01 Long term (current) use of anticoagulants; Z79.82 Long term (current) use of aspirin; Z89.422 Acquired absence of other left toe(s); Z89.411 Acquired absence of right great toe | CPT/HCPCS: 15275; Q4158 ==

== ENCOUNTER 2022-10-14 10:51 | Outpatient (CLI) | payer MEDICARE, OTHER | END 2022-10-14 23:59 | disposition home or self-care (01) | LOC: WOU 10:51 | PROVIDERS: ATTEND Podiatrist Foot & Ankle Surgery | DX: E11.621 Type 2 diabetes mellitus with foot ulcer (principal); L97.522 Non-pressure chronic ulcer of other part of left foot with fat layer exposed; E11.40 Type 2 diabetes mellitus with diabetic neuropathy, unspecified; E11.51 Type 2 diabetes mellitus with diabetic peripheral angiopathy without gangrene; Z79.4 Long term (current) use of insulin; Z79.01 Long term (current) use of anticoagulants; Z89.411 Acquired absence of right great toe; Z89.422 Acquired absence of other left toe(s); L84 Corns and callosities; B35.1 Tinea unguium | CPT/HCPCS: 11042 ==

== ENCOUNTER → 2022-11-01 | Outpatient (CLI) | payer MEDICARE, OTHER ==
[~2022-11-01] MED LIST changes: +MUPIROCIN 2% CREAM 15 GM TUBE TP ONE
== END | disposition home or self-care (01) ==
LOC: WOU 09:30
PROVIDERS: ATTEND Podiatrist Foot & Ankle Surgery
DX: E11.621 Type 2 diabetes mellitus with foot ulcer (principal); L97.522 Non-pressure chronic ulcer of other part of left foot with fat layer exposed; E11.22 Type 2 diabetes mellitus with diabetic chronic kidney disease; I12.0 Hypertensive chronic kidney disease with stage 5 chronic kidney disease or end stage renal disease; E11.40 Type 2 diabetes mellitus with diabetic neuropathy, unspecified; E11.51 Type 2 diabetes mellitus with diabetic peripheral angiopathy without gangrene; N18.6 End stage renal disease; Z99.2 Dependence on renal dialysis; Z79.4 Long term (current) use of insulin; L84 Corns and callosities; B35.1 Tinea unguium; Z89.411 Acquired absence of right great toe; Z89.422 Acquired absence of other left toe(s); Z79.82 Long term (current) use of aspirin; Z79.01 Long term (current) use of anticoagulants
CPT/HCPCS: 11042

== ENCOUNTER 2022-11-15 11:42 | Outpatient (CLI) | payer MEDICARE, OTHER ==
[~2022-11-15 11:42] MED LIST changes: -MUPIROCIN 2% CREAM 15 GM TUBE TP ONE
[2022-11-15] MEDS ORDERED: MUPIROCIN 2% CREAM 15 GM TUBE TP ONE (11:49)
== END 2022-11-15 23:59 | disposition home or self-care (01) ==
LOC: WOU 11:42
PROVIDERS: ATTEND Podiatrist Foot & Ankle Surgery
DX: E11.621 Type 2 diabetes mellitus with foot ulcer (principal); L97.522 Non-pressure chronic ulcer of other part of left foot with fat layer exposed; E11.22 Type 2 diabetes mellitus with diabetic chronic kidney disease; I12.0 Hypertensive chronic kidney disease with stage 5 chronic kidney disease or end stage renal disease; E11.40 Type 2 diabetes mellitus with diabetic neuropathy, unspecified; E11.51 Type 2 diabetes mellitus with diabetic peripheral angiopathy without gangrene; N18.6 End stage renal disease; Z99.2 Dependence on renal dialysis; Z79.4 Long term (current) use of insulin; L84 Corns and callosities; B35.1 Tinea unguium; Z79.01 Long term (current) use of anticoagulants; Z79.82 Long term (current) use of aspirin; Z89.422 Acquired absence of other left toe(s); Z89.421 Acquired absence of other right toe(s)
CPT/HCPCS: 11042

== ENCOUNTER 2022-11-25 10:37 | Outpatient (CLI) | payer MEDICARE, OTHER | END 2022-11-25 23:59 | disposition home or self-care (01) | LOC: WOU 10:37 | PROVIDERS: ATTEND Podiatrist Foot & Ankle Surgery | DX: E11.621 Type 2 diabetes mellitus with foot ulcer (principal); L97.522 Non-pressure chronic ulcer of other part of left foot with fat layer exposed; E11.22 Type 2 diabetes mellitus with diabetic chronic kidney disease; I12.0 Hypertensive chronic kidney disease with stage 5 chronic kidney disease or end stage renal disease; E11.40 Type 2 diabetes mellitus with diabetic neuropathy, unspecified; E11.51 Type 2 diabetes mellitus with diabetic peripheral angiopathy without gangrene; N18.6 End stage renal disease; Z99.2 Dependence on renal dialysis; Z79.4 Long term (current) use of insulin; Z79.01 Long term (current) use of anticoagulants; Z79.82 Long term (current) use of aspirin; Z89.422 Acquired absence of other left toe(s); Z89.411 Acquired absence of right great toe | CPT/HCPCS: 11042 ==

== ENCOUNTER 2022-12-02 10:50 | Outpatient (CLI) | payer MEDICARE, OTHER | END 2022-12-02 23:59 | disposition home or self-care (01) | LOC: WOU 10:50 | PROVIDERS: ATTEND Podiatrist Foot & Ankle Surgery | DX: E11.621 Type 2 diabetes mellitus with foot ulcer (principal); L97.522 Non-pressure chronic ulcer of other part of left foot with fat layer exposed; E11.22 Type 2 diabetes mellitus with diabetic chronic kidney disease; I12.0 Hypertensive chronic kidney disease with stage 5 chronic kidney disease or end stage renal disease; E11.40 Type 2 diabetes mellitus with diabetic neuropathy, unspecified; E11.51 Type 2 diabetes mellitus with diabetic peripheral angiopathy without gangrene; N18.6 End stage renal disease; Z99.2 Dependence on renal dialysis; Z79.4 Long term (current) use of insulin; L84 Corns and callosities; B35.1 Tinea unguium; Z89.422 Acquired absence of other left toe(s); Z89.411 Acquired absence of right great toe; Z79.82 Long term (current) use of aspirin | CPT/HCPCS: 15275; Q4186 ==

== ENCOUNTER 2022-12-09 11:04 | Outpatient (CLI) | payer MEDICARE, OTHER | END 2022-12-09 23:59 | disposition home or self-care (01) | LOC: WOU 11:04 | PROVIDERS: ATTEND Podiatrist Foot & Ankle Surgery | DX: E11.621 Type 2 diabetes mellitus with foot ulcer (principal); L97.522 Non-pressure chronic ulcer of other part of left foot with fat layer exposed; L97.518 Non-pressure chronic ulcer of other part of right foot with other specified severity; E11.22 Type 2 diabetes mellitus with diabetic chronic kidney disease; I12.0 Hypertensive chronic kidney disease with stage 5 chronic kidney disease or end stage renal disease; E11.40 Type 2 diabetes mellitus with diabetic neuropathy, unspecified; E11.51 Type 2 diabetes mellitus with diabetic peripheral angiopathy without gangrene; N18.6 End stage renal disease; Z99.2 Dependence on renal dialysis; Z79.4 Long term (current) use of insulin; Z79.82 Long term (current) use of aspirin; Z79.01 Long term (current) use of anticoagulants; Z89.411 Acquired absence of right great toe; Z89.422 Acquired absence of other left toe(s) | CPT/HCPCS: 15275; Q4186 ==

== ENCOUNTER 2022-12-23 11:00 | Outpatient (CLI) | payer MEDICARE, OTHER | END 2022-12-23 23:59 | disposition home or self-care (01) | LOC: WOU 11:00 | PROVIDERS: ATTEND Podiatrist Foot & Ankle Surgery | DX: E11.621 Type 2 diabetes mellitus with foot ulcer (principal); L97.524 Non-pressure chronic ulcer of other part of left foot with necrosis of bone; S91.311D Laceration without foreign body, right foot, subsequent encounter; X58.XXXD Exposure to other specified factors, subsequent encounter; E11.22 Type 2 diabetes mellitus with diabetic chronic kidney disease; I12.0 Hypertensive chronic kidney disease with stage 5 chronic kidney disease or end stage renal disease; E11.40 Type 2 diabetes mellitus with diabetic neuropathy, unspecified; E11.51 Type 2 diabetes mellitus with diabetic peripheral angiopathy without gangrene; N18.6 End stage renal disease; Z99.2 Dependence on renal dialysis; Z79.4 Long term (current) use of insulin; B35.1 Tinea unguium; L84 Corns and callosities; Z89.411 Acquired absence of right great toe; Z89.422 Acquired absence of other left toe(s) | CPT/HCPCS: 11044 ==

== ENCOUNTER 2022-12-30 10:48 | Outpatient (CLI) | payer MEDICARE, OTHER | END 2022-12-30 23:59 | disposition home or self-care (01) | LOC: WOU 10:48 | PROVIDERS: ATTEND Podiatrist Foot & Ankle Surgery | DX: E11.621 Type 2 diabetes mellitus with foot ulcer (principal); L97.522 Non-pressure chronic ulcer of other part of left foot with fat layer exposed; E11.22 Type 2 diabetes mellitus with diabetic chronic kidney disease; I12.0 Hypertensive chronic kidney disease with stage 5 chronic kidney disease or end stage renal disease; E11.51 Type 2 diabetes mellitus with diabetic peripheral angiopathy without gangrene; E11.40 Type 2 diabetes mellitus with diabetic neuropathy, unspecified; N18.6 End stage renal disease; Z99.2 Dependence on renal dialysis; Z79.4 Long term (current) use of insulin; L03.032 Cellulitis of left toe; L84 Corns and callosities; B35.1 Tinea unguium; Z89.411 Acquired absence of right great toe; Z89.422 Acquired absence of other left toe(s) | CPT/HCPCS: G0463 ==

== ENCOUNTER 2023-01-06 11:16 | Outpatient (CLI) | payer MEDICARE, OTHER | END 2023-01-06 23:59 | disposition home or self-care (01) | LOC: WOU 11:16 | PROVIDERS: ATTEND Podiatrist Foot & Ankle Surgery | DX: E11.621 Type 2 diabetes mellitus with foot ulcer (principal); L97.522 Non-pressure chronic ulcer of other part of left foot with fat layer exposed; E11.22 Type 2 diabetes mellitus with diabetic chronic kidney disease; I12.0 Hypertensive chronic kidney disease with stage 5 chronic kidney disease or end stage renal disease; E11.40 Type 2 diabetes mellitus with diabetic neuropathy, unspecified; E11.51 Type 2 diabetes mellitus with diabetic peripheral angiopathy without gangrene; E11.69 Type 2 diabetes mellitus with other specified complication; M86.172 Other acute osteomyelitis, left ankle and foot; N18.6 End stage renal disease; Z99.2 Dependence on renal dialysis; Z79.4 Long term (current) use of insulin; Z79.01 Long term (current) use of anticoagulants; Z79.82 Long term (current) use of aspirin; Z89.421 Acquired absence of other right toe(s); Z89.422 Acquired absence of other left toe(s) | CPT/HCPCS: 11042 ==

== ENCOUNTER 2023-01-18 14:31 | Outpatient (CLI) | payer MEDICARE, OTHER ==
[2023-01-18] MEDS ORDERED: DAKINS HALF STRENGTH (0.25%) 480 ML BOTTLE ONE (14:48)
[2023-01-18] MEDS ORDERED: CADEXOMER IODINE UD 5 GM TUBE ONE (15:00)
== END 2023-01-18 23:59 | disposition home or self-care (01) ==
LOC: WOU 14:31
PROVIDERS: ATTEND Podiatrist Foot & Ankle Surgery
DX: E11.621 Type 2 diabetes mellitus with foot ulcer (principal); L97.522 Non-pressure chronic ulcer of other part of left foot with fat layer exposed; E11.22 Type 2 diabetes mellitus with diabetic chronic kidney disease; I12.0 Hypertensive chronic kidney disease with stage 5 chronic kidney disease or end stage renal disease; E11.40 Type 2 diabetes mellitus with diabetic neuropathy, unspecified; E11.51 Type 2 diabetes mellitus with diabetic peripheral angiopathy without gangrene; E11.69 Type 2 diabetes mellitus with other specified complication; M86.172 Other acute osteomyelitis, left ankle and foot; N18.6 End stage renal disease; Z99.2 Dependence on renal dialysis; Z79.4 Long term (current) use of insulin; Z79.82 Long term (current) use of aspirin; Z79.01 Long term (current) use of anticoagulants; Z89.422 Acquired absence of other left toe(s); Z89.421 Acquired absence of other right toe(s)
CPT/HCPCS: 11043; 82962-TC; 87102-TC

== ENCOUNTER 2023-01-25 14:18 | Outpatient (CLI) | payer MEDICARE, OTHER ==
[2023-01-25] MEDS ORDERED: CADEXOMER IODINE UD 5 GM TUBE ONE (14:53)
== END 2023-01-25 23:59 | disposition home or self-care (01) ==
LOC: WOU 14:18
PROVIDERS: ATTEND Podiatrist Foot & Ankle Surgery
DX: E11.621 Type 2 diabetes mellitus with foot ulcer (principal); L97.522 Non-pressure chronic ulcer of other part of left foot with fat layer exposed; E11.22 Type 2 diabetes mellitus with diabetic chronic kidney disease; I12.0 Hypertensive chronic kidney disease with stage 5 chronic kidney disease or end stage renal disease; E11.69 Type 2 diabetes mellitus with other specified complication; E11.51 Type 2 diabetes mellitus with diabetic peripheral angiopathy without gangrene; E11.40 Type 2 diabetes mellitus with diabetic neuropathy, unspecified; M86.172 Other acute osteomyelitis, left ankle and foot; N18.6 End stage renal disease; B95.62 Methicillin resistant Staphylococcus aureus infection as the cause of diseases classified elsewhere; Z99.2 Dependence on renal dialysis; Z79.4 Long term (current) use of insulin; L84 Corns and callosities; B35.1 Tinea unguium; Z89.422 Acquired absence of other left toe(s); Z89.421 Acquired absence of other right toe(s); Z79.01 Long term (current) use of anticoagulants; Z79.82 Long term (current) use of aspirin
CPT/HCPCS: 11042

== ENCOUNTER → 2023-01-27 | Outpatient (CLI) | payer MEDICARE, OTHER | END | disposition home or self-care (01) | LOC: MRI 11:29 | PROVIDERS: ATTEND Podiatrist Foot & Ankle Surgery | DX: Z75.3 Unavailability and inaccessibility of health-care facilities (principal) ==

== ENCOUNTER 2023-02-01 14:55 | Outpatient (CLI) | payer MEDICARE, OTHER ==
[2023-02-01] MEDS ORDERED: CADEXOMER IODINE UD 5 GM TUBE ONE (14:56)
== END 2023-02-01 23:59 | disposition home or self-care (01) ==
LOC: WOU 14:55
PROVIDERS: ATTEND Podiatrist Foot & Ankle Surgery
DX: E11.621 Type 2 diabetes mellitus with foot ulcer (principal); L97.522 Non-pressure chronic ulcer of other part of left foot with fat layer exposed; E11.22 Type 2 diabetes mellitus with diabetic chronic kidney disease; I12.0 Hypertensive chronic kidney disease with stage 5 chronic kidney disease or end stage renal disease; E11.51 Type 2 diabetes mellitus with diabetic peripheral angiopathy without gangrene; E11.69 Type 2 diabetes mellitus with other specified complication; E11.40 Type 2 diabetes mellitus with diabetic neuropathy, unspecified; M86.172 Other acute osteomyelitis, left ankle and foot; N18.6 End stage renal disease; Z99.2 Dependence on renal dialysis; Z79.4 Long term (current) use of insulin; Z79.82 Long term (current) use of aspirin; Z79.01 Long term (current) use of anticoagulants; L84 Corns and callosities; B35.1 Tinea unguium; Z89.411 Acquired absence of right great toe; Z89.422 Acquired absence of other left toe(s)
CPT/HCPCS: 11042

== ENCOUNTER 2023-02-06 12:04 | Outpatient (CLI) | payer MEDICARE, OTHER | END 2023-02-06 23:59 | disposition home or self-care (01) | LOC: MRI 12:04 | PROVIDERS: ATTEND Podiatrist Foot & Ankle Surgery | DX: S93.142A Subluxation of metatarsophalangeal joint of left great toe, initial encounter (principal); E11.621 Type 2 diabetes mellitus with foot ulcer; X58.XXXA Exposure to other specified factors, initial encounter; Y93.89 Activity, other specified; Y92.89 Other specified places as the place of occurrence of the external cause; Y99.8 Other external cause status; Z89.422 Acquired absence of other left toe(s) | CPT/HCPCS: 73718-TC ==

== ENCOUNTER 2023-02-10 14:22 | Outpatient (CLI) | payer MEDICARE, OTHER ==
[~2023-02-10 14:22] MED LIST changes: +CADEXOMER IODINE UD 5 GM TUBE ONE
== END 2023-02-10 23:59 | disposition home or self-care (01) ==
LOC: WOU 14:22
PROVIDERS: ATTEND Podiatrist Foot & Ankle Surgery
DX: E11.621 Type 2 diabetes mellitus with foot ulcer (principal); L97.522 Non-pressure chronic ulcer of other part of left foot with fat layer exposed; E11.22 Type 2 diabetes mellitus with diabetic chronic kidney disease; I12.0 Hypertensive chronic kidney disease with stage 5 chronic kidney disease or end stage renal disease; E11.69 Type 2 diabetes mellitus with other specified complication; E11.51 Type 2 diabetes mellitus with diabetic peripheral angiopathy without gangrene; M86.172 Other acute osteomyelitis, left ankle and foot; E11.40 Type 2 diabetes mellitus with diabetic neuropathy, unspecified; N18.6 End stage renal disease; Z99.2 Dependence on renal dialysis; Z79.4 Long term (current) use of insulin; Z79.01 Long term (current) use of anticoagulants; B35.1 Tinea unguium; L84 Corns and callosities; Z89.422 Acquired absence of other left toe(s); Z89.411 Acquired absence of right great toe
CPT/HCPCS: 11042

== ENCOUNTER 2023-02-15 11:00 | Outpatient (CLI) | payer MEDICARE, OTHER ==
[~2023-02-15 11:00] MED LIST changes: -CADEXOMER IODINE UD 5 GM TUBE ONE
[2023-02-15] MEDS ORDERED: CADEXOMER IODINE UD 5 GM TUBE ONE (11:52)
== END 2023-02-15 23:59 | disposition home or self-care (01) ==
LOC: WOU 11:00
PROVIDERS: ATTEND Specialist
DX: E11.621 Type 2 diabetes mellitus with foot ulcer (principal); L97.522 Non-pressure chronic ulcer of other part of left foot with fat layer exposed; E11.22 Type 2 diabetes mellitus with diabetic chronic kidney disease; I12.0 Hypertensive chronic kidney disease with stage 5 chronic kidney disease or end stage renal disease; E11.40 Type 2 diabetes mellitus with diabetic neuropathy, unspecified; E11.51 Type 2 diabetes mellitus with diabetic peripheral angiopathy without gangrene; E11.69 Type 2 diabetes mellitus with other specified complication; M86.172 Other acute osteomyelitis, left ankle and foot; N18.6 End stage renal disease; Z99.2 Dependence on renal dialysis; Z79.4 Long term (current) use of insulin; Z79.82 Long term (current) use of aspirin; Z79.01 Long term (current) use of anticoagulants; R05.9 Cough, unspecified
CPT/HCPCS: 71046; G0463

== ENCOUNTER 2023-02-24 10:57 | Outpatient (CLI) | payer MEDICARE, OTHER ==
[2023-02-24] MEDS ORDERED: CADEXOMER IODINE UD 5 GM TUBE ONE (11:24)
== END 2023-02-24 23:59 | disposition home or self-care (01) ==
LOC: WOU 10:57
PROVIDERS: ATTEND Podiatrist Foot & Ankle Surgery
DX: E11.621 Type 2 diabetes mellitus with foot ulcer (principal); L97.522 Non-pressure chronic ulcer of other part of left foot with fat layer exposed; E11.22 Type 2 diabetes mellitus with diabetic chronic kidney disease; I12.0 Hypertensive chronic kidney disease with stage 5 chronic kidney disease or end stage renal disease; E11.40 Type 2 diabetes mellitus with diabetic neuropathy, unspecified; E11.51 Type 2 diabetes mellitus with diabetic peripheral angiopathy without gangrene; E11.69 Type 2 diabetes mellitus with other specified complication; M86.172 Other acute osteomyelitis, left ankle and foot; N18.6 End stage renal disease; Z99.2 Dependence on renal dialysis; Z79.4 Long term (current) use of insulin; Z79.01 Long term (current) use of anticoagulants; Z79.82 Long term (current) use of aspirin
CPT/HCPCS: 11043

== ENCOUNTER 2023-03-01 11:46 | Outpatient (CLI) | payer MEDICARE, OTHER | END 2023-03-01 23:59 | disposition home or self-care (01) | LOC: CARD 11:46 | DX: I70.203 Unspecified atherosclerosis of native arteries of extremities, bilateral legs (principal); I77.0 Arteriovenous fistula, acquired ==

== ENCOUNTER 2023-03-03 11:13 | Outpatient (CLI) | payer MEDICARE, OTHER ==
[2023-03-03] MEDS ORDERED: CADEXOMER IODINE UD 5 GM TUBE ONE (11:51)
== END 2023-03-03 23:59 | disposition home or self-care (01) ==
LOC: WOU 11:13
PROVIDERS: ATTEND Podiatrist Foot & Ankle Surgery
DX: E11.621 Type 2 diabetes mellitus with foot ulcer (principal); L97.522 Non-pressure chronic ulcer of other part of left foot with fat layer exposed; E11.22 Type 2 diabetes mellitus with diabetic chronic kidney disease; I12.0 Hypertensive chronic kidney disease with stage 5 chronic kidney disease or end stage renal disease; E11.40 Type 2 diabetes mellitus with diabetic neuropathy, unspecified; N18.6 End stage renal disease; Z99.2 Dependence on renal dialysis; E11.69 Type 2 diabetes mellitus with other specified complication; M86.172 Other acute osteomyelitis, left ankle and foot; Z79.4 Long term (current) use of insulin; Z79.01 Long term (current) use of anticoagulants; Z79.82 Long term (current) use of aspirin
CPT/HCPCS: 11042

== ENCOUNTER 2023-03-10 11:00 | Outpatient (CLI) | payer MEDICARE, OTHER ==
[2023-03-10] MEDS ORDERED: CADEXOMER IODINE UD 5 GM TUBE ONE ×2 (11:12→11:32)
== END 2023-03-10 23:59 | disposition home or self-care (01) ==
LOC: WOU 11:00
PROVIDERS: ATTEND Podiatrist Foot & Ankle Surgery
DX: E11.621 Type 2 diabetes mellitus with foot ulcer (principal); L97.522 Non-pressure chronic ulcer of other part of left foot with fat layer exposed; E11.22 Type 2 diabetes mellitus with diabetic chronic kidney disease; I12.0 Hypertensive chronic kidney disease with stage 5 chronic kidney disease or end stage renal disease; E11.40 Type 2 diabetes mellitus with diabetic neuropathy, unspecified; E11.51 Type 2 diabetes mellitus with diabetic peripheral angiopathy without gangrene; N18.6 End stage renal disease; Z99.2 Dependence on renal dialysis; Z79.4 Long term (current) use of insulin; Z79.82 Long term (current) use of aspirin; Z79.01 Long term (current) use of anticoagulants; L84 Corns and callosities; Z89.411 Acquired absence of right great toe; Z89.422 Acquired absence of other left toe(s)
CPT/HCPCS: 11042

== ENCOUNTER 2023-03-17 12:54 | Outpatient (CLI) | payer MEDICARE, OTHER ==
[~2023-03-17 12:54] MED LIST changes: +CADEXOMER IODINE UD 5 GM TUBE ONE
[2023-03-17 13:03] LABS: BASOPHILS % (AUTO) 0.7 % (0.0-2.0); EOSINOPHILS % (AUTO) 1.6 % (0.0-6.0); HEMATOCRIT 38 % (39-51); HEMOGLOBIN 12.1 g/dL (13.5-17.5); LYMPHOCYTES # (AUTO) 0.7 K/uL (0.8-4.8); LYMPHOCYTES % (AUTO) 13.3 % (20.0-44.0); MEAN CORPUSCULAR HGB CONC 32 g/dl (31.0-36.0); MEAN CORPUSCULAR VOLUME 88 fL (80-96); MONOCYTES # (AUTO) 0.4 K/uL (0.1-1.30); MONOCYTES % (AUTO) 7.6 % (2.0-12.0); NEUTROPHILS # (AUTO) 4.3 K/uL (1.8-8.9); NEUTROPHILS % (AUTO) 76.8 % (43.0-81.0); PLATELET COUNT (AUTO) 127 K/uL (150-450); RED BLOOD CELL COUNT(AUTO) 4.29 MIL/uL (4.5-6.0); WHITE BLOOD COUNT (AUTO) 5.6 K/uL (4.3-11.0)
== END 2023-03-17 23:59 | disposition home or self-care (01) ==
LOC: WOU 12:54
PROVIDERS: ATTEND Podiatrist Foot & Ankle Surgery
DX: E11.621 Type 2 diabetes mellitus with foot ulcer (principal); L97.522 Non-pressure chronic ulcer of other part of left foot with fat layer exposed; E11.51 Type 2 diabetes mellitus with diabetic peripheral angiopathy without gangrene; E11.69 Type 2 diabetes mellitus with other specified complication; M86.672 Other chronic osteomyelitis, left ankle and foot; E11.22 Type 2 diabetes mellitus with diabetic chronic kidney disease; I12.0 Hypertensive chronic kidney disease with stage 5 chronic kidney disease or end stage renal disease; N18.6 End stage renal disease; Z99.2 Dependence on renal dialysis; Z79.4 Long term (current) use of insulin; Z89.422 Acquired absence of other left toe(s); Z89.411 Acquired absence of right great toe; Z79.82 Long term (current) use of aspirin; Z79.01 Long term (current) use of anticoagulants
CPT/HCPCS: 87070; 84145; 85025; 85652; 36415; 86140; G0463

== ENCOUNTER 2023-03-24 11:28 | Outpatient (CLI) | payer MEDICARE, OTHER ==
[~2023-03-24 11:28] MED LIST changes: -CADEXOMER IODINE UD 5 GM TUBE ONE
== END 2023-03-24 23:59 | disposition home or self-care (01) ==
LOC: WOU 11:28
PROVIDERS: ATTEND Podiatrist Foot & Ankle Surgery
DX: E11.621 Type 2 diabetes mellitus with foot ulcer (principal); L97.522 Non-pressure chronic ulcer of other part of left foot with fat layer exposed; E11.22 Type 2 diabetes mellitus with diabetic chronic kidney disease; I12.0 Hypertensive chronic kidney disease with stage 5 chronic kidney disease or end stage renal disease; E11.40 Type 2 diabetes mellitus with diabetic neuropathy, unspecified; E11.51 Type 2 diabetes mellitus with diabetic peripheral angiopathy without gangrene; N18.6 End stage renal disease; Z99.2 Dependence on renal dialysis; Z79.4 Long term (current) use of insulin; L84 Corns and callosities; Z79.01 Long term (current) use of anticoagulants; Z79.82 Long term (current) use of aspirin; Z89.422 Acquired absence of other left toe(s); Z89.411 Acquired absence of right great toe
CPT/HCPCS: G0463

== ENCOUNTER 2023-03-28 13:15 | Outpatient (CLI) | payer MEDICARE, OTHER | END 2023-03-28 23:59 | disposition home or self-care (01) | LOC: MRI 13:15 | PROVIDERS: ATTEND Podiatrist Foot & Ankle Surgery | DX: S93.142A Subluxation of metatarsophalangeal joint of left great toe, initial encounter (principal); M86.8X7 Other osteomyelitis, ankle and foot; Z89.432 Acquired absence of left foot; S93.105A Unspecified dislocation of left toe(s), initial encounter; X58.XXXA Exposure to other specified factors, initial encounter; Y93.89 Activity, other specified; Y92.89 Other specified places as the place of occurrence of the external cause; Y99.8 Other external cause status | CPT/HCPCS: 73718-TC ==

== ENCOUNTER 2023-03-31 12:58 | Outpatient (CLI) | payer MEDICARE, OTHER | END 2023-03-31 23:59 | disposition home or self-care (01) | LOC: WOU 12:58 | PROVIDERS: ATTEND Podiatrist Foot & Ankle Surgery | DX: E11.621 Type 2 diabetes mellitus with foot ulcer (principal); L97.522 Non-pressure chronic ulcer of other part of left foot with fat layer exposed; E11.22 Type 2 diabetes mellitus with diabetic chronic kidney disease; I12.0 Hypertensive chronic kidney disease with stage 5 chronic kidney disease or end stage renal disease; E11.40 Type 2 diabetes mellitus with diabetic neuropathy, unspecified; E11.51 Type 2 diabetes mellitus with diabetic peripheral angiopathy without gangrene; E11.69 Type 2 diabetes mellitus with other specified complication; M86.672 Other chronic osteomyelitis, left ankle and foot; N18.6 End stage renal disease; Z99.2 Dependence on renal dialysis; Z79.4 Long term (current) use of insulin; Z79.82 Long term (current) use of aspirin; Z79.01 Long term (current) use of anticoagulants; L84 Corns and callosities; Z89.422 Acquired absence of other left toe(s); Z89.411 Acquired absence of right great toe | CPT/HCPCS: 11042 ==

== ENCOUNTER 2023-04-07 11:01 | Outpatient (CLI) | payer MEDICARE, OTHER | END 2023-04-07 23:59 | disposition home or self-care (01) | LOC: WOU 11:01 | PROVIDERS: ATTEND Podiatrist Foot & Ankle Surgery | DX: E11.40 Type 2 diabetes mellitus with diabetic neuropathy, unspecified (principal); E11.51 Type 2 diabetes mellitus with diabetic peripheral angiopathy without gangrene; Z79.4 Long term (current) use of insulin; L84 Corns and callosities; M21.371 Foot drop, right foot; Z89.411 Acquired absence of right great toe; Z89.422 Acquired absence of other left toe(s); Z79.82 Long term (current) use of aspirin; Z79.01 Long term (current) use of anticoagulants | CPT/HCPCS: G0463 ==

== ENCOUNTER 2023-11-08 11:41 | Inpatient (IN) | payer MEDICARE, OTHER ==
[~2023-11-08] VITALS: Ht 175.3 cm; Wt 59.9 kg
[2023-11-08] MEDS ORDERED: LIDOCAINE HCL/MPF 1% 30 ML VIAL IJ ONE (13:43)
[2023-11-08] MEDS ORDERED: IOHEXOL 50 ML IV ONE ×2 (13:43→14:44)
[2023-11-08] MEDS ORDERED: CELLULOSE,OXIDIZED 1 EA PACK MC ONE (13:43)
[2023-11-08] MEDS ORDERED: BACITRACIN/POLYMYXIN B 15 GM TUBE TP ONE (13:52)
[2023-11-08] MEDS ORDERED: LIDOCAINE 1% INJ 50 ML MDV IJ ONE (15:34)
[2023-11-08] MEDS ORDERED: CELLULOSE,OXIDIZED 1 EACH EACH MC ONE (16:08)
[2023-11-08] MEDS ORDERED: ROPIVACAINE HCL 0.5% 5 MG/ML 30ML VIAL ONE (16:38)
[2023-11-08] MEDS ORDERED: POLYMYXIN B SULFATE 500,000 UNITS ONE (16:42)
[2023-11-08] MEDS ORDERED: FENTANYL PF 100MCG/2ML AMPUL ONE (17:19)
[2023-11-08] MEDS ORDERED: DEXTROSE 50%-WATER 50 ML DISP.SYRIN IV PRN (17:30)
[2023-11-08] MEDS ORDERED: ACETAMINOPHEN 325 MG TABLET PO PRN (17:30)
[2023-11-08] MEDS ORDERED: ZOLPIDEM TARTRATE 5 MG TABLET PO PRN (17:30)
[2023-11-08] MEDS ORDERED: ONDANSETRON HCL/PF 4 MG/2 ML VIAL IVP PRN (17:30)
[2023-11-08] MEDS ORDERED: Z GUARD REMEDY 4 OZ OINT TP PRN (17:30)
[2023-11-08] MEDS ORDERED: INSULIN REGULAR, HUMAN 100 UNIT/ML 3 ML VIAL SQ PRN (17:30)
[2023-11-08] MEDS ORDERED: HYDROCODONE/APAP 5/325MG TABLET PO PRN ×2 (17:30→18:00)
[2023-11-08] MEDS ORDERED: MIDODRINE HCL (5MG) 5 MG TABLET PO PRN (18:00)
[2023-11-08] MEDS: CARVEDILOL 12.5 MG TABLET PO SCH (18:20)
[2023-11-08] MEDS: IBUPROFEN 400 MG TABLET PO PRN (18:20)
[2023-11-08] MEDS: BLOOD SUGAR DIAGNOSTIC 1 EACH STRIP IN SCH ×2 (18:32→22:00)
[2023-11-08] MEDS: ANCEF 1 GM/50 ML D5W IV SCH ×2 (21:27)
[2023-11-09] MEDS: ANCEF 1 GM/50 ML D5W IV SCH ×2 (04:59)
[2023-11-09] MEDS: IBUPROFEN 400 MG TABLET PO PRN (05:25)
[2023-11-09 06:54] LABS: BASOPHILS % (AUTO) 0.6 % (0.0-2.0); EOSINOPHILS # (AUTO) 0.3 K/uL (0.0-0.7); EOSINOPHILS % (AUTO) 4.4 % (0.0-6.0); HEMATOCRIT 42 % (39-51); HEMOGLOBIN 13.5 g/dL (13.5-17.5); LYMPHOCYTES # (AUTO) 1.1 K/uL (0.8-4.8); LYMPHOCYTES % (AUTO) 14.3 % (20.0-44.0); MEAN CORPUSCULAR HEMOGLOBIN 30 PG (26.0-33.0); MEAN CORPUSCULAR HGB CONC 33 g/dl (31.0-36.0); MEAN CORPUSCULAR VOLUME 91 fL (80-96); MONOCYTES # (AUTO) 0.8 K/uL (0.1-1.30); MONOCYTES % (AUTO) 10.8 % (2.0-12.0); NEUTROPHILS # (AUTO) 5.2 K/uL (1.8-8.9); NEUTROPHILS % (AUTO) 69.9 % (43.0-81.0); PLATELET COUNT (AUTO) 175 K/uL (150-450); RED BLOOD CELL COUNT(AUTO) 4.55 MIL/uL (4.5-6.0); WHITE BLOOD COUNT (AUTO) 7.4 K/uL (4.3-11.0)
[2023-11-09 07:12] LABS: CALCIUM, SERUM 9.2 mg/dL (8.5-10.1); CARBON DIOXIDE 25 mmol/L (21-32); CHLORIDE 100 mmol/L (98-107); MAGNESIUM 2.1 mg/dL (1.8-2.4); PHOSPHORUS 5.9 mg/dL (2.5-4.9); POTASSIUM 5.4 mmol/L (3.5-5.1); SODIUM SERUM 139 mmol/L (136-145); UREA NITROGEN, BLOOD 64 mg/dL (7-18)
[2023-11-09] MEDS ORDERED: PANTOPRAZOLE 40 MG TABLET.DR PO SCH (07:30)
[2023-11-09] MEDS: BLOOD SUGAR DIAGNOSTIC 1 EACH STRIP IN SCH ×2 (07:30→12:29)
[2023-11-09 08:00] VITALS: BP 136/54; TEMP 97.6; O2SAT 99
[2023-11-09 08:08] LABS: CREATININE 7.9 mg/dL (0.6-1.3); GLUCOSE 48 mg/dL (74-106)
[2023-11-09] MEDS ORDERED: IBUPROFEN 400 MG TABLET PO PRN (08:30)
[2023-11-09] MEDS ORDERED: APIXABAN 2.5 MG TABLET PO SCH (09:00)
[2023-11-09 09:29] VITALS: BP 136/54
[2023-11-09] MEDS: CARVEDILOL 12.5 MG TABLET PO SCH (09:29)
[2023-11-09] MEDS ORDERED: ALBUMIN 25% 25 GM in PREMIX 1 EA IV PRN (14:00)
== END 2023-11-09 17:45 | disposition home or self-care (01) | DRG 252 ==
LOC: DS 11:41 → MED 14:34
PROC: B51WYZZ Fluoroscopy of Dialysis Shunt/Fistula using Other Contrast (ICD-10-PCS; principal; 2023-11-08)
PROC: 03WY0JZ Revision of Synthetic Substitute in Upper Artery, Open Approach (ICD-10-PCS; 2023-11-08)
PROC: 057Y3ZZ Dilation of Upper Vein, Percutaneous Approach (ICD-10-PCS; 2023-11-08)
PROC: B51VYZZ Fluoroscopy of Other Veins using Other Contrast (ICD-10-PCS; 2023-11-08)
PROC: 5A1D70Z Performance of Urinary Filtration, Intermittent, Less than 6 Hours Per Day (ICD-10-PCS; 2023-11-09)
DX: T82.898A Other specified complication of vascular prosthetic devices, implants and grafts, initial encounter (principal); N18.6 End stage renal disease; I13.2 Hypertensive heart and chronic kidney disease with heart failure and with stage 5 chronic kidney disease, or end stage renal disease; D63.8 Anemia in other chronic diseases classified elsewhere; E11.621 Type 2 diabetes mellitus with foot ulcer; E21.3 Hyperparathyroidism, unspecified; E78.5 Hyperlipidemia, unspecified; I25.10 Atherosclerotic heart disease of native coronary artery without angina pectoris; I50.9 Heart failure, unspecified; M89.8X9 Other specified disorders of bone, unspecified site; Z85.46 Personal history of malignant neoplasm of prostate; Z99.2 Dependence on renal dialysis; Z87.891 Personal history of nicotine dependence; Z79.4 Long term (current) use of insulin; E11.22 Type 2 diabetes mellitus with diabetic chronic kidney disease; Y84.8 Other medical procedures as the cause of abnormal reaction of the patient, or of later complication, without mention of misadventure at the time of the procedure; Y92.009 Unspecified place in unspecified non-institutional (private) residence as the place of occurrence of the external cause; Z95.5 Presence of coronary angioplasty implant and graft; L97.519 Non-pressure chronic ulcer of other part of right foot with unspecified severity
CPT/HCPCS: 36415; 71045-TC; 80048-TC; 82962-TC; 83735-TC; 84100-TC; 84132-TC; 85025-TC; A4216; A4223; A6209; C1725; C1768; C1769; C1894; G0378; J0690; J1644; J1815; J2704; J2765; J2795; J3010; J3490; J7030; J7050; J7060; P9047; Q9967

== ENCOUNTER 2024-02-22 18:01 | Emergency (ER) | payer MEDICARE, OTHER ==
[~2024-02-22] VITALS: Ht 182.9 cm; Wt 69.4 kg
[2024-02-22 18:14] VITALS: BP 145/64; TEMP 98; O2SAT 99
[2024-02-22] MEDS ORDERED: IBUPROFEN 400 MG TABLET ONE (18:25)
[2024-02-22] MEDS: IBUPROFEN 400 MG TABLET PO ONE (18:28)
[2024-02-22] MEDS ORDERED: TYL2T PO (20:00)
[2024-02-22] MEDS ORDERED: IBUP-1953 PO (20:00)
== END 2024-02-22 20:13 | disposition home or self-care (01) ==
LOC: ER 18:08
DX: S89.92XA Unspecified injury of left lower leg, initial encounter (principal); I10 Essential (primary) hypertension; E78.00 Pure hypercholesterolemia, unspecified; K21.9 Gastro-esophageal reflux disease without esophagitis; E11.9 Type 2 diabetes mellitus without complications; E21.3 Hyperparathyroidism, unspecified; Z79.4 Long term (current) use of insulin; Z79.899 Other long term (current) drug therapy; W18.30XA Fall on same level, unspecified, initial encounter; Y93.89 Activity, other specified; Y92.89 Other specified places as the place of occurrence of the external cause; Y99.8 Other external cause status
CPT/HCPCS: 73564-TC; 73590-TC

== ENCOUNTER 2024-12-22 09:59 | Emergency (ER) | payer MEDICARE, OTHER ==
[~2024-12-22] VITALS: Ht 165.1 cm; Wt 64.4 kg
[~2024-12-22 09:59] MED LIST changes: +IBUP-1953 PO; +TYL2T PO
[2024-12-22 10:46] LABS: BASOPHILS # (AUTO) 0.3 K/uL (0.0-0.2); BASOPHILS % (AUTO) 2.4 % (0.0-2.0); EOSINOPHILS # (AUTO) 0.1 K/uL (0.0-0.7); EOSINOPHILS % (AUTO) 0.5 % (0.0-6.0); HEMATOCRIT 35 % (39-51); HEMOGLOBIN 11.6 g/dL (13.5-17.5); LYMPHOCYTES # (AUTO) 0.6 K/uL (0.8-4.8); LYMPHOCYTES % (AUTO) 5.9 % (20.0-44.0); MEAN CORPUSCULAR HEMOGLOBIN 29 PG (26.0-33.0); MEAN CORPUSCULAR HGB CONC 33 g/dl (31.0-36.0); MEAN CORPUSCULAR VOLUME 89 fL (80-96); MONOCYTES # (AUTO) 0.6 K/uL (0.1-1.30); MONOCYTES % (AUTO) 5.4 % (2.0-12.0); NEUTROPHILS # (AUTO) 8.9 K/uL (1.8-8.9); NEUTROPHILS % (AUTO) 85.8 % (43.0-81.0); PLATELET COUNT (AUTO) 304 K/uL (150-450); RED BLOOD CELL COUNT(AUTO) 3.93 MIL/uL (4.5-6.0); RED CELL DISTRIBUTION WIDTH 16.2 % (11.5-15.0); WHITE BLOOD COUNT (AUTO) 10.4 K/uL (4.3-11.0)
[2024-12-22 10:56] LABS: CARBON DIOXIDE 28 mmol/L (21-32); CHLORIDE 98 mmol/L (98-107); CREATININE 4.5 mg/dL (0.6-1.3); GLUCOSE 137 mg/dL (74-106); POTASSIUM 4.1 mmol/L (3.5-5.1); SODIUM SERUM 138 mmol/L (136-145); UREA NITROGEN, BLOOD 23 mg/dL (7-18)
[2024-12-22 10:59] LABS: ALKALINE PHOSPHATASE 155 U/L (46-116); ASPARTATE AMINOTRANSFERASE 16 U/L (15-37); BILIRUBIN,DIRECT 0.4 mg/dL (0.0-0.2); BILIRUBIN,TOTAL 1.2 mg/dL (0.2-1.0)
[2024-12-22 11:00] LABS: ALANINE AMINOTRANSFERASE 12 U/L (12-78); ALBUMIN 2.6 g/dL (3.4-5.0); LIPASE 29 U/L (16-77); TOTAL PROTEIN, SERUM 7.4 g/dL (6.4-8.2)
[2024-12-22 15:26] VITALS: BP 134/76; TEMP 98.8; O2SAT 95
== END 2024-12-22 15:27 | disposition home or self-care (01) ==
LOC: ER 10:03
DX: K85.90 Acute pancreatitis without necrosis or infection, unspecified (principal); I12.0 Hypertensive chronic kidney disease with stage 5 chronic kidney disease or end stage renal disease; E11.22 Type 2 diabetes mellitus with diabetic chronic kidney disease; E11.42 Type 2 diabetes mellitus with diabetic polyneuropathy; N18.6 End stage renal disease; E78.5 Hyperlipidemia, unspecified; Z79.01 Long term (current) use of anticoagulants; Z79.82 Long term (current) use of aspirin; Z79.899 Other long term (current) drug therapy; Z86.718 Personal history of other venous thrombosis and embolism; Z87.19 Personal history of other diseases of the digestive system; Z99.2 Dependence on renal dialysis
CPT/HCPCS: 36415; 71045-TC; 80048-TC; 80076-TC; 83690-TC; 84484-TC; 85025-TC; 87040-TC

== ENCOUNTER 2025-10-10 11:14 | Outpatient (CLI) | payer MEDICARE, OTHER | END 2025-10-10 23:59 | disposition home or self-care (01) | LOC: WOU 11:14 | PROVIDERS: ATTEND Podiatrist Foot & Ankle Surgery | DX: E11.621 Type 2 diabetes mellitus with foot ulcer (principal); L97.412 Non-pressure chronic ulcer of right heel and midfoot with fat layer exposed; L97.512 Non-pressure chronic ulcer of other part of right foot with fat layer exposed; E11.622 Type 2 diabetes mellitus with other skin ulcer; L97.822 Non-pressure chronic ulcer of other part of left lower leg with fat layer exposed; E11.40 Type 2 diabetes mellitus with diabetic neuropathy, unspecified; E11.51 Type 2 diabetes mellitus with diabetic peripheral angiopathy without gangrene; L60.2 Onychogryphosis; L84 Corns and callosities; B35.1 Tinea unguium; Z89.411 Acquired absence of right great toe; Z89.422 Acquired absence of other left toe(s); Z79.4 Long term (current) use of insulin; Z79.82 Long term (current) use of aspirin | CPT/HCPCS: 11042; A6209 ×2 ==